=== PATIENT | male | born 1965 | race African-American/Black ===

== ENCOUNTER 2016-10-23 10:20 | Inpatient (IN) | payer OTHER ==
[2016-10-23 10:35] VITALS: BMI 27.2
--- NOTE | 2016-10-23 13:34 | HP ---
CIWA Score - CIWA Score Nausea/Vomitin Muscle Tremors: 3 Anxiety: 3 Agitation: 3 Paroxysmal Sweats: 2 Orientation: 0-Oriented Tacttile Disturbances: 2-Mild Itch/Numbness/Burn Auditory Disturbances: 2-Mild Harshness/Frighten Visual Disturbances: 2-Mild Sensitivity Headache: 2-Mild CIWA-Ar Total Score: 22 Admission ROS BHS - HPI Chief Complaint: I NEED HELP TO STOP DRINKING ALCOHOL,COCAINE AND MARIJUANA Allergies/Adverse Reactions: Allergies Allergy/AdvReac Type Severity Reaction Status Date / Time sulfamethoxazole Allergy Intermediate Itching Verified 10/23/16 12:28 [From Bactrim DS] trimethoprim Allergy Intermediate Itching Verified 10/23/16 12:28 [From Bactrim DS] Fish Containing Products Allergy Mild Itching Verified 10/23/16 12:28 History of Present Illness: THIS 51 YEARS OLD MALE WITH ALCOHOL,COCAINE AND MARIJUANA DEPENDENCE,WITHDRAWAL SYMPTOM, LAST DETOX 04/09/16 04/13/16 NICOTINE DEPENDENCE BIPOLAR DISORDER LONGEST SOBRIETY 2 AND HALF YEARS HIV SINCE 1988 Exam Limitations: No Limitations - Ebola screening Have you traveled outside of the country in the last 21 days: No Have you been sick,other than usual withdrawal symptoms: No - Review of Systems Constitutional: Chills, Loss of Appetite, Malaise, Night Sweats, Changes in sleep, Weakness, Unintentional Wgt. Loss EENT: reports: Nose Congestion Respiratory: reports: No Symptoms reported Cardiac: reports: Palpitations GI: reports: Nausea, Poor Appetite, Vomiting, Abdominal cramping : reports: No Symptoms Reported Musculoskeletal: reports: Back Pain, Muscle Pain Integumentary: reports: Dryness Neuro: reports: Headache, Tremors Endocrine: reports: Other (HYPOTHROIDISM) Hematology: reports: Other (HIV) Psychiatric: reports: Judgement Intact, Mood/Affect Appropiate, Anxious, Depressed, other (BIPOLAR DISORDER) Patient History - Patient Medical History Hx Anemia: No Hx Asthma: No Hx Chronic Obstructive Pulmonary Disease (COPD): No Hx Cancer: No Hx Cardiac Disorders: No Hx Hypertension: Yes (ON MED) Hx Hypercholesterolemia: Yes (ON MED) Hx Pacemaker: No HX Cerebrovascular Accident: No Hx Seizures: Yes (alcohol related-last episode was in 12/2015) Hx Dementia: No Hx Diabetes: No Hx Gastrointestinal Disorders: Yes (acid reflux) Hx Liver Disease: No Hx Genitourinary Disorders: No Hx Sexually Transmitted Disorders: Yes (gonorrhea and syphilis) Hx Renal Disease (ESRD): No Hx Thyroid Disease: Yes (hypothyroidism) Hx Human Immunodeficiency Virus (HIV): Yes (since 1988/ undetectable tcell 325) Hx Hepatitis C: No Hx Depression: Yes Hx Suicide Attempt: No Hx Bipolar Disorder: Yes (ON MED) Hx Schizophrenia: No Other Medical History: NO SUICIDAL,NO HOMICIDAL - Patient Surgical History Past Surgical History: Yes Hx Neurologic Surgery: No Hx Cataract Extraction: No Hx Cardiac Surgery: No Hx Lung Surgery: No Hx Breast Surgery: No Hx Breast Biopsy: No Hx Abdominal Surgery: Yes (repair of umbilical hernia) Hx Appendectomy: No Hx Cholecystectomy: No Hx Genitourinary Surgery: No Hx Section: No Hx Orthopedic Surgery: No Anesthesia Reaction: No - PPD History Previous Implant?: Yes Documented Results: Negative w/proof Implanted On Prior [facility] Admission?: Yes Date: 01/17/16 Results: 0 mm PPD to be Administered?: No - Smoking Cessation Smoking history: Current every day smoker Have you smoked in the past 12 months: Yes Aproximately how many cigarettes per day: 20 Cigars Per Day: 0 Hx Chewing Tobacco Use: No Initiated information on smoking cessation: Yes 'Breaking Loose' booklet given: 10/23/16 - Substance & Tx. History Hx Alcohol Use: Yes Substance Use Type: Alcohol, Cocaine, Marijuana - Substances Abused Crack Route: Smoking Frequency: Daily Amount used: $30 Age of first use: 22 Date of Last Use: 10/23/16 Alcohol-vodka/beer Route: Oral Frequency: Daily Amount used: 1/2 gal./1-6 pk. Age of first use: 12 Date of Last Use: 10/23/16 Marijuana Route: Smoking Frequency: Daily Amount used: $20 Age of first use: 17 Date of Last Use: 10/21/16 Family Disease History - Family Disease History Family Disease History: Diabetes: Grandparent, Father (alcohol,), Mother (alcohol,), Other: Father, Mother Admission Physical Exam BHS - Vital Signs Vital Signs: Vital Signs - 24 hr 10/23/16 10:33 Temperature 97.1 F L Pulse Rate 94 H Respiratory 18 Rate Blood Pressure 161/113 - Physical General Appearance: Yes: Moderate Distress, Alcohol on Breath, Intoxicated, Tremorous, Irritable, Sweating HEENTM: Yes: Nasal Congestion, Rhinorrhea Respiratory: Yes: Lungs Clear, Normal Breath Sounds, No Respiratory Distress Neck: Yes: Within Normal Limits Breast: Yes: Within Normal Limits Cardiology: Yes: Within Normal Limits, Regular Rhythm, Regular Rate, S1, S2 Abdominal: Yes: Within Normal Limits, Normal Bowel Sounds, Non Tender, Flat, Soft, Surgical Scar Genitourinary: Yes: Within Normal Limits Back: Yes: Normal Inspection, Muscle Spasm Musculoskeletal: Yes: Back pain, Muscle Pain Extremities: Yes: Within Normal Limits, Normal Capillary Refill, Normal Range of Motion, Tremors Neurological: Yes: Within Normal Limits, boat fueler II-XII NML intact, Fully Oriented, Alert, Motor Strength 5/5 Integumentary: Yes: Dry Lymphatic: Yes: Within Normal Limits - Diagnostic (1) Alcohol dependence with uncomplicated withdrawal Current Visit: No Status: Acute (2) Cocaine dependence Current Visit: No Status: Acute Qualifiers: Substance use status: uncomplicated Qualified Code(s): F14.20 - Cocaine dependence, uncomplicated (3) Nicotine dependence Status: Acute Qualifiers: Nicotine product type: cigarettes Substance use status: uncomplicated Qualified Code(s): F17.210 - Nicotine dependence, cigarettes, uncomplicated (4) Essential hypertension Current Visit: No Status: Chronic (5) Hypercholesterolemia Current Visit: No Status: Chronic (6) Hypothyroidism Current Visit: No Status: Chronic (7) GERD (gastroesophageal reflux disease) Current Visit: Yes Status: Acute (8) Weight loss Current Visit: Yes Status: Acute (9) AIDS (acquired immunodeficiency syndrome) Current Visit: Yes Status: Acute Cleared for Admission [facility] - Detox or Rehab [facility] Level of Care: Medically Managed Detox Regimen/Protocol: Librium [facility] Breath Alcohol Content Breath Alcohol Content: 0.139 Urine Drug Screen - Results Drug Screen Negative: No Urine Drug Screen Results: THC-Marijuana, EMIR-Cocaine
[2016-10-23] MEDS ORDERED: MENTHOL/PHENOL 1 EACH UD MM PRN (13:50)
[2016-10-23] MEDS ORDERED: MAGNESIUM HYDROX 2400MG/30ML ORAL SUSPENSION 30 ML CUP PO PRN (13:50)
[2016-10-23] MEDS ORDERED: P-EPHED 60MG/TRIPROLIDI 2.5MG TABLET PO PRN (13:50)
[2016-10-23] MEDS ORDERED: diphenhydrAMINE HCL 50 MG CAPSULE PO PRN (13:50)
[2016-10-23] MEDS ORDERED: ACETAMINOPHEN 325 MG TABLET (FP) PO PRN (13:50)
[2016-10-23] MEDS ORDERED: chlordiazePOXIDE HCL 25 MG CAPSULE PO PRN (13:50)
[2016-10-23] MEDS ORDERED: guaiFENesin/D-METHORPHAN HB 10 ML UNIT-DOSE CUPS PO PRN (13:50)
[2016-10-23] MEDS ORDERED: IBUPROFEN 400 MG TABLET (FP) PO PRN (13:50)
[2016-10-23] MEDS ORDERED: NICOTINE POLACRILEX 2 MG GUM BUC PRN (13:50)
[2016-10-23] MEDS ORDERED: LOPERAMIDE HCL 2 MG CAPSULE PO PRN (13:50)
[2016-10-23] MEDS ORDERED: hydrOXYzine PAMOATE 25 MG CAPSULE (FP) PO PRN (13:50)
[2016-10-23] MEDS ORDERED: MAGNESIUM CITRATE 300 ML BOTTLE PO PRN (13:50)
[2016-10-23] MEDS ORDERED: chlordiazePOXIDE HCL 25 MG CAPSULE PO ONE (13:55)
[2016-10-23] MEDS: MAG HYDROX/AL HYDROX/SIMETH 30 ML UNIT-DOSE CUP PO PRN ×2 (14:23→20:34)
[2016-10-23] MEDS: NICOTINE 21 MG/24 HOURS TOPICAL PATCH TD SCH (14:23)
--- NOTE | 2016-10-23 15:35 | EKG ---
Test Reason : Blood Pressure : / mmHG Vent. Rate : 083 BPM Atrial Rate : 083 BPM P-R Int : 164 ms QRS Dur : 104 ms QT Int : 404 ms P-R-T Axes : 071 030 024 degrees QTc Int : 474 ms NORMAL SINUS RHYTHM POSSIBLE LEFT ATRIAL ENLARGEMENT LEFT VENTRICULAR HYPERTROPHY ABNORMAL ECG NO PREVIOUS ECGS AVAILABLE Confirmed by JONY CALZADA, KENDRA ([id number]) on 10/23/2016 3:35:14 PM Referred By: Confirmed By:KENDRA BORGES MD
[2016-10-23] MEDS: chlordiazePOXIDE HCL 25 MG CAPSULE PO SCH ×2 (17:21→22:28)
[2016-10-23 20:30] LABS: URINE APPEARANCE CLEAR; URINE BILIRUBIN NEGATIVE (NEGATIVE); URINE COLOR STRAW; URINE GLUCOSE (UA) NEGATIVE (NEGATIVE); URINE KETONE NEGATIVE (NEGATIVE); URINE LEUK ESTERASE NEGATIVE (NEGATIVE); URINE NITRITE NEGATIVE (NEGATIVE); URINE UROBILINOGEN NEGATIVE E.U./dl (0.2-1.0)
[2016-10-23 20:36] LABS: URINE BLOOD 1+ (NEGATIVE); URINE PROTEIN 1+ (NEGATIVE)
[2016-10-23 20:46] LABS: URINE RBC 2 /hpf (0-3); URINE WBC <1 /hpf (3-5)
[2016-10-23] MEDS ORDERED: METOPROLOL SUCCINATE 25 MG TAB.SR.24H (FP) PO SCH (22:00)
[2016-10-23] MEDS: ATORVASTATIN CA 40 MG TABLET (FP) PO SCH (22:28)
[2016-10-23] MEDS: THIAMINE HCL 100 MG TABLET (FP) PO SCH (22:28)
[2016-10-23] MEDS: METOPROLOL SUCCINATE 25 MG TAB.SR.24H (FP) PO SCH (23:02)
[2016-10-24] MEDS ORDERED: LEVOTHYROXINE NA 100 MCG TABLET (FP) ONE (05:27)
[2016-10-24] MEDS ORDERED: LEVOTHYROXINE NA 25 MCG TABLET (FP) ONE (05:27)
[2016-10-24] MEDS: LEVOTHYROXINE 75 MCG, LEVOTHYROXINE 100 MCG PO SCH (06:11)
[2016-10-24] MEDS: chlordiazePOXIDE HCL 25 MG CAPSULE PO SCH ×4 (06:12→22:24)
[2016-10-24 09:45] LABS: MCH 31.3 pg (25.7-33.7); MCHC 33.4 g/dl (32.0-35.9); MEAN CELL VOLUME 93.7 fl (80-96); MEAN PLT VOLUME 11.2 fl (7.5-11.1); PLATELET COUNT 160 K/MM3 (134-434); RDW 14.7 % (11.9-15.9); WHITE BLOOD COUNT 8.1 K/mm3 (4.0-10.0)
[2016-10-24] MEDS ORDERED: LEVOTHYROXINE NA 175 MCG TABLET PO SCH (10:00)
[2016-10-24] MEDS: PRENATAL VITAMINS W/ FOLIC ACID TABLET (FP) PO SCH (10:29)
[2016-10-24] MEDS: METOPROLOL SUCCINATE 25 MG TAB.SR.24H (FP) PO SCH ×2 (10:29→22:25)
[2016-10-24] MEDS: NICOTINE 21 MG/24 HOURS TOPICAL PATCH TD SCH (10:29)
--- NOTE | 2016-10-24 11:04 | PN ---
[facility] CIWA - CIWA Score Nausea/Vomitin-No Nausea/No Vomiting Muscle Tremors: 4-Moderate,w/Arms Extend Anxiety: 4-Mod. Anxious/Guarded Agitation: 4-Moderately Restless Paroxysmal Sweats: 1-Minimal Palms Moist Orientation: 0-Oriented Tacttile Disturbances: 3-Moderate Itch/Numb/Burn Auditory Disturbances: 0-None Visual Disturbances: 0-None Headache: 0-None Present CIWA-Ar Total Score: 16 BHS Progress Note (SOAP) Subjective: ANXIETY,SWEATS,TREMORS,FATIGUE. Objective: 10/24/16 11:03 Vital Signs Temperature 97 F L 10/24/16 10:00 Pulse Rate 91 H 10/24/16 10:00 Respiratory Rate 20 10/24/16 10:00 Blood Pressure 147/100 10/24/16 10:00 O2 Sat by Pulse Oximetry (%) Laboratory Last Values WBC 8.1 K/mm3 (4.0-10.0) D 10/24/16 06:00 RBC 5.13 M/mm3 (4.00-5.60) 10/24/16 06:00 Hgb 16.1 GM/dL (11.7-16.9) 10/24/16 06:00 Hct 48.1 % (35.4-49) 10/24/16 06:00 MCV 93.7 fl (80-96) 10/24/16 06:00 MCHC 33.4 g/dl (32.0-35.9) 10/24/16 06:00 RDW 14.7 % (11.9-15.9) 10/24/16 06:00 Plt Count 160 K/MM3 (134-434) 10/24/16 06:00 MPV 11.2 fl (7.5-11.1) H 10/24/16 06:00 Urine Color Straw 10/23/16 13:00 Urine Appearance Clear 10/23/16 13:00 Urine pH 6.0 (5.0-8.0) 10/23/16 13:00 Ur Specific [place] 1.003 (1.001-1.035) 10/23/16 13:00 Urine Protein 1+ (NEGATIVE) H 10/23/16 13:00 Urine Glucose (UA) Negative (NEGATIVE) 10/23/16 13:00 Urine Ketones Negative (NEGATIVE) 10/23/16 13:00 Urine Blood 1+ (NEGATIVE) H 10/23/16 13:00 Urine Nitrite Negative (NEGATIVE) 10/23/16 13:00 Urine Bilirubin Negative (NEGATIVE) 10/23/16 13:00 Urine Urobilinogen Negative E.U./dl (0.2-1.0) 10/23/16 13:00 Ur Leukocyte Esterase Negative (NEGATIVE) 10/23/16 13:00 Urine RBC 2 /hpf (0-3) 10/23/16 13:00 Urine WBC <1 /hpf (3-5) 10/23/16 13:00 RPR Titer Nonreactive (NONREACTIVE) 10/24/16 06:00 Assessment: 10/24/16 11:03 WITHDRAWAL SX Plan: CONTINUE DETOX
[2016-10-24 12:11] LABS: ALK PHOS 101 U/L (45-117); ANION GAP 13 (8-16); BILIRUBIN,TOTAL 0.6 mg/dL (0.2-1.0); CALCIUM 8.8 mg/dL (8.5-10.1); CO2 24 mmol/L (21-32); CREATININE 1.2 mg/dL (0.7-1.3); GLUCOSE,RANDOM 66 mg/dL (74-106); SGOT/AST 120 U/L (15-37); SGPT/ALT 88 U/L (12-78); TOT PROT 8.3 g/dl (6.4-8.2)
[2016-10-24] MEDS ORDERED: chlordiazePOXIDE HCL 25 MG CAPSULE PO ONE (14:00)
--- NOTE | 2016-10-24 16:03 | CONSULT ---
[facility] Psychiatric Consult - Data Date of interview: 10/24/16 Admission source: [facility] Identifying data: Another admission to [facility] for this 51 y/o AA male seeking detox treatment on for alcohol,marijuana and cocaine dependence.Patient is single,a father of seven,domiciled,unemployed and supported on SSI benefits. Substance Abuse History: - Smoking Cessation. Smoking history: Current every day smoker. Have you smoked in the past 12 months: Yes. Aproximately how many cigarettes per day: 20. Cigars Per Day: 0. Hx Chewing Tobacco Use: No. Initiated information on smoking cessation: Yes. 'Breaking Loose' booklet given : 10/23/16. - Substance & Tx. History. Hx Alcohol Use: Yes. Substance Use Type: Alcohol, Cocaine, Marijuana. - Substances Abused. Crack. Route: Smoking. Frequency: Daily. Amount used: $30. Age of first use: 22. Date of Last Use: 10/23/16. Alcohol-vodka/beer. Route: Oral. Frequency: Daily. Amount used: 1/2 gal./1-6 pk. Age of first use: 12. Date of Last Use: . Marijuana. Route: Smoking. Frequency: Daily. Amount used: $20. Age of first use: 17. Date of Last Use: 10/21/16. Confirmed by patient. Medical History: History of alcohol-related seizures (1989),HTN,hypothyroidism, hypercholesterolemia and HIV infection since 1988. Psychiatric History: [place] [facility] [place]set of [place] illness at age 22 (admitted to [facility] in [facility]).Diagnosed with Bipolar Disorder.Mr Hwang is followed at the [facility] clinic,in [facility],for medication management.He states that his regimen has been changed to risperdal 3 mg/hs (last taken three days ago as per self-report.Noted history of suicide attempt via jumping onto the train tracks (1991). Physical/Sexual Abuse/Trauma History: Patient denies. Additional Comment: Urine Drug Screen Results: THC-Marijuana, EMIR-Cocaine.Noted. Mental Status Exam - Mental Status Exam Alert and Oriented to: Time, Place, Person Cognitive Function: Good Patient Appearance: Unkempt, Disheveled Mood: Withdrawn Affect: Normal Range Patient Behavior: Fatigued, Cooperative Speech Pattern: Clear Voice Loudness: Normal Thought Process: Goal Oriented Thought Disorder: Not Present Hallucinations: Denies Suicidal Ideation: Denies Homicidal Ideation: Denies Insight/Judgement: Poor Sleep: Fair Appetite: Good Muscle strength/Tone: Normal Gait/Station: Normal Psychiatric Findings - Problem List ([place] 1, 2,3) (1) Alcohol dependence with uncomplicated withdrawal Current Visit: Yes Status: Acute (2) Cocaine dependence Current Visit: Yes Status: Acute Qualifiers: Substance use status: uncomplicated Qualified Code(s): F14.20 - Cocaine dependence, uncomplicated (3) Nicotine dependence Current Visit: Yes Status: Acute Qualifiers: Nicotine product type: cigarettes Substance use status: uncomplicated Qualified Code(s): F17.210 - Nicotine dependence, cigarettes, uncomplicated (4) Substance induced mood disorder Current Visit: Yes Status: Acute (5) Bipolar disorder Current Visit: Yes Status: Chronic (6) AIDS (acquired immunodeficiency syndrome) Current Visit: Yes Status: Chronic (7) GERD (gastroesophageal reflux disease) Current Visit: Yes Status: Chronic (8) Essential hypertension Current Visit: Yes Status: Chronic (9) Hypercholesterolemia Current Visit: Yes Status: Chronic (10) Hypothyroidism Current Visit: Yes Status: Chronic - Initial Treatment Plan Initial Treatment Plan: Psycoeducation.detoxification.Medications : risperdal 2 mg po hs.Side effects/benefits discussed with patient.Made aware of potential fo occurrence of gynecomastia,galactorrhea,sexual impotence,abnormal involuntary movements and metabolic syndrome.Patient agrees with this careplan.Observation.
[2016-10-24] MEDS: ATORVASTATIN CA 40 MG TABLET (FP) PO SCH (22:24)
[2016-10-24] MEDS: THIAMINE HCL 100 MG TABLET (FP) PO SCH (22:24)
[2016-10-24] MEDS: risperiDONE 2 MG TABLET PO SCH (22:25)
[2016-10-25] MEDS ORDERED: LEVOTHYROXINE NA 25 MCG TABLET (FP) ONE (03:59)
[2016-10-25] MEDS ORDERED: LEVOTHYROXINE NA 100 MCG TABLET (FP) ONE (03:59)
[2016-10-25] MEDS: chlordiazePOXIDE HCL 25 MG CAPSULE PO SCH ×2 (05:39→10:10)
[2016-10-25] MEDS: LEVOTHYROXINE 75 MCG, LEVOTHYROXINE 100 MCG PO SCH (06:00)
[2016-10-25] MEDS ORDERED: cloNIDine HCL 0.1 MG TABLET PO ONE (07:31)
--- NOTE | 2016-10-25 07:46 | PN ---
BHS Progress Note Note: Last Vital Signs Temp Pulse Resp BP Pulse Ox 97.1 F L 96 H 18 154/100 10/25/16 06:33 10/25/16 06:33 10/25/16 06:33 10/25/16 06:33 BP ELEVATED CLONIDINE 0.1MG ONE TIME DOSE ORDERED WILL CONTINUE TO MONITOR.
[2016-10-25] MEDS: NICOTINE 21 MG/24 HOURS TOPICAL PATCH TD SCH (10:10)
[2016-10-25] MEDS: METOPROLOL SUCCINATE 25 MG TAB.SR.24H (FP) PO SCH ×2 (10:10→23:04)
[2016-10-25] MEDS: PRENATAL VITAMINS W/ FOLIC ACID TABLET (FP) PO SCH (10:10)
--- NOTE | 2016-10-25 13:44 | PN ---
S CIWA - CIWA Score Nausea/Vomitin Muscle Tremors: 3 Anxiety: 2 Agitation: 0-Normal Activity Paroxysmal Sweats: 4-Forehead w/Sweat Beads Orientation: 1-Uncertain about Date Tacttile Disturbances: 0-None Auditory Disturbances: 3-Moderate Harsh/Frighten Visual Disturbances: 0-None Headache: 0-None Present CIWA-Ar Total Score: 16 BHS Progress Note (SOAP) Subjective: Diarrhea, Nausea, Tremors, Body aches, Sweating. Objective: PT. A & O X 2 (DISORIENTED ABOUT DAY / DATE). 10/25/16 13:39 Vital Signs Temperature 96.1 F L 10/25/16 13:18 Pulse Rate 94 H 10/25/16 13:18 Respiratory Rate 19 10/25/16 13:18 Blood Pressure 149/107 10/25/16 13:18 O2 Sat by Pulse Oximetry (%) Laboratory Last Values WBC 8.1 K/mm3 (4.0-10.0) D 10/24/16 06:00 RBC 5.13 M/mm3 (4.00-5.60) 10/24/16 06:00 Hgb 16.1 GM/dL (11.7-16.9) 10/24/16 06:00 Hct 48.1 % (35.4-49) 10/24/16 06:00 MCV 93.7 fl (80-96) 10/24/16 06:00 MCHC 33.4 g/dl (32.0-35.9) 10/24/16 06:00 RDW 14.7 % (11.9-15.9) 10/24/16 06:00 Plt Count 160 K/MM3 (134-434) 10/24/16 06:00 MPV 11.2 fl (7.5-11.1) H 10/24/16 06:00 Sodium 137 mmol/L (136-145) 10/24/16 06:00 Potassium 3.6 mmol/L (3.5-5.1) 10/24/16 06:00 Chloride 100 mmol/L (98-107) 10/24/16 06:00 Carbon Dioxide 24 mmol/L (21-32) 10/24/16 06:00 Anion Gap 13 (8-16) 10/24/16 06:00 BUN 12 mg/dL (7-18) D 10/24/16 06:00 Creatinine 1.2 mg/dL (0.7-1.3) 10/24/16 06:00 Creat Clearance w eGFR > 60 (>60) 10/24/16 06:00 Random Glucose 66 mg/dL (74-106) L D 10/24/16 06:00 Calcium 8.8 mg/dL (8.5-10.1) 10/24/16 06:00 Total Bilirubin 0.6 mg/dL (0.2-1.0) 10/24/16 06:00 AST 120 U/L (15-37) H D 10/24/16 06:00 ALT 88 U/L (12-78) H D 10/24/16 06:00 Alkaline Phosphatase 101 U/L (45-117) 10/24/16 06:00 Total Protein 8.3 g/dl (6.4-8.2) H 10/24/16 06:00 Albumin 4.0 g/dl (3.4-5.0) 10/24/16 06:00 Urine Color Straw 10/23/16 13:00 Urine Appearance Clear 10/23/16 13:00 Urine pH 6.0 (5.0-8.0) 10/23/16 13:00 Ur Specific [place] 1.003 (1.001-1.035) 10/23/16 13:00 Urine Protein 1+ (NEGATIVE) H 10/23/16 13:00 Urine Glucose (UA) Negative (NEGATIVE) 10/23/16 13:00 Urine Ketones Negative (NEGATIVE) 10/23/16 13:00 Urine Blood 1+ (NEGATIVE) H 10/23/16 13:00 Urine Nitrite Negative (NEGATIVE) 10/23/16 13:00 Urine Bilirubin Negative (NEGATIVE) 10/23/16 13:00 Urine Urobilinogen Negative E.U./dl (0.2-1.0) 10/23/16 13:00 Ur Leukocyte Esterase Negative (NEGATIVE) 10/23/16 13:00 Urine RBC 2 /hpf (0-3) 10/23/16 13:00 Urine WBC <1 /hpf (3-5) 10/23/16 13:00 RPR Titer Nonreactive (NONREACTIVE) 10/24/16 06:00 LABS NOTED. Assessment: 10/25/16 13:42 WITHDRAWAL SYMPTOMS. Plan: CONTINUE DETOX. ADVISED PATIENT TO FOLLOW-UP WITH MEDICAL MALPRACTICE PARALEGAL / REHAB MEDICAL PROVIDER AFTER DISCHARGE FROM DETOX FOR GENERAL MEDICAL ASSESSMENT AND FOR ANY ABNORMAL ADMISSION LAB VALUES.
[2016-10-25] MEDS: risperiDONE 1 MG TABLET (FP) PO SCH (16:25)
[2016-10-25] MEDS: MAG HYDROX/AL HYDROX/SIMETH 30 ML UNIT-DOSE CUP PO PRN (17:00)
[2016-10-25] MEDS: chlordiazePOXIDE 5 MG CAPSULE PO SCH ×2 (17:01→23:04)
[2016-10-25] MEDS: risperiDONE 2 MG TABLET PO SCH (23:04)
[2016-10-25] MEDS: THIAMINE HCL 100 MG TABLET (FP) PO SCH (23:04)
[2016-10-25] MEDS: ATORVASTATIN CA 40 MG TABLET (FP) PO SCH (23:04)
[2016-10-26] MEDS ORDERED: LEVOTHYROXINE NA 100 MCG TABLET (FP) ONE (04:29)
[2016-10-26] MEDS ORDERED: LEVOTHYROXINE NA 25 MCG TABLET (FP) ONE (04:29)
[2016-10-26] MEDS: chlordiazePOXIDE 5 MG CAPSULE PO SCH ×2 (06:10→10:25)
[2016-10-26] MEDS: LEVOTHYROXINE 75 MCG, LEVOTHYROXINE 100 MCG PO SCH (06:28)
[2016-10-26] MEDS: PRENATAL VITAMINS W/ FOLIC ACID TABLET (FP) PO SCH (10:25)
[2016-10-26] MEDS: METOPROLOL SUCCINATE 25 MG TAB.SR.24H (FP) PO SCH ×2 (10:26→22:36)
[2016-10-26] MEDS: NICOTINE 21 MG/24 HOURS TOPICAL PATCH TD SCH (10:26)
[2016-10-26] MEDS: MAG HYDROX/AL HYDROX/SIMETH 30 ML UNIT-DOSE CUP PO PRN ×2 (10:28→19:12)
[2016-10-26] MEDS: risperiDONE 1 MG TABLET (FP) PO SCH (12:30)
[2016-10-26 13:12] LABS: URINE APPEARANCE CLOUDY; URINE BILIRUBIN NEGATIVE (NEGATIVE); URINE BLOOD NEGATIVE (NEGATIVE); URINE COLOR YELLOW; URINE GLUCOSE (UA) NEGATIVE (NEGATIVE); URINE KETONE NEGATIVE (NEGATIVE); URINE LEUK ESTERASE NEGATIVE (NEGATIVE); URINE NITRITE NEGATIVE (NEGATIVE); URINE PROTEIN NEGATIVE (NEGATIVE); URINE UROBILINOGEN NEGATIVE E.U./dl (0.2-1.0)
--- NOTE | 2016-10-26 14:52 | PN ---
BHS Progress Note (SOAP) Subjective: Nausea, chills, tremor, sweating, interrupted sleep, anxiety Objective: 10/26/16 14:49 Last Vital Signs Temp Pulse Resp BP Pulse Ox 98 F 89 20 141/99 10/26/16 13:39 10/26/16 13:39 10/26/16 13:39 10/26/16 13:41 Laboratory Tests 10/23/16 10/24/16 10/24/16 13:00 06:00 06:00 WBC 8.1 D RBC 5.13 Hgb 16.1 Hct 48.1 MCV 93.7 MCHC 33.4 RDW 14.7 Plt Count 160 MPV 11.2 H Sodium 137 Potassium 3.6 Chloride 100 Carbon Dioxide 24 Anion Gap 13 BUN 12 D Creatinine 1.2 Creat Clearance w eGFR > 60 Random Glucose 66 L D Calcium 8.8 Total Bilirubin 0.6 AST 120 H D ALT 88 H D Alkaline Phosphatase 101 Total Protein 8.3 H Albumin 4.0 Urine Color Straw Urine Appearance Clear Urine pH 6.0 Ur Specific [place] 1.003 Urine Protein 1+ H Urine Glucose (UA) Negative Urine Ketones Negative Urine Blood 1+ H Urine Nitrite Negative Urine Bilirubin Negative Urine Urobilinogen Negative Ur Leukocyte Esterase Negative Urine RBC 2 Urine WBC <1 RPR Titer 10/24/16 10/26/16 06:00 08:32 WBC RBC Hgb Hct MCV MCHC RDW Plt Count MPV Sodium Potassium Chloride Carbon Dioxide Anion Gap BUN Creatinine Creat Clearance w eGFR Random Glucose Calcium Total Bilirubin AST ALT Alkaline Phosphatase Total Protein Albumin Urine Color Yellow Urine Appearance Cloudy Urine pH 8.0 D Ur Specific [place] 1.016 Urine Protein Negative Urine Glucose (UA) Negative Urine Ketones Negative Urine Blood Negative Urine Nitrite Negative Urine Bilirubin Negative Urine Urobilinogen Negative Ur Leukocyte Esterase Negative Urine RBC Urine WBC RPR Titer Nonreactive Labs noted: UA shows 1+ blood and 1+ protein Assessment: 10/26/16 14:51 Withdrawal symptoms Noted with microscopic hematuria and proteinuria Plan: Continue detox Microscopic hematuria: repeat UA Proteinuria: encouraged to drink lots of water, repeat UA
[2016-10-26] MEDS: chlordiazePOXIDE HCL 10 MG CAPSULE PO SCH ×2 (17:32→22:35)
[2016-10-26 20:30] LABS: URINE APPEARANCE CLEAR; URINE BILIRUBIN NEGATIVE (NEGATIVE); URINE BLOOD NEGATIVE (NEGATIVE); URINE COLOR YELLOW; URINE GLUCOSE (UA) NEGATIVE (NEGATIVE); URINE KETONE NEGATIVE (NEGATIVE); URINE LEUK ESTERASE NEGATIVE (NEGATIVE); URINE NITRITE NEGATIVE (NEGATIVE); URINE PROTEIN NEGATIVE (NEGATIVE); URINE UROBILINOGEN NEGATIVE E.U./dl (0.2-1.0)
[2016-10-26] MEDS: ATORVASTATIN CA 40 MG TABLET (FP) PO SCH (22:35)
[2016-10-26] MEDS: risperiDONE 2 MG TABLET PO SCH (22:36)
[2016-10-26] MEDS: THIAMINE HCL 100 MG TABLET (FP) PO SCH (22:36)
[2016-10-27] MEDS: chlordiazePOXIDE HCL 10 MG CAPSULE PO SCH ×2 (06:07→06:59)
[2016-10-27 06:26] VITALS: BP 151/107; PULSE 82; TEMP 96.1
[2016-10-27] MEDS ORDERED: LEVOTHYROXINE NA 25 MCG TABLET (FP) ONE (06:52)
[2016-10-27] MEDS ORDERED: LEVOTHYROXINE NA 100 MCG TABLET (FP) ONE (06:52)
[2016-10-27] MEDS: LEVOTHYROXINE 75 MCG, LEVOTHYROXINE 100 MCG PO SCH (07:00)
--- NOTE | 2016-10-27 10:52 | DS ---
[facility] Detox Discharge Summary Admission Date: 10/23/16 Discharge Date: 10/27/16 - History Present History: Alcohol Dependence, Cocaine Dependence Pertinent Past History: AIDS GERD Hypercholesterolemia Hypothyroidism - Physical Exam Results Vital Signs: Vital Signs Temperature 96.1 F L 10/27/16 06:26 Pulse Rate 82 10/27/16 06:26 Respiratory Rate 18 10/27/16 06:26 Blood Pressure 151/107 10/27/16 06:26 O2 Sat by Pulse Oximetry (%) Pertinent Admission Physical Exam Findings: Withdrawal sx Laboratory Last Values WBC 8.1 K/mm3 (4.0-10.0) D 10/24/16 06:00 RBC 5.13 M/mm3 (4.00-5.60) 10/24/16 06:00 Hgb 16.1 GM/dL (11.7-16.9) 10/24/16 06:00 Hct 48.1 % (35.4-49) 10/24/16 06:00 MCV 93.7 fl (80-96) 10/24/16 06:00 MCHC 33.4 g/dl (32.0-35.9) 10/24/16 06:00 RDW 14.7 % (11.9-15.9) 10/24/16 06:00 Plt Count 160 K/MM3 (134-434) 10/24/16 06:00 MPV 11.2 fl (7.5-11.1) H 10/24/16 06:00 Sodium 137 mmol/L (136-145) 10/24/16 06:00 Potassium 3.6 mmol/L (3.5-5.1) 10/24/16 06:00 Chloride 100 mmol/L (98-107) 10/24/16 06:00 Carbon Dioxide 24 mmol/L (21-32) 10/24/16 06:00 Anion Gap 13 (8-16) 10/24/16 06:00 BUN 12 mg/dL (7-18) D 10/24/16 06:00 Creatinine 1.2 mg/dL (0.7-1.3) 10/24/16 06:00 Creat Clearance w eGFR > 60 (>60) 10/24/16 06:00 Random Glucose 66 mg/dL (74-106) L D 10/24/16 06:00 Calcium 8.8 mg/dL (8.5-10.1) 10/24/16 06:00 Total Bilirubin 0.6 mg/dL (0.2-1.0) 10/24/16 06:00 AST 120 U/L (15-37) H D 10/24/16 06:00 ALT 88 U/L (12-78) H D 10/24/16 06:00 Alkaline Phosphatase 101 U/L (45-117) 10/24/16 06:00 Total Protein 8.3 g/dl (6.4-8.2) H 10/24/16 06:00 Albumin 4.0 g/dl (3.4-5.0) 10/24/16 06:00 Urine Color Yellow 10/26/16 Unknown Urine Appearance Clear 10/26/16 Unknown Urine pH 6.0 (5.0-8.0) D 10/26/16 Unknown Ur Specific [place] 1.023 (1.001-1.035) 10/26/16 Unknown Urine Protein Negative (NEGATIVE) 10/26/16 Unknown Urine Glucose (UA) Negative (NEGATIVE) 10/26/16 Unknown Urine Ketones Negative (NEGATIVE) 10/26/16 Unknown Urine Blood Negative (NEGATIVE) 10/26/16 Unknown Urine Nitrite Negative (NEGATIVE) 10/26/16 Unknown Urine Bilirubin Negative (NEGATIVE) 10/26/16 Unknown Urine Urobilinogen Negative E.U./dl (0.2-1.0) 10/26/16 Unknown Ur Leukocyte Esterase Negative (NEGATIVE) 10/26/16 Unknown Urine RBC 2 /hpf (0-3) 10/23/16 13:00 Urine WBC <1 /hpf (3-5) 10/23/16 13:00 RPR Titer Nonreactive (NONREACTIVE) 10/24/16 06:00 labs noted - Treatment Hospital Course: Detox Protocol Followed, Detoxed Safely, Responded well, Discharged Condition Good, Rehab Referral Accepted Patient has Accepted a Rehab Referral to: Rehab at [facility] - Medication Discharge Medications: Ambulatory Orders Atorvastatin Ca [Lipitor] 80 mg PO HS 01/05/12 Levothyroxine [Synthroid -] 175 mcg PO DAILY 01/05/12 Metoprolol Succinate [Toprol XL -] 25 mg PO BID 11/21/14 Risperidone [Risperdal] 3 mg PO DAILY 10/23/16 Risperidone [Risperdal] 2 mg PO HS #30 tablet 10/24/16 - Diagnosis (1) Alcohol dependence with uncomplicated withdrawal Current Visit: Yes Status: Acute (2) Cocaine dependence Current Visit: Yes Status: Acute Qualifiers: Substance use status: uncomplicated Qualified Code(s): F14.20 - Cocaine dependence, uncomplicated (3) Nicotine dependence Current Visit: Yes Status: Acute Qualifiers: Nicotine product type: cigarettes Substance use status: uncomplicated Qualified Code(s): F17.210 - Nicotine dependence, cigarettes, uncomplicated (4) AIDS (acquired immunodeficiency syndrome) Current Visit: Yes Status: Chronic (5) Essential hypertension Current Visit: Yes Status: Chronic (6) GERD (gastroesophageal reflux disease) Current Visit: Yes Status: Chronic (7) Hypercholesterolemia Current Visit: Yes Status: Chronic (8) Hypothyroidism Current Visit: Yes Status: Chronic (9) Substance induced mood disorder Current Visit: Yes Status: Acute (10) Bipolar disorder Current Visit: Yes Status: Chronic - AMA Did Patient Leave Against Medical Advice: No
== END 2016-10-27 09:08 | disposition home or self-care (01) | DRG 774 ==
LOC: YASAS 10:20 → Y3N 13:08
PROVIDERS: ADMIT Internal Medicine; ATTEND Nurse Practitioner Family
PROC: HZ2ZZZZ Detoxification Services for Substance Abuse Treatment (ICD-10-PCS; principal; 2016-10-23)
DX: F10.230 Alcohol dependence with withdrawal, uncomplicated (principal); F14.20 Cocaine dependence, uncomplicated; F12.20 Cannabis dependence, uncomplicated; F17.210 Nicotine dependence, cigarettes, uncomplicated; F19.24 Other psychoactive substance dependence with psychoactive substance-induced mood disorder; F31.9 Bipolar disorder, unspecified; B20 Human immunodeficiency virus [HIV] disease; I10 Essential (primary) hypertension; K21.9 Gastro-esophageal reflux disease without esophagitis; E78.00 Pure hypercholesterolemia, unspecified; E03.9 Hypothyroidism, unspecified; Z86.69 Personal history of other diseases of the nervous system and sense organs; Z87.438 Personal history of other diseases of male genital organs; Z87.898 Personal history of other specified conditions
CPT/HCPCS: 36415; 80053; 81003; 81015; 85027; 86593; 93005; 93010; J2794

== ENCOUNTER 2017-01-09 08:31 | Inpatient (IN) | payer OTHER ==
[2017-01-09 09:12] VITALS: BMI 27.7
--- NOTE | 2017-01-09 12:20 | HP ---
CIWA Score - CIWA Score Nausea/Vomitin Muscle Tremors: 3 Anxiety: 3 Agitation: 3 Paroxysmal Sweats: 1-Minimal Palms Moist Orientation: 0-Oriented Tacttile Disturbances: 2-Mild Itch/Numbness/Burn Auditory Disturbances: 2-Mild Harshness/Frighten Visual Disturbances: 2-Mild Sensitivity Headache: 2-Mild CIWA-Ar Total Score: 21 Admission ROS BHS - HPI Chief Complaint: i need help to stop drinking alcohol,cocaine and marijuana,seen at [place] last night Allergies/Adverse Reactions: Allergies Allergy/AdvReac Type Severity Reaction Status Date / Time sulfamethoxazole Allergy Intermediate Itching Verified 01/09/17 11:46 [From Bactrim DS] trimethoprim Allergy Intermediate Itching Verified 01/09/17 11:46 [From Bactrim DS] Fish Containing Products Allergy Mild Itching Verified 01/09/17 11:46 History of Present Illness: this 51 years old male with alcohol,cocaine and marijuana dependence,seeking detox,last detox [facility] 10/23/16 to 10/27/16 syncope alcohol related multiple medical problem hiv since 1988,htn,hypercholesterolemia,hypothroidism, gerd nicotine dependence weight loss longest period of sobriety 3 years bipolar disorder - Ebola screening Have you traveled outside of the country in the last 21 days: No Have you had contact with anyone from an Ebola affected area: No Have you been sick,other than usual withdrawal symptoms: No - Review of Systems Constitutional: Night Sweats, Changes in sleep, Unintentional Wgt. Loss EENT: reports: Nose Congestion Respiratory: reports: No Symptoms reported Cardiac: reports: No Symptoms Reported GI: reports: Diarrhea, Nausea, Vomiting, Abdominal cramping : reports: No Symptoms Reported Musculoskeletal: reports: Back Pain, Muscle Pain Integumentary: reports: Dryness Neuro: reports: Headache, Tremors Endocrine: reports: No Symptoms Reported Hematology: reports: No Symptoms Reported, Other (hiv) Psychiatric: reports: Judgement Intact, Orientated x3 (bipolar disorder) Patient History - Patient Medical History Hx Anemia: No Hx Asthma: No Hx Chronic Obstructive Pulmonary Disease (COPD): No Hx Cancer: No Hx Cardiac Disorders: No Hx Hypertension: Yes (on med) Hx Hypercholesterolemia: Yes (ON MED) Hx Pacemaker: No HX Cerebrovascular Accident: No Hx Seizures: No Hx Dementia: No Hx Diabetes: No Hx Gastrointestinal Disorders: Yes (acid reflux) Hx Liver Disease: No Hx Genitourinary Disorders: No Hx Sexually Transmitted Disorders: Yes (gonorrhea and syphilis) Hx Renal Disease (ESRD): No Hx Thyroid Disease: Yes (hypothyroidism) Hx Human Immunodeficiency Virus (HIV): Yes (since 1988/ undetectable tcell 325) Hx Hepatitis C: No Hx Depression: Yes Hx Suicide Attempt: No Hx Bipolar Disorder: Yes (ON MED) Hx Schizophrenia: No Other Medical History: no suicidal,no homocidal - Patient Surgical History Past Surgical History: Yes Hx Neurologic Surgery: No Hx Cataract Extraction: No Hx Cardiac Surgery: No Hx Lung Surgery: No Hx Breast Surgery: No Hx Breast Biopsy: No Hx Abdominal Surgery: Yes (repair of umbilical hernia) Hx Appendectomy: No Hx Cholecystectomy: No Hx Genitourinary Surgery: No Hx Section: No Hx Orthopedic Surgery: No Anesthesia Reaction: No - PPD History Previous Implant?: Yes Documented Results: Negative w/proof Implanted On Prior [facility] Admission?: Yes Date: 01/17/16 Results: 0 mm PPD to be Administered?: No - Smoking Cessation Smoking history: Current every day smoker Have you smoked in the past 12 months: Yes Aproximately how many cigarettes per day: 20 Cigars Per Day: 0 Hx Chewing Tobacco Use: No Initiated information on smoking cessation: Yes 'Breaking Loose' booklet given: 01/09/17 - Substance & Tx. History Hx Alcohol Use: Yes Hx Substance Use: No Substance Use Type: Alcohol, Cocaine, Marijuana Hx Substance Use Treatment: Yes ([facility] 10/23/16 to 10/27/16) - Substances Abused Crack Route: Smoking Frequency: 1-3 times last 30 days Amount used: $60 Age of first use: 22 Date of Last Use: 01/07/17 Alcohol-vodka/beer Route: Oral Frequency: Daily Amount used: 7 pts./2-3 (16 oz.) Age of first use: 12 Date of Last Use: 01/09/17 Marijuana Route: Smoking Frequency: 1-2 times per week Amount used: $10 Age of first use: 17 Date of Last Use: 01/08/17 Family Disease History - Family Disease History Family Disease History: Diabetes: Grandparent, Father (alcohol,), Mother (alcohol,), Other: Father, Mother Admission Physical Exam BHS - Vital Signs Vital Signs: Vital Signs - 24 hr 01/09/17 09:05 Temperature 97.0 F L Pulse Rate 97 H Respiratory 18 Rate Blood Pressure 160/100 - Physical General Appearance: Yes: Moderate Distress, Tremorous, Irritable, Sweating, Anxious HEENTM: Yes: Nasal Congestion, Rhinorrhea Respiratory: Yes: Lungs Clear, Normal Breath Sounds, No Respiratory Distress Neck: Yes: Within Normal Limits Breast: Yes: Within Normal Limits Cardiology: Yes: Within Normal Limits, Regular Rhythm, Regular Rate, S1, S2 Abdominal: Yes: Within Normal Limits, Normal Bowel Sounds, Non Tender, Soft Genitourinary: Yes: Within Normal Limits Back: Yes: Muscle Spasm Musculoskeletal: Yes: Back pain, Muscle Pain Extremities: Yes: Within Normal Limits, Normal Range of Motion, Tremors Neurological: Yes: Alert, Motor Strength 5/5 Integumentary: Yes: Dry Lymphatic: Yes: Within Normal Limits - Diagnostic (1) Alcohol dependence with uncomplicated withdrawal Current Visit: Yes Status: Acute (2) Cocaine dependence Current Visit: Yes Status: Acute Qualifiers: Substance use status: uncomplicated Qualified Code(s): F14.20 - Cocaine dependence, uncomplicated (3) Nicotine dependence Current Visit: Yes Status: Acute Qualifiers: Nicotine product type: cigarettes Substance use status: uncomplicated Qualified Code(s): F17.210 - Nicotine dependence, cigarettes, uncomplicated (4) Weight loss Current Visit: Yes Status: Chronic (5) AIDS (acquired immunodeficiency syndrome) Current Visit: No Status: Chronic (6) Bipolar disorder Current Visit: Yes Status: Chronic (7) Essential hypertension Current Visit: Yes Status: Chronic (8) GERD (gastroesophageal reflux disease) Current Visit: Yes Status: Chronic (9) Hypercholesterolemia Current Visit: Yes Status: Chronic (10) Hypothyroidism Current Visit: Yes Status: Chronic Cleared for Admission [facility] - Detox or Rehab [facility] Level of Care: Medically Managed Detox Regimen/Protocol: Librium [facility] Breath Alcohol Content Breath Alcohol Content: 0 Urine Drug Screen - Results Drug Screen Negative: No Urine Drug Screen Results: THC-Marijuana, EMIR-Cocaine, BZO-Benzodiazepines
[2017-01-09] MEDS ORDERED: MAGNESIUM HYDROX 2400MG/30ML ORAL SUSPENSION 30 ML CUP PO PRN (12:38)
[2017-01-09] MEDS ORDERED: hydrOXYzine PAMOATE 25 MG CAPSULE (FP) PO PRN (12:38)
[2017-01-09] MEDS ORDERED: LOPERAMIDE HCL 2 MG CAPSULE PO PRN (12:38)
[2017-01-09] MEDS ORDERED: MAGNESIUM CITRATE 300 ML BOTTLE PO PRN (12:38)
[2017-01-09] MEDS ORDERED: guaiFENesin/D-METHORPHAN HB 10 ML UNIT-DOSE CUPS PO PRN (12:38)
[2017-01-09] MEDS ORDERED: diphenhydrAMINE HCL 50 MG CAPSULE PO PRN (12:38)
[2017-01-09] MEDS ORDERED: P-EPHED 60MG/TRIPROLIDI 2.5MG TABLET PO PRN (12:38)
[2017-01-09] MEDS ORDERED: MENTHOL/PHENOL 1 EACH UD MM PRN (12:38)
[2017-01-09] MEDS ORDERED: IBUPROFEN 400 MG TABLET (FP) PO PRN (12:38)
[2017-01-09] MEDS ORDERED: chlordiazePOXIDE HCL 25 MG CAPSULE PO PRN (12:38)
[2017-01-09] MEDS ORDERED: chlordiazePOXIDE HCL 25 MG CAPSULE PO ONE (15:02)
[2017-01-09] MEDS: NICOTINE 21 MG/24 HOURS TOPICAL PATCH TD SCH (15:54)
[2017-01-09] MEDS ORDERED: ATORVASTATIN CA 40 MG TABLET (FP) ONE (21:59)
[2017-01-09] MEDS: chlordiazePOXIDE HCL 25 MG CAPSULE PO SCH ×2 (23:53→23:56)
[2017-01-09] MEDS: THIAMINE HCL 100 MG TABLET (FP) PO SCH (23:57)
[2017-01-09] MEDS: ATORVASTATIN CA 80 MG TABLET (FP) PO SCH (23:57)
[2017-01-10 00:03] LABS: URINE APPEARANCE CLEAR; URINE BILIRUBIN NEGATIVE (NEGATIVE); URINE COLOR LTYELLOW; URINE GLUCOSE (UA) NEGATIVE (NEGATIVE); URINE KETONE NEGATIVE (NEGATIVE); URINE LEUK ESTERASE NEGATIVE (NEGATIVE); URINE NITRITE NEGATIVE (NEGATIVE); URINE PROTEIN NEGATIVE (NEGATIVE); URINE UROBILINOGEN NEGATIVE E.U./dl (0.2-1.0)
[2017-01-10 00:04] LABS: URINE BLOOD 1+ (NEGATIVE)
[2017-01-10 00:05] LABS: URINE MUCUS RARE; URINE RBC 5 /hpf (0-3); URINE WBC <1 /hpf (3-5)
[2017-01-10] MEDS: chlordiazePOXIDE HCL 25 MG CAPSULE PO SCH ×4 (06:41→22:17)
[2017-01-10] MEDS ORDERED: LEVOTHYROXINE NA 25 MCG TABLET (FP) ONE (06:43)
[2017-01-10] MEDS ORDERED: LEVOTHYROXINE NA 100 MCG TABLET (FP) ONE (06:43)
[2017-01-10] MEDS: LEVOTHYROXINE 100 MCG, LEVOTHYROXINE 75 MCG PO SCH (07:04)
[2017-01-10] MEDS ORDERED: LEVOTHYROXINE NA 175 MCG TABLET PO SCH (10:00)
--- NOTE | 2017-01-10 10:03 | EKG ---
Test Reason : Blood Pressure : / mmHG Vent. Rate : 060 BPM Atrial Rate : 060 BPM P-R Int : 170 ms QRS Dur : 104 ms QT Int : 432 ms P-R-T Axes : 015 029 009 degrees QTc Int : 432 ms NORMAL SINUS RHYTHM MODERATE VOLTAGE CRITERIA FOR LVH, MAY BE NORMAL VARIANT NON-SPECIFIC INTRA-VENTRICULAR CONDUCTION DELAY Confirmed by JG GUPTA MD ([id number]) on 01/10/2017 10:03:30 AM Referred By: Confirmed By:JG GUPTA MD
[2017-01-10 10:15] LABS: MCH 31.2 pg (25.7-33.7); MCHC 32.8 g/dl (32.0-35.9); MEAN PLT VOLUME 11.2 fl (7.5-11.1); PLATELET COUNT 129 K/MM3 (134-434); RDW 14.9 % (11.9-15.9); WHITE BLOOD COUNT 4.4 K/mm3 (4.0-10.0)
[2017-01-10] MEDS: METOPROLOL SUCCINATE 25 MG TAB.SR.24H (FP) PO SCH (10:15)
[2017-01-10] MEDS: PRENATAL VITAMINS W/ FOLIC ACID TABLET (FP) PO SCH (10:15)
[2017-01-10] MEDS: NICOTINE 21 MG/24 HOURS TOPICAL PATCH TD SCH (10:18)
[2017-01-10 10:45] LABS: ALBUMIN 3.4 g/dl (3.4-5.0); ANION GAP 10 (8-16); CALCIUM 8.8 mg/dL (8.5-10.1); CO2 26 mmol/L (21-32); GLUCOSE,RANDOM 87 mg/dL (74-106)
[2017-01-10 10:48] LABS: ALK PHOS 80 U/L (45-117); BILIRUBIN,TOTAL 0.5 mg/dL (0.2-1.0); CREATININE 1.3 mg/dL (0.7-1.3); SGOT/AST 18 U/L (15-37); SGPT/ALT 23 U/L (12-78)
[2017-01-10] MEDS: EMTRICITABINE 200MG/TENOFOVIR 300MG PO SCH (10:58)
[2017-01-10] MEDS: PATIENT'S OWN MEDICATION (NON-FORMULARY) (Dolutegravir Sodium 50 MG) PO SCH (10:59)
--- NOTE | 2017-01-10 14:23 | PN ---
S CIWA - CIWA Score Nausea/Vomitin-No Nausea/No Vomiting Muscle Tremors: 3 Anxiety: 4-Mod. Anxious/Guarded Agitation: 4-Moderately Restless Paroxysmal Sweats: 3 Orientation: 0-Oriented Tacttile Disturbances: 0-None Auditory Disturbances: 0-None Visual Disturbances: 0-None Headache: 0-None Present CIWA-Ar Total Score: 14 BHS Progress Note (SOAP) Subjective: anxiety,tremors,sweating,interrupted sleep,restless Objective: 01/10/17 14:22 Vital Signs - 8 hr 01/10/17 01/10/17 06:23 10:00 Temperature 97.5 F L 97.0 F L Pulse Rate 71 81 Respiratory 18 20 Rate Blood Pressure 128/81 156/110 Laboratory Tests 01/09/17 01/10/17 01/10/17 20:34 08:00 08:00 WBC 4.4 D RBC 4.73 Hgb 14.7 Hct 44.9 MCV 95.0 MCHC 32.8 RDW 14.9 Plt Count 129 L MPV 11.2 H Sodium 140 Potassium 4.0 Chloride 104 Carbon Dioxide 26 Anion Gap 10 BUN 15 D Creatinine 1.3 Creat Clearance w eGFR 58.67 Random Glucose 87 D Calcium 8.8 Total Bilirubin 0.5 AST 18 D ALT 23 D Alkaline Phosphatase 80 D Total Protein 7.0 Albumin 3.4 Urine Color Ltyellow Urine Appearance Clear Urine pH 6.0 Ur Specific [place] 1.020 Urine Protein Negative Urine Glucose (UA) Negative Urine Ketones Negative Urine Blood 1+ H Urine Nitrite Negative Urine Bilirubin Negative Urine Urobilinogen Negative Ur Leukocyte Esterase Negative Urine RBC 5 Urine WBC <1 Ur Epithelial Cells Rare Urine Mucus Rare labs noted Assessment: 01/10/17 14:22 Withdrawal sx. Plan: Continue detox
[2017-01-10] MEDS: ACETAMINOPHEN 325 MG TABLET (FP) PO PRN (17:34)
--- NOTE | 2017-01-10 18:50 | CONSULT ---
[facility] Psychiatric Consult - Data Date of interview: 01/10/17 Admission source: [facility] Identifying data: Another admission to [facility] for this 51 y/o AA male seeking detox treatment on for alcohol,marijuana and cocaine dependence.Patient is single,a father of seven,domiciled,unemployed and supported on SSI benefits. Substance Abuse History: - Smoking Cessation. Smoking history: Current every day smoker. Have you smoked in the past 12 months: Yes. Aproximately how many cigarettes per day: 20. Cigars Per Day: 0. Hx Chewing Tobacco Use: No. Initiated information on smoking cessation: Yes. 'Breaking Loose' booklet given : 01/09/17. - Substance & Tx. History. Hx Alcohol Use: Yes. Hx Substance Use : No. Substance Use Type: Alcohol, Cocaine, Marijuana. Hx Substance Use Treatment: Yes ([facility] 10/23/16 to 10/27/16). - Substances Abused. Crack. Route: Smoking. Frequency: 1-3 times last 30 days. Amount used: $60. Age of first use: 22. Date of Last Use: 01/07/17. Alcohol-vodka/beer. Route: Oral. Frequency: Daily. Amount used: 7 pts./2-3 (16 oz.). Age of first use: 12. Date of Last Use: 01/09/17. Marijuana. Route: Smoking. Frequency: 1- 2 times per week. Amount used: $10. Age of first use: 17. Date of Last Use: 01/08/17 Medical History: History of alcohol-related seizures (1989),hypertension, hypothyroidism,GERD,hypercholesterolemia and HIV infection since 1988.Noted additional history of treatment for gonorrhea + syphilis and umbilical herniorraphy. Psychiatric History: History of multiple psychiatric hospitalizations ([facility]) .Onset of mental illness at age 22 (admitted to [facility] in [facility] ).Diagnosed with Bipolar Disorder.Mr Hwang is currently followed at the [facility] mental health clinic,in [facility].Maintained on risperdal 3 mg/hs (last taken on 01/09/17, as per self-report).Noted history of a suicide attempt via jumping onto the train tracks (1991). Physical/Sexual Abuse/Trauma History: Patient denies. Additional Comment: Urine Drug Screen Results: THC-Marijuana, EMIR-Cocaine, BZO- Benzodiazepines.Noted. Mental Status Exam - Mental Status Exam Alert and Oriented to: Time, Place, Person Cognitive Function: Good Patient Appearance: Unkempt, Disheveled Mood: Hopeful, Euthymic Affect: Normal Range Patient Behavior: Fatigued, Cooperative Speech Pattern: Clear Voice Loudness: Normal Thought Process: Goal Oriented Thought Disorder: Not Present Hallucinations: Denies Suicidal Ideation: Denies Homicidal Ideation: Denies Insight/Judgement: Poor Sleep: Fair Appetite: Good Muscle strength/Tone: Normal Gait/Station: Normal Psychiatric Findings - Problem List ([place] 1, 2,3) (1) Bipolar disorder Status: Chronic (2) Alcohol dependence with uncomplicated withdrawal Status: Chronic (3) Cocaine dependence Status: Chronic Qualifiers: Substance use status: uncomplicated Qualified Code(s): F14.20 - Cocaine dependence, uncomplicated (4) Nicotine dependence Status: Chronic Qualifiers: Nicotine product type: cigarettes Substance use status: uncomplicated Qualified Code(s): F17.210 - Nicotine dependence, cigarettes, uncomplicated (5) Weight loss Status: Chronic (6) Acquired immune deficiency syndrome (AIDS) Status: Chronic Comment: not taking any medication (7) Essential hypertension Status: Chronic (8) GERD (gastroesophageal reflux disease) Status: Chronic (9) Hypercholesterolemia Status: Chronic (10) Hypothyroidism Status: Chronic - Initial Treatment Plan Initial Treatment Plan: Psychoeducation.Detoxification is in progress.Medications : risperdal 2 mg po hs + 1 mg po daily + cogentin 1 mg po bid.Side effects/benefits discussed with the patient.Made aware of potential for abnormal involuntary movements,akathisia,dystonias,dyskinesias,neuroleptic malignant syndrome,sexual impotence,galactorrhea,gynecomastia,cardiac adverse events (risperdal) and urinary hesitancy,blurred vision,constipation (cogentin) .Mr Hwang states that he has always responded to this regimen without occurrence of adverse effects and he intends to continue same.Patient is in agreement with this plan of care.Observation.
[2017-01-10] MEDS: ATORVASTATIN CA 80 MG TABLET (FP) PO SCH (22:17)
[2017-01-10] MEDS: THIAMINE HCL 100 MG TABLET (FP) PO SCH (22:17)
[2017-01-10] MEDS: BENZTROPINE MESYLATE 1 MG TABLET (FP) PO SCH (22:17)
[2017-01-10] MEDS: risperiDONE 2 MG TABLET PO SCH (22:17)
[2017-01-11] MEDS ORDERED: LEVOTHYROXINE NA 25 MCG TABLET (FP) ONE (04:41)
[2017-01-11] MEDS ORDERED: LEVOTHYROXINE NA 100 MCG TABLET (FP) ONE (04:42)
[2017-01-11] MEDS: LEVOTHYROXINE 100 MCG, LEVOTHYROXINE 75 MCG PO SCH (06:24)
[2017-01-11] MEDS: chlordiazePOXIDE HCL 25 MG CAPSULE PO SCH ×2 (06:24→10:09)
[2017-01-11] MEDS ORDERED: risperiDONE 2 MG TABLET PO SCH (10:00)
[2017-01-11] MEDS: METOPROLOL SUCCINATE 25 MG TAB.SR.24H (FP) PO SCH (10:09)
[2017-01-11] MEDS: NICOTINE 21 MG/24 HOURS TOPICAL PATCH TD SCH (10:09)
[2017-01-11] MEDS: PRENATAL VITAMINS W/ FOLIC ACID TABLET (FP) PO SCH (10:09)
[2017-01-11] MEDS: PATIENT'S OWN MEDICATION (NON-FORMULARY) (Dolutegravir Sodium 50 MG) PO SCH (10:09)
[2017-01-11] MEDS: risperiDONE 1 MG TABLET (FP) PO SCH (10:09)
[2017-01-11] MEDS: BENZTROPINE MESYLATE 1 MG TABLET (FP) PO SCH ×2 (10:10→22:09)
[2017-01-11] MEDS: EMTRICITABINE 200MG/TENOFOVIR 300MG PO SCH (10:10)
--- NOTE | 2017-01-11 14:14 | PN ---
[facility] CIWA - CIWA Score Nausea/Vomitin-No Nausea/No Vomiting Muscle Tremors: 3 Anxiety: 3 Agitation: 4-Moderately Restless Paroxysmal Sweats: 3 Orientation: 0-Oriented Tacttile Disturbances: 0-None Auditory Disturbances: 0-None Visual Disturbances: 0-None Headache: 0-None Present CIWA-Ar Total Score: 13 S Progress Note (SOAP) Subjective: Anxiety,tremors,sweating,interrupted sleep,body aches Objective: 01/11/17 14:13 Vital Signs - 8 hr 01/11/17 01/11/17 06:45 10:00 Temperature 97.2 F L 97.3 F L Pulse Rate 71 91 H Respiratory 16 18 Rate Blood Pressure 114/67 153/103 Laboratory Last Values WBC 4.4 K/mm3 (4.0-10.0) D 01/10/17 08:00 RBC 4.73 M/mm3 (4.00-5.60) 01/10/17 08:00 Hgb 14.7 GM/dL (11.7-16.9) 01/10/17 08:00 Hct 44.9 % (35.4-49) 01/10/17 08:00 MCV 95.0 fl (80-96) 01/10/17 08:00 MCHC 32.8 g/dl (32.0-35.9) 01/10/17 08:00 RDW 14.9 % (11.9-15.9) 01/10/17 08:00 Plt Count 129 K/MM3 (134-434) L 01/10/17 08:00 MPV 11.2 fl (7.5-11.1) H 01/10/17 08:00 Sodium 140 mmol/L (136-145) 01/10/17 08:00 Potassium 4.0 mmol/L (3.5-5.1) 01/10/17 08:00 Chloride 104 mmol/L (98-107) 01/10/17 08:00 Carbon Dioxide 26 mmol/L (21-32) 01/10/17 08:00 Anion Gap 10 (8-16) 01/10/17 08:00 BUN 15 mg/dL (7-18) D 01/10/17 08:00 Creatinine 1.3 mg/dL (0.7-1.3) 01/10/17 08:00 Creat Clearance w eGFR 58.67 (>60) 01/10/17 08:00 Random Glucose 87 mg/dL (74-106) D 01/10/17 08:00 Calcium 8.8 mg/dL (8.5-10.1) 01/10/17 08:00 Total Bilirubin 0.5 mg/dL (0.2-1.0) 01/10/17 08:00 AST 18 U/L (15-37) D 01/10/17 08:00 ALT 23 U/L (12-78) D 01/10/17 08:00 Alkaline Phosphatase 80 U/L (45-117) D 01/10/17 08:00 Total Protein 7.0 g/dl (6.4-8.2) 01/10/17 08:00 Albumin 3.4 g/dl (3.4-5.0) 01/10/17 08:00 Urine Color Ltyellow 01/09/17 20:34 Urine Appearance Clear 01/09/17 20:34 Urine pH 6.0 (5.0-8.0) 01/09/17 20:34 Ur Specific [place] 1.020 (1.005-1.025) 01/09/17 20:34 Urine Protein Negative (NEGATIVE) 01/09/17 20:34 Urine Glucose (UA) Negative (NEGATIVE) 01/09/17 20:34 Urine Ketones Negative (NEGATIVE) 01/09/17 20:34 Urine Blood 1+ (NEGATIVE) H 01/09/17 20:34 Urine Nitrite Negative (NEGATIVE) 01/09/17 20:34 Urine Bilirubin Negative (NEGATIVE) 01/09/17 20:34 Urine Urobilinogen Negative E.U./dl (0.2-1.0) 01/09/17 20:34 Ur Leukocyte Esterase Negative (NEGATIVE) 01/09/17 20:34 Urine RBC 5 /hpf (0-3) 01/09/17 20:34 Urine WBC <1 /hpf (3-5) 01/09/17 20:34 Ur Epithelial Cells Rare /hpf (FEW) 01/09/17 20:34 Urine Mucus Rare 01/09/17 20:34 RPR Titer Nonreactive (NONREACTIVE) 01/10/17 08:00 labs noted Assessment: 01/11/17 14:13 Withdrawal sx. Plan: Continue detox
[2017-01-11] MEDS: MAG HYDROX/AL HYDROX/SIMETH 30 ML UNIT-DOSE CUP PO PRN (16:13)
[2017-01-11] MEDS: chlordiazePOXIDE 5 MG CAPSULE PO SCH ×2 (17:26→22:09)
[2017-01-11] MEDS: ATORVASTATIN CA 80 MG TABLET (FP) PO SCH (22:09)
[2017-01-11] MEDS: ACETAMINOPHEN 325 MG TABLET (FP) PO PRN (22:09)
[2017-01-11] MEDS: THIAMINE HCL 100 MG TABLET (FP) PO SCH (22:09)
[2017-01-11] MEDS: risperiDONE 2 MG TABLET PO SCH (22:09)
[2017-01-12] MEDS ORDERED: LEVOTHYROXINE NA 25 MCG TABLET (FP) ONE (05:11)
[2017-01-12] MEDS ORDERED: LEVOTHYROXINE NA 100 MCG TABLET (FP) ONE (05:12)
[2017-01-12] MEDS: chlordiazePOXIDE 5 MG CAPSULE PO SCH ×2 (06:10→10:39)
[2017-01-12] MEDS: LEVOTHYROXINE 100 MCG, LEVOTHYROXINE 75 MCG PO SCH (06:11)
[2017-01-12] MEDS: PRENATAL VITAMINS W/ FOLIC ACID TABLET (FP) PO SCH (10:37)
[2017-01-12] MEDS: METOPROLOL SUCCINATE 25 MG TAB.SR.24H (FP) PO SCH (10:37)
[2017-01-12] MEDS: risperiDONE 1 MG TABLET (FP) PO SCH (10:37)
[2017-01-12] MEDS: BENZTROPINE MESYLATE 1 MG TABLET (FP) PO SCH ×2 (10:37→23:33)
[2017-01-12] MEDS: PATIENT'S OWN MEDICATION (NON-FORMULARY) (Dolutegravir Sodium 50 MG) PO SCH (10:38)
[2017-01-12] MEDS: EMTRICITABINE 200MG/TENOFOVIR 300MG PO SCH (10:38)
[2017-01-12] MEDS: NICOTINE 21 MG/24 HOURS TOPICAL PATCH TD SCH (10:39)
--- NOTE | 2017-01-12 11:13 | PN ---
BHS Progress Note (SOAP) Subjective: interrupted sleep, sweats, Objective: 01/12/17 11:12 Vital Signs Temperature 97.5 F L 01/12/17 10:00 Pulse Rate 100 H 01/12/17 10:00 Respiratory Rate 20 01/12/17 10:00 Blood Pressure 147/92 01/12/17 10:00 O2 Sat by Pulse Oximetry (%) Laboratory Tests 01/09/17 01/10/17 01/10/17 20:34 08:00 08:00 WBC 4.4 D RBC 4.73 Hgb 14.7 Hct 44.9 MCV 95.0 MCHC 32.8 RDW 14.9 Plt Count 129 L MPV 11.2 H Sodium 140 Potassium 4.0 Chloride 104 Carbon Dioxide 26 Anion Gap 10 BUN 15 D Creatinine 1.3 Creat Clearance w eGFR 58.67 Random Glucose 87 D Calcium 8.8 Total Bilirubin 0.5 AST 18 D ALT 23 D Alkaline Phosphatase 80 D Total Protein 7.0 Albumin 3.4 Urine Color Ltyellow Urine Appearance Clear Urine pH 6.0 Ur Specific [place] 1.020 Urine Protein Negative Urine Glucose (UA) Negative Urine Ketones Negative Urine Blood 1+ H Urine Nitrite Negative Urine Bilirubin Negative Urine Urobilinogen Negative Ur Leukocyte Esterase Negative Urine RBC 5 Urine WBC <1 Ur Epithelial Cells Rare Urine Mucus Rare RPR Titer 01/10/17 08:00 WBC RBC Hgb Hct MCV MCHC RDW Plt Count MPV Sodium Potassium Chloride Carbon Dioxide Anion Gap BUN Creatinine Creat Clearance w eGFR Random Glucose Calcium Total Bilirubin AST ALT Alkaline Phosphatase Total Protein Albumin Urine Color Urine Appearance Urine pH Ur Specific [place] Urine Protein Urine Glucose (UA) Urine Ketones Urine Blood Urine Nitrite Urine Bilirubin Urine Urobilinogen Ur Leukocyte Esterase Urine RBC Urine WBC Ur Epithelial Cells Urine Mucus RPR Titer Nonreactive pt aoxx3 in nad ambulating Assessment: 01/12/17 11:13 withdrawal sx's Plan: cont. detox increase fluids d/c in am
[2017-01-12] MEDS: chlordiazePOXIDE HCL 10 MG CAPSULE PO SCH ×2 (17:20→23:33)
[2017-01-12] MEDS: MAG HYDROX/AL HYDROX/SIMETH 30 ML UNIT-DOSE CUP PO PRN (20:28)
[2017-01-12] MEDS: ATORVASTATIN CA 80 MG TABLET (FP) PO SCH (23:34)
[2017-01-12] MEDS: THIAMINE HCL 100 MG TABLET (FP) PO SCH (23:34)
[2017-01-12] MEDS: risperiDONE 2 MG TABLET PO SCH (23:34)
[2017-01-13] MEDS ORDERED: LEVOTHYROXINE NA 25 MCG TABLET (FP) ONE (04:38)
[2017-01-13] MEDS ORDERED: LEVOTHYROXINE NA 100 MCG TABLET (FP) ONE (04:38)
[2017-01-13] MEDS: LEVOTHYROXINE 100 MCG, LEVOTHYROXINE 75 MCG PO SCH (06:22)
[2017-01-13] MEDS: chlordiazePOXIDE HCL 10 MG CAPSULE PO SCH (06:22)
--- NOTE | 2017-01-13 08:51 | DS ---
[facility] Detox Discharge Summary Admission Date: 01/09/17 Discharge Date: 01/13/17 - History Present History: Alcohol Dependence, Cocaine Dependence - Physical Exam Results Vital Signs: Vital Signs Temperature 97.7 F 01/13/17 06:29 Pulse Rate 73 01/13/17 06:29 Respiratory Rate 18 01/13/17 06:29 Blood Pressure 141/88 01/13/17 06:29 O2 Sat by Pulse Oximetry (%) - Medication Discharge Medications: Ambulatory Orders Atorvastatin Ca [Lipitor] 80 mg PO HS 01/05/12 Levothyroxine [Synthroid -] 175 mcg PO DAILY 01/05/12 Metoprolol Succinate [Toprol XL -] 25 mg PO DAILY 11/21/14 Risperidone [Risperdal] 3 mg PO DAILY 10/23/16 Dolutegravir Sodium [Tivicay] 50 mg PO DAILY 01/09/17 Emtricitabine/Tenofovir (Tdf) [Truvada 200 mg-300 mg Tablet] 1 each PO DAILY Folic Acid - 1 mg PO DAILY 01/09/17 Levothyroxine Sodium [Levo-T] 25 mcg PO DAILY 01/09/17 Multivitamins [Tab-A-Vit -] 1 tab PO DAILY 01/09/17 Benztropine Mesylate [Cogentin -] 1 mg PO DAILY #30 tablet 01/10/17 Risperidone [Risperdal] 3 mg PO DAILY #30 tablet 01/10/17 - Diagnosis (1) Alcohol dependence with uncomplicated withdrawal Current Visit: Yes Status: Chronic (2) Cocaine dependence Current Visit: Yes Status: Chronic Qualifiers: Substance use status: uncomplicated Qualified Code(s): F14.20 - Cocaine dependence, uncomplicated (3) Nicotine dependence Current Visit: Yes Status: Chronic Qualifiers: Nicotine product type: cigarettes Substance use status: uncomplicated Qualified Code(s): F17.210 - Nicotine dependence, cigarettes, uncomplicated (4) Acquired immune deficiency syndrome (AIDS) Current Visit: Yes Status: Chronic (5) Bipolar disorder Current Visit: Yes Status: Chronic (6) Essential hypertension Current Visit: Yes Status: Chronic (7) GERD (gastroesophageal reflux disease) Current Visit: Yes Status: Chronic (8) Hypercholesterolemia Current Visit: Yes Status: Chronic (9) Hypothyroidism Current Visit: Yes Status: Chronic - AMA Did Patient Leave Against Medical Advice: No
[2017-01-13] MEDS: risperiDONE 1 MG TABLET (FP) PO SCH (09:03)
[2017-01-13] MEDS: BENZTROPINE MESYLATE 1 MG TABLET (FP) PO SCH (09:03)
[2017-01-13] MEDS: PRENATAL VITAMINS W/ FOLIC ACID TABLET (FP) PO SCH (09:03)
[2017-01-13] MEDS: METOPROLOL SUCCINATE 25 MG TAB.SR.24H (FP) PO SCH (09:03)
[2017-01-13] MEDS: EMTRICITABINE 200MG/TENOFOVIR 300MG PO SCH (09:04)
[2017-01-13] MEDS: PATIENT'S OWN MEDICATION (NON-FORMULARY) (Dolutegravir Sodium 50 MG) PO SCH (09:04)
[2017-01-13] MEDS: NICOTINE 21 MG/24 HOURS TOPICAL PATCH TD SCH (09:06)
[2017-01-13 09:37] VITALS: BP 136/100; PULSE 84; TEMP 96.8
== END 2017-01-13 09:50 | disposition home or self-care (01) | DRG 774 ==
LOC: YASAS 08:31 → Y6N 14:20
PROVIDERS: ADMIT Internal Medicine; ATTEND Internal Medicine
PROC: HZ2ZZZZ Detoxification Services for Substance Abuse Treatment (ICD-10-PCS; principal; 2017-01-09)
DX: F10.230 Alcohol dependence with withdrawal, uncomplicated (principal); F14.20 Cocaine dependence, uncomplicated; F17.210 Nicotine dependence, cigarettes, uncomplicated; F31.9 Bipolar disorder, unspecified; B20 Human immunodeficiency virus [HIV] disease; I10 Essential (primary) hypertension; K21.9 Gastro-esophageal reflux disease without esophagitis; E78.00 Pure hypercholesterolemia, unspecified; E03.9 Hypothyroidism, unspecified; Z86.69 Personal history of other diseases of the nervous system and sense organs; Z87.438 Personal history of other diseases of male genital organs; Z87.898 Personal history of other specified conditions; Z86.79 Personal history of other diseases of the circulatory system
CPT/HCPCS: 36415; 80053; 81003; 81015; 85027; 86593; 93005; 93010; J2794

== ENCOUNTER 2017-04-27 10:24 | Inpatient (IN) | payer OTHER ==
[2017-04-27 12:40] VITALS: BMI 27.1
--- NOTE | 2017-04-27 14:05 | HP ---
CIWA Score - CIWA Score Nausea/Vomitin-No Nausea/No Vomiting Muscle Tremors: 4-Moderate,w/Arms Extend Anxiety: 4-Mod. Anxious/Guarded Agitation: 1-Slight > Activity Paroxysmal Sweats: 1-Minimal Palms Moist Orientation: 1-Uncertain about Date Tacttile Disturbances: 3-Moderate Itch/Numb/Burn Auditory Disturbances: 0-None Visual Disturbances: 0-None Headache: 0-None Present CIWA-Ar Total Score: 14 Admission ROS S - HPI Chief Complaint: PATIENT STATES "I AM HERE TO DETOX FROM ALCOHOL". Allergies/Adverse Reactions: Allergies Allergy/AdvReac Type Severity Reaction Status Date / Time sulfamethoxazole Allergy Intermediate Itching Verified 04/27/17 13:07 [From Bactrim DS] trimethoprim Allergy Intermediate Itching Verified 04/27/17 13:07 [From Bactrim DS] Fish Containing Products Allergy Mild Itching Verified 04/27/17 13:07 History of Present Illness: 51 YEARS OLD AA MALE WITH HX OF ALCOHOL DEPENDENCE SEEKING DETOX TX. PT HAS A HX OF PREVIOUS TREATMENT WITH LONGEST PERIOD OF SOBRIETY OF 2 YEARS. Exam Limitations: No Limitations - Ebola screening Have you traveled outside of the country in the last 21 days: No Have you had contact with anyone from an Ebola affected area: No Have you been sick,other than usual withdrawal symptoms: No Do you have a fever: No - Review of Systems Constitutional: Chills, Loss of Appetite, Changes in sleep, Weakness (BILATERAL LEG WEAKNESS) EENT: reports: Blurred Vision, Dental Problems (MISSING UPPER AND LOWER TEETH) Respiratory: reports: No Symptoms reported Cardiac: reports: No Symptoms Reported GI: reports: Poor Appetite, Poor Fluid Intake : reports: No Symptoms Reported Musculoskeletal: reports: Joint Pain (RIGHT ANKLE AND BOTH KNEES), Joint Stiffness Integumentary: reports: Dryness (DRY SKIN) Neuro: reports: Headache, Numbness, Paresthesia, Seizure (ALCOHOL WITHDRAWAL RELATED SEIZURE), Tingling (BOTH FINGERS) Endocrine: reports: Increased Thirst Hematology: reports: No Symptoms Reported Psychiatric: reports: Orientated x3, Anxious, Depressed Other Systems: Reviewed and Negative Patient History - Patient Medical History Hx Anemia: No Hx Asthma: No Hx Chronic Obstructive Pulmonary Disease (COPD): No Hx Cancer: No Hx Cardiac Disorders: No Hx Congestive Heart Failure: No Hx Hypertension: Yes (ON MEDS) Hx Hypercholesterolemia: Yes (ON MED) Hx Pacemaker: No HX Cerebrovascular Accident: No Hx Seizures: Yes (1991; ALCOHOL WITHDRAWAL RELATED SEIZURES) Hx Dementia: No Hx Diabetes: No Hx Gastrointestinal Disorders: No Hx Liver Disease: No Hx Genitourinary Disorders: No Hx Sexually Transmitted Disorders: Yes (HX OF SYPHILLIS) Hx Renal Disease (ESRD): No Hx Thyroid Disease: Yes (HYPOTHYROIDISM ON MEDS) Hx Human Immunodeficiency Virus (HIV): Yes (SINCE 1988 /VL UNDETECTABLE T-CELL 325 IN .) Hx Hepatitis C: No Hx Depression: Yes (ON MEDS) Hx Suicide Attempt: No (DENIES) Hx Bipolar Disorder: Yes (ON MED) Hx Schizophrenia: No - Patient Surgical History Past Surgical History: Yes Hx Neurologic Surgery: No Hx Cataract Extraction: No Hx Cardiac Surgery: No Hx Lung Surgery: No Hx Breast Surgery: No Hx Breast Biopsy: No Hx Abdominal Surgery: Yes (REPAIR OF UMBILICAL HERNIA 2OO8) Hx Appendectomy: No Hx Cholecystectomy: No Hx Genitourinary Surgery: No Hx Orthopedic Surgery: No Anesthesia Reaction: No - PPD History Previous Implant?: Yes Documented Results: Negative w/proof Implanted On Prior [facility] Admission?: Yes Date: 01/17/16 Results: 0 mm PPD to be Administered?: Yes - Reproductive History Patient is a Female of Child Bearing Age (11 -55 yrs old): No (MALE) Patient : (N/A) - Smoking Cessation Smoking history: Current every day smoker Have you smoked in the past 12 months: Yes Aproximately how many cigarettes per day: 20 Cigars Per Day: 0 Hx Chewing Tobacco Use: No Initiated information on smoking cessation: Yes 'Breaking Loose' booklet given: 04/27/17 - Substance & Tx. History Hx Alcohol Use: Yes (VODKA/BEER) Hx Substance Use: Yes (COCAINE) Substance Use Type: Alcohol, Cocaine Hx Substance Use Treatment: Yes (LAST TX WAS AT [facility]) - Substances Abused Alcohol Route: Oral Frequency: Daily Amount used: ALCOHOL(1 QUART)/3-20 OZ BEERS Age of first use: 12 Date of Last Use: 04/27/17 Cocaine Route: Smoking Frequency: Daily Amount used: $50-60 Age of first use: 22 Date of Last Use: 04/26/17 Family Disease History - Family Disease History Family Disease History: Diabetes: Grandparent, Father (alcohol,), Mother (alcohol,), Other: Father, Mother Admission Physical Exam BHS - Vital Signs Vital Signs: Vital Signs - 24 hr 04/27/17 12:38 Temperature 97 F L Pulse Rate 119 H Respiratory 20 Rate Blood Pressure 160/115 - Physical General Appearance: Yes: Moderate Distress, Alcohol on Breath, Anxious HEENTM: Yes: EOMI, Normocephalic, KIMBERLYN, Pharynx Normal Respiratory: Yes: Chest Non-Tender, Lungs Clear, Normal Breath Sounds, No Respiratory Distress Neck: Yes: No masses,lesions,Nodules, Supple, Trachea in good position Breast: Yes: Breast Exam Deferred Cardiology: Yes: Regular Rhythm, S1, S2, Tachycardia Abdominal: Yes: Normal Bowel Sounds, Non Tender, Soft Genitourinary: Yes: Other (N/C) Back: Yes: Within Normal Limits Musculoskeletal: Yes: Gait Steady (BUT LIMPING ON AMBULATION DUE TO RIGHT ANKLE PAIN--DENIES ACUTE TRUAMA.) Extremities: Yes: Normal Inspection, Normal Range of Motion, Non-Tender, Tremors Neurological: Yes: hospital administrator II-XII NML intact, Fully Oriented, Alert, Motor Strength 5/5 Integumentary: Yes: Dry, Warm Lymphatic: Yes: Within Normal Limits - Diagnostic (1) AIDS (acquired immunodeficiency syndrome) Current Visit: Yes Status: Chronic (2) Alcohol dependence with uncomplicated withdrawal Current Visit: Yes Status: Acute (3) Cocaine dependence Current Visit: Yes Status: Acute Qualifiers: Substance use status: uncomplicated Qualified Code(s): F14.20 - Cocaine dependence, uncomplicated; F14.20 - Cocaine dependence, uncomplicated; F14.20 - Cocaine dependence, uncomplicated (4) Essential hypertension Current Visit: Yes Status: Chronic (5) GERD (gastroesophageal reflux disease) Current Visit: Yes Status: Chronic Qualifiers: Esophagitis presence: esophagitis presence not specified Qualified Code(s): K21.9 - Gastro-esophageal reflux disease without esophagitis; K21.9 - Gastro-esophageal reflux disease without esophagitis; K21.9 - Gastro-esophageal reflux disease without esophagitis (6) Hypercholesterolemia Current Visit: Yes Status: Chronic (7) Hypothyroidism Current Visit: Yes Status: Chronic (8) Nicotine dependence Current Visit: Yes Status: Acute Qualifiers: Nicotine product type: cigarettes Substance use status: in withdrawal Qualified Code(s): F17.213 - Nicotine dependence, cigarettes, with withdrawal; F17.213 - Nicotine dependence, cigarettes, with withdrawal (9) Weight loss Current Visit: Yes Status: Chronic Cleared for Admission [facility] - Detox or Rehab [facility] Level of Care: Medically Managed Detox Regimen/Protocol: Librium [facility] Breath Alcohol Content Breath Alcohol Content: 0.036 Urine Drug Screen - Results Drug Screen Negative: No Urine Drug Screen Results: EMIR-Cocaine, BZO-Benzodiazepines
[2017-04-27] MEDS ORDERED: ACETAMINOPHEN 325 MG TABLET (FP) PO PRN (14:53)
[2017-04-27] MEDS ORDERED: LOPERAMIDE HCL 2 MG CAPSULE PO PRN (14:53)
[2017-04-27] MEDS ORDERED: MAGNESIUM HYDROX 2400MG/30ML ORAL SUSPENSION 30 ML CUP PO PRN (14:53)
[2017-04-27] MEDS ORDERED: hydrOXYzine PAMOATE 50 MG CAPSULE (FP) PO PRN (14:53)
[2017-04-27] MEDS ORDERED: chlordiazePOXIDE HCL 25 MG CAPSULE PO PRN (14:53)
[2017-04-27] MEDS ORDERED: P-EPHED 60MG/TRIPROLIDI 2.5MG TABLET PO PRN (14:53)
[2017-04-27] MEDS ORDERED: MAGNESIUM CITRATE 300 ML BOTTLE PO PRN (14:53)
[2017-04-27] MEDS ORDERED: MENTHOL/PHENOL 1 EACH UD MM PRN (14:53)
[2017-04-27] MEDS ORDERED: IBUPROFEN 400 MG TABLET (FP) PO PRN (14:53)
[2017-04-27] MEDS ORDERED: guaiFENesin/D-METHORPHAN HB 10 ML UNIT-DOSE CUPS PO PRN (14:53)
[2017-04-27] MEDS ORDERED: MAG HYDROX/AL HYDROX/SIMETH 30 ML UNIT-DOSE CUP PO PRN (14:53)
[2017-04-27] MEDS ORDERED: NICOTINE POLACRILEX 4 MG GUM BUC PRN (14:53)
[2017-04-27] MEDS ORDERED: chlordiazePOXIDE HCL 25 MG CAPSULE PO ONE (15:25)
[2017-04-27 17:12] LABS: MCHC 34.1 g/dl (32.0-35.9); MEAN CELL VOLUME 93.8 fl (80-96); MEAN PLT VOLUME 10.3 fl (7.5-11.1); PLATELET COUNT 206 K/MM3 (134-434); WHITE BLOOD COUNT 8.2 K/mm3 (4.0-10.0)
[2017-04-27 17:18] LABS: ALBUMIN 4.2 g/dl (3.4-5.0); ANION GAP 14 (8-16); CALCIUM 9.7 mg/dL (8.5-10.1); CO2 29 mmol/L (21-32); CREATININE 1.2 mg/dL (0.7-1.3); GLUCOSE,RANDOM 74 mg/dL (74-106); SGOT/AST 31 U/L (15-37); SGPT/ALT 32 U/L (12-78)
[2017-04-27 17:20] LABS: ALK PHOS 116 U/L (45-117); BILIRUBIN,TOTAL 0.6 mg/dL (0.2-1.0); TOT PROT 8.9 g/dl (6.4-8.2)
[2017-04-27] MEDS: chlordiazePOXIDE HCL 25 MG CAPSULE PO SCH ×2 (17:32→22:29)
[2017-04-27] MEDS: NICOTINE 21 MG/24 HOURS TOPICAL PATCH TD SCH (17:32)
--- NOTE | 2017-04-27 17:37 | CONSULT ---
[facility] Psychiatric Consult - Data Date of interview: 04/27/17 Admission source: [facility] Identifying data: One of multiple admissions to [facility] for this 51 y/o AA male seeking detox treatment on for alcohol,marijuana and cocaine dependence.Patient is single,a father of seven,domiciled,unemployed and supported on SSI benefits. Substance Abuse History: Confirmed by patient in this session. Smoking Cessation. Smoking history: Current every day smoker. Have you smoked in the past 12 months: Yes. Aproximately how many cigarettes per day: 20. Cigars Per Day: 0. Hx Chewing Tobacco Use: No. Initiated information on smoking cessation : Yes. 'Breaking Loose' booklet given: 04/27/17. - Substance & Tx. History. Hx Alcohol Use: Yes (VODKA/BEER). Hx Substance Use: Yes (COCAINE). Substance Use Type: Alcohol, Cocaine. Hx Substance Use Treatment: Yes (LAST TX WAS AT [facility]). - Substances Abused. Alcohol. Route: Oral. Frequency: Daily. Amount used: ALCOHOL(1 QUART)/3-20 OZ BEERS. Age of first use: 12. Date of Last Use: 04/27/17. Cocaine. Route: Smoking. Frequency: Daily. Amount used: $50-60. Age of first use: 22. Date of Last Use: 04/26/17 Medical History: History of alcohol-related seizures (1989),past treatment for syphilis,hypertension,hypothyroidism,hypercholesterolemia,HIV infection since 1988 and history of umbilical herniorraphy (2007).. Psychiatric History: Previous psychiatric admissions to [facility].Onset of mental illness at age 22 (admitted to [facility] in [facility]).Diagnosed with Bipolar Disorder.Mr Hwang is followed at [facility] in [facility].Prescribed risperdal 3 mg/hs (last taken on 04/26/17 as per self-report).Mr Hwang cannot be considered a reliable historian.History of suicide attempt via jumping onto the train tracks (1991). Physical/Sexual Abuse/Trauma History: No reported history of sexual abuse. Additional Comment: Urine Drug Screen Results: EMIR-Cocaine, BZO- Benzodiazepines.Noted. Mental Status Exam - Mental Status Exam Alert and Oriented to: Time, Place, Person Cognitive Function: Good Patient Appearance: Well Groomed Mood: Hopeful, Euthymic Affect: Normal Range Patient Behavior: Fatigued, Appropriate, Cooperative Speech Pattern: Clear Voice Loudness: Normal Thought Process: Goal Oriented Thought Disorder: Not Present Hallucinations: Denies Suicidal Ideation: Denies Homicidal Ideation: Denies Insight/Judgement: Poor Sleep: Fair Appetite: Good Muscle strength/Tone: Normal Gait/Station: Normal Psychiatric Findings - Problem List ([place] 1, 2,3) (1) Alcohol dependence with uncomplicated withdrawal Current Visit: Yes Status: Acute (2) Cocaine dependence Current Visit: Yes Status: Acute Qualifiers: Substance use status: uncomplicated Qualified Code(s): F14.20 - Cocaine dependence, uncomplicated; F14.20 - Cocaine dependence, uncomplicated; F14.20 - Cocaine dependence, uncomplicated (3) Nicotine dependence Current Visit: Yes Status: Acute Qualifiers: Nicotine product type: cigarettes Substance use status: in withdrawal Qualified Code(s): F17.213 - Nicotine dependence, cigarettes, with withdrawal; F17.213 - Nicotine dependence, cigarettes, with withdrawal (4) Substance induced mood disorder Current Visit: Yes Status: Acute (5) Bipolar disorder Current Visit: Yes Status: Chronic (6) AIDS (acquired immunodeficiency syndrome) Current Visit: Yes Status: Chronic (7) Essential hypertension Current Visit: Yes Status: Chronic (8) GERD (gastroesophageal reflux disease) Current Visit: Yes Status: Chronic Qualifiers: Esophagitis presence: esophagitis presence not specified Qualified Code(s): K21.9 - Gastro-esophageal reflux disease without esophagitis; K21.9 - Gastro-esophageal reflux disease without esophagitis; K21.9 - Gastro-esophageal reflux disease without esophagitis (9) Hypercholesterolemia Current Visit: Yes Status: Chronic (10) Hypothyroidism Current Visit: Yes Status: Chronic (11) Weight loss Current Visit: Yes Status: Chronic - Initial Treatment Plan Initial Treatment Plan: Psychoeducation.Detoxification is initiated.Risperdal 2 mg po hs.Side effects/benefits are discussed with patient which includes risk of sexual impotence,galactorrhea,gynecomastia,abnormal involuntary movements and cardiovascular adverse events.Well tolerated as per patient.He agrees with this careplan.Observation.Previous records are reviewed.
[2017-04-27 18:43] LABS: URINE APPEARANCE CLEAR; URINE BILIRUBIN NEGATIVE (NEGATIVE); URINE BLOOD 1+ (NEGATIVE); URINE COLOR LTYELLOW; URINE GLUCOSE (UA) NEGATIVE (NEGATIVE); URINE KETONE NEGATIVE (NEGATIVE); URINE LEUK ESTERASE NEGATIVE (NEGATIVE); URINE NITRITE NEGATIVE (NEGATIVE); URINE UROBILINOGEN NEGATIVE mg/dL (0.2-1.0)
[2017-04-27 18:47] LABS: URINE PROTEIN 2+ (NEGATIVE)
[2017-04-27 18:56] LABS: URINE MUCUS RARE; URINE RBC 4 /hpf (0-3); URINE WBC 2 /hpf (3-5)
[2017-04-27] MEDS: risperiDONE 2 MG TABLET PO SCH (22:29)
[2017-04-27] MEDS: ATORVASTATIN CA 40 MG TABLET (FP) PO SCH (22:29)
[2017-04-27] MEDS: THIAMINE HCL 100 MG TABLET (FP) PO SCH (22:29)
[2017-04-27] MEDS: diphenhydrAMINE HCL 50 MG CAPSULE PO PRN (22:30)
[2017-04-28] MEDS: chlordiazePOXIDE HCL 25 MG CAPSULE PO SCH ×4 (05:45→22:27)
[2017-04-28] MEDS ORDERED: LEVOTHYROXINE NA 25 MCG TABLET (FP) PO SCH (07:00)
[2017-04-28] MEDS: LEVOTHYROXINE 75 MCG, LEVOTHYROXINE 100 MCG PO SCH (07:22)
--- NOTE | 2017-04-28 09:56 | EKG ---
Test Reason : Blood Pressure : / mmHG Vent. Rate : 113 BPM Atrial Rate : 113 BPM P-R Int : 156 ms QRS Dur : 096 ms QT Int : 354 ms P-R-T Axes : 065 033 046 degrees QTc Int : 485 ms SINUS TACHYCARDIA BIATRIAL ENLARGEMENT LEFT VENTRICULAR HYPERTROPHY ABNORMAL ECG WHEN COMPARED WITH ECG OF 09-JAN-2017 14:13, VENT. RATE HAS INCREASED BY 53 BPM T WAVE VARIATION Confirmed by RADHA LYNCH MD ([id number]) on 04/28/2017 9:55:39 AM Referred By: Confirmed By:RADHA LYNCH MD
[2017-04-28] MEDS: PATIENT'S OWN MEDICATION (NON-FORMULARY) (Amlodipine Besylate [Amlodipine Besylate] 10 MG) PO SCH (10:36)
[2017-04-28] MEDS: PATIENT'S OWN MEDICATION (NON-FORMULARY) (Emtricitabine/Tenofovir (Tdf) [Truvada 200 Mg-30 PO SCH (10:36)
[2017-04-28] MEDS: METOPROLOL SUCCINATE 50 MG TAB.SR.24H (FP) PO SCH (10:36)
[2017-04-28] MEDS: PRENATAL VITAMINS W/ FOLIC ACID TABLET (FP) PO SCH (10:37)
[2017-04-28] MEDS: NICOTINE 21 MG/24 HOURS TOPICAL PATCH TD SCH (10:37)
--- NOTE | 2017-04-28 11:36 | PN ---
[facility] CIWA - CIWA Score Nausea/Vomitin-No Nausea/No Vomiting Muscle Tremors: 4-Moderate,w/Arms Extend Anxiety: 4-Mod. Anxious/Guarded Agitation: 4-Moderately Restless Paroxysmal Sweats: 1-Minimal Palms Moist Orientation: 0-Oriented Tacttile Disturbances: 3-Moderate Itch/Numb/Burn Auditory Disturbances: 0-None Visual Disturbances: 0-None Headache: 0-None Present CIWA-Ar Total Score: 16 BHS Progress Note (SOAP) Subjective: ANXIETY,SWEATS,TREMORS,FATIGUE. Objective: 04/28/17 11:35 Laboratory Last Values WBC 8.2 K/mm3 (4.0-10.0) D 04/27/17 15:00 RBC 5.08 M/mm3 (4.00-5.60) 04/27/17 15:00 Hgb 16.3 GM/dL (11.7-16.9) D 04/27/17 15:00 Hct 47.6 % (35.4-49) 04/27/17 15:00 MCV 93.8 fl (80-96) 04/27/17 15:00 MCH 32.0 pg (25.7-33.7) 04/27/17 15:00 MCHC 34.1 g/dl (32.0-35.9) 04/27/17 15:00 RDW 14.0 % (11.9-15.9) 04/27/17 15:00 Plt Count 206 K/MM3 (134-434) D 04/27/17 15:00 MPV 10.3 fl (7.5-11.1) 04/27/17 15:00 Sodium 137 mmol/L (136-145) 04/27/17 15:00 Potassium 3.2 mmol/L (3.5-5.1) L 04/27/17 15:00 Chloride 94 mmol/L (98-107) L 04/27/17 15:00 Carbon Dioxide 29 mmol/L (21-32) 04/27/17 15:00 Anion Gap 14 (8-16) 04/27/17 15:00 BUN 8 mg/dL (7-18) D 04/27/17 15:00 Creatinine 1.2 mg/dL (0.7-1.3) 04/27/17 15:00 Creat Clearance w eGFR > 60 (>60) 04/27/17 15:00 Random Glucose 74 mg/dL (74-106) 04/27/17 15:00 Calcium 9.7 mg/dL (8.5-10.1) 04/27/17 15:00 Total Bilirubin 0.6 mg/dL (0.2-1.0) 04/27/17 15:00 AST 31 U/L (15-37) D 04/27/17 15:00 ALT 32 U/L (12-78) D 04/27/17 15:00 Alkaline Phosphatase 116 U/L (45-117) D 04/27/17 15:00 Total Protein 8.9 g/dl (6.4-8.2) H D 04/27/17 15:00 Albumin 4.2 g/dl (3.4-5.0) D 04/27/17 15:00 Urine Color Ltyellow 04/27/17 17:45 Urine Appearance Clear 04/27/17 17:45 Urine pH 6.0 (5.0-8.0) 04/27/17 17:45 Ur Specific [place] 1.025 (1.005-1.025) 04/27/17 17:45 Urine Protein 2+ (NEGATIVE) H 04/27/17 17:45 Urine Glucose (UA) Negative (NEGATIVE) 04/27/17 17:45 Urine Ketones Negative (NEGATIVE) 04/27/17 17:45 Urine Blood 1+ (NEGATIVE) H 04/27/17 17:45 Urine Nitrite Negative (NEGATIVE) 04/27/17 17:45 Urine Bilirubin Negative (NEGATIVE) 04/27/17 17:45 Urine Urobilinogen Negative mg/dL (0.2-1.0) 04/27/17 17:45 Urine RBC 4 /hpf (0-3) 04/27/17 17:45 Urine WBC 2 /hpf (3-5) 04/27/17 17:45 Urine Mucus Rare 04/27/17 17:45 RPR Titer Nonreactive (NONREACTIVE) 04/27/17 15:00 Vital Signs 04/28/17 04/28/17 06:27 09:17 Temperature 96.6 F L 97.0 F L Pulse Rate 111 H 119 H Respiratory 16 20 Rate Blood Pressure 154/90 151/106 Assessment: 04/28/17 11:36 WITHDRAWAL SX Plan: CONTINUE DETOX
[2017-04-28] MEDS ORDERED: FLU VACCINE QUAD 60 MCG/0.5 ML (MDV 17-18) IM ONE (12:00)
[2017-04-28] MEDS: risperiDONE 2 MG TABLET PO SCH (22:27)
[2017-04-28] MEDS: ATORVASTATIN CA 40 MG TABLET (FP) PO SCH (22:27)
[2017-04-28] MEDS: THIAMINE HCL 100 MG TABLET (FP) PO SCH (22:28)
[2017-04-29] MEDS ORDERED: LEVOTHYROXINE NA 25 MCG TABLET (FP) ONE (02:25)
[2017-04-29] MEDS ORDERED: LEVOTHYROXINE NA 100 MCG TABLET (FP) ONE (02:25)
[2017-04-29] MEDS: chlordiazePOXIDE HCL 25 MG CAPSULE PO SCH ×2 (05:48→10:48)
[2017-04-29] MEDS: LEVOTHYROXINE 75 MCG, LEVOTHYROXINE 100 MCG PO SCH (06:13)
[2017-04-29] MEDS: METOPROLOL SUCCINATE 50 MG TAB.SR.24H (FP) PO SCH (10:47)
[2017-04-29] MEDS: NICOTINE 21 MG/24 HOURS TOPICAL PATCH TD SCH (10:48)
[2017-04-29] MEDS: PRENATAL VITAMINS W/ FOLIC ACID TABLET (FP) PO SCH (10:48)
[2017-04-29] MEDS: PATIENT'S OWN MEDICATION (NON-FORMULARY) (Emtricitabine/Tenofovir (Tdf) [Truvada 200 Mg-30 PO SCH (10:48)
[2017-04-29] MEDS: PATIENT'S OWN MEDICATION (NON-FORMULARY) (Amlodipine Besylate [Amlodipine Besylate] 10 MG) PO SCH (10:48)
--- NOTE | 2017-04-29 13:25 | PN ---
[facility] CIWA - CIWA Score Nausea/Vomitin-No Nausea/No Vomiting Muscle Tremors: 4-Moderate,w/Arms Extend Anxiety: 3 Agitation: 3 Paroxysmal Sweats: 1-Minimal Palms Moist Orientation: 0-Oriented Tacttile Disturbances: 3-Moderate Itch/Numb/Burn Auditory Disturbances: 0-None Visual Disturbances: 0-None Headache: 0-None Present CIWA-Ar Total Score: 14 BHS Progress Note (SOAP) Subjective: C/O TREMORS,BODYACHES,CHILLS,FATIGUE. Objective: 04/29/17 13:25 Vital Signs Temperature 96.9 F L 04/29/17 09:35 Pulse Rate 108 H 04/29/17 09:35 Respiratory Rate 20 04/29/17 09:35 Blood Pressure 126/83 04/29/17 09:35 O2 Sat by Pulse Oximetry (%) Laboratory Last Values WBC 8.2 K/mm3 (4.0-10.0) D 04/27/17 15:00 RBC 5.08 M/mm3 (4.00-5.60) 04/27/17 15:00 Hgb 16.3 GM/dL (11.7-16.9) D 04/27/17 15:00 Hct 47.6 % (35.4-49) 04/27/17 15:00 MCV 93.8 fl (80-96) 04/27/17 15:00 MCH 32.0 pg (25.7-33.7) 04/27/17 15:00 MCHC 34.1 g/dl (32.0-35.9) 04/27/17 15:00 RDW 14.0 % (11.9-15.9) 04/27/17 15:00 Plt Count 206 K/MM3 (134-434) D 04/27/17 15:00 MPV 10.3 fl (7.5-11.1) 04/27/17 15:00 Sodium 137 mmol/L (136-145) 04/27/17 15:00 Potassium 3.2 mmol/L (3.5-5.1) L 04/27/17 15:00 Chloride 94 mmol/L (98-107) L 04/27/17 15:00 Carbon Dioxide 29 mmol/L (21-32) 04/27/17 15:00 Anion Gap 14 (8-16) 04/27/17 15:00 BUN 8 mg/dL (7-18) D 04/27/17 15:00 Creatinine 1.2 mg/dL (0.7-1.3) 04/27/17 15:00 Creat Clearance w eGFR > 60 (>60) 04/27/17 15:00 Random Glucose 74 mg/dL (74-106) 04/27/17 15:00 Calcium 9.7 mg/dL (8.5-10.1) 04/27/17 15:00 Total Bilirubin 0.6 mg/dL (0.2-1.0) 04/27/17 15:00 AST 31 U/L (15-37) D 04/27/17 15:00 ALT 32 U/L (12-78) D 04/27/17 15:00 Alkaline Phosphatase 116 U/L (45-117) D 04/27/17 15:00 Total Protein 8.9 g/dl (6.4-8.2) H D 04/27/17 15:00 Albumin 4.2 g/dl (3.4-5.0) D 04/27/17 15:00 Urine Color Ltyellow 04/27/17 17:45 Urine Appearance Clear 04/27/17 17:45 Urine pH 6.0 (5.0-8.0) 04/27/17 17:45 Ur Specific [place] 1.025 (1.005-1.025) 04/27/17 17:45 Urine Protein 2+ (NEGATIVE) H 04/27/17 17:45 Urine Glucose (UA) Negative (NEGATIVE) 04/27/17 17:45 Urine Ketones Negative (NEGATIVE) 04/27/17 17:45 Urine Blood 1+ (NEGATIVE) H 04/27/17 17:45 Urine Nitrite Negative (NEGATIVE) 04/27/17 17:45 Urine Bilirubin Negative (NEGATIVE) 04/27/17 17:45 Urine Urobilinogen Negative mg/dL (0.2-1.0) 04/27/17 17:45 Urine RBC 4 /hpf (0-3) 04/27/17 17:45 Urine WBC 2 /hpf (3-5) 04/27/17 17:45 Urine Mucus Rare 04/27/17 17:45 RPR Titer Nonreactive (NONREACTIVE) 10/02/17 15:00 Assessment: 04/29/17 13:26 WITHDRAWAL SX ACUTE HYPOKALEMIA Plan: CONTINUE DETOX KDUR 20 MEQ PO BID, IST DOSE NOW DIRECTED.
[2017-04-29] MEDS ORDERED: POTASSIUM CHLORIDE TABS 20 MEQ TABLET.ER (FP) PO ONE (13:45)
[2017-04-29] MEDS: chlordiazePOXIDE 5 MG CAPSULE PO SCH ×2 (17:01→22:17)
[2017-04-29] MEDS: THIAMINE HCL 100 MG TABLET (FP) PO SCH (22:17)
[2017-04-29] MEDS: POTASSIUM CHLORIDE TABS 20 MEQ TABLET.ER (FP) PO SCH (22:17)
[2017-04-29] MEDS: ATORVASTATIN CA 40 MG TABLET (FP) PO SCH (22:17)
[2017-04-29] MEDS: risperiDONE 2 MG TABLET PO SCH (22:17)
[2017-04-29] MEDS: diphenhydrAMINE HCL 50 MG CAPSULE PO PRN (22:18)
[2017-04-30] MEDS: chlordiazePOXIDE 5 MG CAPSULE PO SCH ×2 (05:15→10:19)
[2017-04-30] MEDS: LEVOTHYROXINE 75 MCG, LEVOTHYROXINE 100 MCG PO SCH (07:46)
[2017-04-30] MEDS: METOPROLOL SUCCINATE 50 MG TAB.SR.24H (FP) PO SCH (10:19)
[2017-04-30] MEDS: PRENATAL VITAMINS W/ FOLIC ACID TABLET (FP) PO SCH (10:19)
[2017-04-30] MEDS: PATIENT'S OWN MEDICATION (NON-FORMULARY) (Emtricitabine/Tenofovir (Tdf) [Truvada 200 Mg-30 PO SCH (10:19)
[2017-04-30] MEDS: PATIENT'S OWN MEDICATION (NON-FORMULARY) (Amlodipine Besylate [Amlodipine Besylate] 10 MG) PO SCH (10:19)
[2017-04-30] MEDS: POTASSIUM CHLORIDE TABS 20 MEQ TABLET.ER (FP) PO SCH ×2 (10:19→22:41)
[2017-04-30] MEDS: NICOTINE 21 MG/24 HOURS TOPICAL PATCH TD SCH (10:20)
--- NOTE | 2017-04-30 12:17 | PN ---
BHS Progress Note (SOAP) Subjective: SLIGHT ANXIETY,SWEATS,FATIGUE. Objective: 04/30/17 12:15 Vital Signs Temperature 95.6 F L 04/30/17 09:11 Pulse Rate 108 H 04/30/17 09:11 Respiratory Rate 20 04/30/17 09:11 Blood Pressure 141/91 04/30/17 09:11 O2 Sat by Pulse Oximetry (%) Laboratory Last Values WBC 8.2 K/mm3 (4.0-10.0) D 04/27/17 15:00 RBC 5.08 M/mm3 (4.00-5.60) 04/27/17 15:00 Hgb 16.3 GM/dL (11.7-16.9) D 04/27/17 15:00 Hct 47.6 % (35.4-49) 04/27/17 15:00 MCV 93.8 fl (80-96) 04/27/17 15:00 MCH 32.0 pg (25.7-33.7) 04/27/17 15:00 MCHC 34.1 g/dl (32.0-35.9) 04/27/17 15:00 RDW 14.0 % (11.9-15.9) 04/27/17 15:00 Plt Count 206 K/MM3 (134-434) D 04/27/17 15:00 MPV 10.3 fl (7.5-11.1) 04/27/17 15:00 Sodium 137 mmol/L (136-145) 04/27/17 15:00 Potassium 3.2 mmol/L (3.5-5.1) L 04/27/17 15:00 Chloride 94 mmol/L (98-107) L 04/27/17 15:00 Carbon Dioxide 29 mmol/L (21-32) 04/27/17 15:00 Anion Gap 14 (8-16) 04/27/17 15:00 BUN 8 mg/dL (7-18) D 04/27/17 15:00 Creatinine 1.2 mg/dL (0.7-1.3) 04/27/17 15:00 Creat Clearance w eGFR > 60 (>60) 04/27/17 15:00 Random Glucose 74 mg/dL (74-106) 04/27/17 15:00 Calcium 9.7 mg/dL (8.5-10.1) 04/27/17 15:00 Total Bilirubin 0.6 mg/dL (0.2-1.0) 04/27/17 15:00 AST 31 U/L (15-37) D 04/27/17 15:00 ALT 32 U/L (12-78) D 04/27/17 15:00 Alkaline Phosphatase 116 U/L (45-117) D 04/27/17 15:00 Total Protein 8.9 g/dl (6.4-8.2) H D 04/27/17 15:00 Albumin 4.2 g/dl (3.4-5.0) D 04/27/17 15:00 Urine Color Ltyellow 04/27/17 17:45 Urine Appearance Clear 04/27/17 17:45 Urine pH 6.0 (5.0-8.0) 04/27/17 17:45 Ur Specific [place] 1.025 (1.005-1.025) 04/27/17 17:45 Urine Protein 2+ (NEGATIVE) H 04/27/17 17:45 Urine Glucose (UA) Negative (NEGATIVE) 04/27/17 17:45 Urine Ketones Negative (NEGATIVE) 04/27/17 17:45 Urine Blood 1+ (NEGATIVE) H 04/27/17 17:45 Urine Nitrite Negative (NEGATIVE) 04/27/17 17:45 Urine Bilirubin Negative (NEGATIVE) 04/27/17 17:45 Urine Urobilinogen Negative mg/dL (0.2-1.0) 04/27/17 17:45 Urine RBC 4 /hpf (0-3) 04/27/17 17:45 Urine WBC 2 /hpf (3-5) 04/27/17 17:45 Urine Mucus Rare 04/27/17 17:45 RPR Titer Nonreactive (NONREACTIVE) 04/27/17 15:00 Assessment: 04/30/17 12:16 WITHDRAWAL SX Plan: CONTINUE DETOX
[2017-04-30] MEDS: chlordiazePOXIDE HCL 10 MG CAPSULE PO SCH ×2 (17:12→22:41)
[2017-04-30] MEDS: risperiDONE 2 MG TABLET PO SCH (22:41)
[2017-04-30] MEDS: ATORVASTATIN CA 40 MG TABLET (FP) PO SCH (22:41)
[2017-04-30] MEDS: THIAMINE HCL 100 MG TABLET (FP) PO SCH (22:42)
[2017-05-01] MEDS ORDERED: LEVOTHYROXINE NA 100 MCG TABLET (FP) ONE (04:24)
[2017-05-01] MEDS ORDERED: LEVOTHYROXINE NA 25 MCG TABLET (FP) ONE (04:24)
[2017-05-01] MEDS: chlordiazePOXIDE HCL 10 MG CAPSULE PO SCH ×2 (05:54→11:08)
[2017-05-01] MEDS: LEVOTHYROXINE 75 MCG, LEVOTHYROXINE 100 MCG PO SCH (06:53)
[2017-05-01 10:00] VITALS: BP 129/92; PULSE 106; TEMP 95.3
--- NOTE | 2017-05-01 10:25 | DS ---
[facility] Detox Discharge Summary Admission Date: 04/27/17 Discharge Date: 05/01/17 - History Present History: Alcohol Dependence, Cocaine Dependence Additional Comments: DETOX COMPLETED. ALERT AND ORIENTED X 3. NAD. PT ENCOURAGED TO FOLLOW UP WITH PMD AT [facility]. Pertinent Past History: HTN, AIDS, GERD, NICOTINE DEPENDENCE, HYPOTHYROIDISM, HYPERCHOLESTEROLEMIA, HYPOKALEMIA - Physical Exam Results Vital Signs: Vital Signs Temperature 95.3 F L 05/01/17 10:03 Pulse Rate 106 H 05/01/17 10:03 Respiratory Rate 18 05/01/17 10:03 Blood Pressure 129/92 05/01/17 10:03 O2 Sat by Pulse Oximetry (%) Pertinent Admission Physical Exam Findings: WITHDRAWAL SX - Treatment Hospital Course: Detox Protocol Followed, Detoxed Safely, Responded well, Discharged Condition Good, Rehab Referral Accepted Patient has Accepted a Rehab Referral to: [facility] - Medication Discharge Medications: Ambulatory Orders Dolutegravir Sodium [Tivicay] 50 mg PO DAILY 01/09/17 Emtricitabine/Tenofovir (Tdf) [Truvada 200 mg-300 mg Tablet] 1 each PO DAILY Multivitamins [Tab-A-Vit -] 1 tab PO DAILY 01/09/17 Benztropine Mesylate [Cogentin -] 1 mg PO DAILY #30 tablet 01/10/17 Risperidone [Risperdal] 3 mg PO DAILY #30 tablet 01/10/17 Atorvastatin Ca [Lipitor] 80 mg PO HS #30 tablet 01/13/17 Levothyroxine [Synthroid -] 175 mcg PO DAILY@0700 #30 tablet 01/13/17 Metoprolol Succinate [Toprol XL -] 50 mg PO DAILY 04/27/17 Risperidone [Risperdal] 3 mg PO HS #30 tablet 04/27/17 Amlodipine Besylate 10 mg PO DAILY 04/28/17 - Diagnosis (1) Alcohol dependence with uncomplicated withdrawal Current Visit: Yes Status: Acute (2) Cocaine dependence Current Visit: Yes Status: Acute Qualifiers: Substance use status: uncomplicated Qualified Code(s): F14.20 - Cocaine dependence, uncomplicated; F14.20 - Cocaine dependence, uncomplicated; F14.20 - Cocaine dependence, uncomplicated (3) Hypokalemia Current Visit: Yes Status: Acute (4) Nicotine dependence Current Visit: Yes Status: Acute Qualifiers: Nicotine product type: cigarettes Substance use status: in withdrawal Qualified Code(s): F17.213 - Nicotine dependence, cigarettes, with withdrawal; F17.213 - Nicotine dependence, cigarettes, with withdrawal (5) Substance induced mood disorder Current Visit: Yes Status: Acute (6) AIDS (acquired immunodeficiency syndrome) Current Visit: Yes Status: Chronic (7) Essential hypertension Current Visit: Yes Status: Chronic (8) GERD (gastroesophageal reflux disease) Current Visit: Yes Status: Chronic Qualifiers: Esophagitis presence: esophagitis presence not specified Qualified Code(s): K21.9 - Gastro-esophageal reflux disease without esophagitis; K21.9 - Gastro-esophageal reflux disease without esophagitis; K21.9 - Gastro-esophageal reflux disease without esophagitis (9) Hypercholesterolemia Current Visit: Yes Status: Chronic (10) Hypothyroidism Current Visit: Yes Status: Chronic - AMA Did Patient Leave Against Medical Advice: No
[2017-05-01] MEDS: METOPROLOL SUCCINATE 50 MG TAB.SR.24H (FP) PO SCH (10:43)
[2017-05-01] MEDS: PRENATAL VITAMINS W/ FOLIC ACID TABLET (FP) PO SCH (10:43)
[2017-05-01] MEDS: POTASSIUM CHLORIDE TABS 20 MEQ TABLET.ER (FP) PO SCH (10:43)
[2017-05-01] MEDS: PATIENT'S OWN MEDICATION (NON-FORMULARY) (Emtricitabine/Tenofovir (Tdf) [Truvada 200 Mg-30 PO SCH (10:43)
[2017-05-01] MEDS: NICOTINE 21 MG/24 HOURS TOPICAL PATCH TD SCH (10:44)
[2017-05-01] MEDS: PATIENT'S OWN MEDICATION (NON-FORMULARY) (Amlodipine Besylate [Amlodipine Besylate] 10 MG) PO SCH (10:45)
== END 2017-05-01 14:54 | disposition home or self-care (01) | DRG 774 ==
LOC: YASAS 10:24 → Y3N 15:15
PROVIDERS: ADMIT Internal Medicine; ATTEND Internal Medicine
PROC: HZ2ZZZZ Detoxification Services for Substance Abuse Treatment (ICD-10-PCS; principal; 2017-04-27)
DX: F10.230 Alcohol dependence with withdrawal, uncomplicated (principal); F14.20 Cocaine dependence, uncomplicated; F17.213 Nicotine dependence, cigarettes, with withdrawal; F19.24 Other psychoactive substance dependence with psychoactive substance-induced mood disorder; F31.9 Bipolar disorder, unspecified; E87.6 Hypokalemia; E78.00 Pure hypercholesterolemia, unspecified; E03.9 Hypothyroidism, unspecified; B20 Human immunodeficiency virus [HIV] disease; I10 Essential (primary) hypertension; K21.9 Gastro-esophageal reflux disease without esophagitis; Z91.013 Allergy to seafood; Z87.898 Personal history of other specified conditions; Z86.69 Personal history of other diseases of the nervous system and sense organs; Z87.438 Personal history of other diseases of male genital organs; Z88.6 Allergy status to analgesic agent; Z88.0 Allergy status to penicillin
CPT/HCPCS: 36415; 80053; 81003; 81015; 84132; 85027; 86593; 93005; 93010

== ENCOUNTER 2017-09-25 14:03 | Inpatient (IN) | payer OTHER ==
[2017-09-25 19:45] VITALS: BMI 27.4
--- NOTE | 2017-09-25 21:37 | HP ---
CIWA Score - CIWA Score Nausea/Vomitin-No Nausea/No Vomiting Muscle Tremors: 4-Moderate,w/Arms Extend Anxiety: 4-Mod. Anxious/Guarded Agitation: 1-Slight > Activity Paroxysmal Sweats: 1-Minimal Palms Moist Orientation: 0-Oriented Tacttile Disturbances: 0-None Auditory Disturbances: 0-None Visual Disturbances: 2-Mild Sensitivity Headache: 0-None Present CIWA-Ar Total Score: 12 Admission ROS S - HPI Chief Complaint: alcohol withdrawal symptoms Allergies/Adverse Reactions: Allergies Allergy/AdvReac Type Severity Reaction Status Date / Time sulfamethoxazole Allergy Intermediate Itching Verified 09/25/17 21:19 [From Bactrim DS] trimethoprim Allergy Intermediate Itching Verified 09/25/17 21:19 [From Bactrim DS] Fish Containing Products Allergy Mild Itching Verified 09/25/17 21:19 History of Present Illness: 51 yo male with nicotine. alcohol, crack / cocaine dependence is here seeking detox. PMHX: HTN, Hypothyroidism, Hyperpilipidemia, bipolar, HIV + non adherence with medications, reports last taken Truvada and Tibicoy about a month ago. Denies suicide / homicide homicidal ideation or suicide attempts. Last Detox [facility] 2016 - 05/01/2017. Reports hx alcohol related seizure, last [id number]. - Ebola screening Have you traveled outside of the country in the last 21 days: No (N) Have you had contact with anyone from an Ebola affected area: No Have you been sick,other than usual withdrawal symptoms: No Do you have a fever: No - Review of Systems Constitutional: Chills, Loss of Appetite, Changes in sleep, Unintentional Wgt. Loss (7 lbs over three months) EENT: reports: No Symptoms Reported Respiratory: reports: No Symptoms reported Cardiac: reports: No Symptoms Reported GI: reports: Poor Appetite, Poor Fluid Intake : reports: No Symptoms Reported Musculoskeletal: reports: Joint Pain Integumentary: reports: No Symptoms Reported Neuro: reports: Tremors (hands) Endocrine: reports: No Symptoms Reported Hematology: reports: No Symptoms Reported Psychiatric: reports: Orientated x3, Anxious Other Systems: Reviewed and Negative Patient History - Patient Medical History Hx Anemia: No Hx Asthma: No Hx Chronic Obstructive Pulmonary Disease (COPD): No Hx Cancer: No Hx Cardiac Disorders: No Hx Congestive Heart Failure: No Hx Hypertension: Yes (ON MEDS) Hx Hypercholesterolemia: Yes (ON MED) Hx Pacemaker: No HX Cerebrovascular Accident: No Hx Seizures: Yes (1991; ALCOHOL WITHDRAWAL RELATED SEIZURES) Hx Dementia: No Hx Diabetes: No Hx Gastrointestinal Disorders: No Hx Liver Disease: No Hx Genitourinary Disorders: No Hx Sexually Transmitted Disorders: Yes (HX OF SYPHILLIS) Hx Renal Disease (ESRD): No Hx Thyroid Disease: Yes (HYPOTHYROIDISM ON MEDS) Hx Human Immunodeficiency Virus (HIV): Yes (SINCE 1988 /VL UNDETECTABLE T-CELL 325 IN .) Hx Hepatitis C: No Hx Depression: Yes (ON MEDS) Hx Suicide Attempt: No (DENIES) Hx Bipolar Disorder: Yes (ON MED) Hx Schizophrenia: No - Patient Surgical History Past Surgical History: Yes Hx Neurologic Surgery: No Hx Cataract Extraction: No Hx Cardiac Surgery: No Hx Lung Surgery: No Hx Breast Surgery: No Hx Breast Biopsy: No Hx Abdominal Surgery: Yes (REPAIR OF UMBILICAL HERNIA 2OO8) Hx Appendectomy: No Hx Cholecystectomy: No Hx Genitourinary Surgery: No Hx Section: No Hx Orthopedic Surgery: No Anesthesia Reaction: No - PPD History Previous Implant?: Yes Documented Results: Negative w/proof Date: 04/29/17 Results: 0 mm PPD to be Administered?: No - Reproductive History Patient is a Female of Child Bearing Age (11 -55 yrs old): No - Smoking Cessation Smoking history: Current every day smoker Have you smoked in the past 12 months: Yes Aproximately how many cigarettes per day: 20 Cigars Per Day: 0 Hx Chewing Tobacco Use: No Initiated information on smoking cessation: Yes 'Breaking Loose' booklet given: 09/25/17 - Substance & Tx. History Hx Alcohol Use: Yes Hx Substance Use: Yes Substance Use Type: Alcohol, Cocaine Hx Substance Use Treatment: Yes ([facility] 04/27/2017 - 05/01/17) - Substances Abused Alcohol Route: Oral Frequency: Daily Amount used: 5 pints Vodka + 3 x 24 oz Beers Age of first use: 12 Date of Last Use: 09/25/17 Crack Route: Smoking Frequency: Daily Amount used: $50 Age of first use: 22 Date of Last Use: 09/25/17 Family Disease History - Family Disease History Family Disease History: Diabetes: Grandparent, Father (alcohol,), Mother (alcohol,), Other: Father, Mother Admission Physical Exam BHS - Vital Signs Vital Signs: Vital Signs - 24 hr 09/25/17 19:40 Pulse Rate 112 H Respiratory 24 Rate Blood Pressure 167/133 - Physical General Appearance: Yes: Disheveled, Mild Distress, Sweating, Anxious, Other ( unable to sit still) HEENTM: Yes: EOMI, Hearing grossly Normal, Normal ENT Inspection, Normal Voice, KIMBERLYN, Pharynx Normal, Tm's normal, Other (dry mucous membranes) Respiratory: Yes: Chest Non-Tender, Lungs Clear, Normal Breath Sounds, No Respiratory Distress, No Accessory Muscle Use Neck: Yes: No masses,lesions,Nodules, Trachea in good position Breast: Yes: Breast Exam Deferred Cardiology: Yes: Regular Rhythm, Regular Rate Abdominal: Yes: Normal Bowel Sounds, Non Tender, Flat, Soft Genitourinary: Yes: Within Normal Limits Back: Yes: Normal Inspection Musculoskeletal: Yes: full range of Motion, Gait Steady, Pelvis Stable Extremities: Yes: Normal Capillary Refill, Normal Inspection, Normal Range of Motion, Non-Tender Neurological: Yes: shuttle fixer II-XII NML intact, Fully Oriented, Alert, Motor Strength 5/5, Normal Response, Depressed Affect Integumentary: Yes: Normal Color, Dry, Warm, Other (poor skin turgor) Lymphatic: Yes: Within Normal Limits - Diagnostic (1) Dehydration Current Visit: Yes Status: Acute (2) Alcohol dependence with uncomplicated withdrawal Current Visit: Yes Status: Acute (3) Cocaine dependence Current Visit: No Status: Acute Qualifiers: Substance use status: uncomplicated Qualified Code(s): F14.20 - Cocaine dependence, uncomplicated (4) Nicotine dependence Current Visit: Yes Status: Chronic Qualifiers: Nicotine product type: cigarettes Substance use status: in withdrawal Qualified Code(s): F17.213 - Nicotine dependence, cigarettes, with withdrawal (5) Bipolar disorder Current Visit: Yes Status: Chronic Qualifiers: Current episode severity: unspecified (6) Essential hypertension Current Visit: Yes Status: Chronic (7) GERD (gastroesophageal reflux disease) Current Visit: Yes Status: Chronic Qualifiers: Esophagitis presence: esophagitis presence not specified Qualified Code(s) : K21.9 - Gastro-esophageal reflux disease without esophagitis (8) Hypercholesterolemia Current Visit: Yes Status: Chronic (9) Hypothyroidism Current Visit: Yes Status: Chronic (10) Weight loss Current Visit: Yes Status: Chronic (11) HIV (human immunodeficiency virus infection) Current Visit: Yes Status: Chronic (12) Non compliance w medication regimen Current Visit: Yes Status: Acute Cleared for Admission [facility] - Detox or Rehab [facility] Level of Care: Medically Managed Detox Regimen/Protocol: Librium [facility] Breath Alcohol Content Breath Alcohol Content: 0 Urine Drug Screen - Results Drug Screen Negative: No Urine Drug Screen Results: EMIR-Cocaine, BZO-Benzodiazepines
[2017-09-25] MEDS ORDERED: NICOTINE POLACRILEX 2 MG GUM BC PRN (21:40)
[2017-09-25] MEDS ORDERED: LOPERAMIDE HCL 2 MG CAPSULE PO PRN (21:40)
[2017-09-25] MEDS ORDERED: MAG HYDROX/AL HYDROX/SIMETH 30 ML UNIT-DOSE CUP PO PRN (21:40)
[2017-09-25] MEDS ORDERED: MAGNESIUM HYDROX 2400MG/30ML ORAL SUSPENSION 30 ML CUP PO PRN (21:40)
[2017-09-25] MEDS ORDERED: MAGNESIUM CITRATE 300 ML BOTTLE PO PRN (21:40)
[2017-09-25] MEDS ORDERED: P-EPHED 60MG/TRIPROLIDI 2.5MG TABLET PO PRN (21:40)
[2017-09-25] MEDS ORDERED: MENTHOL/PHENOL 1 EACH UD MM PRN (21:40)
[2017-09-25] MEDS ORDERED: guaiFENesin/D-METHORPHAN HB 10 ML UNIT-DOSE CUPS PO PRN (21:40)
[2017-09-25] MEDS ORDERED: chlordiazePOXIDE HCL 25 MG CAPSULE PO ONE (21:40)
[2017-09-25] MEDS: THIAMINE HCL 100 MG TABLET (FP) PO SCH (22:29)
[2017-09-25] MEDS: ATORVASTATIN CA 80 MG TABLET (FP) PO SCH (22:29)
[2017-09-25] MEDS: chlordiazePOXIDE HCL 25 MG CAPSULE PO SCH (22:39)
[2017-09-26 02:23] LABS: URINE APPEARANCE CLEAR; URINE BILIRUBIN NEGATIVE (NEGATIVE); URINE BLOOD 1+ (NEGATIVE); URINE COLOR LTYELLOW; URINE GLUCOSE (UA) 2+ (NEGATIVE); URINE KETONE NEGATIVE (NEGATIVE); URINE LEUK ESTERASE NEGATIVE (NEGATIVE); URINE NITRITE NEGATIVE (NEGATIVE)
[2017-09-26 02:35] LABS: URINE PROTEIN 2+ (NEGATIVE)
[2017-09-26 02:39] LABS: CALCIUM OXALATE CRYSTALS RARE /hpf (NONE SEEN); EPI CELLS RARE /HPF (FEW); URINE HYALINE CAST 1 /lpf; URINE MUCUS RARE
[2017-09-26] MEDS: chlordiazePOXIDE HCL 25 MG CAPSULE PO SCH ×4 (05:52→22:22)
[2017-09-26] MEDS ORDERED: LEVOTHYROXINE 125 MCG, LEVOTHYROXINE 50 MCG PO SCH (07:00)
[2017-09-26] MEDS ORDERED: LEVOTHYROXINE NA 25 MCG TABLET (FP) PO SCH (07:00)
[2017-09-26] MEDS ORDERED: LEVOTHYROXINE NA 25 MCG TABLET (FP) ONE (09:58)
[2017-09-26] MEDS ORDERED: LEVOTHYROXINE NA 100 MCG TABLET (FP) ONE (09:59)
[2017-09-26] MEDS ORDERED: metoPROLOL SUCCINATE 25 MG TAB.SR.24H (FP) PO SCH (10:00)
[2017-09-26] MEDS: PRENATAL VITAMINS W/ FOLIC ACID TABLET (FP) PO SCH (10:08)
[2017-09-26] MEDS: BENZTROPINE MESYLATE 1 MG TABLET (FP) PO SCH (10:08)
[2017-09-26] MEDS: amLODIPine BESYLATE 10 MG TABLET (FP) PO SCH (10:08)
[2017-09-26] MEDS: LEVOTHYROXINE 75 MCG, LEVOTHYROXINE 100 MCG PO SCH (10:08)
[2017-09-26] MEDS: NICOTINE 21 MG/24 HOURS TOPICAL PATCH TD SCH (10:09)
--- NOTE | 2017-09-26 10:24 | PN ---
S CIWA - CIWA Score Nausea/Vomitin Muscle Tremors: 3 Anxiety: 3 Agitation: 2 Paroxysmal Sweats: 1-Minimal Palms Moist Orientation: 0-Oriented Tacttile Disturbances: 1-Very Mild Itch/Numbness Auditory Disturbances: 1-Very Mild Visual Disturbances: 0-None Headache: 2-Mild CIWA-Ar Total Score: 16 BHS Progress Note (SOAP) Subjective: alert,irritable,anxious,interrupted sleep,tremor,pain in the body Objective: 09/26/17 10:21 Vital Signs Temperature 97.7 F 09/26/17 04:00 Pulse Rate 93 H 09/26/17 04:00 Respiratory Rate 18 09/26/17 04:00 Blood Pressure 130/89 09/26/17 04:00 O2 Sat by Pulse Oximetry (%) ekg nsr prolong qt 390/500 Laboratory Last Values Urine Color Ltyellow 09/25/17 22:03 Urine Appearance Clear 09/25/17 22:03 Urine pH 6.0 (5.0-8.0) 09/25/17 22:03 Ur Specific [place] 1.014 (1.001-1.035) 09/25/17 22:03 Urine Protein 2+ (NEGATIVE) H 09/25/17 22:03 Urine Glucose (UA) 2+ (NEGATIVE) H 09/25/17 22:03 Urine Ketones Negative (NEGATIVE) 09/25/17 22:03 Urine Blood 1+ (NEGATIVE) H 09/25/17 22:03 Urine Nitrite Negative (NEGATIVE) 09/25/17 22:03 Urine Bilirubin Negative (NEGATIVE) 09/25/17 22:03 Urine Urobilinogen 2.0 mg/dL (0.2-1.0) 09/25/17 22:03 Ur Leukocyte Esterase Negative (NEGATIVE) 09/25/17 22:03 Urine WBC (Auto) 1 /hpf (3-5) 09/25/17 22:03 Urine RBC (Auto) 1 /hpf (0-3) 09/25/17 22:03 Ur Epithelial Cells Rare /HPF (FEW) 09/25/17 22:03 Calcium Oxalate Crystal Rare /hpf (NONE SEEN) 09/25/17 22:03 Hyaline Casts 1 /lpf 09/25/17 22:03 Urine Mucus Rare 09/25/17 22:03 labs pending 09/26/17 10:23 no chest pain,no sob,no dizziness Assessment: 09/26/17 10:22 withdrawal symptom Plan: continue detox
[2017-09-26 11:08] LABS: HEMATOCRIT 42.5 % (35.4-49); HEMOGLOBIN 14.4 GM/dL (11.7-16.9); MCH 30.3 pg (25.7-33.7); MCHC 33.8 g/dl (32.0-35.9); MEAN CELL VOLUME 89.8 fl (80-96); PLATELET COUNT 199 K/MM3 (134-434); RBC 4.73 M/mm3 (4.00-5.60); WHITE BLOOD COUNT 4.5 K/mm3 (4.0-10.0)
[2017-09-26 11:17] LABS: CALCIUM 9.1 mg/dL (8.5-10.1); CHLORIDE 96 mmol/L (98-107); POTASSIUM 3.2 mmol/L (3.5-5.1); SODIUM 137 mmol/L (136-145)
[2017-09-26 11:24] LABS: ALK PHOS 85 U/L (45-117); ANION GAP 11 (8-16); BILIRUBIN,TOTAL 0.7 mg/dL (0.2-1.0); BLOOD UREA NITROGEN 15 mg/dL (7-18); CO2 30 mmol/L (21-32); CREATININE 1.3 mg/dL (0.7-1.3); GLUCOSE,RANDOM 128 mg/dL (74-106); SGOT/AST 32 U/L (15-37); SGPT/ALT 26 U/L (12-78); TOT PROT 7.5 g/dl (6.4-8.2)
--- NOTE | 2017-09-26 11:55 | EKG ---
Test Reason : Blood Pressure : / mmHG Vent. Rate : 099 BPM Atrial Rate : 099 BPM P-R Int : 160 ms QRS Dur : 090 ms QT Int : 390 ms P-R-T Axes : 059 041 041 degrees QTc Int : 500 ms NORMAL SINUS RHYTHM RIGHT ATRIAL ENLARGEMENT PROLONGED QT ABNORMAL ECG Confirmed by MD EDWARD, VERNON ([id number]) on 09/26/2017 11:54:37 AM Referred By: Confirmed By:VERNON LEON MD
--- NOTE | 2017-09-26 16:14 | CONSULT ---
[facility] Psychiatric Consult - Data Date of interview: 09/26/17 Admission source: [facility] Identifying data: This is another admission to [facility] for this 51 y/o AA male seeking detox treatment on for alcohol and cocaine (crack) dependence.Patient is single,a father of seven,domiciled,unemployed and supported on SSI benefits. Substance Abuse History: Confirmed by patient in this session.Smoking history: Current every day smoker. Have you smoked in the past 12 months: Yes. Aproximately how many cigarettes per day: 20. Cigars Per Day: 0. Hx Chewing Tobacco Use: No. Initiated information on smoking cessation: Yes. 'Breaking Loose' booklet given: 09/25/17. - Substance & Tx. History. Hx Alcohol Use: Yes. Hx Substance Use: Yes. Substance Use Type: Alcohol, Cocaine. Hx Substance Use Treatment: Yes ([facility] 04/27/2017 - 05/01/17). - Substances Abused. Alcohol. Route: Oral. Frequency: Daily. Amount used: 5 pints Vodka + 3 x 24 oz Beers. Age of first use: 12. Date of Last Use: 09/25/17. Crack. Route: Smoking. Frequency: Daily. Amount used: $50. Age of first use: 22. Date of Last Use: 09/25/17 Medical History: No change in medical profile since encounter of 04/2017 : history of alcohol-related seizures (1989),past treatment for syphilis, hypertension,hypothyroidism,hypercholesterolemia,HIV infection since 1988 and history of umbilical herniorraphy (2007). Psychiatric History: History of multiple psychiatric hospitalizations ([facility] and other unnamed facilities.Patient is distant,indifferent and unreliable historian.Onset of mental illness (age 4 : admitted to [facility] in [facility].Lifetime diagnosis : Bipolar Disorder.Mr Hwang is still followed at [facility] in [facility].Prescribed risperdal injection (dose and date of last injection are unknown).Patient states that he " believes " that the injection was dispensed " a couple of weeks ago at his residential program ([facility]).History of suicide attempt via jumping onto the train tracks (1991). Physical/Sexual Abuse/Trauma History: No reported history of abuse. Additional Comment: Urine Drug Screen Results: EMIR-Cocaine, BZO- Benzodiazepines.Noted. Mental Status Exam - Mental Status Exam Alert and Oriented to: Time, Place, Person Cognitive Function: Good Patient Appearance: Well Groomed Mood: Withdrawn Affect: Mood Congruent Patient Behavior: Fatigued, Distractible, Cooperative (superficially cooperative ) Speech Pattern: Clear Voice Loudness: Normal Thought Process: Goal Oriented Thought Disorder: Not Present Hallucinations: Denies Suicidal Ideation: Denies Homicidal Ideation: Denies Insight/Judgement: Poor Sleep: Well Appetite: Good Muscle strength/Tone: Normal Gait/Station: Normal Psychiatric Findings - Problem List ([place] 1, 2,3) (1) Alcohol dependence with uncomplicated withdrawal Current Visit: Yes Status: Acute (2) Cocaine dependence Current Visit: Yes Status: Acute Qualifiers: Substance use status: uncomplicated Qualified Code(s): F14.20 - Cocaine dependence, uncomplicated (3) Nicotine dependence Current Visit: Yes Status: Acute Qualifiers: Nicotine product type: cigarettes Substance use status: in withdrawal Qualified Code(s): F17.213 - Nicotine dependence, cigarettes, with withdrawal (4) Bipolar disorder Current Visit: Yes Status: Chronic Qualifiers: Current episode severity: unspecified Comment: As per records.Questionable adherence to psychiatric aftercare. (5) Substance induced mood disorder Current Visit: Yes Status: Acute - Initial Treatment Plan Initial Treatment Plan: Records revisited.Sleep hygiene.Psychoeducation.Attendance to groups,individual therapy sessions, community meetings : recommended.Detoxification in progress.Risperdal 2 mg po hs.Ordered.In the meantime,contact [facility] for information (dose of risperdal and date of last injection).Side effects/benefits of risperdal are discussed with the patient.Made aware,in particular,of the risk for sexual impotence,gynecomastia,galactorrhea,extrapyramidal syndrome (abnormal involuntary movements : akathisia,dystonias,akathisia,akinesia).Mr Hwang consented,verbally,to follow this plan of care.Observation.Call to [employer] at [phone] : unanswered.Will follow.
[2017-09-26] MEDS ORDERED: POTASSIUM CHLORIDE TABS 20 MEQ TABLET.ER (FP) PO ONE (16:30)
[2017-09-26] MEDS: ACETAMINOPHEN 325 MG TABLET (FP) PO PRN (17:45)
[2017-09-26] MEDS: hydrOXYzine PAMOATE 50 MG CAPSULE (FP) PO PRN (20:00)
[2017-09-26] MEDS: chlordiazePOXIDE HCL 25 MG CAPSULE PO PRN (20:00)
[2017-09-26] MEDS: IBUPROFEN 400 MG TABLET (FP) PO PRN (20:02)
[2017-09-26] MEDS: THIAMINE HCL 100 MG TABLET (FP) PO SCH (22:22)
[2017-09-26] MEDS: ATORVASTATIN CA 80 MG TABLET (FP) PO SCH (22:22)
[2017-09-26] MEDS: risperiDONE 2 MG TABLET PO SCH (22:22)
[2017-09-26] MEDS: POTASSIUM CHLORIDE TABS 20 MEQ TABLET.ER (FP) PO SCH (22:22)
[2017-09-27] MEDS ORDERED: LEVOTHYROXINE NA 100 MCG TABLET (FP) ONE (05:25)
[2017-09-27] MEDS: chlordiazePOXIDE HCL 25 MG CAPSULE PO SCH ×3 (05:25→16:31)
[2017-09-27] MEDS ORDERED: LEVOTHYROXINE NA 25 MCG TABLET (FP) ONE (05:25)
[2017-09-27] MEDS: LEVOTHYROXINE 75 MCG, LEVOTHYROXINE 100 MCG PO SCH (07:00)
[2017-09-27] MEDS: amLODIPine BESYLATE 10 MG TABLET (FP) PO SCH (11:09)
[2017-09-27] MEDS: NICOTINE 21 MG/24 HOURS TOPICAL PATCH TD SCH (11:09)
[2017-09-27] MEDS: PRENATAL VITAMINS W/ FOLIC ACID TABLET (FP) PO SCH (11:09)
[2017-09-27] MEDS: BENZTROPINE MESYLATE 1 MG TABLET (FP) PO SCH (11:09)
[2017-09-27] MEDS: POTASSIUM CHLORIDE TABS 20 MEQ TABLET.ER (FP) PO SCH ×2 (11:09→22:55)
--- NOTE | 2017-09-27 12:08 | PN ---
S CIWA - CIWA Score Nausea/Vomitin-Mild Nausea/No Vomiting Muscle Tremors: 3 Anxiety: 3 Agitation: 3 Paroxysmal Sweats: 1-Minimal Palms Moist Orientation: 0-Oriented Tacttile Disturbances: 0-None Auditory Disturbances: 0-None Visual Disturbances: 0-None Headache: 0-None Present CIWA-Ar Total Score: 11 S Progress Note (SOAP) Subjective: anxiety restlessness irritable sweat tremor Objective: 09/27/17 12:09 Vital Signs Temperature 97.2 F L 09/27/17 10:25 Pulse Rate 92 H 09/27/17 10:25 Respiratory Rate 16 09/27/17 10:25 Blood Pressure 157/116 09/27/17 10:25 O2 Sat by Pulse Oximetry (%) Laboratory Last Values WBC 4.5 K/mm3 (4.0-10.0) D 09/26/17 07:50 RBC 4.73 M/mm3 (4.00-5.60) 09/26/17 07:50 Hgb 14.4 GM/dL (11.7-16.9) D 09/26/17 07:50 Hct 42.5 % (35.4-49) 09/26/17 07:50 MCV 89.8 fl (80-96) 09/26/17 07:50 MCH 30.3 pg (25.7-33.7) 09/26/17 07:50 MCHC 33.8 g/dl (32.0-35.9) 09/26/17 07:50 RDW 15.0 % (11.9-15.9) 09/26/17 07:50 Plt Count 199 K/MM3 (134-434) 09/26/17 07:50 MPV 10.0 fl (7.5-11.1) 09/26/17 07:50 Sodium 137 mmol/L (136-145) 09/26/17 07:50 Potassium 3.2 mmol/L (3.5-5.1) L 09/26/17 07:50 Chloride 96 mmol/L (98-107) L 09/26/17 07:50 Carbon Dioxide 30 mmol/L (21-32) 09/26/17 07:50 Anion Gap 11 (8-16) 09/26/17 07:50 BUN 15 mg/dL (7-18) D 09/26/17 07:50 Creatinine 1.3 mg/dL (0.7-1.3) 09/26/17 07:50 Creat Clearance w eGFR 58.67 (>60) 09/26/17 07:50 Random Glucose 128 mg/dL (74-106) H D 09/26/17 07:50 Calcium 9.1 mg/dL (8.5-10.1) 09/26/17 07:50 Total Bilirubin 0.7 mg/dL (0.2-1.0) 09/26/17 07:50 AST 32 U/L (15-37) 09/26/17 07:50 ALT 26 U/L (12-78) 09/26/17 07:50 Alkaline Phosphatase 85 U/L (45-117) D 09/26/17 07:50 Total Protein 7.5 g/dl (6.4-8.2) 09/26/17 07:50 Albumin 3.0 g/dl (3.4-5.0) L D 09/26/17 07:50 Urine Color Ltyellow 09/25/17 22:03 Urine Appearance Clear 09/25/17 22:03 Urine pH 6.0 (5.0-8.0) 09/25/17 22:03 Ur Specific [place] 1.014 (1.001-1.035) 09/25/17 22:03 Urine Protein 2+ (NEGATIVE) H 09/25/17 22:03 Urine Glucose (UA) 2+ (NEGATIVE) H 09/25/17 22:03 Urine Ketones Negative (NEGATIVE) 09/25/17 22:03 Urine Blood 1+ (NEGATIVE) H 09/25/17 22:03 Urine Nitrite Negative (NEGATIVE) 09/25/17 22:03 Urine Bilirubin Negative (NEGATIVE) 09/25/17 22:03 Urine Urobilinogen 2.0 mg/dL (0.2-1.0) 09/25/17 22:03 Ur Leukocyte Esterase Negative (NEGATIVE) 09/25/17 22:03 Urine WBC (Auto) 1 /hpf (3-5) 09/25/17 22:03 Urine RBC (Auto) 1 /hpf (0-3) 09/25/17 22:03 Ur Epithelial Cells Rare /HPF (FEW) 09/25/17 22:03 Calcium Oxalate Crystal Rare /hpf (NONE SEEN) 09/25/17 22:03 Hyaline Casts 1 /lpf 09/25/17 22:03 Urine Mucus Rare 09/25/17 22:03 lab noted continue potassium supplement Assessment: 09/27/17 12:10 withdrawal sx Plan: continue detox
--- NOTE | 2017-09-27 14:29 | EKG ---
Test Reason : Blood Pressure : / mmHG Vent. Rate : 092 BPM Atrial Rate : 092 BPM P-R Int : 162 ms QRS Dur : 106 ms QT Int : 420 ms P-R-T Axes : 051 033 049 degrees QTc Int : 519 ms NORMAL SINUS RHYTHM POSSIBLE LEFT ATRIAL ENLARGEMENT LEFT VENTRICULAR HYPERTROPHY ST ELEVATION CONSIDER ANTERIOR INJURY OR ACUTE INFARCT PROLONGED QT ABNORMAL ECG Confirmed by MD EDWARD, VERNON ([id number]) on 09/27/2017 2:29:04 PM Referred By: Confirmed By:VERNON LEON MD
[2017-09-27] MEDS: IBUPROFEN 400 MG TABLET (FP) PO PRN (16:31)
[2017-09-27] MEDS: chlordiazePOXIDE HCL 25 MG CAPSULE PO PRN (18:36)
[2017-09-27] MEDS: hydrOXYzine PAMOATE 50 MG CAPSULE (FP) PO PRN (18:36)
[2017-09-27] MEDS: ACETAMINOPHEN 325 MG TABLET (FP) PO PRN (18:36)
[2017-09-27] MEDS: risperiDONE 2 MG TABLET PO SCH (18:55)
[2017-09-27] MEDS: ATORVASTATIN CA 80 MG TABLET (FP) PO SCH (22:55)
[2017-09-28] MEDS: chlordiazePOXIDE 5 MG CAPSULE PO SCH ×3 (00:26→10:16)
[2017-09-28] MEDS: THIAMINE HCL 100 MG TABLET (FP) PO SCH (00:27)
[2017-09-28] MEDS: hydrOXYzine PAMOATE 50 MG CAPSULE (FP) PO PRN (02:07)
[2017-09-28] MEDS ORDERED: LEVOTHYROXINE NA 25 MCG TABLET (FP) ONE (04:26)
[2017-09-28] MEDS ORDERED: LEVOTHYROXINE NA 100 MCG TABLET (FP) ONE (04:26)
[2017-09-28] MEDS: LEVOTHYROXINE 75 MCG, LEVOTHYROXINE 100 MCG PO SCH (06:17)
[2017-09-28] MEDS: PRENATAL VITAMINS W/ FOLIC ACID TABLET (FP) PO SCH (10:15)
[2017-09-28] MEDS: amLODIPine BESYLATE 10 MG TABLET (FP) PO SCH (10:15)
[2017-09-28] MEDS: NICOTINE 21 MG/24 HOURS TOPICAL PATCH TD SCH (10:16)
[2017-09-28] MEDS: BENZTROPINE MESYLATE 1 MG TABLET (FP) PO SCH (10:17)
--- NOTE | 2017-09-28 10:21 | PN ---
BHS Progress Note (SOAP) Subjective: ALERT,INTERRUPTED SLEEP Objective: 09/28/17 10:17 Vital Signs Temperature 98.2 F 09/28/17 06:00 Pulse Rate 87 09/28/17 06:00 Respiratory Rate 18 09/28/17 06:00 Blood Pressure 134/87 09/28/17 06:00 O2 Sat by Pulse Oximetry (%) Assessment: 09/28/17 10:20 WITHDRAWAL SYMPTOM Plan: CONTINUE DETOX,DISCHARGE IN AM
[2017-09-28] MEDS: POTASSIUM CHLORIDE TABS 20 MEQ TABLET.ER (FP) PO SCH (10:30)
--- NOTE | 2017-09-28 10:54 | EKG ---
Test Reason : Blood Pressure : / mmHG Vent. Rate : 089 BPM Atrial Rate : 089 BPM P-R Int : 160 ms QRS Dur : 102 ms QT Int : 404 ms P-R-T Axes : 063 038 036 degrees QTc Int : 491 ms NORMAL SINUS RHYTHM POSSIBLE LEFT ATRIAL ENLARGEMENT LEFT VENTRICULAR HYPERTROPHY PROLONGED QT ABNORMAL ECG WHEN COMPARED WITH ECG OF 26-SEP-2017 16:34, NO SIGNIFICANT CHANGE WAS FOUND Confirmed by CRIS CALZADA, RADHA ([id number]) on 09/28/2017 10:53:55 AM Referred By: Confirmed By:RADHA LYNCH MD
[2017-09-28 14:30] VITALS: BP 142/73; PULSE 100; TEMP 97.3
--- NOTE | 2017-09-28 15:18 | PN ---
[facility] Progress Note Note: patient would like to be discharged,seen by counselor,stable for discharge today ,follow up with after care program as arrangement,did not wantto have k repeat,continue k dure 20 meq po bid for 5 days,to see Dr Maynard for follow up
--- NOTE | 2017-09-28 15:24 | DS ---
[facility] Detox Discharge Summary Admission Date: 09/25/17 Discharge Date: 09/28/17 - History Present History: Alcohol Dependence, Cocaine Dependence Additional Comments: stable for discharge today,follow up with after care program as arrangement and pmd Dr michelle,did not want repeat k, continue k dur 20 meq po bid for 5 days Pertinent Past History: essential hypetension gerd hypothyroidism hypercholesterolemia weight loss hiv - Physical Exam Results Vital Signs: Vital Signs Temperature 97.3 F L 09/28/17 14:30 Pulse Rate 100 H 09/28/17 14:30 Respiratory Rate 18 09/28/17 14:30 Blood Pressure 142/73 09/28/17 14:30 O2 Sat by Pulse Oximetry (%) Pertinent Admission Physical Exam Findings: withdrawal signs and symptom - Treatment Hospital Course: Detox Protocol Followed, Detoxed Safely, Responded well, Discharged Condition Good Patient has Accepted a Rehab Referral to: declined - Medication Discharge Medications: Ambulatory Orders Dolutegravir Sodium [Tivicay] 50 mg PO DAILY 01/09/17 Emtricitabine/Tenofovir (Tdf) [Truvada 200 mg-300 mg Tablet] 1 each PO DAILY Multivitamins [Tab-A-Vit -] 1 tab PO DAILY 01/09/17 Benztropine Mesylate [Cogentin -] 1 mg PO DAILY #30 tablet 01/10/17 Risperidone [Risperdal] 3 mg PO DAILY #30 tablet 01/10/17 Atorvastatin Ca [Lipitor] 80 mg PO HS #30 tablet 01/13/17 Levothyroxine [Synthroid -] 175 mcg PO DAILY@0700 #30 tablet 01/13/17 Metoprolol Succinate [Toprol XL -] 50 mg PO DAILY 04/27/17 Risperidone [Risperdal] 3 mg PO HS #30 tablet 04/27/17 Amlodipine Besylate 10 mg PO DAILY 04/28/17 - Diagnosis (1) Alcohol dependence with uncomplicated withdrawal Current Visit: Yes Status: Acute (2) Bipolar disorder Current Visit: Yes Status: Chronic Qualifiers: Current episode severity: unspecified (3) Essential hypertension Current Visit: Yes Status: Chronic (4) GERD (gastroesophageal reflux disease) Current Visit: Yes Status: Chronic Qualifiers: Esophagitis presence: esophagitis presence not specified Qualified Code(s) : K21.9 - Gastro-esophageal reflux disease without esophagitis (5) HIV (human immunodeficiency virus infection) Current Visit: Yes Status: Chronic (6) Hypercholesterolemia Current Visit: Yes Status: Chronic (7) Hypothyroidism Current Visit: Yes Status: Chronic (8) Cocaine dependence Current Visit: Yes Status: Acute Qualifiers: Substance use status: uncomplicated Qualified Code(s): F14.20 - Cocaine dependence, uncomplicated (9) Hypokalemia Current Visit: No Status: Acute - AMA Did Patient Leave Against Medical Advice: No
[2017-09-28] MEDS ORDERED: chlordiazePOXIDE HCL 10 MG CAPSULE PO SCH (23:00)
== END 2017-09-28 15:30 | disposition home or self-care (01) | DRG 774 ==
LOC: YASAS 14:03 → Y6N 20:00
PROVIDERS: ADMIT Internal Medicine; ATTEND Internal Medicine
PROC: HZ2ZZZZ Detoxification Services for Substance Abuse Treatment (ICD-10-PCS; principal; 2017-09-25)
DX: F10.230 Alcohol dependence with withdrawal, uncomplicated (principal); F14.20 Cocaine dependence, uncomplicated; F17.213 Nicotine dependence, cigarettes, with withdrawal; F31.9 Bipolar disorder, unspecified; F19.24 Other psychoactive substance dependence with psychoactive substance-induced mood disorder; E86.0 Dehydration; I10 Essential (primary) hypertension; Z21 Asymptomatic human immunodeficiency virus [HIV] infection status; E78.00 Pure hypercholesterolemia, unspecified; E03.9 Hypothyroidism, unspecified; E87.6 Hypokalemia; K21.9 Gastro-esophageal reflux disease without esophagitis; Z91.14 Patient's other noncompliance with medication regimen; Z86.69 Personal history of other diseases of the nervous system and sense organs; Z87.438 Personal history of other diseases of male genital organs; Z91.013 Allergy to seafood; Z88.2 Allergy status to sulfonamides; Z87.898 Personal history of other specified conditions
CPT/HCPCS: 36415; 80053; 81003; 81015; 85027; 86593; 93005; 93010

== ENCOUNTER 2018-05-07 12:31 | Inpatient (IN) | payer OTHER ==
[2018-05-07 13:08] VITALS: BMI 24.2
--- NOTE | 2018-05-07 17:36 | HP ---
CIWA Score - CIWA Score Nausea/Vomitin-No Nausea/No Vomiting Muscle Tremors: None Anxiety: 0-No Anxiety, at Ease Agitation: 0-Normal Activity Paroxysmal Sweats: No Perspiration Orientation: 0-Oriented Tacttile Disturbances: 0-None Auditory Disturbances: 0-None Visual Disturbances: 0-None Headache: 0-None Present CIWA-Ar Total Score: 0 Admission ROS B[facility] - HPI Allergies/Adverse Reactions: Allergies Allergy/AdvReac Type Severity Reaction Status Date / Time sulfamethoxazole Allergy Intermediate Itching Verified 05/07/18 14:47 [From Bactrim DS] trimethoprim Allergy Intermediate Itching Verified 05/07/18 14:46 [From Bactrim DS] all over body Fish Containing Products Allergy Mild throat Verified 05/07/18 14:46 swelling History of Present Illness: pt here requesting detox from ETOH use , reports 1/5 vodka and 3 x 24 oz beer/ day , first age of use 12 , heavy use " off and on " , most recently in detox " i don't remember " , latest use 3 am today , DAV 0.000 on presentation , reports drinking in the mornings , + tremors sometimes , 1991- had w/d seizure , unsure about blackouts, denies falls . cocaine : 3 x/month tobacco : daily 1 ppd , requesting nrt w/ patch benzo - denies utox : + EMIR , BZO pmhx : htn, hld , hypothyroid , claims latest taken yesterday , meds at home pshx : umbil hernia 2008 psych : bipolar d/o meds : risperdol, metoprolol, amlodipine " I can't remember the name " pharmacy called [facility] - meds verified LEvothyroxine 25 micrograms, read back to pharmacust twice and confirmed dose atorvastatin 20 mg Amlodipine - not since 2017 other meds verified as per orders Exam Limitations: Other (evasive answers, guarded) - Ebola screening Have you traveled outside of the country in the last 21 days: No Have you had contact with anyone from an Ebola affected area: No Have you been sick,other than usual withdrawal symptoms: No Do you have a fever: No - Review of Systems Constitutional: See HPI EENT: reports: See HPI, Other (" I am supposed to have reading glasses ") Respiratory: reports: No Symptoms reported Cardiac: reports: No Symptoms Reported GI: reports: No Symptoms Reported : reports: No Symptoms Reported Musculoskeletal: reports: Joint Pain, Other (c/o august knee pain- chronic) Integumentary: reports: No Symptoms Reported Neuro: reports: No Symptoms reported Endocrine: reports: Other (hypothyroid) Psychiatric: reports: Orientated x3 (see HPI) Patient History - Patient Medical History Hx Anemia: No Hx Asthma: No Hx Chronic Obstructive Pulmonary Disease (COPD): No Hx Cancer: No Hx Cardiac Disorders: No Hx Congestive Heart Failure: No Hx Hypertension: Yes (145/98) Hx Hypercholesterolemia: Yes (ON MED) Hx Pacemaker: No HX Cerebrovascular Accident: No Hx Seizures: No Hx Dementia: No Hx Diabetes: No Hx Gastrointestinal Disorders: No Hx Liver Disease: No Hx Genitourinary Disorders: No Hx Sexually Transmitted Disorders: No Hx Renal Disease (ESRD): No Hx Thyroid Disease: Yes (HYPOTHYROIDISM ON MEDS) Hx Human Immunodeficiency Virus (HIV): Yes (SINCE 1988 /VL UNDETECTABLE T-CELL 325 IN .) Hx Hepatitis C: No Hx Depression: Yes Hx Suicide Attempt: No Hx Bipolar Disorder: Yes (ON MED) Hx Schizophrenia: No - Patient Surgical History Past Surgical History: Yes Hx Neurologic Surgery: No Hx Cataract Extraction: No Hx Cardiac Surgery: No Hx Lung Surgery: No Hx Breast Surgery: No Hx Breast Biopsy: No Hx Abdominal Surgery: Yes (REPAIR OF UMBILICAL HERNIA 2OO8) Hx Appendectomy: No Hx Cholecystectomy: No Hx Genitourinary Surgery: No Hx Section: No Hx Orthopedic Surgery: No Anesthesia Reaction: No - PPD History Previous Implant?: No Documented Results: Negative w/o proof Implanted On Prior [facility] Admission?: Yes Date: 04/29/17 Results: 0 mm - Reproductive History Patient : No - Smoking Cessation Smoking history: Current every day smoker Have you smoked in the past 12 months: Yes Aproximately how many cigarettes per day: 20 Cigars Per Day: 0 Hx Chewing Tobacco Use: No Initiated information on smoking cessation: No - Substances Abused Cocaine Route: Smoking Frequency: 1-3 times last 30 days Amount used: $60-$80 Age of first use: 22 Date of Last Use: 05/06/18 Alcohol- vodka/beer Route: Oral Frequency: Daily Amount used: 4 (24oz beer)/ 1/5 of Vodka Age of first use: 12 Date of Last Use: 05/07/18 Family Disease History - Family Disease History Family Disease History: Diabetes: Grandparent, Father (alcohol,), Mother (alcohol,), Other: Father, Mother Admission Physical Exam [facility] - Vital Signs Vital Signs: Vital Signs - 24 hr 05/07/18 13:03 Temperature 97.2 F L Pulse Rate 130 H Respiratory 17 Rate Blood Pressure 145/98 - Physical General Appearance: Yes: Disheveled, Anxious HEENTM: Yes: EOMI, Hearing grossly Normal, Normocephalic, Normal Voice Respiratory: Yes: Within Normal Limits, Lungs Clear, Normal Breath Sounds Neck: Yes: Within Normal Limits, No masses,lesions,Nodules Breast: Yes: Breast Exam Deferred Cardiology: Yes: Regular Rhythm Abdominal: Yes: Normal Bowel Sounds, Non Tender, Soft Back: Yes: Normal Inspection Musculoskeletal: Yes: Gait Steady Extremities: Yes: Normal Capillary Refill, Normal Inspection, Non-Tender Neurological: Yes: Fully Oriented, Motor Strength 5/5 Integumentary: Yes: Normal Color, Dry, Warm - Diagnostic (1) Alcohol dependence with uncomplicated withdrawal Current Visit: No Status: Acute (2) Cocaine dependence Current Visit: No Status: Acute Qualifiers: Substance use status: uncomplicated Qualified Code(s): F14.20 - Cocaine dependence, uncomplicated [facility] Breath Alcohol Content Breath Alcohol Content: 0 Urine Drug Screen - Results Drug Screen Negative: No Urine Drug Screen Results: EMIR-Cocaine, BZO-Benzodiazepines
[2018-05-07] MEDS ORDERED: ACETAMINOPHEN 325 MG TABLET (FP) PO PRN (17:46)
[2018-05-07] MEDS ORDERED: MENTHOL/PHENOL 1 EACH UD MM PRN (17:46)
[2018-05-07] MEDS ORDERED: MAGNESIUM CITRATE 300 ML BOTTLE PO PRN (17:46)
[2018-05-07] MEDS ORDERED: MAG HYDROX/AL HYDROX/SIMETH 30 ML UNIT-DOSE CUP PO PRN (17:46)
[2018-05-07] MEDS ORDERED: guaiFENesin/D-METHORPHAN HB 10 ML UNIT-DOSE CUPS PO PRN (17:46)
[2018-05-07] MEDS ORDERED: MAGNESIUM HYDROX 2400MG/30ML ORAL SUSPENSION 30 ML CUP PO PRN (17:46)
[2018-05-07] MEDS ORDERED: P-EPHED 60MG/TRIPROLIDI 2.5MG TABLET PO PRN (17:46)
[2018-05-07] MEDS ORDERED: chlordiazePOXIDE HCL 25 MG CAPSULE PO PRN (17:46)
[2018-05-07] MEDS ORDERED: cloNIDine HCL 0.1 MG TABLET PO ONE (20:02)
[2018-05-07] MEDS: IBUPROFEN 400 MG TABLET (FP) PO PRN (20:11)
[2018-05-07] MEDS: THIAMINE HCL 100 MG TABLET (FP) PO SCH (22:11)
[2018-05-07] MEDS: ATORVASTATIN CA 20 MG TABLET (FP) PO SCH (22:11)
[2018-05-07] MEDS: MELATONIN 5 MG TABLETS PO PRN (22:11)
[2018-05-07] MEDS: chlordiazePOXIDE HCL 25 MG CAPSULE PO SCH (22:11)
[2018-05-08] MEDS: chlordiazePOXIDE HCL 25 MG CAPSULE PO SCH ×4 (05:06→22:16)
[2018-05-08] MEDS: LEVOTHYROXINE NA 25 MCG TABLET (FP) PO SCH (06:36)
[2018-05-08] MEDS: DOLUTEGRAVIR SODIUM 50 MG TABLET PO SCH ×2 (10:08→10:12)
[2018-05-08] MEDS: EMTRICITABINE 200MG/TENOFOVIR 300MG PO SCH ×2 (10:08→10:12)
[2018-05-08] MEDS: PRENATAL VITAMINS W/ FOLIC ACID TABLET (FP) PO SCH (10:09)
--- NOTE | 2018-05-08 10:35 | EKG ---
Test Reason : Blood Pressure : / mmHG Vent. Rate : 105 BPM Atrial Rate : 105 BPM P-R Int : 154 ms QRS Dur : 090 ms QT Int : 362 ms P-R-T Axes : 062 035 035 degrees QTc Int : 478 ms SINUS TACHYCARDIA WITH OCCASIONAL PREMATURE VENTRICULAR COMPLEXES POSSIBLE LEFT ATRIAL ENLARGEMENT LEFT VENTRICULAR HYPERTROPHY ABNORMAL ECG WHEN COMPARED WITH ECG OF 27-SEP-2017 10:04, PREMATURE VENTRICULAR COMPLEXES ARE NOW PRESENT Confirmed by CANDY CALZADA, JG ([id number]) on 05/08/2018 10:35:01 AM Referred By: Confirmed By:JG GUPTA MD
[2018-05-08 10:50] LABS: HEMATOCRIT 41.7 % (35.4-49); MCH 30.6 pg (25.7-33.7); MCHC 33.6 g/dl (32.0-35.9); MEAN PLT VOLUME 10.3 fl (7.5-11.1); PLATELET COUNT 135 K/MM3 (134-434); RBC 4.58 M/mm3 (4.00-5.60); RDW 14.5 % (11.9-15.9); WHITE BLOOD COUNT 2.6 K/mm3 (4.0-10.0)
[2018-05-08 11:05] LABS: ALK PHOS 80 U/L (45-117); ANION GAP 7 MMOL/L (8-16); BILIRUBIN,TOTAL 0.6 mg/dL (0.2-1); BLOOD UREA NITROGEN 15 mg/dL (7-18); CALCIUM 9.5 mg/dL (8.5-10.1); CHLORIDE 102 mmol/L (98-107); CO2 30 mmol/L (21-32); CREATININE 1.1 mg/dL (0.55-1.3); GLUCOSE,RANDOM 78 mg/dL (74-106); POTASSIUM 3.4 mmol/L (3.5-5.1); SGOT/AST 52 U/L (15-37); SGPT/ALT 51 U/L (13-61); SODIUM 139 mmol/L (136-145); TOT PROT 7.1 g/dl (6.4-8.2)
--- NOTE | 2018-05-08 13:19 | PN ---
S CIWA - CIWA Score Nausea/Vomitin Muscle Tremors: 2 Anxiety: 2 Agitation: 2 Paroxysmal Sweats: 1-Minimal Palms Moist Orientation: 0-Oriented Tacttile Disturbances: 1-Very Mild Itch/Numbness Auditory Disturbances: 1-Very Mild Visual Disturbances: 1-Very Mild Sensitivity Headache: 2-Mild CIWA-Ar Total Score: 14 S Progress Note (SOAP) Subjective: alert,irritable,anxious,interrupted sleep,tremor Objective: 05/08/18 13:16 Vital Signs Temperature 97.4 F L 05/08/18 10:02 Pulse Rate 87 05/08/18 10:02 Respiratory Rate 18 05/08/18 10:02 Blood Pressure 157/91 05/08/18 10:02 O2 Sat by Pulse Oximetry (%) ekg sinus tachycardia 105/min.occasional pvc no chest pain,no sob,no dizziness Laboratory Last Values WBC 2.6 K/mm3 (4.0-10.0) L 05/08/18 08:00 RBC 4.58 M/mm3 (4.00-5.60) 05/08/18 08:00 Hgb 14.0 GM/dL (11.7-16.9) 05/08/18 08:00 Hct 41.7 % (35.4-49) 05/08/18 08:00 MCV 91.0 fl (80-96) 05/08/18 08:00 MCH 30.6 pg (25.7-33.7) 05/08/18 08:00 MCHC 33.6 g/dl (32.0-35.9) 05/08/18 08:00 RDW 14.5 % (11.9-15.9) 05/08/18 08:00 Plt Count 135 K/MM3 (134-434) D 05/08/18 08:00 MPV 10.3 fl (7.5-11.1) 05/08/18 08:00 Sodium 139 mmol/L (136-145) 05/08/18 08:00 Potassium 3.4 mmol/L (3.5-5.1) L 05/08/18 08:00 Chloride 102 mmol/L (98-107) 05/08/18 08:00 Carbon Dioxide 30 mmol/L (21-32) 05/08/18 08:00 Anion Gap 7 MMOL/L (8-16) L 05/08/18 08:00 BUN 15 mg/dL (7-18) 05/08/18 08:00 Creatinine 1.1 mg/dL (0.55-1.3) 05/08/18 08:00 Creat Clearance w eGFR > 60 (>60) 05/08/18 08:00 Random Glucose 78 mg/dL (74-106) 05/08/18 08:00 Calcium 9.5 mg/dL (8.5-10.1) 05/08/18 08:00 Total Bilirubin 0.6 mg/dL (0.2-1) 05/08/18 08:00 AST 52 U/L (15-37) H 05/08/18 08:00 ALT 51 U/L (13-61) 05/08/18 08:00 Alkaline Phosphatase 80 U/L (45-117) 05/08/18 08:00 Total Protein 7.1 g/dl (6.4-8.2) 05/08/18 08:00 Albumin 3.0 g/dl (3.4-5.0) L 05/08/18 08:00 RPR Titer Nonreactive (NONREACTIVE) 05/08/18 08:00 Assessment: 05/08/18 13:25 withdrawal symptom Plan: continue detox,
--- NOTE | 2018-05-08 14:07 | PN ---
BHS Progress Note Note: repeat cbc in am initial wbc is 2,600
--- NOTE | 2018-05-08 16:47 | CONSULT ---
[facility] Psychiatric Consult - Data Date of interview: 05/08/18 Admission source: [facility] Identifying data: Re-admission to [facility] for this 52 y/o AA male seeking detoxification treatment on for alcohol and cocaine (crack) dependence.Patient is single,a father of seven,domiciled,unemployed and supported on SSI benefits. Substance Abuse History: Discussed with the patient at this bedside interview. Mr Hwang confirms abuse of crack and alcohol as reported in the current [facility] narrative that follows : Smoking history: Current every day smoker. Have you smoked in the past 12 months: Yes. Aproximately how many cigarettes per day: 20. Cigars Per Day: 0. Hx Chewing Tobacco Use: No. Initiated information on smoking cessation: No. - Substances Abused. Cocaine. Route: Smoking. Frequency: 1-3 times last 30 days. Amount used: $60-$80. Age of first use: 22. Date of Last Use: 05/06/18. Alcohol- vodka/beer. Route: Oral. Frequency: Daily. Amount used: 4 (24oz beer)/ 1/5 of Vodka. Age of first use: 12. Date of Last Use: 05/07/18 Medical History: History of alcohol-related seizures (1989),past treatment for syphilis,hypertension,hypothyroidism,hypercholesterolemia,HIV infection since 1988 and history of umbilical herniorraphy (2007). Psychiatric History: Patient endorses a history of multiple psychiatric hospitalizations ([facility], [facility], [facility], [facility] [[email or web address] Reportedly diagnosed with Bipolar Disorder. Mr Hwang indicates that he gets outpatient psychiatric services at the [facility] clinic. Reports his medications as risperdal 2 mg/hs + cogentin (dose not recalled).History of suicide attempt via jumping onto the train tracks (1991). Physical/Sexual Abuse/Trauma History: Patient denies. Additional Comment: Urine Drug Screen Results: EMIR-Cocaine, BZO- Benzodiazepines.Noted. Mental Status Exam - Mental Status Exam Alert and Oriented to: Time, Place, Person Cognitive Function: Grossly Intact Patient Appearance: Well Groomed (lying in bed fully awake ) Mood: Withdrawn, Hopeful, Euthymic Affect: Normal Range Patient Behavior: Fatigued, Cooperative Speech Pattern: Clear, Appropriate Voice Loudness: Normal Thought Process: Goal Oriented Thought Disorder: Not Present Hallucinations: Denies Suicidal Ideation: Denies Homicidal Ideation: Denies Insight/Judgement: Poor Sleep: Well Appetite: Good Muscle strength/Tone: Normal Gait/Station: Other (not observed ; in bed for entire interview) Psychiatric Findings - Problem List ([place] 1, 2,3) (1) Alcohol dependence with uncomplicated withdrawal Current Visit: Yes Status: Acute (2) Cocaine dependence Current Visit: Yes Status: Acute Qualifiers: Substance use status: uncomplicated Qualified Code(s): F14.20 - Cocaine dependence, uncomplicated (3) Nicotine dependence Current Visit: Yes Status: Acute Qualifiers: Nicotine product type: cigarettes Substance use status: in withdrawal Qualified Code(s): F17.213 - Nicotine dependence, cigarettes, with withdrawal (4) Substance induced mood disorder Current Visit: Yes Status: Acute (5) Bipolar disorder Current Visit: No Status: Chronic Qualifiers: Current episode severity: unspecified Comment: As per records. No symptoms at time of this examination. (6) Non compliance w medication regimen Current Visit: Yes Status: Chronic - Initial Treatment Plan Initial Treatment Plan: Psychoeducation.Sleep hygiene.Detoxification.Patient is distracted and unreliable historian. Will hold risperdal until verification of dose.Call made to [employer] : answering machine.Serology Technician left no message. Observation.
[2018-05-08] MEDS: THIAMINE HCL 100 MG TABLET (FP) PO SCH (22:16)
[2018-05-08] MEDS: ATORVASTATIN CA 20 MG TABLET (FP) PO SCH (22:16)
[2018-05-08] MEDS: MELATONIN 5 MG TABLETS PO PRN (23:47)
[2018-05-09] MEDS: LEVOTHYROXINE NA 25 MCG TABLET (FP) PO SCH (06:43)
[2018-05-09] MEDS: chlordiazePOXIDE HCL 25 MG CAPSULE PO SCH ×3 (06:43→17:13)
[2018-05-09] MEDS: EMTRICITABINE 200MG/TENOFOVIR 300MG PO SCH (10:06)
[2018-05-09] MEDS: PRENATAL VITAMINS W/ FOLIC ACID TABLET (FP) PO SCH (10:06)
[2018-05-09] MEDS: DOLUTEGRAVIR SODIUM 50 MG TABLET PO SCH (10:06)
[2018-05-09 11:07] LABS: HEMATOCRIT 43.8 % (35.4-49); HEMOGLOBIN 14.5 GM/dL (11.7-16.9); MCH 30.5 pg (25.7-33.7); MCHC 33.1 g/dl (32.0-35.9); MEAN CELL VOLUME 92.1 fl (80-96); MEAN PLT VOLUME 10.5 fl (7.5-11.1); PLATELET COUNT 132 K/MM3 (134-434); RBC 4.75 M/mm3 (4.00-5.60); RDW 14.6 % (11.9-15.9); WHITE BLOOD COUNT 3.4 K/mm3 (4.0-10.0)
[2018-05-09] MEDS ORDERED: POTASSIUM CHLORIDE TABS 20 MEQ TABLET.ER (FP) PO ONE (12:56)
--- NOTE | 2018-05-09 12:56 | PN ---
S CIWA - CIWA Score Nausea/Vomitin Muscle Tremors: 3 Anxiety: 3 Agitation: 3 Paroxysmal Sweats: 3 Orientation: 0-Oriented Tacttile Disturbances: 0-None Auditory Disturbances: 0-None Visual Disturbances: 0-None Headache: 0-None Present CIWA-Ar Total Score: 14 BHS Progress Note (SOAP) Subjective: Sweating, interrupted sleep Objective: 05/09/18 12:50 Last Vital Signs Temp Pulse Resp BP Pulse Ox 97.4 F L 84 18 164/112 H 05/09/18 09:28 05/09/18 09:28 05/09/18 09:28 05/09/18 09:28 B/P noted (h/o htn, on metoprolol 50mg PO daily) Laboratory Tests 05/08/18 05/08/18 05/08/18 08:00 08:00 08:00 WBC 2.6 L RBC 4.58 Hgb 14.0 Hct 41.7 MCV 91.0 MCH 30.6 MCHC 33.6 RDW 14.5 Plt Count 135 D MPV 10.3 Sodium 139 Potassium 3.4 L Chloride 102 Carbon Dioxide 30 Anion Gap 7 L BUN 15 Creatinine 1.1 Creat Clearance w eGFR > 60 Random Glucose 78 Calcium 9.5 Total Bilirubin 0.6 AST 52 H ALT 51 Alkaline Phosphatase 80 Total Protein 7.1 Albumin 3.0 L RPR Titer Nonreactive 05/09/18 07:30 WBC 3.4 L RBC 4.75 Hgb 14.5 Hct 43.8 MCV 92.1 MCH 30.5 MCHC 33.1 RDW 14.6 Plt Count 132 L MPV 10.5 Sodium Potassium Chloride Carbon Dioxide Anion Gap BUN Creatinine Creat Clearance w eGFR Random Glucose Calcium Total Bilirubin AST ALT Alkaline Phosphatase Total Protein Albumin RPR Titer Labs reviewed: K 3.4, plt 132 Assessment: 05/09/18 12:53 Withdrawasl sxs Noted with hypokalemia and mild thrombocytopenia Plan: Continue detox Hypokalemia, mild: asymptomatic, K Dur 40 Meq PO x 1 dose, repeat serum K level in AM Mild thrombocytopenia: stable, follow up with your PCP post discharge for monitoring
[2018-05-09 17:10] LABS: URINE APPEARANCE TURBID; URINE BILIRUBIN NEGATIVE (<2.0 mg/dL); URINE COLOR DKYELLOW; URINE GLUCOSE (UA) NEGATIVE (NEGATIVE); URINE KETONE NEGATIVE (NEGATIVE); URINE LEUK ESTERASE NEGATIVE (NEGATIVE); URINE NITRITE NEGATIVE (NEGATIVE); URINE PROTEIN NEGATIVE (NEGATIVE); URINE UROBILINOGEN NEGATIVE mg/dL (0.2-1.0)
[2018-05-09] MEDS: IBUPROFEN 400 MG TABLET (FP) PO PRN (17:14)
[2018-05-09] MEDS: chlordiazePOXIDE 5 MG CAPSULE PO SCH (22:38)
[2018-05-09] MEDS: ATORVASTATIN CA 20 MG TABLET (FP) PO SCH (22:38)
[2018-05-09] MEDS: MELATONIN 5 MG TABLETS PO PRN (22:38)
[2018-05-09] MEDS: THIAMINE HCL 100 MG TABLET (FP) PO SCH (22:38)
[2018-05-10] MEDS: chlordiazePOXIDE 5 MG CAPSULE PO SCH ×3 (06:25→17:17)
[2018-05-10] MEDS: LEVOTHYROXINE NA 25 MCG TABLET (FP) PO SCH (08:09)
[2018-05-10] MEDS: EMTRICITABINE 200MG/TENOFOVIR 300MG PO SCH (09:52)
[2018-05-10] MEDS: DOLUTEGRAVIR SODIUM 50 MG TABLET PO SCH (09:52)
[2018-05-10] MEDS: PRENATAL VITAMINS W/ FOLIC ACID TABLET (FP) PO SCH (09:52)
--- NOTE | 2018-05-10 10:07 | PN ---
[facility] Progress Note Note: Vital Signs Temperature 97.4 F L 05/10/18 09:06 Pulse Rate 74 05/10/18 09:06 Respiratory Rate 18 05/10/18 09:06 Blood Pressure 171/111 H 05/10/18 09:06 O2 Sat by Pulse Oximetry (%) Laboratory Last Values WBC 3.4 K/mm3 (4.0-10.0) L 05/09/18 07:30 RBC 4.75 M/mm3 (4.00-5.60) 05/09/18 07:30 Hgb 14.5 GM/dL (11.7-16.9) 05/09/18 07:30 Hct 43.8 % (35.4-49) 05/09/18 07:30 MCV 92.1 fl (80-96) 05/09/18 07:30 MCH 30.5 pg (25.7-33.7) 05/09/18 07:30 MCHC 33.1 g/dl (32.0-35.9) 05/09/18 07:30 RDW 14.6 % (11.9-15.9) 05/09/18 07:30 Plt Count 132 K/MM3 (134-434) L 05/09/18 07:30 MPV 10.5 fl (7.5-11.1) 05/09/18 07:30 Sodium 139 mmol/L (136-145) 05/08/18 08:00 Potassium 3.4 mmol/L (3.5-5.1) L 05/08/18 08:00 Chloride 102 mmol/L (98-107) 05/08/18 08:00 Carbon Dioxide 30 mmol/L (21-32) 05/08/18 08:00 Anion Gap 7 MMOL/L (8-16) L 05/08/18 08:00 BUN 15 mg/dL (7-18) 05/08/18 08:00 Creatinine 1.1 mg/dL (0.55-1.3) 05/08/18 08:00 Creat Clearance w eGFR > 60 (>60) 05/08/18 08:00 Random Glucose 78 mg/dL (74-106) 05/08/18 08:00 Calcium 9.5 mg/dL (8.5-10.1) 05/08/18 08:00 Total Bilirubin 0.6 mg/dL (0.2-1) 05/08/18 08:00 AST 52 U/L (15-37) H 05/08/18 08:00 ALT 51 U/L (13-61) 05/08/18 08:00 Alkaline Phosphatase 80 U/L (45-117) 05/08/18 08:00 Total Protein 7.1 g/dl (6.4-8.2) 05/08/18 08:00 Albumin 3.0 g/dl (3.4-5.0) L 05/08/18 08:00 Urine Color Dkyellow 05/09/18 14:15 Urine Appearance Turbid 05/09/18 14:15 Urine pH 7.0 (5.0-8.0) 05/09/18 14:15 Ur Specific [place] 1.016 (1.010-1.035) 05/09/18 14:15 Urine Protein Negative (NEGATIVE) 05/09/18 14:15 Urine Glucose (UA) Negative (NEGATIVE) 05/09/18 14:15 Urine Ketones Negative (NEGATIVE) 05/09/18 14:15 Urine Blood Negative (NEGATIVE) 05/09/18 14:15 Urine Nitrite Negative (NEGATIVE) 05/09/18 14:15 Urine Bilirubin Negative (<2.0 mg/dL) 05/09/18 14:15 Urine Urobilinogen Negative mg/dL (0.2-1.0) 05/09/18 14:15 Ur Leukocyte Esterase Negative (NEGATIVE) 05/09/18 14:15 RPR Titer Nonreactive (NONREACTIVE) 05/08/18 08:00 c/o chills, body aches, interrupted sleep Aox3 no distress no adventitious breath sounds skin intact ambulating in the unit independently withdrawal sx increase fluids continue detox
--- NOTE | 2018-05-10 14:30 | PN ---
S Progress Note Note: Vital Signs Temperature 97.2 F L 05/10/18 13:30 Pulse Rate 79 05/10/18 13:30 Respiratory Rate 18 05/10/18 13:30 Blood Pressure 163/121 H 05/10/18 13:30 O2 Sat by Pulse Oximetry (%) BP after medicated with metoprolol asymptomatic elevated BP lisinopril 10 mg ordered repeat v/s increase fluids continue to monitor
[2018-05-10] MEDS: LISINOPRIL 10 MG TABLET (FP) PO SCH (15:14)
[2018-05-10] MEDS ORDERED: cloNIDine HCL 0.1 MG TABLET PO ONE (20:57)
--- NOTE | 2018-05-10 21:00 | PN ---
BHS Progress Note Note: Patient's blood pressure is B/P 160/108. Patient is asymptomatic. Vital Signs Temperature 97.7 F 05/10/18 20:45 Pulse Rate 81 05/10/18 20:45 Respiratory Rate 16 05/10/18 20:45 Blood Pressure 160/108 H 05/10/18 20:45 O2 Sat by Pulse Oximetry (%) Action: Clonidine 0.1mg tablet oral ordered
[2018-05-10] MEDS: THIAMINE HCL 100 MG TABLET (FP) PO SCH (22:38)
[2018-05-10] MEDS: chlordiazePOXIDE HCL 10 MG CAPSULE PO SCH (22:38)
[2018-05-10] MEDS: ATORVASTATIN CA 20 MG TABLET (FP) PO SCH (22:38)
[2018-05-10] MEDS: MELATONIN 5 MG TABLETS PO PRN (22:39)
[2018-05-11] MEDS: chlordiazePOXIDE HCL 10 MG CAPSULE PO SCH ×2 (07:01→10:00)
[2018-05-11] MEDS: LEVOTHYROXINE NA 25 MCG TABLET (FP) PO SCH (07:18)
[2018-05-11] MEDS: LISINOPRIL 10 MG TABLET (FP) PO SCH (09:57)
[2018-05-11] MEDS: IBUPROFEN 400 MG TABLET (FP) PO PRN (09:58)
[2018-05-11] MEDS: EMTRICITABINE 200MG/TENOFOVIR 300MG PO SCH (09:59)
[2018-05-11] MEDS: DOLUTEGRAVIR SODIUM 50 MG TABLET PO SCH (09:59)
[2018-05-11] MEDS: PRENATAL VITAMINS W/ FOLIC ACID TABLET (FP) PO SCH (09:59)
[2018-05-11 10:07] VITALS: BP 162/102; PULSE 67; TEMP 96.9
--- NOTE | 2018-05-11 10:39 | DS ---
[facility] Detox Discharge Summary Admission Date: 05/07/18 Discharge Date: 05/11/18 - History Present History: Alcohol Dependence - Physical Exam Results Vital Signs: Vital Signs Temperature 96.9 F L 05/11/18 09:30 Pulse Rate 67 05/11/18 09:30 Respiratory Rate 18 05/11/18 09:30 Blood Pressure 162/102 H 05/11/18 09:30 O2 Sat by Pulse Oximetry (%) Pertinent Admission Physical Exam Findings: PATIENT TOLERATED DETOX WELL. MEDICALLY STABLE. ALERT AND ORIENTED X 3. AMB AD QUENTIN. EXT FULL ROM. DENIES SI/HI. PATIENT ACCEPTED REFERRAL TO REHAB SERVICES AT [facility]. PATIENT ENCOURAGED TO COMPLETE REHAB TO PREVENT RELAPSE. DISCHARGE INSTRUCTIONS PROVIDED BY STAFF. - Treatment Hospital Course: Detox Protocol Followed, Detoxed Safely, Responded well, Discharged Condition Good, Rehab Referral Accepted Patient has Accepted a Rehab Referral to: [facility] - Medication Discharge Medications: Ambulatory Orders Multivitamins [Tab-A-Vit -] 1 tab PO DAILY 01/09/17 Benztropine Mesylate [Cogentin -] 1 mg PO DAILY #30 tablet 01/10/17 Levothyroxine [Synthroid -] 175 mcg PO DAILY@0700 #30 tablet 01/13/17 Levothyroxine [Synthroid -] 175 mcg PO DAILY@0700 tablet 09/28/17 Potassium Chloride [K-Dur -] 20 meq PO BID #10 tablet.er 09/28/17 Atorvastatin Ca [Lipitor] 40 mg PO HS 05/07/18 Atorvastatin Ca [Lipitor] 20 mg PO HS #30 tablet 05/10/18 Levothyroxine [Synthroid -] 25 mcg PO DAILY@0700 #30 tablet 05/10/18 Metoprolol Succinate [Toprol XL -] 50 mg PO DAILY #30 tab.sr.24h 05/10/18 Amlodipine Besylate 10 mg PO DAILY #30 tablet 05/11/18 Dolutegravir Sodium [Tivicay] 50 mg PO DAILY #30 tablet 05/11/18 Emtricitabine/Tenofovir (Tdf) [Truvada 200 mg-300 mg Tablet] 1 each PO DAILY # 30 tablet 05/11/18 - AMA Did Patient Leave Against Medical Advice: No
== END 2018-05-11 10:55 | disposition home or self-care (01) | DRG 774 ==
LOC: YASAS 12:31 → Y3N 15:54
PROC: HZ2ZZZZ Detoxification Services for Substance Abuse Treatment (ICD-10-PCS; principal; 2018-05-07)
DX: F10.230 Alcohol dependence with withdrawal, uncomplicated (principal); F14.20 Cocaine dependence, uncomplicated; F17.213 Nicotine dependence, cigarettes, with withdrawal; F19.24 Other psychoactive substance dependence with psychoactive substance-induced mood disorder; F31.9 Bipolar disorder, unspecified; I10 Essential (primary) hypertension; Z21 Asymptomatic human immunodeficiency virus [HIV] infection status; R00.0 Tachycardia, unspecified; E03.9 Hypothyroidism, unspecified; E86.0 Dehydration; K21.9 Gastro-esophageal reflux disease without esophagitis; D69.6 Thrombocytopenia, unspecified; E87.6 Hypokalemia; E78.00 Pure hypercholesterolemia, unspecified; Z87.438 Personal history of other diseases of male genital organs; Z91.14 Patient's other noncompliance with medication regimen; Z86.69 Personal history of other diseases of the nervous system and sense organs; Z88.2 Allergy status to sulfonamides; Z91.013 Allergy to seafood
CPT/HCPCS: 36415; 80053; 81003; 84132; 85027; 86593; 93005; 93010; J0735

== ENCOUNTER 2018-08-07 10:24 | Inpatient (IN) | payer OTHER ==
[2018-08-07 11:27] VITALS: BMI 25.2
--- NOTE | 2018-08-07 13:59 | HP ---
CIWA Score Nausea/Vomitin-No Nausea/No Vomiting Muscle Tremors: 7-Severe,w/o Arm Extended Anxiety: 2 Agitation: 4-Moderately Restless Paroxysmal Sweats: No Perspiration Orientation: 0-Oriented Tacttile Disturbances: 0-None Auditory Disturbances: 0-None Visual Disturbances: 0-None Headache: 3-Moderate CIWA-Ar Total Score: 16 - Admission Criteria OASAS Guidelines: Admission for Medically Managed Detox: Requires at least one of the followin. CIWA greater than 12 2. Seizures within the past 24 hours 3. Delirium tremens within the past 24 hours 4. Hallucinations within the past 24 hours 5. Acute intervention needed for co occurring medical disorder 6. Acute intervention needed for co occurring psychiatric disorder 7. Severe withdrawal that cannot be handled at a lower level of care (continued vomiting, continued diarrhea, abnormal vital signs) requiring intravenous medication and/or fluids 8. Patient presents the following: CIWA greater than 12, Seizures, delirium tremens or hallucinations in the past 12 hours Admission Criteria Met: Admission criteria met Admission ROS [facility] - [facility] Allergies/Adverse Reactions: Allergies Allergy/AdvReac Type Severity Reaction Status Date / Time sulfamethoxazole Allergy Intermediate Itching Verified 08/07/18 17:33 [From Bactrim DS] trimethoprim Allergy Intermediate Itching Verified 08/07/18 17:33 [From Bactrim DS] all over body Fish Containing Products Allergy Mild throat Verified 08/07/18 17:33 swelling History of Present Illness: patient here requesting detox from etoh use . reports 1/4 and 3 x 24 oz beer/ day , + withdrawal seizure 1991 , + blackouts , denies tremors, + irritability , latest use yesterday 11 pm , current safia 0.000 . ETOH first age of use , multiple detox , at this facility 1 yr ago , [id number] [employer] [facility] . Suicide attempt by taking all anti-htn meds 2001 , denies current SI / [place] . tobacco : 1/2 ppd utox + gilmer , bzo cocaine : 60 $ /day since age 22 PMHX : htn , hld , hypothyooridism , hiv 1987 ( [facility] ) PSHx : umbilical hernia 2007 Psych : bipolar d/o - on risperdal SHx : lives alone , on SSI , denies legal issues . - Ebola screening Have you traveled outside of the country in the last 21 days: No (N) Have you had contact with anyone from an Ebola affected area: No Have you been sick,other than usual withdrawal symptoms: No Do you have a fever: No - Review of Systems Constitutional: See HPI EENT: reports: Other (glasses- myopia , denies dysphagia) Respiratory: reports: No Symptoms reported Cardiac: reports: No Symptoms Reported GI: reports: No Symptoms Reported : reports: No Symptoms Reported Musculoskeletal: reports: No Symptoms Reported Integumentary: reports: No Symptoms Reported Neuro: reports: Headache Endocrine: reports: See HPI Psychiatric: reports: Orientated x3 (see HPI) Patient History - Patient Medical History Hx Anemia: No Hx Asthma: No Hx Chronic Obstructive Pulmonary Disease (COPD): No Hx Cancer: No Hx Cardiac Disorders: No Hx Congestive Heart Failure: No Hx Hypertension: Yes (145/98) Hx Hypercholesterolemia: Yes (ON MED) Hx Pacemaker: No HX Cerebrovascular Accident: No Hx Seizures: No Hx Dementia: No Hx Diabetes: No Hx Gastrointestinal Disorders: No Hx Liver Disease: No Hx Genitourinary Disorders: No Hx Sexually Transmitted Disorders: No Hx Renal Disease (ESRD): No Hx Thyroid Disease: Yes (HYPOTHYROIDISM ON MEDS) Hx Human Immunodeficiency Virus (HIV): Yes (SINCE 1988 /VL UNDETECTABLE T-CELL 325 IN .) Hx Hepatitis C: No Hx Depression: Yes Hx Suicide Attempt: No Hx Bipolar Disorder: Yes (ON MED) Hx Schizophrenia: No - Patient Surgical History Past Surgical History: Yes Hx Neurologic Surgery: No Hx Cataract Extraction: No Hx Cardiac Surgery: No Hx Lung Surgery: No Hx Breast Surgery: No Hx Breast Biopsy: No Hx Abdominal Surgery: Yes (REPAIR OF UMBILICAL HERNIA 2OO8) Hx Appendectomy: No Hx Cholecystectomy: No Hx Genitourinary Surgery: No Hx Section: No Hx Orthopedic Surgery: No Anesthesia Reaction: No - PPD History Date: 05/09/18 Results: 0 mm - Smoking Cessation Smoking history: Current every day smoker Have you smoked in the past 12 months: Yes Aproximately how many cigarettes per day: 20 Cigars Per Day: 0 Hx Chewing Tobacco Use: No Initiated information on smoking cessation: No - Substances Abused Alcohol Route: Oral Frequency: Daily Amount used: 3 24OZ BEER Age of first use: 14 Date of Last Use: 08/07/18 Crack Route: Smoking Frequency: Daily Amount used: $2-100 Age of first use: 22 Date of Last Use: 08/07/18 Family Disease History - Family Disease History Family Disease History: Diabetes: Grandparent, Father (alcohol,), Mother (alcohol,), Other: Father, Mother Admission Physical Exam [facility] - Vital Signs Vital Signs: Vital Signs - 24 hr 08/07/18 11:25 Temperature 97.4 F L Pulse Rate 130 H Respiratory 20 Rate Blood Pressure 154/91 - Physical General Appearance: Yes: Disheveled, Moderate Distress, Tremorous, Irritable, Anxious HEENTM: Yes: EOMI, Hearing grossly Normal, Normocephalic, Normal Voice, Other ( poor dentition, many missing teeth) Respiratory: Yes: Chest Non-Tender, Lungs Clear, Normal Breath Sounds Neck: Yes: No masses,lesions,Nodules, Trachea in good position Breast: Yes: Breast Exam Deferred Cardiology: Yes: Regular Rhythm, Regular Rate, S1, S2, Tachycardia Abdominal: Yes: Normal Bowel Sounds, Soft Back: Yes: Normal Inspection Musculoskeletal: Yes: Other (staggering gait) Extremities: Yes: Tremors Neurological: Yes: Alert, Motor Strength 5/5, Normal Mood/Affect Integumentary: Yes: Normal Color - Diagnostic (1) Cocaine dependence Current Visit: No Status: Chronic Qualifiers: Substance use status: uncomplicated Qualified Code(s): F14.20 - Cocaine dependence, uncomplicated (2) Nicotine dependence Current Visit: No Status: Chronic Qualifiers: Nicotine product type: cigarettes Substance use status: in withdrawal Qualified Code(s): F17.213 - Nicotine dependence, cigarettes, with withdrawal (3) Alcohol dependence with uncomplicated withdrawal Current Visit: No Status: Acute BHS Breath Alcohol Content Breath Alcohol Content: 0 Urine Drug Screen - Results Drug Screen Negative: No Urine Drug Screen Results: GILMER-Cocaine, BZO-Benzodiazepines
[2018-08-07] MEDS ORDERED: NICOTINE POLACRILEX 2 MG GUM BUC PRN (14:03)
[2018-08-07] MEDS ORDERED: IBUPROFEN 400 MG TABLET (FP) PO PRN (14:03)
[2018-08-07] MEDS ORDERED: P-EPHED 60MG/TRIPROLIDI 2.5MG TABLET PO PRN (14:03)
[2018-08-07] MEDS ORDERED: MAGNESIUM CITRATE 300 ML BOTTLE PO PRN (14:03)
[2018-08-07] MEDS ORDERED: MAGNESIUM HYDROX 2400MG/30ML ORAL SUSPENSION 30 ML CUP PO PRN (14:03)
[2018-08-07] MEDS ORDERED: chlordiazePOXIDE HCL 25 MG CAPSULE PO PRN (14:03)
[2018-08-07] MEDS ORDERED: MENTHOL/PHENOL 1 EACH UD MM PRN (14:03)
[2018-08-07] MEDS ORDERED: guaiFENesin/D-METHORPHAN HB 10 ML UNIT-DOSE CUPS PO PRN (14:03)
[2018-08-07] MEDS ORDERED: MAG HYDROX/AL HYDROX/SIMETH 30 ML UNIT-DOSE CUP PO PRN (14:03)
[2018-08-07] MEDS: ACETAMINOPHEN 325 MG TABLET (FP) PO PRN (18:29)
[2018-08-07] MEDS: chlordiazePOXIDE HCL 25 MG CAPSULE PO SCH ×2 (18:29→22:19)
[2018-08-07] MEDS: BENZTROPINE MESYLATE 1 MG TABLET (FP) PO SCH (22:19)
[2018-08-07] MEDS: THIAMINE HCL 100 MG TABLET (FP) PO SCH (22:19)
[2018-08-07] MEDS: ATORVASTATIN CA 40 MG TABLET (FP) PO SCH (22:20)
[2018-08-08] MEDS: chlordiazePOXIDE HCL 25 MG CAPSULE PO SCH ×4 (06:33→22:36)
[2018-08-08] MEDS: LEVOTHYROXINE NA 88 MCG TABLET (FP) PO SCH (06:34)
[2018-08-08] MEDS ORDERED: amLODIPine BESYLATE 10 MG TABLET (FP) PO SCH (10:00)
--- NOTE | 2018-08-08 10:07 | PN ---
S CIWA - CIWA Score Nausea/Vomitin-Mild Nausea/No Vomiting Muscle Tremors: 3 Anxiety: 4-Mod. Anxious/Guarded Agitation: 4-Moderately Restless Paroxysmal Sweats: 1-Minimal Palms Moist Orientation: 0-Oriented Tacttile Disturbances: 0-None Auditory Disturbances: 0-None Visual Disturbances: 0-None Headache: 1-Very Mild CIWA-Ar Total Score: 14 BHS Progress Note (SOAP) Subjective: tremor sweat gi distress restlessness irritable Objective: 08/08/18 10:06 Vital Signs Temperature 97.7 F 08/08/18 09:47 Pulse Rate 115 H 08/08/18 09:47 Respiratory Rate 18 08/08/18 09:47 Blood Pressure 140/113 H 08/08/18 09:47 O2 Sat by Pulse Oximetry (%) 08/08/18 10:07 lab pending Assessment: 08/08/18 10:07 alcohol withdrawal sx Plan: continue alcohol detox regimen
[2018-08-08 10:48] LABS: HEMATOCRIT 42.1 % (35.4-49); HEMOGLOBIN 13.6 GM/dL (11.7-16.9); MCH 29.6 pg (25.7-33.7); MCHC 32.4 g/dl (32.0-35.9); MEAN CELL VOLUME 91.5 fl (80-96); MEAN PLT VOLUME 10.4 fl (7.5-11.1); PLATELET COUNT 206 K/MM3 (134-434); WHITE BLOOD COUNT 2.5 K/mm3 (4.0-10.0)
[2018-08-08 10:53] LABS: ALBUMIN 3.2 g/dl (3.4-5.0); ALK PHOS 83 U/L (45-117); ANION GAP 10 MMOL/L (8-16); BILIRUBIN,TOTAL 0.4 mg/dL (0.2-1); BLOOD UREA NITROGEN 16 mg/dL (7-18); CALCIUM 8.9 mg/dL (8.5-10.1); CHLORIDE 99 mmol/L (98-107); CO2 28 mmol/L (21-32); CREATININE 1.4 mg/dL (0.55-1.3); GLUCOSE,RANDOM 114 mg/dL (74-106); POTASSIUM 3.2 mmol/L (3.5-5.1); SGOT/AST 18 U/L (15-37); SGPT/ALT 21 U/L (13-61); SODIUM 136 mmol/L (136-145); TOT PROT 7.7 g/dl (6.4-8.2)
--- NOTE | 2018-08-08 11:04 | CONSULT ---
[facility] Psychiatric Consult - Data Date of interview: 08/08/18 (Self-referred) Admission source: Self-referred Identifying data: Mr Hwang is a 52 years old single Black male, unemployed on SSI, domiciled seeking detox treatment for alcohol and cocaine Substance Abuse History: Reports history of alcohol and cocaine ue. Refer to addiction counselor's summary for further information Medical History: Significant for hypertension, dyslipidemia, HIV since 1987, hypothyroidism, history of alcohol related seizure and surgery for umbilical hernia repair in 2007. Smokes cigarettes 1 ppd Psychiatric History: Reports being diagnosed with Bipolar Disorder in 1999. Reports multiple previous psyhiatric hospitalizations at various facilities including [facility] and most recently in Jun 2018 at [facility]. Claims that he was discharged on Risperdal 1 mg po BID and Prozac ? mg daily. Reports not following instruction for [facility]PD care and taking medication since discharge. Denies previous suicidal attempt. At present, denies experiencing psychotic, manic or depressive symptoms , S/H ideations Physical/Sexual Abuse/Trauma History: Denies history of emotional, physical or sexual abuse as well as DV relatioship. No service Additional Comment: Reports history of multiple previous arrests including one felony conviction. Denies being on parole/probation at present Mental Status Exam - Mental Status Exam Alert and Oriented to: Time, Place, Person Cognitive Function: Fair Patient Appearance: Disheveled Mood: Happy Affect: Blunted Patient Behavior: Cooperative Speech Pattern: Clear Voice Loudness: Normal Thought Process: Intact, Goal Oriented Thought Disorder: Not Present Hallucinations: Denies Suicidal Ideation: Denies Insight/Judgement: Fair Sleep: Poorly Appetite: Good Muscle strength/Tone: Normal Gait/Station: Normal Psychiatric Findings - Problem List ([place] 1, 2,3) (1) Bipolar disorder Current Visit: No Status: Chronic Qualifiers: Current episode severity: unspecified Comment: As per records. No symptoms at time of this examination. (2) Schizoaffective disorder Current Visit: Yes Status: Ruled-out (3) Substance-induced sleep disorder Current Visit: No Status: Acute (4) Alcohol dependence with uncomplicated withdrawal Current Visit: No Status: Acute (5) Cocaine dependence Current Visit: No Status: Acute Qualifiers: Substance use status: uncomplicated Qualified Code(s): F14.20 - Cocaine dependence, uncomplicated (6) Nicotine dependence Current Visit: No Status: Chronic Qualifiers: Nicotine product type: cigarettes Substance use status: in withdrawal Qualified Code(s): F17.213 - Nicotine dependence, cigarettes, with withdrawal (7) HIV (human immunodeficiency virus infection) Current Visit: No Status: Chronic (8) AIDS (acquired immunodeficiency syndrome) Current Visit: No Status: Chronic (9) Essential hypertension Current Visit: No Status: Chronic (10) Hypercholesterolemia Current Visit: No Status: Chronic (11) Hypothyroidism Current Visit: No Status: Chronic (12) GERD (gastroesophageal reflux disease) Current Visit: No Status: Chronic Qualifiers: Esophagitis presence: esophagitis presence not specified Qualified Code(s) : K21.9 - Gastro-esophageal reflux disease without esophagitis (13) Hypothyroidism Current Visit: Yes Status: Chronic (14) Alcohol withdrawal seizure Current Visit: Yes Status: Resolved - Initial Treatment Plan Initial Treatment Plan: 1) Start Risperdal 1 mg po BID and Cogentin 0.5 mg po BID. 2) Monitor progress
[2018-08-08] MEDS: ASPIRIN 81 MG CHEWABLE TABLETS PO SCH (11:14)
[2018-08-08] MEDS: ISOSORBIDE MONONITRATE 30 MG TAB.SR.24H (FP) PO SCH (11:14)
[2018-08-08] MEDS: NIFEdipine E.R. 30 MG TABLET (FP) PO SCH (11:14)
[2018-08-08] MEDS: PRENATAL VITAMINS W/ FOLIC ACID TABLET (FP) PO SCH (11:14)
[2018-08-08] MEDS: BENZTROPINE MESYLATE 1 MG TABLET (FP) PO SCH ×2 (11:15→22:37)
[2018-08-08] MEDS: risperiDONE 1 MG TABLET (FP) PO SCH ×2 (13:47→22:36)
[2018-08-08] MEDS: ATORVASTATIN CA 40 MG TABLET (FP) PO SCH (22:36)
[2018-08-08] MEDS: THIAMINE HCL 100 MG TABLET (FP) PO SCH (22:36)
[2018-08-09] MEDS: LEVOTHYROXINE NA 88 MCG TABLET (FP) PO SCH (06:05)
[2018-08-09] MEDS: chlordiazePOXIDE HCL 25 MG CAPSULE PO SCH ×2 (06:05→10:16)
[2018-08-09] MEDS: NIFEdipine E.R. 30 MG TABLET (FP) PO SCH (10:15)
[2018-08-09] MEDS: risperiDONE 1 MG TABLET (FP) PO SCH ×2 (10:15→22:06)
[2018-08-09] MEDS: ISOSORBIDE MONONITRATE 30 MG TAB.SR.24H (FP) PO SCH (10:15)
[2018-08-09] MEDS: PRENATAL VITAMINS W/ FOLIC ACID TABLET (FP) PO SCH (10:15)
[2018-08-09] MEDS: ASPIRIN 81 MG CHEWABLE TABLETS PO SCH (10:16)
[2018-08-09] MEDS: BENZTROPINE MESYLATE 1 MG TABLET (FP) PO SCH ×2 (10:16→22:06)
[2018-08-09] MEDS ORDERED: NICOTINE POLACRILEX 4 MG GUM BUC PRN (10:39)
[2018-08-09] MEDS: NICOTINE 21 MG/24 HOURS TOPICAL PATCH TD SCH (13:46)
[2018-08-09] MEDS: ACETAMINOPHEN 325 MG TABLET (FP) PO PRN (15:24)
--- NOTE | 2018-08-09 15:35 | PN ---
S CIWA - CIWA Score Nausea/Vomitin-No Nausea/No Vomiting Muscle Tremors: 3 Anxiety: 0-No Anxiety, at Ease Agitation: 0-Normal Activity Paroxysmal Sweats: No Perspiration Orientation: 0-Oriented Tacttile Disturbances: 2-Mild Itch/Numbness/Burn Auditory Disturbances: 2-Mild Harshness/Frighten Visual Disturbances: 1-Very Mild Sensitivity Headache: 3-Moderate CIWA-Ar Total Score: 11 BHS Progress Note (SOAP) Subjective: Body Aches, H/A, Fatigue, Tremors. Objective: PATIENT A & O X 3. IN NO ACUTE DISTRESS. 08/09/18 15:34 Vital Signs Temperature 98.2 F 08/09/18 13:51 Pulse Rate 105 H 08/09/18 13:51 Respiratory Rate 16 08/09/18 13:51 Blood Pressure 103/73 08/09/18 13:51 O2 Sat by Pulse Oximetry (%) Laboratory Tests 08/08/18 08/08/18 08/08/18 07:50 07:50 07:50 WBC 2.5 L RBC 4.60 Hgb 13.6 Hct 42.1 MCV 91.5 MCH 29.6 MCHC 32.4 RDW 14.0 Plt Count 206 D MPV 10.4 Sodium 136 Potassium 3.2 L Chloride 99 Carbon Dioxide 28 Anion Gap 10 BUN 16 Creatinine 1.4 H Creat Clearance w eGFR 53.64 Random Glucose 114 H Calcium 8.9 Total Bilirubin 0.4 AST 18 ALT 21 Alkaline Phosphatase 83 Total Protein 7.7 Albumin 3.2 L RPR Titer Nonreactive LABS NOTED. Assessment: 08/09/18 15:37 WITHDRAWAL SYMPTOMS. HYPOKALEMIA. LEUKOPENIA. 08/09/18 15:39 Plan: CONTINUE DETOX. INCREASE DAILY PO FLUID INTAKE. K-DUR, 20 MEQ BID FOR LOW K LEVEL.
[2018-08-09] MEDS ORDERED: POTASSIUM CHLORIDE TABS 20 MEQ TABLET.ER (FP) PO ONE (17:00)
[2018-08-09] MEDS: chlordiazePOXIDE 5 MG CAPSULE PO SCH ×2 (17:41→22:06)
[2018-08-09] MEDS: PANTOPRAZOLE 20 MG TABLET (FP) PO SCH (20:13)
[2018-08-09] MEDS: THIAMINE HCL 100 MG TABLET (FP) PO SCH (22:06)
[2018-08-09] MEDS: ATORVASTATIN CA 40 MG TABLET (FP) PO SCH (22:06)
[2018-08-09] MEDS: MELATONIN 5 MG TABLETS PO PRN (22:07)
[2018-08-10] MEDS: chlordiazePOXIDE 5 MG CAPSULE PO SCH ×2 (06:09→10:29)
[2018-08-10] MEDS: LEVOTHYROXINE NA 88 MCG TABLET (FP) PO SCH (07:10)
[2018-08-10] MEDS: NICOTINE 21 MG/24 HOURS TOPICAL PATCH TD SCH (10:29)
[2018-08-10] MEDS: risperiDONE 1 MG TABLET (FP) PO SCH ×2 (10:30→22:10)
[2018-08-10] MEDS: POTASSIUM CHLORIDE TABS 20 MEQ TABLET.ER (FP) PO SCH ×2 (10:30→17:38)
[2018-08-10] MEDS: ISOSORBIDE MONONITRATE 30 MG TAB.SR.24H (FP) PO SCH (10:30)
[2018-08-10] MEDS: PRENATAL VITAMINS W/ FOLIC ACID TABLET (FP) PO SCH (10:30)
[2018-08-10] MEDS: ASPIRIN 81 MG CHEWABLE TABLETS PO SCH (10:30)
[2018-08-10] MEDS: BENZTROPINE MESYLATE 1 MG TABLET (FP) PO SCH ×2 (10:31→22:09)
[2018-08-10] MEDS: PANTOPRAZOLE 20 MG TABLET (FP) PO SCH (10:31)
--- NOTE | 2018-08-10 12:06 | PN ---
BHS Progress Note (SOAP) Subjective: restless sweats Objective: 08/10/18 12:05 Vital Signs Temperature 97.3 F L 08/10/18 09:21 Pulse Rate 86 08/10/18 09:21 Respiratory Rate 18 08/10/18 09:21 Blood Pressure 112/69 08/10/18 09:21 O2 Sat by Pulse Oximetry (%) aaox3 ambulating no acute distress Assessment: 08/10/18 12:05 mild withdrawal Plan: continue detox increase fluids d/c in am
[2018-08-10] MEDS: NIFEdipine E.R. 30 MG TABLET (FP) PO SCH (13:33)
[2018-08-10] MEDS: chlordiazePOXIDE HCL 10 MG CAPSULE PO SCH ×2 (17:38→22:10)
[2018-08-10] MEDS: ACETAMINOPHEN 325 MG TABLET (FP) PO PRN (17:39)
[2018-08-10] MEDS: ATORVASTATIN CA 40 MG TABLET (FP) PO SCH (22:10)
[2018-08-10] MEDS: MELATONIN 5 MG TABLETS PO PRN (22:10)
[2018-08-10] MEDS: THIAMINE HCL 100 MG TABLET (FP) PO SCH (22:10)
[2018-08-11] MEDS: chlordiazePOXIDE HCL 10 MG CAPSULE PO SCH (06:16)
[2018-08-11] MEDS: LEVOTHYROXINE NA 88 MCG TABLET (FP) PO SCH (06:16)
--- NOTE | 2018-08-11 08:58 | DS ---
[facility] Detox Discharge Summary Admission Date: 08/07/18 Discharge Date: 08/11/18 - History Present History: Alcohol Dependence, Cocaine Dependence - Physical Exam Results Vital Signs: Vital Signs Temperature 97.2 F L 08/11/18 07:17 Pulse Rate 77 08/11/18 07:17 Respiratory Rate 18 08/11/18 07:17 Blood Pressure 147/82 08/11/18 07:17 O2 Sat by Pulse Oximetry (%) - Treatment Hospital Course: Detox Protocol Followed, Detoxed Safely, Responded well, Discharged Condition Good, Rehab Referral Accepted - Medication Discharge Medications: Ambulatory Orders Benztropine Mesylate [Cogentin -] 1 mg PO DAILY #30 tablet 01/10/17 Levothyroxine [Synthroid -] 175 mcg PO DAILY@0700 tablet 09/28/17 Atorvastatin Ca [Lipitor] 40 mg PO HS 05/07/18 Metoprolol Succinate [Toprol XL -] 50 mg PO DAILY #30 tab.sr.24h 05/10/18 Amlodipine Besylate 10 mg PO DAILY #30 tablet 05/11/18 - Diagnosis (1) Hypokalemia Current Visit: Yes Status: Chronic (2) Neutropenia Current Visit: Yes Status: Acute (3) Hypothyroidism Current Visit: Yes Status: Chronic (4) Alcohol withdrawal seizure Current Visit: Yes Status: Resolved (5) Schizoaffective disorder Current Visit: Yes Status: Ruled-out (6) Alcohol dependence with uncomplicated withdrawal Current Visit: Yes Status: Chronic (7) Cocaine dependence Current Visit: Yes Status: Chronic Qualifiers: Substance use status: uncomplicated Qualified Code(s): F14.20 - Cocaine dependence, uncomplicated (8) Dehydration Current Visit: No Status: Acute (9) Substance induced mood disorder Current Visit: No Status: Acute (10) Substance-induced sleep disorder Current Visit: No Status: Acute (11) Thrombocytopenia Current Visit: No Status: Acute (12) AIDS (acquired immunodeficiency syndrome) Current Visit: Yes Status: Chronic (13) Bipolar disorder Current Visit: No Status: Chronic Qualifiers: Current episode severity: unspecified (14) Essential hypertension Current Visit: Yes Status: Chronic (15) GERD (gastroesophageal reflux disease) Current Visit: No Status: Chronic Qualifiers: Esophagitis presence: esophagitis presence not specified Qualified Code(s) : K21.9 - Gastro-esophageal reflux disease without esophagitis (16) HIV (human immunodeficiency virus infection) Current Visit: Yes Status: Chronic (17) Hypercholesterolemia Current Visit: No Status: Chronic (18) Hypothyroidism Current Visit: No Status: Chronic (19) Nicotine dependence Current Visit: Yes Status: Chronic Qualifiers: Nicotine product type: cigarettes Substance use status: in withdrawal Qualified Code(s): F17.213 - Nicotine dependence, cigarettes, with withdrawal (20) Non compliance w medication regimen Current Visit: No Status: Chronic (21) Weight loss Current Visit: No Status: Chronic - AMA Did Patient Leave Against Medical Advice: No (referred to [facility] rehab)
[2018-08-11] MEDS: NIFEdipine E.R. 30 MG TABLET (FP) PO SCH (09:53)
[2018-08-11] MEDS: PRENATAL VITAMINS W/ FOLIC ACID TABLET (FP) PO SCH (09:53)
[2018-08-11] MEDS: risperiDONE 1 MG TABLET (FP) PO SCH (09:53)
[2018-08-11] MEDS: ISOSORBIDE MONONITRATE 30 MG TAB.SR.24H (FP) PO SCH (09:53)
[2018-08-11] MEDS: POTASSIUM CHLORIDE TABS 20 MEQ TABLET.ER (FP) PO SCH (09:53)
[2018-08-11] MEDS: ASPIRIN 81 MG CHEWABLE TABLETS PO SCH (09:54)
[2018-08-11] MEDS: NICOTINE 21 MG/24 HOURS TOPICAL PATCH TD SCH (09:54)
[2018-08-11] MEDS: BENZTROPINE MESYLATE 1 MG TABLET (FP) PO SCH (09:54)
[2018-08-11] MEDS: PANTOPRAZOLE 20 MG TABLET (FP) PO SCH (09:54)
[2018-08-11] MEDS: ACETAMINOPHEN 325 MG TABLET (FP) PO PRN (11:04)
[2018-08-11 11:17] VITALS: BP 145/94; PULSE 87; TEMP 98.4
== END 2018-08-11 11:29 | disposition home or self-care (01) | DRG 774 ==
LOC: YASAS 10:24 → Y6N 17:31
PROC: HZ2ZZZZ Detoxification Services for Substance Abuse Treatment (ICD-10-PCS; principal; 2018-08-07)
DX: F10.230 Alcohol dependence with withdrawal, uncomplicated (principal); F14.20 Cocaine dependence, uncomplicated; F17.213 Nicotine dependence, cigarettes, with withdrawal; F31.9 Bipolar disorder, unspecified; F19.24 Other psychoactive substance dependence with psychoactive substance-induced mood disorder; F19.282 Other psychoactive substance dependence with psychoactive substance-induced sleep disorder; F25.9 Schizoaffective disorder, unspecified; B20 Human immunodeficiency virus [HIV] disease; E78.00 Pure hypercholesterolemia, unspecified; D69.6 Thrombocytopenia, unspecified; E87.6 Hypokalemia; E03.9 Hypothyroidism, unspecified; E86.0 Dehydration; D70.9 Neutropenia, unspecified; R63.4 Abnormal weight loss; Z68.25 Body mass index [BMI] 25.0-25.9, adult; Z86.69 Personal history of other diseases of the nervous system and sense organs; Z91.14 Patient's other noncompliance with medication regimen
CPT/HCPCS: 36415; 80053; 85027; 86593; J2794

== ENCOUNTER 2018-09-14 15:51 | Inpatient (IN) | payer OTHER ==
[2018-09-14 18:06] VITALS: BMI 24.0
--- NOTE | 2018-09-14 18:43 | HP ---
CIWA Score Nausea/Vomitin-No Nausea/No Vomiting Muscle Tremors: 2 Anxiety: 3 Agitation: 3 Paroxysmal Sweats: 1-Minimal Palms Moist Orientation: 1-Uncertain about Date Tacttile Disturbances: 0-None Auditory Disturbances: 3-Moderate Harsh/Frighten Visual Disturbances: 0-None Headache: 0-None Present CIWA-Ar Total Score: 13 - Admission Criteria OASAS Guidelines: Admission for Medically Managed Detox: Requires at least one of the followin. CIWA greater than 12 2. Seizures within the past 24 hours 3. Delirium tremens within the past 24 hours 4. Hallucinations within the past 24 hours 5. Acute intervention needed for co occurring medical disorder 6. Acute intervention needed for co occurring psychiatric disorder 7. Severe withdrawal that cannot be handled at a lower level of care (continued vomiting, continued diarrhea, abnormal vital signs) requiring intravenous medication and/or fluids 8. Patient presents the following: CIWA greater than 12 Admission Criteria Met: Admission criteria met Admission ROS S - [facility] Chief Complaint: " I started to get into trouble, I need detox" Allergies/Adverse Reactions: Allergies Allergy/AdvReac Type Severity Reaction Status Date / Time sulfamethoxazole Allergy Intermediate Itching Verified 08/07/18 17:33 [From Bactrim DS] trimethoprim Allergy Intermediate Itching Verified 08/07/18 17:33 [From Bactrim DS] all over body Fish Containing Products Allergy Mild throat Verified 08/07/18 17:33 swelling History of Present Illness: 52 yo male hx of alcohol, cocaine and nicotine dependence is here seeking detox , this is one of multiple admissions, patient is self referred. Reports withdrawal seizure 1991 , + blackouts, reports last drink today at 3 AM. PMHX: HIV ( no meds), HTN, HDL, Hypothyroid, bipolar. Denies suicidal / homicidal ideation, reports prior hx of suicide attempt in 1995 attempted to jump in front a train. Sobriety two years 2006 - 2008. Repeat BP 166/114 asymptomatic, reports has not taken BP meds, will continue to monitor if no improvement patient to go to [facility]. Exam Limitations: No Limitations - Ebola screening Have you traveled outside of the country in the last 21 days: No Have you had contact with anyone from an Ebola affected area: No Have you been sick,other than usual withdrawal symptoms: No - Review of Systems Constitutional: Loss of Appetite, Weakness, Unintentional Wgt. Loss EENT: reports: Dental Problems (poor dentition) Respiratory: reports: No Symptoms reported Cardiac: reports: No Symptoms Reported GI: reports: Poor Appetite, Poor Fluid Intake : reports: No Symptoms Reported Musculoskeletal: reports: No Symptoms Reported Integumentary: reports: No Symptoms Reported Neuro: reports: No Symptoms reported Endocrine: reports: Increased Thirst Hematology: reports: See HPI Psychiatric: reports: Orientated x3, Anxious Other Systems: Reviewed and Negative Patient History - Patient Medical History Hx Anemia: No Hx Asthma: No Hx Chronic Obstructive Pulmonary Disease (COPD): No Hx Cancer: No Hx Cardiac Disorders: No Hx Congestive Heart Failure: No Hx Hypertension: Yes (145/98) Hx Hypercholesterolemia: Yes (ON MED) Hx Pacemaker: No HX Cerebrovascular Accident: No Hx Seizures: No Hx Dementia: No Hx Diabetes: No Hx Gastrointestinal Disorders: No Hx Liver Disease: No Hx Genitourinary Disorders: No Hx Sexually Transmitted Disorders: No Hx Renal Disease (ESRD): No Hx Thyroid Disease: Yes (HYPOTHYROIDISM ON MEDS) Hx Human Immunodeficiency Virus (HIV): Yes (SINCE 1988 /VL UNDETECTABLE T-CELL 325 IN . NO MEDS) Hx Hepatitis C: No Hx Depression: Yes Hx Suicide Attempt: No Hx Bipolar Disorder: Yes (ON MED) Hx Schizophrenia: No - Patient Surgical History Past Surgical History: Yes Hx Neurologic Surgery: No Hx Cataract Extraction: No Hx Cardiac Surgery: No Hx Lung Surgery: No Hx Breast Surgery: No Hx Breast Biopsy: No Hx Abdominal Surgery: Yes (REPAIR OF UMBILICAL HERNIA 2OO8) Hx Appendectomy: No Hx Cholecystectomy: No Hx Genitourinary Surgery: No Hx Section: No Hx Orthopedic Surgery: No Anesthesia Reaction: No - PPD History Previous Implant?: No Documented Results: Negative w/proof Date: 05/09/18 Results: 0 mm PPD to be Administered?: Yes - Smoking Cessation Smoking history: Current every day smoker Have you smoked in the past 12 months: Yes Aproximately how many cigarettes per day: 20 Cigars Per Day: 0 Hx Chewing Tobacco Use: No Initiated information on smoking cessation: Yes 'Breaking Loose' booklet given: 09/14/18 - Substances Abused alcohol Route: Oral Frequency: Daily Amount used: 1 quart + 2 x 24 oz Age of first use: 12 Date of Last Use: 09/14/18 cocaine Route: Smoking Frequency: Daily Amount used: $30 - 60 Age of first use: 22 Date of Last Use: 09/13/18 Family Disease History - Family Disease History Family Disease History: Diabetes: Grandparent, Father (alcohol,), Mother (alcohol,), Other: Father, Mother Admission Physical Exam S - Vital Signs Vital Signs: Vital Signs - 24 hr 09/14/18 18:04 Temperature 98.7 F Pulse Rate 98 H Respiratory 18 Rate Blood Pressure 161/121 H - Physical General Appearance: Yes: Disheveled, Thin, Anxious HEENTM: Yes: EOMI, Hearing grossly Normal, Normal ENT Inspection, Normocephalic , Normal Voice, KIMBERLYN, Pharynx Normal, Tm's normal, Other (cheilithis , dry mucous membranes) Respiratory: Yes: Chest Non-Tender, Lungs Clear, Normal Breath Sounds, No Respiratory Distress, No Accessory Muscle Use Neck: Yes: Within Normal Limits Breast: Yes: Breast Exam Deferred Cardiology: Yes: Regular Rhythm, Regular Rate Abdominal: Yes: Normal Bowel Sounds, Non Tender, Flat, Soft Genitourinary: Yes: Within Normal Limits Back: Yes: Normal Inspection Musculoskeletal: Yes: full range of Motion, Gait Steady, Pelvis Stable Extremities: Yes: Normal Capillary Refill, Normal Inspection, Normal Range of Motion, Non-Tender Neurological: Yes: float operator II-XII NML intact, Fully Oriented, Alert, Motor Strength 5/5, Depressed Affect Integumentary: Yes: Normal Color, Dry, Warm Lymphatic: Yes: Within Normal Limits - Addiitonal Findings: Patient encourage to follow up with primary medical provider upon completing detox. - Diagnostic (1) Elevated blood pressure reading in office with diagnosis of hypertension Current Visit: Yes Status: Acute (2) Dehydration Current Visit: Yes Status: Acute (3) Alcohol dependence with uncomplicated withdrawal Current Visit: Yes Status: Chronic (4) Cocaine dependence Current Visit: Yes Status: Chronic Qualifiers: Substance use status: uncomplicated Qualified Code(s): F14.20 - Cocaine dependence, uncomplicated (5) Essential hypertension Current Visit: Yes Status: Chronic (6) GERD (gastroesophageal reflux disease) Current Visit: Yes Status: Chronic Qualifiers: Esophagitis presence: esophagitis presence not specified Qualified Code(s) : K21.9 - Gastro-esophageal reflux disease without esophagitis (7) HIV (human immunodeficiency virus infection) Current Visit: Yes Status: Chronic Qualifiers: HIV symptom status: unspecified Qualified Code(s): B20 - Human immunodeficiency virus [HIV] disease (8) Hypercholesterolemia Current Visit: Yes Status: Chronic (9) Hypothyroidism Current Visit: Yes Status: Chronic (10) Nicotine dependence Current Visit: Yes Status: Chronic Qualifiers: Nicotine product type: cigarettes Substance use status: in withdrawal Qualified Code(s): F17.213 - Nicotine dependence, cigarettes, with withdrawal (11) Non compliance w medication regimen Current Visit: Yes Status: Chronic (12) Weight loss Current Visit: Yes Status: Chronic (13) Neutropenia Current Visit: Yes Status: Acute Cleared for Admission BHS - Detox or Rehab S Level of Care: Medically Managed Detox Regimen/Protocol: Librium S Breath Alcohol Content Breath Alcohol Content: 0 Urine Drug Screen - Results Drug Screen Negative: No Urine Drug Screen Results: EMIR-Cocaine, BZO-Benzodiazepines Inpatient Rehab Admission - Rehab Decision to Admit Inpatient rehab admission?: No
[2018-09-14] MEDS ORDERED: ACETAMINOPHEN 325 MG TABLET (FP) PO PRN (18:56)
[2018-09-14] MEDS ORDERED: P-EPHED 60MG/TRIPROLIDI 2.5MG TABLET PO PRN (18:56)
[2018-09-14] MEDS ORDERED: MAGNESIUM CITRATE 300 ML BOTTLE PO PRN (18:56)
[2018-09-14] MEDS ORDERED: MAG HYDROX/AL HYDROX/SIMETH 30 ML UNIT-DOSE CUP PO PRN (18:56)
[2018-09-14] MEDS ORDERED: chlordiazePOXIDE HCL 25 MG CAPSULE PO PRN (18:56)
[2018-09-14] MEDS ORDERED: NICOTINE POLACRILEX 2 MG GUM BC PRN (18:56)
[2018-09-14] MEDS ORDERED: guaiFENesin/D-METHORPHAN HB 10 ML UNIT-DOSE CUPS PO PRN (18:56)
[2018-09-14] MEDS ORDERED: IBUPROFEN 400 MG TABLET (FP) PO PRN (18:56)
[2018-09-14] MEDS ORDERED: MAGNESIUM HYDROX 2400MG/30ML ORAL SUSPENSION 30 ML CUP PO PRN (18:56)
[2018-09-14] MEDS ORDERED: LOPERAMIDE HCL 2 MG CAPSULE PO PRN (18:56)
[2018-09-14] MEDS ORDERED: MENTHOL/PHENOL 1 EACH UD MM PRN (18:56)
[2018-09-14] MEDS ORDERED: chlordiazePOXIDE HCL 25 MG CAPSULE PO ONE (20:30)
[2018-09-14] MEDS: THIAMINE HCL 100 MG TABLET (FP) PO SCH (21:42)
[2018-09-14] MEDS: ATORVASTATIN CA 40 MG TABLET (FP) PO SCH (21:42)
[2018-09-14] MEDS: MELATONIN 5 MG TABLETS PO PRN (21:42)
[2018-09-14] MEDS ORDERED: NIFEdipine E.R 60 MG TABLET (UD) PO SCH (22:00)
[2018-09-14] MEDS: chlordiazePOXIDE HCL 25 MG CAPSULE PO SCH (22:36)
[2018-09-15] MEDS ORDERED: LEVOTHYROXINE NA 100 MCG TABLET (FP) ONE (05:10)
[2018-09-15] MEDS ORDERED: LEVOTHYROXINE NA 25 MCG TABLET (FP) ONE (05:10)
[2018-09-15] MEDS: chlordiazePOXIDE HCL 25 MG CAPSULE PO SCH ×4 (05:37→22:38)
[2018-09-15] MEDS: LEVOTHYROXINE 100 MCG, LEVOTHYROXINE 75 MCG PO SCH (06:48)
[2018-09-15] MEDS ORDERED: LEVOTHYROXINE NA 25 MCG TABLET (FP) PO SCH (07:00)
[2018-09-15] MEDS: NICOTINE 14 MG/24 HOURS TOPICAL PATCH TD SCH (10:05)
[2018-09-15] MEDS: PRENATAL VITAMINS W/ FOLIC ACID TABLET (FP) PO SCH (10:05)
[2018-09-15] MEDS: NIFEdipine E.R 60 MG TABLET (UD) PO SCH (10:05)
[2018-09-15 10:55] LABS: HEMATOCRIT 40.4 % (35.4-49); HEMOGLOBIN 13.8 GM/dL (11.7-16.9); MCH 30.9 pg (25.7-33.7); MCHC 34.1 g/dl (32.0-35.9); MEAN CELL VOLUME 90.5 fl (80-96); MEAN PLT VOLUME 10.3 fl (7.5-11.1); PLATELET COUNT 134 K/MM3 (134-434); RBC 4.46 M/mm3 (4.00-5.60); RDW 14.4 % (11.9-15.9); WHITE BLOOD COUNT 2.3 K/mm3 (4.0-10.0)
[2018-09-15 11:31] LABS: ALK PHOS 73 U/L (45-117); ANION GAP 8 MMOL/L (8-16); BILIRUBIN,TOTAL 0.4 mg/dL (0.2-1); BLOOD UREA NITROGEN 15 mg/dL (7-18); CALCIUM 8.6 mg/dL (8.5-10.1); CHLORIDE 102 mmol/L (98-107); CO2 26 mmol/L (21-32); CREATININE 1.2 mg/dL (0.55-1.3); GLUCOSE,RANDOM 91 mg/dL (74-106); POTASSIUM 3.6 mmol/L (3.5-5.1); SGOT/AST 22 U/L (15-37); SGPT/ALT 27 U/L (13-61); SODIUM 136 mmol/L (136-145); TOT PROT 7.2 g/dl (6.4-8.2)
--- NOTE | 2018-09-15 12:14 | PN ---
[facility] CIWA - CIWA Score Nausea/Vomitin-No Nausea/No Vomiting Muscle Tremors: 3 Anxiety: 2 Agitation: 2 Paroxysmal Sweats: 1-Minimal Palms Moist Orientation: 1-Uncertain about Date Tacttile Disturbances: 0-None Auditory Disturbances: 0-None Visual Disturbances: 0-None Headache: 1-Very Mild CIWA-Ar Total Score: 10 S Progress Note (SOAP) Subjective: tremor sweating low energy trouble sleep through the night Objective: 09/15/18 12:14 Vital Signs Temperature 97 F L 09/15/18 09:02 Pulse Rate 101 H 09/15/18 09:02 Respiratory Rate 18 09/15/18 09:02 Blood Pressure 136/94 09/15/18 09:02 O2 Sat by Pulse Oximetry (%) Laboratory Last Values WBC 2.3 K/mm3 (4.0-10.0) L 09/15/18 08:00 RBC 4.46 M/mm3 (4.00-5.60) 09/15/18 08:00 Hgb 13.8 GM/dL (11.7-16.9) 09/15/18 08:00 Hct 40.4 % (35.4-49) 09/15/18 08:00 MCV 90.5 fl (80-96) 09/15/18 08:00 MCH 30.9 pg (25.7-33.7) 09/15/18 08:00 MCHC 34.1 g/dl (32.0-35.9) 09/15/18 08:00 RDW 14.4 % (11.9-15.9) 09/15/18 08:00 Plt Count 134 K/MM3 (134-434) D 09/15/18 08:00 MPV 10.3 fl (7.5-11.1) 09/15/18 08:00 Sodium 136 mmol/L (136-145) 09/15/18 08:00 Potassium 3.6 mmol/L (3.5-5.1) 09/15/18 08:00 Chloride 102 mmol/L (98-107) 09/15/18 08:00 Carbon Dioxide 26 mmol/L (21-32) 09/15/18 08:00 Anion Gap 8 MMOL/L (8-16) 09/15/18 08:00 BUN 15 mg/dL (7-18) 09/15/18 08:00 Creatinine 1.2 mg/dL (0.55-1.3) 09/15/18 08:00 Creat Clearance w eGFR > 60 (>60) 09/15/18 08:00 Random Glucose 91 mg/dL (74-106) 09/15/18 08:00 Calcium 8.6 mg/dL (8.5-10.1) 09/15/18 08:00 Total Bilirubin 0.4 mg/dL (0.2-1) 09/15/18 08:00 AST 22 U/L (15-37) 09/15/18 08:00 ALT 27 U/L (13-61) 09/15/18 08:00 Alkaline Phosphatase 73 U/L (45-117) 09/15/18 08:00 Total Protein 7.2 g/dl (6.4-8.2) 09/15/18 08:00 Albumin 3.0 g/dl (3.4-5.0) L 09/15/18 08:00 RPR Titer Nonreactive (NONREACTIVE) 09/15/18 08:00 lab noted low wbc patient follow up with his infectious disease specialist 09/15/18 12:14 Assessment: 09/15/18 12:15 withdrawal sx Plan: continue detox
--- NOTE | 2018-09-15 12:51 | CONSULT ---
[facility] Psychiatric Consult - Data Date of interview: 09/15/18 Admission source: [facility] Identifying data: This is one of several admissions to [facility] for this 52 y/ o AA male self-referred for detoxification treatment (alcohol, crack/cocaine). Examined at [address] [place] [address]. Patient is single, a father of seven, domiciled, unemployed and supported on SSI benefits. Substance Abuse History: Confirmed by the patient in this interview. Details in current [facility] report as follows : Smoking history: Current every day smoker. Have you smoked in the past 12 months: Yes. Aproximately how many cigarettes per day: 20. Cigars Per Day: 0. Hx Chewing Tobacco Use: No. Initiated information on smoking cessation: Yes. 'Breaking Loose' booklet given: . - Substances Abused. alcohol. Route: Oral. Frequency: Daily. Amount used: 1 quart + 2 x 24 oz. Age of first use: 12. Date of Last Use: 09/14/18. cocaine. Route: Smoking. Frequency: Daily. Amount used: $30 - 60. Age of first use: 22. Date of Last Use: 09/13/18 Medical History: Consistent with a history of alcohol-related seizures (1989), past treatment for syphilis, hypertension, hypothyroidism (not on medications), hypercholesterolemia and HIV infection since 1988. Noted distant history of umbilical herniorraphy (2007). Psychiatric History: Patient presents with a history of multiple psychiatric hospitalizations ([facility], [facility], [facility], [facility]). Diagnosed with Bipolar Disorder since 1999. Mr Hwang indicates that he used to get his outpatient psychiatric services at the [facility] mental health clinic. No show for past three months (self-report) . Patient indicates that he is " in the process of switching " to another program with a different psychiatrist. At [facility], he was prescribed risperdal + cogentin. Patient cannot recall last medication intake, which suggests chronic non-adherence. History of two suicide attempts (jumping onto the train tracks (1991) + overdose with HTN medications in 2018). Physical/Sexual Abuse/Trauma History: Patient denies. Additional Comment: Urine Drug Screen Results: EMIR-Cocaine, BZO- Benzodiazepines. Noted. Mental Status Exam - Mental Status Exam Alert and Oriented to: Time, Place, Person Cognitive Function: Good Patient Appearance: Disheveled Mood: Withdrawn (neutral mood), Hopeful Affect: Mood Congruent, Constricted Patient Behavior: Fatigued, Appropriate, Cooperative Speech Pattern: Clear, Appropriate Voice Loudness: Normal Thought Process: Goal Oriented Thought Disorder: Not Present Hallucinations: Denies Suicidal Ideation: Denies Homicidal Ideation: Denies Insight/Judgement: Poor Sleep: Well Appetite: Good Muscle strength/Tone: Normal Gait/Station: Normal Psychiatric Findings - Problem List ([place] 1, 2,3) (1) Alcohol dependence with uncomplicated withdrawal Current Visit: Yes Status: Acute (2) Cocaine dependence Current Visit: Yes Status: Chronic Qualifiers: Substance use status: uncomplicated Qualified Code(s): F14.20 - Cocaine dependence, uncomplicated (3) Nicotine dependence Current Visit: Yes Status: Chronic Qualifiers: Nicotine product type: cigarettes Substance use status: in withdrawal Qualified Code(s): F17.213 - Nicotine dependence, cigarettes, with withdrawal (4) Schizoaffective disorder Current Visit: No Status: Chronic (5) Non compliance w medication regimen Current Visit: Yes Status: Chronic - Initial Treatment Plan Initial Treatment Plan: Patient is interviewed with medical students in attendance. Psychoeducation. Sleep hygiene. Detoxification in progress. AA meetings. Group therapy. Willl resume risperdal 1 mg po bid + cogentin 0.5 mg po bid. Side effects/benefits of both drugs are discussed with the patient. Mr Hwang is made aware of the potential for EPS (dystonias, akathisia, akinesia, dyskinesias), sexual dysfunction, galactorrhea, gynecomastia in addition to anticholinergic side effects (dry mouth, urinary hesitancy, blurred vision). History of good response to this regimen is endorsed by the patient. Consent ( verbal) granted to MD. Pablo. Pharmacy claims of 08/27/18 confirm refill for a seven-day supply of risperdal (1 mg po bid).
[2018-09-15] MEDS ORDERED: cloNIDine HCL 0.1 MG TABLET PO PRN (15:29)
[2018-09-15] MEDS: THIAMINE HCL 100 MG TABLET (FP) PO SCH (22:38)
[2018-09-15] MEDS: MELATONIN 5 MG TABLETS PO PRN (22:38)
[2018-09-15] MEDS: ATORVASTATIN CA 40 MG TABLET (FP) PO SCH (22:38)
[2018-09-15] MEDS: risperiDONE 1 MG TABLET (FP) PO SCH (22:39)
[2018-09-15] MEDS: BENZTROPINE MESYLATE 1 MG TABLET (FP) PO SCH (22:40)
[2018-09-16] MEDS ORDERED: LEVOTHYROXINE NA 25 MCG TABLET (FP) ONE (03:24)
[2018-09-16] MEDS ORDERED: LEVOTHYROXINE NA 100 MCG TABLET (FP) ONE (03:25)
[2018-09-16] MEDS: chlordiazePOXIDE HCL 25 MG CAPSULE PO SCH ×3 (06:15→17:29)
[2018-09-16] MEDS: LEVOTHYROXINE 100 MCG, LEVOTHYROXINE 75 MCG PO SCH (07:15)
[2018-09-16] MEDS: risperiDONE 1 MG TABLET (FP) PO SCH ×2 (10:21→22:29)
[2018-09-16] MEDS: PRENATAL VITAMINS W/ FOLIC ACID TABLET (FP) PO SCH (10:21)
[2018-09-16] MEDS: BENZTROPINE MESYLATE 1 MG TABLET (FP) PO SCH ×2 (10:21→22:29)
[2018-09-16] MEDS: NIFEdipine E.R 60 MG TABLET (UD) PO SCH (10:21)
[2018-09-16] MEDS: NICOTINE 14 MG/24 HOURS TOPICAL PATCH TD SCH (10:22)
--- NOTE | 2018-09-16 13:18 | PN ---
S CIWA - CIWA Score Nausea/Vomitin-No Nausea/No Vomiting Muscle Tremors: 2 Anxiety: 1-Mildly Anxious Agitation: 2 Paroxysmal Sweats: 1-Minimal Palms Moist Orientation: 0-Oriented Tacttile Disturbances: 0-None Auditory Disturbances: 0-None Visual Disturbances: 0-None Headache: 1-Very Mild CIWA-Ar Total Score: 7 S Progress Note (SOAP) Subjective: tremor anxiety restlessness trouble sleep at night Objective: 09/16/18 13:16 Vital Signs Temperature 97.1 F L 09/16/18 09:49 Pulse Rate 75 09/16/18 09:49 Respiratory Rate 18 09/16/18 09:49 Blood Pressure 136/90 09/16/18 09:49 O2 Sat by Pulse Oximetry (%) Laboratory Last Values WBC 2.3 K/mm3 (4.0-10.0) L 09/15/18 08:00 RBC 4.46 M/mm3 (4.00-5.60) 09/15/18 08:00 Hgb 13.8 GM/dL (11.7-16.9) 09/15/18 08:00 Hct 40.4 % (35.4-49) 09/15/18 08:00 MCV 90.5 fl (80-96) 09/15/18 08:00 MCH 30.9 pg (25.7-33.7) 09/15/18 08:00 MCHC 34.1 g/dl (32.0-35.9) 09/15/18 08:00 RDW 14.4 % (11.9-15.9) 09/15/18 08:00 Plt Count 134 K/MM3 (134-434) D 09/15/18 08:00 MPV 10.3 fl (7.5-11.1) 09/15/18 08:00 Sodium 136 mmol/L (136-145) 09/15/18 08:00 Potassium 3.6 mmol/L (3.5-5.1) 09/15/18 08:00 Chloride 102 mmol/L (98-107) 09/15/18 08:00 Carbon Dioxide 26 mmol/L (21-32) 09/15/18 08:00 Anion Gap 8 MMOL/L (8-16) 09/15/18 08:00 BUN 15 mg/dL (7-18) 09/15/18 08:00 Creatinine 1.2 mg/dL (0.55-1.3) 09/15/18 08:00 Creat Clearance w eGFR > 60 (>60) 09/15/18 08:00 Random Glucose 91 mg/dL (74-106) 09/15/18 08:00 Calcium 8.6 mg/dL (8.5-10.1) 09/15/18 08:00 Total Bilirubin 0.4 mg/dL (0.2-1) 09/15/18 08:00 AST 22 U/L (15-37) 09/15/18 08:00 ALT 27 U/L (13-61) 09/15/18 08:00 Alkaline Phosphatase 73 U/L (45-117) 09/15/18 08:00 Total Protein 7.2 g/dl (6.4-8.2) 09/15/18 08:00 Albumin 3.0 g/dl (3.4-5.0) L 09/15/18 08:00 RPR Titer Nonreactive (NONREACTIVE) 09/15/18 08:00 lab noted patient acknowledged the low wbc patient agrees to follow up with his infectious disease specialist with his hiv and low wbc 09/16/18 13:17 Assessment: 09/16/18 13:18 withdrawal sx Plan: continue detox
[2018-09-16] MEDS: chlordiazePOXIDE 5 MG CAPSULE PO SCH (22:29)
[2018-09-16] MEDS: THIAMINE HCL 100 MG TABLET (FP) PO SCH (22:29)
[2018-09-16] MEDS: ATORVASTATIN CA 40 MG TABLET (FP) PO SCH (22:29)
[2018-09-17] MEDS ORDERED: LEVOTHYROXINE NA 100 MCG TABLET (FP) ONE (04:21)
[2018-09-17] MEDS ORDERED: LEVOTHYROXINE NA 25 MCG TABLET (FP) ONE (04:21)
[2018-09-17] MEDS: chlordiazePOXIDE 5 MG CAPSULE PO SCH ×3 (06:05→17:00)
[2018-09-17] MEDS: LEVOTHYROXINE 100 MCG, LEVOTHYROXINE 75 MCG PO SCH (06:55)
[2018-09-17] MEDS: NICOTINE 14 MG/24 HOURS TOPICAL PATCH TD SCH (10:13)
[2018-09-17] MEDS: PRENATAL VITAMINS W/ FOLIC ACID TABLET (FP) PO SCH (10:14)
[2018-09-17] MEDS: NIFEdipine E.R 60 MG TABLET (UD) PO SCH (10:14)
[2018-09-17] MEDS: BENZTROPINE MESYLATE 1 MG TABLET (FP) PO SCH ×2 (10:15→22:15)
[2018-09-17] MEDS: risperiDONE 1 MG TABLET (FP) PO SCH ×2 (10:16→22:15)
--- NOTE | 2018-09-17 18:09 | PN ---
[facility] Progress Note (SOAP) Subjective: Fatigue. Objective: PATIENT A & O X 2 (UNCERTAIN ABOUT CURRENT DAY / DATE). PATIENT OBSERVED AMBULATING ON UNIT. IN NO ACUTE DISTRESS. 09/17/18 18:08 Vital Signs Temperature 98.6 F 09/17/18 17:42 Pulse Rate 78 09/17/18 17:42 Respiratory Rate 18 09/17/18 17:42 Blood Pressure 117/73 09/17/18 17:42 O2 Sat by Pulse Oximetry (%) Laboratory Tests 09/15/18 09/15/18 09/15/18 08:00 08:00 08:00 WBC 2.3 L RBC 4.46 Hgb 13.8 Hct 40.4 MCV 90.5 MCH 30.9 MCHC 34.1 RDW 14.4 Plt Count 134 D MPV 10.3 Sodium 136 Potassium 3.6 Chloride 102 Carbon Dioxide 26 Anion Gap 8 BUN 15 Creatinine 1.2 Creat Clearance w eGFR > 60 Random Glucose 91 Calcium 8.6 Total Bilirubin 0.4 AST 22 ALT 27 Alkaline Phosphatase 73 Total Protein 7.2 Albumin 3.0 L RPR Titer Nonreactive LABS NOTED. Assessment: 09/17/18 18:08 WITHDRAWAL SYMPTOMS. LEUKOPENIA. 09/17/18 18:09 Plan: CONTINUE DETOX. PATIENT SCHEDULED FOR D/C TOMORROW.
[2018-09-17 21:53] LABS: URINE APPEARANCE CLEAR; URINE BILIRUBIN NEGATIVE (<2.0 mg/dL); URINE COLOR LTYELLOW; URINE GLUCOSE (UA) NEGATIVE (NEGATIVE); URINE KETONE NEGATIVE (NEGATIVE); URINE LEUK ESTERASE NEGATIVE (NEGATIVE); URINE NITRITE NEGATIVE (NEGATIVE); URINE PROTEIN NEGATIVE (NEGATIVE); URINE UROBILINOGEN NEGATIVE mg/dL (0.2-1.0)
[2018-09-17] MEDS: ATORVASTATIN CA 40 MG TABLET (FP) PO SCH (22:14)
[2018-09-17] MEDS: THIAMINE HCL 100 MG TABLET (FP) PO SCH (22:14)
[2018-09-17] MEDS: chlordiazePOXIDE HCL 10 MG CAPSULE PO SCH (22:16)
[2018-09-18] MEDS ORDERED: LEVOTHYROXINE NA 100 MCG TABLET (FP) ONE (04:56)
[2018-09-18] MEDS ORDERED: LEVOTHYROXINE NA 25 MCG TABLET (FP) ONE (04:56)
[2018-09-18] MEDS: chlordiazePOXIDE HCL 10 MG CAPSULE PO SCH (05:04)
[2018-09-18] MEDS: LEVOTHYROXINE 100 MCG, LEVOTHYROXINE 75 MCG PO SCH (06:42)
[2018-09-18 09:05] VITALS: BP 130/78; PULSE 90; TEMP 98.7
--- NOTE | 2018-09-18 16:11 | PN ---
S Progress Note (SOAP) Subjective: No complaints offered Objective: 09/18/18 16:11 In bed, A & O x 3 no distress noted Vital Signs Temperature 98.7 F 09/18/18 09:05 Pulse Rate 90 09/18/18 09:05 Respiratory Rate 16 09/18/18 09:05 Blood Pressure 130/78 09/18/18 09:05 O2 Sat by Pulse Oximetry (%) Assessment: 09/18/18 16:11 Detox completed Plan: for discharge
--- NOTE | 2018-09-18 16:14 | DS ---
[facility] Discharge Summary Admission Date: 09/14/18 Discharge Date: 09/18/18 - History Additional Comments: pt for discharge Verbalizes going home Will do aftercare by attending AA/NA meetings Will f/u at his ID clinic at [facility] re his HIV status No prescription meds needed - Physical Exam Results Vital Signs: Vital Signs Temperature 98.7 F 09/18/18 09:05 Pulse Rate 90 09/18/18 09:05 Respiratory Rate 16 09/18/18 09:05 Blood Pressure 130/78 09/18/18 09:05 O2 Sat by Pulse Oximetry (%) - Treatment Hospital Course: Detox Protocol Followed, Detoxed Safely, Responded well, Discharged Condition Good Patient has Accepted a Rehab Referral to: O/P at [facility], AA/EPI meetings - Medication Discharge Medications: Ambulatory Orders Benztropine Mesylate [Cogentin -] 1 mg PO DAILY #30 tablet 01/10/17 Benztropine Mesylate [Cogentin -] 0.5 mg PO DAILY 09/14/18 Risperidone [Risperdal] 1 mg PO BID 09/14/18 Atorvastatin Ca [Lipitor] 40 mg PO HS 14 Days #14 tablet 09/17/18 Levothyroxine [Synthroid -] 175 mcg PO DAILY@0700 14 Days #14 tablet 09/17/18 Metoprolol Succinate [Toprol XL -] 50 mg PO DAILY 14 Days #14 tab.sr.24h Nifedipine [Adalat cc] 60 mg PO DAILY 14 Days #14 tablet.er 09/17/18 Benztropine Mesylate [Cogentin -] 0.5 mg PO BID #30 tablet 09/18/18 Risperidone [Risperdal] 1 mg PO BID #30 ml 09/18/18 - AMA Did Patient Leave Against Medical Advice: No
== END 2018-09-18 09:28 | disposition home or self-care (01) | DRG 774 ==
LOC: YASAS 15:51 → Y3N 20:06
PROVIDERS: ADMIT Surgery; ATTEND Surgery
PROC: HZ2ZZZZ Detoxification Services for Substance Abuse Treatment (ICD-10-PCS; principal; 2018-09-14)
DX: F10.230 Alcohol dependence with withdrawal, uncomplicated (principal); F14.20 Cocaine dependence, uncomplicated; F17.213 Nicotine dependence, cigarettes, with withdrawal; F25.9 Schizoaffective disorder, unspecified; Z21 Asymptomatic human immunodeficiency virus [HIV] infection status; E86.0 Dehydration; I10 Essential (primary) hypertension; D69.6 Thrombocytopenia, unspecified; D70.9 Neutropenia, unspecified; E03.9 Hypothyroidism, unspecified; E78.00 Pure hypercholesterolemia, unspecified; R63.4 Abnormal weight loss; Z68.24 Body mass index [BMI] 24.0-24.9, adult; Z91.5 Personal history of self-harm
CPT/HCPCS: 36415; 80053; 81003; 85027; 86593; J0735; J2794

== ENCOUNTER 2018-11-20 09:23 | Inpatient (IN) | payer OTHER ==
[2018-11-20 10:12] VITALS: BMI 22.6
--- NOTE | 2018-11-20 10:32 | HP ---
CIWA Score Nausea/Vomitin-Mild Nausea/No Vomiting Muscle Tremors: 4-Moderate,w/Arms Extend Anxiety: 4-Mod. Anxious/Guarded Agitation: 0-Normal Activity Paroxysmal Sweats: No Perspiration Orientation: 2-Disoriented Date<2 days Tacttile Disturbances: 1-Very Mild Itch/Numbness Auditory Disturbances: 1-Very Mild Visual Disturbances: 1-Very Mild Sensitivity Headache: 2-Mild CIWA-Ar Total Score: 16 - Admission Criteria OASAS Guidelines: Admission for Medically Managed Detox: Requires at least one of the followin. CIWA greater than 12 2. Seizures within the past 24 hours 3. Delirium tremens within the past 24 hours 4. Hallucinations within the past 24 hours 5. Acute intervention needed for co occurring medical disorder 6. Acute intervention needed for co occurring psychiatric disorder 7. Severe withdrawal that cannot be handled at a lower level of care (continued vomiting, continued diarrhea, abnormal vital signs) requiring intravenous medication and/or fluids 8. Patient presents the following: CIWA greater than 12 Admission Criteria Met: Admission criteria met Admission ROS [facility] Chief Complaint: I want to stop drinking, it's getting out of hand Allergies/Adverse Reactions: Allergies Allergy/AdvReac Type Severity Reaction Status Date / Time sulfamethoxazole Allergy Intermediate Itching Verified 08/07/18 17:33 [From Bactrim DS] trimethoprim Allergy Intermediate Itching Verified 08/07/18 17:33 [From Bactrim DS] all over body Fish Containing Products Allergy Mild throat Verified 08/07/18 17:33 swelling haloperidol [From Haldol] AdvReac Intermediate jaw Verified 11/20/18 10:48 tightness History of Present Illness: 53 yo gentleman here for detox from alcohol - also using cocaine, history of alcohol related seizures, drinks first thing in the morning, this is one of multiple admissions for treatment. Was treated in [facility] ED last night ' for acting up because I was drunk', urine tox + bzo as he was treated there. Patient also using cocaine, remote history of alcohol related seizures and psychiatric hospitalization in July. Patient states he has not had any medications for a few weeks due to insurance problems. Patient is HIV+ but does not know his CD4 count or does he take medications. He was given haldol in ED last night and presented here with jaw stiffness - was given benadryl and symptoms eased. Exam Limitations: No Limitations - Ebola screening Have you traveled outside of the country in the last 21 days: No Have you had contact with anyone from an Ebola affected area: No - Review of Systems Constitutional: Loss of Appetite, Malaise, Changes in sleep, Weakness, Unexplained wgt Loss EENT: reports: Blurred Vision Respiratory: reports: No Symptoms reported Cardiac: reports: No Symptoms Reported GI: reports: Diarrhea, Poor Appetite, Abdominal cramping : reports: Frequency Musculoskeletal: reports: No Symptoms Reported Integumentary: reports: Dryness Neuro: reports: Headache, Tremors, Weakness Endocrine: reports: No Symptoms Reported Hematology: reports: No Symptoms Reported Psychiatric: reports: Judgement Intact, Mood/Affect Appropiate, Anxious Other Systems: Reviewed and Negative Patient History - Patient Medical History Hx Anemia: No Hx Asthma: No Hx Chronic Obstructive Pulmonary Disease (COPD): No Hx Cancer: No Hx Cardiac Disorders: No Hx Congestive Heart Failure: No Hx Hypertension: Yes Hx Hypercholesterolemia: Yes (ON MED) Hx Pacemaker: No HX Cerebrovascular Accident: No Hx Seizures: Yes (1991 - alcohold related) Hx Dementia: No Hx Diabetes: No Hx Gastrointestinal Disorders: No Hx Liver Disease: No Hx Genitourinary Disorders: No Hx Sexually Transmitted Disorders: No Hx Renal Disease (ESRD): No Hx Thyroid Disease: Yes (HYPOTHYROIDISM ON MEDS) Hx Human Immunodeficiency Virus (HIV): Yes (SINCE 1988 /VL UNDETECTABLE T-CELL 325 IN ., no meds) Hx Hepatitis C: No Hx Depression: Yes (hospitalized Jul 2018 [facility]) Hx Suicide Attempt: No Hx Bipolar Disorder: Yes (ON MED) Hx Schizophrenia: No - Patient Surgical History Past Surgical History: Yes Hx Neurologic Surgery: No Hx Cataract Extraction: No Hx Cardiac Surgery: No Hx Lung Surgery: No Hx Breast Surgery: No Hx Breast Biopsy: No Hx Abdominal Surgery: Yes (REPAIR OF UMBILICAL HERNIA 2OO8) Hx Appendectomy: No Hx Cholecystectomy: No Hx Genitourinary Surgery: No Hx Section: No Hx Orthopedic Surgery: No Anesthesia Reaction: No - PPD History Date: 05/09/18 Results: 0 mm - Reproductive History Patient is a Female of Child Bearing Age (11 -55 yrs old): No (male) - Smoking Cessation Smoking history: Current every day smoker Have you smoked in the past 12 months: Yes Aproximately how many cigarettes per day: 10 Cigars Per Day: 0 Hx Chewing Tobacco Use: No Initiated information on smoking cessation: Yes 'Breaking Loose' booklet given: 11/20/18 (give on floor) - Substance & Tx. History Hx Alcohol Use: Yes Hx Substance Use: Yes Substance Use Type: Alcohol, Cocaine Hx Substance Use Treatment: Yes (detox, rehab) - Substances abused Alcohol Substance route: Oral Frequency: Daily Amount used: 3 pints vodka, three 24 oz bottles beer Age of first use: 12 Date of last use: 11/19/18 Crack Substance route: Smoking Frequency: 3-6 times per week Amount used: $50 Age of first use: 22 Date of last use: 11/19/18 Family Disease History - Family Disease History Family Disease History: Diabetes: Grandparent, Father (alcohol,), Mother (alcohol,), Other: Father, Mother, Brother (one living - no contat), Sister (one living - no contact), Son (four - living), Daughter (three - living) Admission Physical Exam [facility] - Vital Signs Vital Signs: Vital Signs - 24 hr 11/20/18 10:11 Temperature 98.6 F Respiratory 102 H Rate Blood Pressure 153/111 H - Physical General Appearance: Yes: Appropriately Dressed, Mild Distress, Thin, Tremorous, Irritable, Anxious HEENTM: Yes: EOMI, Hearing grossly Normal, Normocephalic, Normal Voice, Pharynx Normal, Other (tongue coated, poor dentition) Respiratory: Yes: Normal Breath Sounds, No Respiratory Distress Neck: Yes: No masses,lesions,Nodules Breast: Yes: Breast Exam Deferred Cardiology: Yes: Regular Rhythm, Irregular (skipped beats) Abdominal: Yes: Flat, Soft Genitourinary: Yes: Frequency Back: Yes: Normal Inspection Musculoskeletal: Yes: full range of Motion, Gait Steady Extremities: Yes: Normal Inspection, Normal Range of Motion, Non-Tender Neurological: Yes: Alert, Motor Strength 5/5, Normal Mood/Affect, Normal Response Integumentary: Yes: Normal Color, Dry, Warm Lymphatic: Yes: Within Normal Limits - Diagnostic (1) Alcohol dependence with uncomplicated withdrawal Current Visit: Yes Status: Chronic (2) Cocaine dependence Current Visit: Yes Status: Chronic Qualifiers: Substance use status: uncomplicated Qualified Code(s): F14.20 - Cocaine dependence, uncomplicated (3) Dehydration Current Visit: Yes Status: Chronic (4) Essential hypertension Current Visit: Yes Status: Chronic (5) HIV (human immunodeficiency virus infection) Current Visit: Yes Status: Chronic Qualifiers: HIV symptom status: unspecified Qualified Code(s): B20 - Human immunodeficiency virus [HIV] disease (6) Hypercholesterolemia Current Visit: Yes Status: Chronic (7) Hypothyroidism Current Visit: Yes Status: Chronic (8) Nicotine dependence Current Visit: Yes Status: Chronic Qualifiers: Nicotine product type: cigarettes Substance use status: uncomplicated Qualified Code(s): F17.210 - Nicotine dependence, cigarettes, uncomplicated (9) Non compliance w medication regimen Current Visit: Yes Status: Chronic (10) Weight loss Current Visit: Yes Status: Chronic (11) History of seizure Current Visit: Yes Status: Chronic Cleared for Admission S - Detox or Rehab [facility] Level of Care: Medically Managed Detox Regimen/Protocol: Librium Breathalyzer - Breathalyzer Breathalyzer: 0 Urine Drug Screen - Test Device Lot number: [id number] Expiration date: 06/25/20 - Control Is test valid?: Yes - Results Drug screen NEGATIVE: No Urine drug screen results: EMIR-Cocaine, BZO-Benzodiazepines Inpatient Rehab Admission - Rehab Decision to Admit Inpatient rehab admission?: No
[2018-11-20] MEDS ORDERED: ACETAMINOPHEN 325 MG TABLET (FP) PO PRN (10:41)
[2018-11-20] MEDS ORDERED: MAG HYDROX/AL HYDROX/SIMETH 30 ML UNIT-DOSE CUP PO PRN (10:41)
[2018-11-20] MEDS ORDERED: IBUPROFEN 400 MG TABLET (FP) PO PRN (10:41)
[2018-11-20] MEDS ORDERED: MAGNESIUM HYDROX 2400MG/30ML ORAL SUSPENSION 30 ML CUP PO PRN (10:41)
[2018-11-20] MEDS ORDERED: MELATONIN 5 MG TABLETS PO PRN (10:41)
[2018-11-20] MEDS ORDERED: MAGNESIUM CITRATE 300 ML BOTTLE PO PRN (10:41)
[2018-11-20] MEDS ORDERED: MENTHOL/PHENOL 1 EACH UD MM PRN (10:41)
[2018-11-20] MEDS ORDERED: hydrOXYzine PAMOATE 25 MG CAPSULE (FP) PO PRN (10:41)
[2018-11-20] MEDS ORDERED: chlordiazePOXIDE HCL 25 MG CAPSULE PO PRN (10:41)
[2018-11-20] MEDS ORDERED: BISMUTH SUBSALICYLATE 524 MG/30 ML UD PO PRN (10:41)
[2018-11-20] MEDS ORDERED: METHOCARBAMOL 500 MG TABLET PO PRN (10:41)
[2018-11-20] MEDS ORDERED: chlordiazePOXIDE HCL 25 MG CAPSULE PO ONE (11:45)
[2018-11-20] MEDS: NIFEdipine E.R 60 MG TABLET (UD) PO SCH (13:09)
[2018-11-20] MEDS: NICOTINE 21 MG/24 HOURS TOPICAL PATCH TD SCH (13:09)
[2018-11-20] MEDS: chlordiazePOXIDE HCL 25 MG CAPSULE PO SCH ×2 (17:24→22:00)
[2018-11-20] MEDS: ATORVASTATIN CA 40 MG TABLET (FP) PO SCH (21:25)
[2018-11-20] MEDS: THIAMINE HCL 100 MG TABLET (FP) PO SCH (21:25)
[2018-11-21] MEDS: chlordiazePOXIDE HCL 25 MG CAPSULE PO SCH ×4 (06:13→22:10)
[2018-11-21] MEDS: LEVOTHYROXINE NA 25 MCG TABLET (FP) PO SCH (06:13)
--- NOTE | 2018-11-21 09:57 | PN ---
S CIWA - CIWA Score Nausea/Vomitin-Mild Nausea/No Vomiting Muscle Tremors: 4-Moderate,w/Arms Extend Anxiety: 1-Mildly Anxious Agitation: 2 Paroxysmal Sweats: 1-Minimal Palms Moist Orientation: 2-Disoriented Date<2 days Tacttile Disturbances: 0-None Auditory Disturbances: 0-None Visual Disturbances: 0-None Headache: 1-Very Mild CIWA-Ar Total Score: 12 [facility] Progress Note (SOAP) Subjective: feeling tired preferring to stay in bed sleep off today Objective: 11/21/18 09:56 Vital Signs Temperature 97.5 F L 11/21/18 09:18 Pulse Rate 88 11/21/18 09:18 Respiratory Rate 18 11/21/18 09:18 Blood Pressure 119/81 11/21/18 09:18 O2 Sat by Pulse Oximetry (%) 11/21/18 09:56 lab pending Assessment: 11/21/18 09:56 alcohol withdrawal sx Plan: continue detox
[2018-11-21] MEDS: NICOTINE 21 MG/24 HOURS TOPICAL PATCH TD SCH (10:12)
[2018-11-21] MEDS: NIFEdipine E.R 60 MG TABLET (UD) PO SCH (10:12)
[2018-11-21] MEDS: PRENATAL VITAMINS W/ FOLIC ACID TABLET (FP) PO SCH (10:12)
[2018-11-21 10:59] LABS: ALBUMIN 2.6 g/dl (3.4-5.0); ALK PHOS 65 U/L (45-117); ANION GAP 8 MMOL/L (8-16); BILIRUBIN,TOTAL 0.3 mg/dL (0.2-1); BLOOD UREA NITROGEN 12 mg/dL (7-18); CALCIUM 8.5 mg/dL (8.5-10.1); CHLORIDE 100 mmol/L (98-107); CO2 29 mmol/L (21-32); GLUCOSE,RANDOM 136 mg/dL (74-106); SGOT/AST 91 U/L (15-37); SGPT/ALT 87 U/L (13-61); SODIUM 137 mmol/L (136-145); TOT PROT 6.4 g/dl (6.4-8.2)
[2018-11-21 11:00] LABS: MCH 30.4 pg (25.7-33.7); MCHC 33.3 g/dl (32.0-35.9); MEAN CELL VOLUME 91.4 fl (80-96); MEAN PLT VOLUME 10.8 fl (7.5-11.1); PLATELET COUNT 97 K/MM3 (134-434); RBC 4.27 M/mm3 (4.00-5.60); RDW 15.8 % (11.9-15.9)
[2018-11-21 11:03] LABS: POTASSIUM 2.8 mmol/L (3.5-5.1)
[2018-11-21 11:07] LABS: WHITE BLOOD COUNT 1.8 K/mm3 (4.0-10.0)
[2018-11-21] MEDS: POTASSIUM CHLORIDE ORAL LIQUID 20 MEQ/15 ML PO SCH ×2 (12:40→17:11)
[2018-11-21] MEDS: ATORVASTATIN CA 40 MG TABLET (FP) PO SCH (22:10)
[2018-11-21] MEDS: THIAMINE HCL 100 MG TABLET (FP) PO SCH (22:11)
[2018-11-22] MEDS: chlordiazePOXIDE HCL 25 MG CAPSULE PO SCH ×2 (06:05→10:52)
[2018-11-22] MEDS: LEVOTHYROXINE NA 25 MCG TABLET (FP) PO SCH (07:45)
--- NOTE | 2018-11-22 09:15 | PN ---
[facility] CIWA - CIWA Score Nausea/Vomitin-Mild Nausea/No Vomiting Muscle Tremors: 3 Anxiety: 2 Agitation: 1-Slight > Activity Paroxysmal Sweats: 1-Minimal Palms Moist Orientation: 2-Disoriented Date<2 days Tacttile Disturbances: 0-None Auditory Disturbances: 0-None Visual Disturbances: 0-None Headache: 0-None Present CIWA-Ar Total Score: 10 S Progress Note (SOAP) Subjective: feeling ok today up for morning meeting but preferring stay in bed resting Objective: 11/22/18 09:11 Vital Signs Temperature 96.6 F L 11/22/18 09:03 Pulse Rate 79 11/22/18 09:03 Respiratory Rate 18 11/22/18 09:03 Blood Pressure 140/90 11/22/18 09:03 O2 Sat by Pulse Oximetry (%) Laboratory Last Values WBC 1.8 K/mm3 (4.0-10.0) L* 11/21/18 07:00 RBC 4.27 M/mm3 (4.00-5.60) 11/21/18 07:00 Hgb 13.0 GM/dL (11.7-16.9) 11/21/18 07:00 Hct 39.0 % (35.4-49) 11/21/18 07:00 MCV 91.4 fl (80-96) 11/21/18 07:00 MCH 30.4 pg (25.7-33.7) 11/21/18 07:00 MCHC 33.3 g/dl (32.0-35.9) 11/21/18 07:00 RDW 15.8 % (11.9-15.9) 11/21/18 07:00 Plt Count 97 K/MM3 (134-434) L D 11/21/18 07:00 MPV 10.8 fl (7.5-11.1) 11/21/18 07:00 Sodium 137 mmol/L (136-145) 11/21/18 07:00 Potassium 2.8 mmol/L (3.5-5.1) L* 11/21/18 07:00 Chloride 100 mmol/L (98-107) 11/21/18 07:00 Carbon Dioxide 29 mmol/L (21-32) 11/21/18 07:00 Anion Gap 8 MMOL/L (8-16) 11/21/18 07:00 BUN 12 mg/dL (7-18) 11/21/18 07:00 Creatinine 1.0 mg/dL (0.55-1.3) 11/21/18 07:00 Creat Clearance w eGFR 78.78 (>60) 11/21/18 07:00 Random Glucose 136 mg/dL (74-106) H 11/21/18 07:00 Calcium 8.5 mg/dL (8.5-10.1) 11/21/18 07:00 Total Bilirubin 0.3 mg/dL (0.2-1) 11/21/18 07:00 AST 91 U/L (15-37) H 11/21/18 07:00 ALT 87 U/L (13-61) H 11/21/18 07:00 Alkaline Phosphatase 65 U/L (45-117) 11/21/18 07:00 Total Protein 6.4 g/dl (6.4-8.2) 11/21/18 07:00 Albumin 2.6 g/dl (3.4-5.0) L 11/21/18 07:00 RPR Titer Nonreactive (NONREACTIVE) 11/21/18 07:00 lab noted repeat K+ pending repeat cbc pending 11/22/18 09:15 Assessment: 11/22/18 09:16 alcohol withdrawal sx hypokalemia Plan: continue detox
[2018-11-22] MEDS: NIFEdipine E.R 60 MG TABLET (UD) PO SCH (10:22)
[2018-11-22] MEDS: PRENATAL VITAMINS W/ FOLIC ACID TABLET (FP) PO SCH (10:22)
[2018-11-22] MEDS: NICOTINE 21 MG/24 HOURS TOPICAL PATCH TD SCH (10:24)
[2018-11-22] MEDS: POTASSIUM CHLORIDE ORAL LIQUID 20 MEQ/15 ML PO SCH ×2 (10:52→13:25)
--- NOTE | 2018-11-22 11:02 | EKG ---
Test Reason : Blood Pressure : / mmHG Vent. Rate : 081 BPM Atrial Rate : 081 BPM P-R Int : 160 ms QRS Dur : 108 ms QT Int : 400 ms P-R-T Axes : 066 034 026 degrees QTc Int : 464 ms NORMAL SINUS RHYTHM POSSIBLE LEFT ATRIAL ENLARGEMENT LEFT VENTRICULAR HYPERTROPHY ABNORMAL ECG WHEN COMPARED WITH ECG OF 07-MAY-2018 19:13, PREMATURE VENTRICULAR COMPLEXES ARE NO LONGER PRESENT Confirmed by CRIS CALZADA, RADHA ([id number]) on 11/22/2018 11:02:28 AM Referred By: Confirmed By:RADHA LYNCH MD
[2018-11-22 12:31] LABS: BASO % 0.7 % (0-2.0); EOS % 12.8 % (0-4.5); HEMOGLOBIN 13.4 GM/dL (11.7-16.9); LYMPH % 35.6 % (8-40); MCHC 33.6 g/dl (32.0-35.9); MEAN CELL VOLUME 92.3 fl (80-96); MEAN PLT VOLUME 11.7 fl (7.5-11.1); NEUT % 39.9 % (42.8-82.8); PLATELET COUNT 118 K/MM3 (134-434); RBC 4.33 M/mm3 (4.00-5.60); RDW 15.6 % (11.9-15.9); WHITE BLOOD COUNT 2.1 K/mm3 (4.0-10.0)
[2018-11-22 14:33] LABS: PLATELET ESTIMATE DECREASED
[2018-11-22] MEDS ORDERED: chlordiazePOXIDE HCL 10 MG CAPSULE PO PRN (17:00)
[2018-11-22] MEDS ORDERED: chlordiazePOXIDE HCL 10 MG CAPSULE PO SCH (17:00)
[2018-11-22 17:43] VITALS: BP 105/75; PULSE 79; TEMP 97.3
--- NOTE | 2018-11-22 17:51 | PN ---
[facility] Progress Note Note: Psychiatry Attending's on-call note : Met with patient to discuss medications. Mr Jaiden declines. States that he is about to leave the program. " I don't belong here. I miss my dog. I rather be home with my folks ". Patient declines to be interviewed. Cognitively intact. Ambulatory. Patient denies suicidal or homicidal ideation. Declines scripts.
--- NOTE | 2018-11-22 20:50 | DS ---
[facility] Detox Discharge Summary Admission Date: 11/20/18 Discharge Date: 11/22/18 - History Present History: Alcohol Dependence, Cocaine Dependence Additional Comments: Patient with alcohol withdrawal symptoms requesting detox. Pertinent Past History: Hx alcohol and cocaine use disorder. Hx: Alcohol related seizures, HIV+, HTN, Hypothyroid, hypercholesterolemia Non-compliance w/ medications. - Physical Exam Results Vital Signs: Vital Signs Temperature 97.3 F L 11/22/18 17:42 Pulse Rate 79 11/22/18 17:42 Respiratory Rate 17 11/22/18 17:42 Blood Pressure 105/75 11/22/18 17:42 O2 Sat by Pulse Oximetry (%) Pertinent Admission Physical Exam Findings: Patient w/ acute alcohol withdrawal admitted for detox. PMHX reviewed and medications prescribed, as appropriate. Laboratory Last Values WBC 2.1 K/mm3 (4.0-10.0) L 11/22/18 08:40 RBC 4.33 M/mm3 (4.00-5.60) 11/22/18 08:40 Hgb 13.4 GM/dL (11.7-16.9) 11/22/18 08:40 Hct 40.0 % (35.4-49) 11/22/18 08:40 MCV 92.3 fl (80-96) 11/22/18 08:40 MCH 31.0 pg (25.7-33.7) 11/22/18 08:40 MCHC 33.6 g/dl (32.0-35.9) 11/22/18 08:40 RDW 15.6 % (11.9-15.9) 11/22/18 08:40 Plt Count 118 K/MM3 (134-434) L D 11/22/18 08:40 MPV 11.7 fl (7.5-11.1) H 11/22/18 08:40 Absolute Neuts (auto) 0.9 K/mm3 (1.5-8.0) L 11/22/18 08:40 Neutrophils % 39.9 % (42.8-82.8) L 11/22/18 08:40 Lymphocytes % 35.6 % (8-40) 11/22/18 08:40 Monocytes % 11.0 % (3.8-10.2) H 11/22/18 08:40 Eosinophils % 12.8 % (0-4.5) H 11/22/18 08:40 Basophils % 0.7 % (0-2.0) 11/22/18 08:40 Nucleated RBC % 0 % (0-0) 11/22/18 08:40 Platelet Estimate Decreased 11/22/18 08:40 Platelet Comment Present 11/22/18 08:40 Sodium 137 mmol/L (136-145) 11/21/18 07:00 Potassium 3.6 mmol/L (3.5-5.1) 11/22/18 08:40 Chloride 100 mmol/L (98-107) 11/21/18 07:00 Carbon Dioxide 29 mmol/L (21-32) 11/21/18 07:00 Anion Gap 8 MMOL/L (8-16) 11/21/18 07:00 BUN 12 mg/dL (7-18) 11/21/18 07:00 Creatinine 1.0 mg/dL (0.55-1.3) 11/21/18 07:00 Creat Clearance w eGFR 78.78 (>60) 11/21/18 07:00 Random Glucose 136 mg/dL (74-106) H 11/21/18 07:00 Calcium 8.5 mg/dL (8.5-10.1) 11/21/18 07:00 Total Bilirubin 0.3 mg/dL (0.2-1) 11/21/18 07:00 AST 91 U/L (15-37) H 11/21/18 07:00 ALT 87 U/L (13-61) H 11/21/18 07:00 Alkaline Phosphatase 65 U/L (45-117) 11/21/18 07:00 Total Protein 6.4 g/dl (6.4-8.2) 11/21/18 07:00 Albumin 2.6 g/dl (3.4-5.0) L 11/21/18 07:00 RPR Titer Nonreactive (NONREACTIVE) 11/21/18 07:00 Labs reviewed. - Treatment Hospital Course: Detox Protocol Followed (Patient did not complete detox protocol.), Detoxed Safely, Responded well, Discharged Condition Good (Patient alert and oriented. Mild tremors of hands noted. Gait steady.) - Medication Discharge Medications: Ambulatory Orders Benztropine Mesylate [Cogentin -] 1 mg PO DAILY #30 tablet 01/10/17 Risperidone [Risperdal] 1 mg PO BID 09/14/18 Atorvastatin Ca [Lipitor] 40 mg PO HS #14 tablet 11/22/18 Levothyroxine [Synthroid -] 25 mcg PO DAILY #14 tablet 11/22/18 Metoprolol Succinate [Toprol XL -] 50 mg PO DAILY 14 Days #14 tab.sr.24h Nifedipine [Adalat cc] 60 mg PO DAILY 14 Days #14 tablet.er 11/22/18 - Diagnosis (1) Alcohol dependence with uncomplicated withdrawal Current Visit: Yes Status: Acute (2) Cocaine dependence Current Visit: Yes Status: Chronic Qualifiers: Substance use status: uncomplicated Qualified Code(s): F14.20 - Cocaine dependence, uncomplicated (3) Essential hypertension Current Visit: Yes Status: Chronic (4) HIV (human immunodeficiency virus infection) Current Visit: Yes Status: Chronic Qualifiers: HIV symptom status: unspecified Qualified Code(s): B20 - Human immunodeficiency virus [HIV] disease (5) Hypercholesterolemia Current Visit: Yes Status: Chronic (6) Hypothyroidism Current Visit: Yes Status: Chronic (7) Nicotine dependence Current Visit: Yes Status: Chronic Qualifiers: Nicotine product type: cigarettes Substance use status: uncomplicated Qualified Code(s): F17.210 - Nicotine dependence, cigarettes, uncomplicated (8) Non compliance w medication regimen Current Visit: Yes Status: Chronic (9) Dehydration Current Visit: Yes Status: Chronic (10) History of seizure Current Visit: Yes Status: Chronic - AMA Did Patient Leave Against Medical Advice: Yes (Patient refused to stay, despite encouragement. )
[2018-11-23] MEDS ORDERED: chlordiazePOXIDE HCL 10 MG CAPSULE PO SCH (17:00)
== END 2018-11-22 20:19 | disposition left against medical advice (07) | DRG 770 ==
LOC: YASAS 09:23 → Y3N 11:28
PROVIDERS: ADMIT Surgery; ATTEND Surgery
PROC: HZ2ZZZZ Detoxification Services for Substance Abuse Treatment (ICD-10-PCS; principal; 2018-11-20)
DX: F10.230 Alcohol dependence with withdrawal, uncomplicated (principal); F14.20 Cocaine dependence, uncomplicated; F17.213 Nicotine dependence, cigarettes, with withdrawal; B20 Human immunodeficiency virus [HIV] disease; I10 Essential (primary) hypertension; E78.00 Pure hypercholesterolemia, unspecified; E03.9 Hypothyroidism, unspecified; E86.0 Dehydration; E87.6 Hypokalemia; Z86.69 Personal history of other diseases of the nervous system and sense organs; Z91.013 Allergy to seafood; Z88.2 Allergy status to sulfonamides; Z91.14 Patient's other noncompliance with medication regimen
CPT/HCPCS: 36415; 80053; 84132; 85025; 85027; 86593; 93005; 93010

== ENCOUNTER 2019-06-09 13:50 | Inpatient (IN) | payer OTHER ==
[2019-06-09 15:37] VITALS: BMI 25.0
--- NOTE | 2019-06-09 17:14 | HP ---
CIWA Score Nausea/Vomitin-No Nausea/No Vomiting Muscle Tremors: 2 Anxiety: 1-Mildly Anxious Agitation: 2 Paroxysmal Sweats: No Perspiration Orientation: 0-Oriented Tacttile Disturbances: 0-None Auditory Disturbances: 0-None Visual Disturbances: 0-None Headache: 0-None Present CIWA-Ar Total Score: 5 - Admission Criteria OASAS Guidelines: Admission for Medically Managed Detox: Requires at least one of the followin. CIWA greater than 12 2. Seizures within the past 24 hours 3. Delirium tremens within the past 24 hours 4. Hallucinations within the past 24 hours 5. Acute intervention needed for co occurring medical disorder 6. Acute intervention needed for co occurring psychiatric disorder 7. Severe withdrawal that cannot be handled at a lower level of care (continued vomiting, continued diarrhea, abnormal vital signs) requiring intravenous medication and/or fluids 8. Admitting History and Physical - Admission History Source: Patient Limitations to Obtaining History: No Limitations - Past Medical History Cardiovascular: Yes: HTN, Hyperlipdemia Infectious Disease: Yes: HIV Psych: Yes: Addictions, Bipolar - Past Surgical History Past Surgical History: Yes: Hernia Repair - Smoking History Smoking history: Current every day smoker Have you smoked in the past 12 months: Yes Aproximately how many cigarettes per day: 10 - Alcohol/Substance Use Hx Alcohol Use: Yes History of Substance Use: reports: Cocaine, Heroin Admission [facility] Chief Complaint: alcohol abuse Allergies/Adverse Reactions: Allergies Allergy/AdvReac Type Severity Reaction Status Date / Time sulfamethoxazole Allergy Intermediate Itching Verified 06/09/19 15:24 [From Bactrim DS] trimethoprim Allergy Intermediate Itching Verified 06/09/19 15:24 [From Bactrim DS] all over body Fish Containing Products Allergy Mild throat Verified 06/09/19 15:24 swelling haloperidol [From Haldol] AdvReac Intermediate jaw Verified 06/09/19 15:24 tightness History of Present Illness: 53 y.o. M PMH HIV on HAART, HLD, HTN, bipolar presenting for detox. EtOH: 3 pints vodka & 2-24oz beers daily. Last drink yesterday. Has been drinking since age 12. Longest sober period 2 years, many years ago. Passes out occasionally from drinking. Had a withdrawal seizure from alcohol in 1991. Crack: $40/ day. Last used yesterday ~$60 worth. Started using at age 22. Marijuana: occasionally Cigarettes: 1 pack/ day. Has been smoking since age 17 PSH: umbilical hernia repair Social hx: SSI. Has his own place. All: bactrim, fish Exam Limitations: No Limitations - Ebola screening Have you traveled outside of the country in the last 21 days: No Have you had contact with anyone from an Ebola affected area: No Do you have a fever: No - Review of Systems Constitutional: No Symptoms Reported EENT: reports: No Symptoms Reported Respiratory: reports: No Symptoms reported Cardiac: reports: No Symptoms Reported GI: reports: No Symptoms Reported : reports: No Symptoms Reported Musculoskeletal: reports: No Symptoms Reported Integumentary: reports: No Symptoms Reported Neuro: reports: No Symptoms reported, Tremors Endocrine: reports: No Symptoms Reported Hematology: reports: No Symptoms Reported Psychiatric: reports: No Sypmtoms Reported, Mood/Affect Appropiate, Orientated x3 Patient History - Patient Medical History Hx Anemia: No Hx Asthma: No Hx Chronic Obstructive Pulmonary Disease (COPD): No Hx Cancer: No Hx Cardiac Disorders: No Hx Congestive Heart Failure: No Hx Hypertension: Yes Hx Hypercholesterolemia: Yes (ON MED) Hx Pacemaker: No HX Cerebrovascular Accident: No Hx Seizures: Yes (1991 - alcohold related) Hx Dementia: No Hx Diabetes: No Hx Gastrointestinal Disorders: No Hx Liver Disease: No Hx Genitourinary Disorders: No Hx Sexually Transmitted Disorders: No Hx Renal Disease (ESRD): No Hx Thyroid Disease: Yes (HYPOTHYROIDISM ON MEDS) Hx Human Immunodeficiency Virus (HIV): Yes (SINCE 1988 /VL UNDETECTABLE T-CELL 325 IN ., no meds) Hx Hepatitis C: No Hx Depression: Yes (hospitalized Jul [address] [facility]) Hx Suicide Attempt: No Hx Bipolar Disorder: Yes (ON MED) Hx Schizophrenia: No - Patient Surgical History Past Surgical History: Yes Hx Neurologic Surgery: No Hx Cataract Extraction: No Hx Cardiac Surgery: No Hx Lung Surgery: No Hx Breast Surgery: No Hx Breast Biopsy: No Hx Abdominal Surgery: Yes (REPAIR OF UMBILICAL HERNIA 2OO8) Hx Appendectomy: No Hx Cholecystectomy: No Hx Genitourinary Surgery: No Hx Section: No Hx Orthopedic Surgery: No Anesthesia Reaction: No - PPD History Date: 05/09/18 Results: 0 mm - Smoking Cessation Smoking history: Current every day smoker Have you smoked in the past 12 months: Yes Aproximately how many cigarettes per day: 20 Cigars Per Day: 0 Hx Chewing Tobacco Use: No Initiated information on smoking cessation: Yes 'Breaking Loose' booklet given: 06/09/19 - Substances abused Alcohol Substance route: Oral Frequency: Daily Amount used: 3 pints vodka & (2) 24 oz bottle beers Age of first use: 12 Date of last use: 06/08/19 Crack Substance route: Smoking Frequency: Daily Amount used: $40 Age of first use: 22 Date of last use: 06/08/19 Admission Physical Exam BHS - Vital Signs Vital Signs: Vital Signs - 24 hr 06/09/19 15:33 Temperature 97.9 F Pulse Rate 91 H Respiratory 18 Rate Blood Pressure 145/94 - Physical General Appearance: Yes: No Apparent Distress, Tremorous HEENTM: Yes: Hearing grossly Normal, Normal ENT Inspection, Normocephalic, Normal Voice, KIMBERLYN Respiratory: Yes: Lungs Clear, Normal Breath Sounds, No Respiratory Distress, No Accessory Muscle Use Neck: Yes: Within Normal Limits Cardiology: Yes: Regular Rhythm, Regular Rate, S1, S2 Abdominal: Yes: Within Normal Limits, Normal Bowel Sounds, Non Tender, Soft Musculoskeletal: Yes: Within Normal Limits, full range of Motion, Gait Steady Extremities: Yes: Normal Inspection, Normal Range of Motion Neurological: Yes: Fully Oriented, Alert Integumentary: Yes: Within Normal Limits Lymphatic: Yes: Within Normal Limits - Diagnostic (1) Alcohol abuse Current Visit: Yes Status: Chronic Breathalyzer - Breathalyzer Breathalyzer: 0 Urine Drug Screen - Test Device Lot number: [id number] Expiration date: 01/23/21 - Control Is test valid?: Yes - Results Drug screen NEGATIVE: No Urine drug screen results: EMIR-Cocaine Inpatient Rehab Admission - Rehab Decision to Admit Inpatient rehab admission?: No
--- NOTE | 2019-06-09 17:46 | PN ---
Teaching Attending Note Name of Resident: Jacquelin Zacarias ATTENDING PHYSICIAN STATEMENT I saw and evaluated the patient. I reviewed the resident's note and discussed the case with the resident. I agree with the resident's findings and plan as documented. SUBJECTIVE: patient here requesting detox from etoh use . reports 3 pints vodka and 2x 20 oz beers most days , sometimes not drinking, denies symptoms when not drinking alcohol , reports withdrawal seizure 1991 , occasional blackouts , denies tremors, latest use yesterday . Suicide attempt by taking all anti-htn meds 2001 , denies current SI / HI . tobacco : 1/2 ppd cocaine : 40-60 $ /day since age 22 PMHX : htn , hld , hypothyroidism , hiv 1987 ( [facility] ) - states took all meds today , has daily blister packs PSHx : umbilical hernia 2007 Psych : bipolar d/o - on risperdal im monthly @ [facility] , latest OBJECTIVE: wnwd , irritable, anxious Vital Signs - 24 hr 06/09/19 15:33 Temperature 97.9 F Pulse Rate 91 H Respiratory 18 Rate Blood Pressure 145/94 ASSESSMENT AND PLAN: AUD - Librium detox Cocaine dependence Nicotine dependence - smoking cessation counseling.
[2019-06-09] MEDS ORDERED: MAG HYDROX/AL HYDROX/SIMETH 30 ML UNIT-DOSE CUP PO PRN (17:54)
[2019-06-09] MEDS ORDERED: MAGNESIUM HYDROX 2400MG/30ML ORAL SUSPENSION 30 ML CUP PO PRN (17:54)
[2019-06-09] MEDS ORDERED: hydrOXYzine PAMOATE 25 MG CAPSULE (FP) PO PRN (17:54)
[2019-06-09] MEDS ORDERED: MAGNESIUM CITRATE 300 ML BOTTLE PO PRN (17:54)
[2019-06-09] MEDS ORDERED: IBUPROFEN 400 MG TABLET (FP) PO PRN (17:54)
[2019-06-09] MEDS ORDERED: ACETAMINOPHEN 325 MG TABLET (FP) PO PRN ×2 (17:54)
[2019-06-09] MEDS ORDERED: chlordiazePOXIDE HCL 25 MG CAPSULE PO PRN (17:54)
[2019-06-09] MEDS ORDERED: METHOCARBAMOL 500 MG TABLET PO PRN (17:54)
[2019-06-09] MEDS ORDERED: BISMUTH SUBSALICYLATE 524 MG/30 ML UD PO PRN (17:54)
[2019-06-09] MEDS ORDERED: MENTHOL/PHENOL 1 EACH UD MM PRN (17:54)
[2019-06-09] MEDS ORDERED: MELATONIN 5 MG TABLETS PO PRN (22:00)
[2019-06-09] MEDS: THIAMINE HCL 100 MG TABLET (FP) PO SCH (22:36)
[2019-06-09] MEDS: chlordiazePOXIDE HCL 25 MG CAPSULE PO SCH (22:36)
[2019-06-10] MEDS: chlordiazePOXIDE HCL 25 MG CAPSULE PO SCH ×4 (05:24→22:12)
[2019-06-10] MEDS: NICOTINE 14 MG/24 HOURS TOPICAL PATCH TD SCH (10:23)
[2019-06-10] MEDS: PRENATAL VITAMINS W/ FOLIC ACID TABLET (FP) PO SCH (10:23)
[2019-06-10 10:25] LABS: ALBUMIN 3.2 g/dl (3.4-5.0); BILIRUBIN,TOTAL 0.2 mg/dL (0.2-1); BLOOD UREA NITROGEN 17.9 mg/dL (7-18); CALCIUM 9.1 mg/dL (8.5-10.1); CREATININE 1.3 mg/dL (0.55-1.3); POTASSIUM 4.5 mmol/L (3.5-5.1); TOT PROT 7.2 g/dl (6.4-8.2)
[2019-06-10 10:45] LABS: HEMATOCRIT 41.1 % (35.4-49); HEMOGLOBIN 13.6 GM/dL (11.7-16.9); MCH 31.5 pg (25.7-33.7); MEAN CELL VOLUME 95.3 fl (80-96); MEAN PLT VOLUME 10.5 fl (7.5-11.1); PLATELET COUNT 181 K/MM3 (134-434); RBC 4.31 M/mm3 (4.00-5.60); RDW 14.2 % (11.9-15.9); WHITE BLOOD COUNT 3.5 K/mm3 (4.0-10.0)
--- NOTE | 2019-06-10 18:13 | CONSULT ---
[facility] Psychiatric Consult - Data Date of interview: 06/10/19 Admission source: [facility] Identifying data: Redmission to [facility] for this 53 y/o AA male self-referred for detoxification treatment (HEATHER issues : alcohol, crack/cocaine, nicotine). Interviewed at [address] [place] [address]. Patient is single, a father of seven, domiciled, unemployed and supported on SSI benefits. Substance Abuse History: Discussed with patient. Details in current [facility] report as follows : Smoking history: Current every day smoker. Have you smoked in the past 12 months: Yes. Aproximately how many cigarettes per day: 20. Cigars Per Day: 0. Hx Chewing Tobacco Use: No. Initiated information on smoking cessation : Yes. 'Breaking Loose' booklet given: 06/09/19. - Substances abused. Alcohol. Substance route: Oral. Frequency: Daily. Amount used: 3 pints vodka & (2) 24 oz bottle beers. Age of first use: 12. Date of last use: 06/08/19. * * Crack. Substance route: Smoking. Frequency: Daily. Amount used: $40. Age of first use: 22. Date of last use: 06/08/19 Medical History: Medical profile is consistent with a history of alcohol- related seizures (1989), past treatment for syphilis, hypertension, hypothyroidism (not on medications), hypercholesterolemia and HIV infection since 1988 (on HAART medications). Noted distant history of umbilical herniorraphy (2007). Psychiatric History: Onset of psychiatric disturbances : age 22. History of multiple psychiatric hospitalizations ([facility], [facility], [facility], [facility], [facility], [facility]). Patient has been diagnosed with Bipolar Disorder since 1999. Mr Hwang reports current OPD care at [facility] mental [facility] clinic (monthly injection of decanoate + cogentin). Patient does not recall the name of his maintenance antipsychotic medication. Most recent injection was dispensed on 06/06/19 as per patient at [facility] in [facility]. History of two suicide attempts (jumping onto the train tracks (1991) + overdose with HTN medications in 2018). Physical/Sexual Abuse/Trauma History: Patient denies. Additional Comment: Urine drug screen results: EMIR-Cocaine. Noted. Mental Status Exam - Mental Status Exam Alert and Oriented to: Time, Place, Person Cognitive Function: Grossly Intact Patient Appearance: Well Groomed Mood: Nervous, Withdrawn Affect: Mood Congruent, Constricted Patient Behavior: Fatigued, Appropriate, Cooperative Speech Pattern: Clear Voice Loudness: Normal Thought Process: Goal Oriented Thought Disorder: Not Present Hallucinations: Denies Suicidal Ideation: Denies Homicidal Ideation: Denies Insight/Judgement: Poor Sleep: Well Appetite: Good Muscle strength/Tone: Normal Gait/Station: Normal Psychiatric Findings - Problem List ([place] 1, 2,3) (1) Alcohol dependence with uncomplicated withdrawal Current Visit: Yes Status: Acute (2) Cocaine dependence Current Visit: Yes Status: Chronic Qualifiers: Substance use status: uncomplicated Qualified Code(s): F14.20 - Cocaine dependence, uncomplicated (3) Nicotine dependence Current Visit: Yes Status: Chronic Qualifiers: Nicotine product type: cigarettes Substance use status: uncomplicated Qualified Code(s): F17.210 - Nicotine dependence, cigarettes, uncomplicated (4) Substance induced mood disorder Current Visit: Yes Status: Chronic (5) Schizoaffective disorder Current Visit: Yes Status: Chronic - Initial Treatment Plan Initial Treatment Plan: Psychoeducation. Sleep hygiene. Detoxification. Call made to " preferred " pharmacy, [email or web address] at [phone] for verification of medications : closed for holidays (Xmas). AA meetings. Groups. MAT services : discussed with the patient. Resumed : cogentin 1 mg po bid. Side effects/ benefits discussed with patient. Identification of PETERSON (long-acting injectable) medication : pending. Observation.
[2019-06-10] MEDS: THIAMINE HCL 100 MG TABLET (FP) PO SCH (22:11)
[2019-06-10] MEDS: BENZTROPINE MESYLATE 1 MG TABLET (FP) PO SCH (22:12)
[2019-06-11] MEDS: chlordiazePOXIDE HCL 25 MG CAPSULE PO SCH ×4 (05:49→22:22)
[2019-06-11] MEDS: BENZTROPINE MESYLATE 1 MG TABLET (FP) PO SCH ×2 (10:35→22:21)
[2019-06-11] MEDS: NICOTINE 14 MG/24 HOURS TOPICAL PATCH TD SCH (10:35)
[2019-06-11] MEDS: PRENATAL VITAMINS W/ FOLIC ACID TABLET (FP) PO SCH (10:35)
--- NOTE | 2019-06-11 11:49 | PN ---
S CIWA - CIWA Score Nausea/Vomitin-No Nausea/No Vomiting Muscle Tremors: None Anxiety: 3 Agitation: 0-Normal Activity Paroxysmal Sweats: 3 Orientation: 0-Oriented Tacttile Disturbances: 0-None Auditory Disturbances: 0-None Visual Disturbances: 0-None Headache: 2-Mild CIWA-Ar Total Score: 8 BHS Progress Note (SOAP) Subjective: c/o headache, sweats, and anxiety. Objective: 06/11/19 11:49 Vital Signs 06/11/19 06/11/19 06:37 09:08 Temperature 97.0 F L 97.7 F Pulse Rate 68 86 Respiratory 18 18 Rate Blood Pressure 147/93 139/92 Laboratory Last Values WBC 3.5 K/mm3 (4.0-10.0) L 06/10/19 07:00 RBC 4.31 M/mm3 (4.00-5.60) 06/10/19 07:00 Hgb 13.6 GM/dL (11.7-16.9) 06/10/19 07:00 Hct 41.1 % (35.4-49) 06/10/19 07:00 MCV 95.3 fl (80-96) 06/10/19 07:00 MCH 31.5 pg (25.7-33.7) 06/10/19 07:00 MCHC 33.0 g/dl (32.0-35.9) 06/10/19 07:00 RDW 14.2 % (11.9-15.9) 06/10/19 07:00 Plt Count 181 K/MM3 (134-434) D 06/10/19 07:00 MPV 10.5 fl (7.5-11.1) D 06/10/19 07:00 Sodium 140 mmol/L (136-145) 06/10/19 07:00 Potassium 4.5 mmol/L (3.5-5.1) 06/10/19 07:00 Chloride 108 mmol/L (98-107) H 06/10/19 07:00 Carbon Dioxide 28 mmol/L (21-32) 06/10/19 07:00 Anion Gap 4 MMOL/L (8-16) L 06/10/19 07:00 BUN 17.9 mg/dL (7-18) 06/10/19 07:00 Creatinine 1.3 mg/dL (0.55-1.3) 06/10/19 07:00 Est GFR (CKD-EPI)AfAm 73.22 06/10/19 07:00 Est GFR (CKD-EPI)NonAf 63.18 06/10/19 07:00 Random Glucose 87 mg/dL (74-106) 06/10/19 07:00 Calcium 9.1 mg/dL (8.5-10.1) 06/10/19 07:00 Total Bilirubin 0.2 mg/dL (0.2-1) 06/10/19 07:00 AST 19 U/L (15-37) 06/10/19 07:00 ALT 16 U/L (13-61) 06/10/19 07:00 Alkaline Phosphatase 58 U/L (45-117) 06/10/19 07:00 Total Protein 7.2 g/dl (6.4-8.2) 06/10/19 07:00 Albumin 3.2 g/dl (3.4-5.0) L 06/10/19 07:00 RPR Titer Nonreactive (NONREACTIVE) 06/10/19 07:00 Labs noted. Assessment: 06/11/19 11:49 AOX3, in no acute respiratory distress. Full ROM, ambulating in the unit. Withdrawal symptoms. Plan: continue detox.
[2019-06-11] MEDS: DOLUTEGRAVIR SODIUM 50 MG TABLET (NON-FORMULARY) PO SCH (14:34)
[2019-06-11] MEDS: EMTRICITABINE/TENOFOV ALAFENAM (DESCOVY) TABLET PO SCH (14:34)
[2019-06-11] MEDS: ATORVASTATIN CA 20 MG TABLET (FP) PO SCH (22:21)
[2019-06-11] MEDS: THIAMINE HCL 100 MG TABLET (FP) PO SCH (22:21)
[2019-06-12] MEDS ORDERED: chlordiazePOXIDE HCL 10 MG CAPSULE PO PRN
[2019-06-12] MEDS: chlordiazePOXIDE HCL 10 MG CAPSULE PO SCH ×4 (06:15→22:33)
[2019-06-12] MEDS: LEVOTHYROXINE NA 25 MCG TABLET (FP) PO SCH (06:15)
[2019-06-12] MEDS: DOLUTEGRAVIR SODIUM 50 MG TABLET (NON-FORMULARY) PO SCH (07:11)
[2019-06-12] MEDS: EMTRICITABINE/TENOFOV ALAFENAM (DESCOVY) TABLET PO SCH (07:11)
[2019-06-12] MEDS: NICOTINE 14 MG/24 HOURS TOPICAL PATCH TD SCH (10:41)
[2019-06-12] MEDS: BENZTROPINE MESYLATE 1 MG TABLET (FP) PO SCH ×2 (10:41→22:31)
[2019-06-12] MEDS: NIFEdipine E.R 60 MG TABLET (UD) PO SCH (10:41)
[2019-06-12] MEDS: PRENATAL VITAMINS W/ FOLIC ACID TABLET (FP) PO SCH (10:41)
[2019-06-12] MEDS: ASPIRIN 81 MG CHEWABLE TABLETS PO SCH (10:41)
--- NOTE | 2019-06-12 14:21 | PN ---
S CIWA - CIWA Score Nausea/Vomitin-No Nausea/No Vomiting Muscle Tremors: 1-None Visible, but [place] Anxiety: 2 Agitation: 1-Slight > Activity Paroxysmal Sweats: No Perspiration Orientation: 0-Oriented Tacttile Disturbances: 0-None Auditory Disturbances: 0-None Visual Disturbances: 0-None Headache: 0-None Present CIWA-Ar Total Score: 4 BHS Progress Note (SOAP) Subjective: 53 years old male admitted on 06/09/19 for alcohol withdrawal sx management treated wtih lirium detox regimen patient tolerated well at breakfast resting in bed social with roommate Objective: 06/12/19 14:20 Vital Signs Temperature 98.4 F 06/12/19 09:51 Pulse Rate 104 H 06/12/19 09:51 Respiratory Rate 20 06/12/19 09:51 Blood Pressure 148/100 06/12/19 09:51 O2 Sat by Pulse Oximetry (%) Laboratory Last Values WBC 3.5 K/mm3 (4.0-10.0) L 06/10/19 07:00 RBC 4.31 M/mm3 (4.00-5.60) 06/10/19 07:00 Hgb 13.6 GM/dL (11.7-16.9) 06/10/19 07:00 Hct 41.1 % (35.4-49) 06/10/19 07:00 MCV 95.3 fl (80-96) 06/10/19 07:00 MCH 31.5 pg (25.7-33.7) 06/10/19 07:00 MCHC 33.0 g/dl (32.0-35.9) 06/10/19 07:00 RDW 14.2 % (11.9-15.9) 06/10/19 07:00 Plt Count 181 K/MM3 (134-434) D 06/10/19 07:00 MPV 10.5 fl (7.5-11.1) D 06/10/19 07:00 Sodium 140 mmol/L (136-145) 06/10/19 07:00 Potassium 4.5 mmol/L (3.5-5.1) 06/10/19 07:00 Chloride 108 mmol/L (98-107) H 06/10/19 07:00 Carbon Dioxide 28 mmol/L (21-32) 06/10/19 07:00 Anion Gap 4 MMOL/L (8-16) L 06/10/19 07:00 BUN 17.9 mg/dL (7-18) 06/10/19 07:00 Creatinine 1.3 mg/dL (0.55-1.3) 06/10/19 07:00 Est GFR (CKD-EPI)AfAm 73.22 06/10/19 07:00 Est GFR (CKD-EPI)NonAf 63.18 06/10/19 07:00 Random Glucose 87 mg/dL (74-106) 06/10/19 07:00 Calcium 9.1 mg/dL (8.5-10.1) 06/10/19 07:00 Total Bilirubin 0.2 mg/dL (0.2-1) 06/10/19 07:00 AST 19 U/L (15-37) 06/10/19 07:00 ALT 16 U/L (13-61) 06/10/19 07:00 Alkaline Phosphatase 58 U/L (45-117) 06/10/19 07:00 Total Protein 7.2 g/dl (6.4-8.2) 06/10/19 07:00 Albumin 3.2 g/dl (3.4-5.0) L 06/10/19 07:00 RPR Titer Nonreactive (NONREACTIVE) 06/10/19 07:00 lab noted Assessment: 06/12/19 14:20 alcohol withdrawal sx Plan: continue librium detox regimen
[2019-06-12] MEDS ORDERED: metoPROLOL SUCCINATE 25 MG TAB.SR.24H (FP) PO SCH (22:00)
[2019-06-12] MEDS: ATORVASTATIN CA 20 MG TABLET (FP) PO SCH (22:31)
[2019-06-12] MEDS: THIAMINE HCL 100 MG TABLET (FP) PO SCH (22:31)
[2019-06-13] MEDS ORDERED: chlordiazePOXIDE HCL 10 MG CAPSULE PO SCH (05:00)
[2019-06-13] MEDS: LEVOTHYROXINE NA 25 MCG TABLET (FP) PO SCH (06:54)
[2019-06-13] MEDS: DOLUTEGRAVIR SODIUM 50 MG TABLET (NON-FORMULARY) PO SCH (08:02)
[2019-06-13] MEDS: EMTRICITABINE/TENOFOV ALAFENAM (DESCOVY) TABLET PO SCH (08:02)
[2019-06-13 09:10] VITALS: BP 136/99; PULSE 99; TEMP 96.9
[2019-06-13] MEDS: ASPIRIN 81 MG CHEWABLE TABLETS PO SCH (09:34)
[2019-06-13] MEDS: BENZTROPINE MESYLATE 1 MG TABLET (FP) PO SCH (09:34)
[2019-06-13] MEDS: NICOTINE 14 MG/24 HOURS TOPICAL PATCH TD SCH (09:35)
[2019-06-13] MEDS: PRENATAL VITAMINS W/ FOLIC ACID TABLET (FP) PO SCH (09:35)
[2019-06-13] MEDS: NIFEdipine E.R 60 MG TABLET (UD) PO SCH (09:35)
--- NOTE | 2019-06-13 10:02 | DS ---
[facility] Detox Discharge Summary Admission Date: 06/09/19 Discharge Date: 06/13/19 - History Present History: Alcohol Dependence Additional Comments: 53 years old male admitted on 06/09/19 for for alcohol withdrawal sx management treated with librium detox regimen prefers to leave the detox unit one day earlier that estimated discharge date feeling better prefers to leave the detox unit today before [facility] out patient rehab program patient is alert oriented x 3 cardiac S1S2 regular rate rhythm respiratory clear lung bilaterally on auscultation extremities full range of motion - Physical Exam Results Vital Signs: Vital Signs Temperature 96.9 F L 06/13/19 09:10 Pulse Rate 99 H 06/13/19 09:10 Respiratory Rate 16 06/13/19 09:10 Blood Pressure 136/99 06/13/19 09:10 O2 Sat by Pulse Oximetry (%) Pertinent Admission Physical Exam Findings: alcohol withdrawal sx Laboratory Last Values WBC 3.5 K/mm3 (4.0-10.0) L 06/10/19 07:00 RBC 4.31 M/mm3 (4.00-5.60) 06/10/19 07:00 Hgb 13.6 GM/dL (11.7-16.9) 06/10/19 07:00 Hct 41.1 % (35.4-49) 06/10/19 07:00 MCV 95.3 fl (80-96) 06/10/19 07:00 MCH 31.5 pg (25.7-33.7) 06/10/19 07:00 MCHC 33.0 g/dl (32.0-35.9) 06/10/19 07:00 RDW 14.2 % (11.9-15.9) 06/10/19 07:00 Plt Count 181 K/MM3 (134-434) D 06/10/19 07:00 MPV 10.5 fl (7.5-11.1) D 06/10/19 07:00 Sodium 140 mmol/L (136-145) 06/10/19 07:00 Potassium 4.5 mmol/L (3.5-5.1) 06/10/19 07:00 Chloride 108 mmol/L (98-107) H 06/10/19 07:00 Carbon Dioxide 28 mmol/L (21-32) 06/10/19 07:00 Anion Gap 4 MMOL/L (8-16) L 06/10/19 07:00 BUN 17.9 mg/dL (7-18) 06/10/19 07:00 Creatinine 1.3 mg/dL (0.55-1.3) 06/10/19 07:00 Est GFR (CKD-EPI)AfAm 73.22 06/10/19 07:00 Est GFR (CKD-EPI)NonAf 63.18 06/10/19 07:00 Random Glucose 87 mg/dL (74-106) 06/10/19 07:00 Calcium 9.1 mg/dL (8.5-10.1) 06/10/19 07:00 Total Bilirubin 0.2 mg/dL (0.2-1) 06/10/19 07:00 AST 19 U/L (15-37) 06/10/19 07:00 ALT 16 U/L (13-61) 06/10/19 07:00 Alkaline Phosphatase 58 U/L (45-117) 06/10/19 07:00 Total Protein 7.2 g/dl (6.4-8.2) 06/10/19 07:00 Albumin 3.2 g/dl (3.4-5.0) L 06/10/19 07:00 RPR Titer Nonreactive (NONREACTIVE) 06/10/19 07:00 lab noted - Treatment Hospital Course: Detox Protocol Followed, Detoxed Safely, Responded well, Discharged Condition Good, Rehab Referral Accepted Patient has Accepted a Rehab Referral to: IOP - Medication Discharge Medications: Ambulatory Orders Levothyroxine [Synthroid -] 25 mcg PO DAILY #14 tablet 11/22/18 Metoprolol Succinate [Toprol XL -] 50 mg PO DAILY 14 Days #14 tab.sr.24h Nifedipine [Adalat cc] 60 mg PO DAILY 14 Days #14 tablet.er 11/22/18 Aspirin Coated [Ecotrin -] 81 mg PO DAILY 06/09/19 Atorvastatin Ca [Lipitor] 20 mg PO HS 06/09/19 Benztropine Mesylate [Cogentin -] 1 mg PO BID 06/09/19 Cyproheptadine [Periactin -] 4 mg PO BID 06/09/19 Diphenhydramine HCl [Benadryl -] 25 mg PO HS 06/09/19 Dolutegravir Sodium [Tivicay] 50 mg PO DAILY 06/09/19 Emtricitabine/Tenofov Alafenam [Descovy 200-25 mg Tablet (Nf)] 1 each PO DAILY 06/09/19 Losartan Potassium [Cozaar -] 50 mg PO DAILY 06/09/19 - Diagnosis (1) Alcohol dependence with uncomplicated withdrawal Status: Acute (2) AIDS (acquired immunodeficiency syndrome) Status: Chronic (3) Essential hypertension Status: Chronic (4) GERD (gastroesophageal reflux disease) Status: Chronic Qualifiers: Esophagitis presence: esophagitis presence not specified Qualified Code(s) : K21.9 - Gastro-esophageal reflux disease without esophagitis (5) HIV (human immunodeficiency virus infection) Status: Chronic Qualifiers: HIV symptom status: unspecified Qualified Code(s): B20 - Human immunodeficiency virus [HIV] disease (6) Hypothyroidism Status: Chronic (7) Nicotine dependence Status: Acute Qualifiers: Nicotine product type: cigarettes Substance use status: in withdrawal Qualified Code(s): F17.213 - Nicotine dependence, cigarettes, with withdrawal (8) Substance induced mood disorder Status: Suspected - AMA Did Patient Leave Against Medical Advice: No CIWA Score - CIWA Score Nausea/Vomitin-No Nausea/No Vomiting Muscle Tremors: 1-None Visible, but [place] Anxiety: 1-Mildly Anxious Agitation: 0-Normal Activity Paroxysmal Sweats: No Perspiration Orientation: 0-Oriented Tacttile Disturbances: 0-None Auditory Disturbances: 0-None Visual Disturbances: 0-None Headache: 0-None Present CIWA-Ar Total Score: 2
[2019-06-14] MEDS ORDERED: chlordiazePOXIDE HCL 10 MG CAPSULE PO ONE (05:00)
== END 2019-06-13 09:18 | disposition home or self-care (01) | DRG 774 ==
LOC: YASAS 13:50 → Y3N 18:07
PROVIDERS: ADMIT Allergy & Immunology; ATTEND Allergy & Immunology
PROC: HZ2ZZZZ Detoxification Services for Substance Abuse Treatment (ICD-10-PCS; principal; 2019-06-09)
DX: F10.230 Alcohol dependence with withdrawal, uncomplicated (principal); F14.20 Cocaine dependence, uncomplicated; F17.213 Nicotine dependence, cigarettes, with withdrawal; F25.9 Schizoaffective disorder, unspecified; F31.9 Bipolar disorder, unspecified; F19.24 Other psychoactive substance dependence with psychoactive substance-induced mood disorder; B20 Human immunodeficiency virus [HIV] disease; I10 Essential (primary) hypertension; K21.9 Gastro-esophageal reflux disease without esophagitis; E03.9 Hypothyroidism, unspecified; E78.00 Pure hypercholesterolemia, unspecified; Z86.69 Personal history of other diseases of the nervous system and sense organs; Z86.19 Personal history of other infectious and parasitic diseases; Z88.2 Allergy status to sulfonamides; Z88.8 Allergy status to other drugs, medicaments and biological substances; Z91.013 Allergy to seafood
CPT/HCPCS: 36415; 80053; 85027; 86593

== ENCOUNTER 2019-06-22 16:26 | Inpatient (IN) | payer OTHER ==
[2019-06-22 17:18] VITALS: BMI 24.5
--- NOTE | 2019-06-22 18:02 | HP ---
CIWA Score Nausea/Vomitin-No Nausea/No Vomiting Muscle Tremors: None Anxiety: 2 Agitation: 2 Paroxysmal Sweats: No Perspiration Orientation: 0-Oriented Tacttile Disturbances: 0-None Auditory Disturbances: 0-None Visual Disturbances: 0-None Headache: 0-None Present CIWA-Ar Total Score: 4 - Admission Criteria OASAS Guidelines: Admission for Medically Managed Detox: Requires at least one of the followin. CIWA greater than 12 2. Seizures within the past 24 hours 3. Delirium tremens within the past 24 hours 4. Hallucinations within the past 24 hours 5. Acute intervention needed for co occurring medical disorder 6. Acute intervention needed for co occurring psychiatric disorder 7. Severe withdrawal that cannot be handled at a lower level of care (continued vomiting, continued diarrhea, abnormal vital signs) requiring intravenous medication and/or fluids 8. Admitting History and Physical - Past Medical History Cardiovascular: Yes: HTN, Hyperlipdemia Infectious Disease: Yes: HIV Psych: Yes: Addictions, Bipolar - Past Surgical History Past Surgical History: Yes: Hernia Repair - Smoking History Smoking history: Current every day smoker Have you smoked in the past 12 months: Yes Aproximately how many cigarettes per day: 20 - Alcohol/Substance Use Hx Alcohol Use: Yes History of Substance Use: reports: Cocaine, Heroin Admission ROS [facility] Allergies/Adverse Reactions: Allergies Allergy/AdvReac Type Severity Reaction Status Date / Time sulfamethoxazole Allergy Intermediate Itching Verified 06/22/19 17:09 [From Bactrim DS] trimethoprim Allergy Intermediate Itching Verified 06/22/19 17:09 [From Bactrim DS] all over body Fish Containing Products Allergy Mild throat Verified 06/22/19 17:09 swelling haloperidol [From Haldol] AdvReac Intermediate jaw Verified 06/22/19 17:09 tightness History of Present Illness: patient here requesting detox from etoh use .relapsed the day after leaving here , reports 3 pints vodka and 4 x 24 oz beers , sometimes not drinking, reports withdrawal seizure 1991 , occasional blackouts , denies tremors, latest use yesterday . Suicide attempt by taking all anti-htn meds 2001 , denies current SI / HI . tobacco : 1/2 ppd cocaine : 40-60 $ /day since age 22 PMHX : htn , hld , hypothyroidism , arthritis august knees, hiv [id number] ( [facility] )states took all meds today , has daily blister packs PSHx : umbilical hernia 2007 Psych : bipolar d/o - on risperdal im monthly @ [facility] , latest 06/06/19 Exam Limitations: No Limitations - Ebola screening Have you traveled outside of the country in the last 21 days: No Have you had contact with anyone from an Ebola affected area: No Do you have a fever: No - Review of Systems Constitutional: Loss of Appetite EENT: reports: Other (decreased vision) Respiratory: reports: No Symptoms reported Cardiac: reports: No Symptoms Reported GI: reports: Poor Appetite : reports: No Symptoms Reported Musculoskeletal: reports: See HPI, Joint Pain (august knees - reprots chronic arthritis , had cane in the past .) Integumentary: reports: No Symptoms Reported Neuro: reports: Seizure (1991 had etoh w/d seizure) Endocrine: reports: See HPI Psychiatric: reports: Orientated x3, Anxious Patient History - Patient Medical History Hx Anemia: No Hx Asthma: No Hx Chronic Obstructive Pulmonary Disease (COPD): No Hx Cancer: No Hx Cardiac Disorders: No Hx Congestive Heart Failure: No Hx Hypertension: Yes Hx Hypercholesterolemia: Yes (ON MED) Hx Pacemaker: No HX Cerebrovascular Accident: No Hx Seizures: Yes (1991 - alcohold related) Hx Dementia: No Hx Diabetes: No Hx Gastrointestinal Disorders: No Hx Liver Disease: No Hx Genitourinary Disorders: No Hx Sexually Transmitted Disorders: No Hx Renal Disease (ESRD): No Hx Thyroid Disease: Yes (HYPOTHYROIDISM ON MEDS) Hx Human Immunodeficiency Virus (HIV): Yes (SINCE 1988 /VL UNDETECTABLE T-CELL 325 IN ., no meds) Hx Hepatitis C: No Hx Depression: Yes (hospitalized Jul 2018 [facility]) Hx Suicide Attempt: No Hx Bipolar Disorder: Yes (ON MED) Hx Schizophrenia: No - Patient Surgical History Past Surgical History: Yes Hx Neurologic Surgery: No Hx Cataract Extraction: No Hx Cardiac Surgery: No Hx Lung Surgery: No Hx Breast Surgery: No Hx Breast Biopsy: No Hx Abdominal Surgery: Yes (REPAIR OF UMBILICAL HERNIA 2OO8) Hx Appendectomy: No Hx Cholecystectomy: No Hx Genitourinary Surgery: No Hx Section: No Hx Orthopedic Surgery: No Anesthesia Reaction: No - PPD History Date: 05/09/18 Results: 0 mm - Smoking Cessation Smoking history: Current every day smoker Have you smoked in the past 12 months: Yes Aproximately how many cigarettes per day: 20 Cigars Per Day: 0 Hx Chewing Tobacco Use: No Initiated information on smoking cessation: Yes 'Breaking Loose' booklet given: 06/22/19 - Substances abused Alcohol Substance route: Oral Frequency: Daily Amount used: 3 pints vodka & (2) 24 oz bottle beers Age of first use: 12 Date of last use: 06/22/19 Crack Substance route: Smoking Frequency: Daily Amount used: $40 Age of first use: 22 Date of last use: 06/22/19 Admission Physical Exam BHS - Vital Signs Vital Signs: Vital Signs - 24 hr 06/22/19 17:03 Temperature 97.8 F Pulse Rate 96 H Respiratory 18 Rate Blood Pressure 127/88 - Physical General Appearance: Yes: Disheveled, Anxious HEENTM: Yes: EOMI, Hearing grossly Normal, Normocephalic, Normal Voice Respiratory: Yes: Chest Non-Tender, Lungs Clear, Normal Breath Sounds, No Respiratory Distress, No Accessory Muscle Use Neck: Yes: No masses,lesions,Nodules, Trachea in good position Cardiology: Yes: Regular Rhythm, Regular Rate, S1, S2 Abdominal: Yes: Non Tender, Soft Back: Yes: Normal Inspection Musculoskeletal: Yes: Gait Steady Extremities: Yes: Normal Capillary Refill, Normal Inspection, Normal Range of Motion, Non-Tender Neurological: Yes: Fully Oriented, Alert, Motor Strength 5/5, Normal Mood/Affect Integumentary: Yes: Warm - Diagnostic (1) Alcohol dependence Current Visit: Yes Status: Chronic Qualifiers: Substance use status: uncomplicated Qualified Code(s): F10.20 - Alcohol dependence, uncomplicated (2) Nicotine dependence Current Visit: Yes Status: Chronic Qualifiers: Nicotine product type: cigarettes (3) Cocaine dependence Current Visit: Yes Status: Chronic Qualifiers: Substance use status: uncomplicated Qualified Code(s): F14.20 - Cocaine dependence, uncomplicated Breathalyzer - Breathalyzer Breathalyzer: 0 Urine Drug Screen - Test Device Lot number: [id number] Expiration date: 02/23/21 - Control Is test valid?: Yes - Results Drug screen NEGATIVE: No Urine drug screen results: EMIR-Cocaine, BZO-Benzodiazepines Inpatient Rehab Admission - Rehab Decision to Admit Inpatient rehab admission?: Yes - Initial Determination Are CD services needed?: Yes Free of communicable disease: Yes Not in need of hospitalization: Yes - Rehab Admission Criteria Previous failed treatment: Yes Poor recovery environment: Yes Comorbidities: No Lacks judgement: Yes Patient is meeting Inpatient Rehab admission criteria:: Yes
[2019-06-22] MEDS ORDERED: NICOTINE POLACRILEX 2 MG GUM BC PRN (18:16)
[2019-06-22] MEDS ORDERED: guaiFENesin 200 MG/10 ML 10 ML UNIT-DOSE CUPS PO PRN (18:16)
[2019-06-22] MEDS ORDERED: MAG HYDROX/AL HYDROX/SIMETH 30 ML UNIT-DOSE CUP PO PRN (18:16)
[2019-06-22] MEDS ORDERED: MAGNESIUM HYDROX 2400MG/30ML ORAL SUSPENSION 30 ML CUP PO PRN (18:16)
[2019-06-22] MEDS ORDERED: P-EPHED 60MG/TRIPROLIDI 2.5MG TABLET PO PRN (18:16)
[2019-06-22] MEDS ORDERED: hydrOXYzine PAMOATE 25 MG CAPSULE (FP) PO PRN (18:16)
[2019-06-22] MEDS ORDERED: MENTHOL/PHENOL 1 EACH UD MM PRN (18:16)
[2019-06-22] MEDS ORDERED: LOPERAMIDE HCL 2 MG CAPSULE PO PRN (18:16)
[2019-06-22] MEDS ORDERED: MAGNESIUM CITRATE 300 ML BOTTLE PO PRN (18:16)
[2019-06-22] MEDS ORDERED: MELATONIN 5 MG TABLETS PO PRN (22:00)
[2019-06-22] MEDS: ATORVASTATIN CA 20 MG TABLET (FP) PO SCH (22:10)
[2019-06-22] MEDS: THIAMINE HCL 100 MG TABLET (FP) PO SCH (22:10)
[2019-06-22] MEDS: diphenhydrAMINE HCL 50 MG CAPSULE PO SCH (22:10)
[2019-06-23] MEDS: DOLUTEGRAVIR SODIUM 50 MG TABLET (NON-FORMULARY) PO SCH (07:39)
[2019-06-23] MEDS: EMTRICITABINE/TENOFOV ALAFENAM (DESCOVY) TABLET PO SCH (07:39)
[2019-06-23] MEDS: LEVOTHYROXINE NA 25 MCG TABLET (FP) PO SCH (07:39)
--- NOTE | 2019-06-23 08:49 | CONSULT ---
[facility] Psychiatric Consult - Data Date of interview: 06/23/19 Admission source: [facility] Identifying data: Patient is a 53 year old single male, father of seven, unemployed, domiciled, and is supported by [facility]. This is one of multiple admissions for patient. Patient admitted to for alcohol and cocaine dependence. Substance Abuse History: Smoking Cessation. Smoking history: Current every day smoker. Have you smoked in the past 12 months: Yes. Aproximately how many cigarettes per day: 20. Cigars Per Day: 0. Hx Chewing Tobacco Use: No. Initiated information on smoking cessation: Yes. 'Breaking Loose' booklet given : 06/22/19. - Substances abused. Alcohol. Substance route: Oral. Frequency: Daily. Amount used: 3 pints vodka & (2) 24 oz bottle beers. Age of first use: 12. Date of last use: 06/22/19. Crack. Substance route: Smoking. Frequency: Daily. Amount used: $40. Age of first use: 22. Date of last use: 06/22/19 Medical History: Medical profile is consistent with a history of alcohol- related seizures (1989), past treatment for syphilis, hypertension, hypothyroidism (not on medications), hypercholesterolemia and HIV infection since 1988 (on HAART medications). Noted distant history of umbilical herniorraphy (2007). Psychiatric History: Patient presents as fatigue. Reports history of multiple psychiatric hospitalizations, most recently at [facility] due to manic behavior. Patient unable to recall names of hospitals of previous hospitalizations but as per Dr. Ford note from 06/10/19, patient reports psychiatric hospitalizations at [facility], [facility], [facility], [facility], [facility], and [facility]. Diagnosis of Bipolar disorder. History of one suicide attempt by overdosing on pills in 2018. Mr. Hwang states that he receives outpatient psychiatric care at [facility] and is managed with Invega Sustenna monthly injections + Cogentin 1mg BID. Reports receiving his last decanoate injection on 06/06/11. At present patient reports stable mood. He denies auditory/visual hallucinations, suicidal/homicidal ideation. Physical/Sexual Abuse/Trauma History: denies. Mental Status Exam - Mental Status Exam Alert and Oriented to: Time, Place, Person Cognitive Function: Good Patient Appearance: Well Groomed Mood: Withdrawn Affect: Mood Congruent Patient Behavior: Fatigued Speech Pattern: Appropriate Voice Loudness: Normal Thought Process: Goal Oriented Thought Disorder: Not Present Hallucinations: Denies Suicidal Ideation: Denies Homicidal Ideation: Denies Insight/Judgement: Poor Sleep: Fair Appetite: Fair Muscle strength/Tone: Normal Gait/Station: Normal Psychiatric Findings - Problem List ([place] 1, 2,3) (1) Alcohol dependence Current Visit: Yes Status: Chronic Qualifiers: Substance use status: uncomplicated Qualified Code(s): F10.20 - Alcohol dependence, uncomplicated (2) Cocaine dependence Current Visit: Yes Status: Chronic Qualifiers: Substance use status: uncomplicated Qualified Code(s): F14.20 - Cocaine dependence, uncomplicated (3) Nicotine dependence Current Visit: Yes Status: Chronic Qualifiers: Nicotine product type: cigarettes (4) Schizoaffective disorder Current Visit: Yes Status: Chronic - Initial Treatment Plan Initial Treatment Plan: Psychoeducation provided. Rehab in progress. Will order Cogentin 1mg BID. Benefits and side effects discussed. Verbal consent given.
[2019-06-23] MEDS: NIFEdipine E.R 60 MG TABLET (UD) PO SCH (09:32)
[2019-06-23] MEDS: ASPIRIN COATED 81 MG TABLET.EC PO SCH (09:32)
[2019-06-23] MEDS: NICOTINE 14 MG/24 HOURS TOPICAL PATCH TD SCH (09:33)
[2019-06-23] MEDS: PRENATAL VITAMINS W/ FOLIC ACID TABLET (FP) PO SCH (09:33)
[2019-06-23] MEDS: BENZTROPINE MESYLATE 1 MG TABLET (FP) PO SCH ×2 (09:35→21:14)
[2019-06-23] MEDS ORDERED: LOSARTAN POTASSIUM 50 MG TABLET (FP) PO SCH (10:00)
[2019-06-23] MEDS: ACETAMINOPHEN 325 MG TABLET (FP) PO PRN (20:24)
[2019-06-23] MEDS: diphenhydrAMINE HCL 50 MG CAPSULE PO SCH (21:14)
[2019-06-23] MEDS: THIAMINE HCL 100 MG TABLET (FP) PO SCH (21:14)
[2019-06-23] MEDS: ATORVASTATIN CA 20 MG TABLET (FP) PO SCH (21:14)
[2019-06-24] MEDS: EMTRICITABINE/TENOFOV ALAFENAM (DESCOVY) TABLET PO SCH (07:42)
[2019-06-24] MEDS: LEVOTHYROXINE NA 25 MCG TABLET (FP) PO SCH (07:42)
[2019-06-24] MEDS: DOLUTEGRAVIR SODIUM 50 MG TABLET (NON-FORMULARY) PO SCH (07:43)
[2019-06-24] MEDS: ASPIRIN COATED 81 MG TABLET.EC PO SCH (09:59)
[2019-06-24] MEDS: NIFEdipine E.R 60 MG TABLET (UD) PO SCH (09:59)
[2019-06-24] MEDS: PRENATAL VITAMINS W/ FOLIC ACID TABLET (FP) PO SCH (09:59)
[2019-06-24] MEDS: NICOTINE 14 MG/24 HOURS TOPICAL PATCH TD SCH (10:00)
[2019-06-24] MEDS: BENZTROPINE MESYLATE 1 MG TABLET (FP) PO SCH ×2 (10:01→21:12)
[2019-06-24] MEDS: ACETAMINOPHEN 325 MG TABLET (FP) PO PRN (19:58)
[2019-06-24] MEDS: ATORVASTATIN CA 20 MG TABLET (FP) PO SCH (21:12)
[2019-06-24] MEDS: THIAMINE HCL 100 MG TABLET (FP) PO SCH (21:12)
[2019-06-24] MEDS: diphenhydrAMINE HCL 50 MG CAPSULE PO SCH (21:12)
[2019-06-25] MEDS: LEVOTHYROXINE NA 25 MCG TABLET (FP) PO SCH (06:35)
[2019-06-25] MEDS: DOLUTEGRAVIR SODIUM 50 MG TABLET (NON-FORMULARY) PO SCH (09:28)
[2019-06-25] MEDS: EMTRICITABINE/TENOFOV ALAFENAM (DESCOVY) TABLET PO SCH (09:28)
[2019-06-25] MEDS: PRENATAL VITAMINS W/ FOLIC ACID TABLET (FP) PO SCH (09:29)
[2019-06-25] MEDS: BENZTROPINE MESYLATE 1 MG TABLET (FP) PO SCH ×2 (09:29→21:14)
[2019-06-25] MEDS: NICOTINE 14 MG/24 HOURS TOPICAL PATCH TD SCH (09:29)
[2019-06-25] MEDS: ASPIRIN COATED 81 MG TABLET.EC PO SCH (09:29)
[2019-06-25] MEDS: NIFEdipine E.R 60 MG TABLET (UD) PO SCH (09:29)
[2019-06-25] MEDS: diphenhydrAMINE HCL 50 MG CAPSULE PO SCH (21:14)
[2019-06-25] MEDS: THIAMINE HCL 100 MG TABLET (FP) PO SCH (21:14)
[2019-06-25] MEDS: ATORVASTATIN CA 20 MG TABLET (FP) PO SCH (21:14)
[2019-06-26] MEDS: LEVOTHYROXINE NA 25 MCG TABLET (FP) PO SCH (06:48)
[2019-06-26] MEDS: EMTRICITABINE/TENOFOV ALAFENAM (DESCOVY) TABLET PO SCH (07:56)
[2019-06-26] MEDS: DOLUTEGRAVIR SODIUM 50 MG TABLET (NON-FORMULARY) PO SCH (07:56)
[2019-06-26] MEDS: ASPIRIN COATED 81 MG TABLET.EC PO SCH (09:49)
[2019-06-26] MEDS: PRENATAL VITAMINS W/ FOLIC ACID TABLET (FP) PO SCH (09:49)
[2019-06-26] MEDS: NIFEdipine E.R 60 MG TABLET (UD) PO SCH (09:49)
[2019-06-26] MEDS: NICOTINE 14 MG/24 HOURS TOPICAL PATCH TD SCH (09:50)
[2019-06-26] MEDS: BENZTROPINE MESYLATE 1 MG TABLET (FP) PO SCH ×2 (11:13→21:06)
[2019-06-26] MEDS: ATORVASTATIN CA 20 MG TABLET (FP) PO SCH (21:06)
[2019-06-26] MEDS: diphenhydrAMINE HCL 50 MG CAPSULE PO SCH (21:06)
[2019-06-26] MEDS: THIAMINE HCL 100 MG TABLET (FP) PO SCH (21:06)
[2019-06-27] MEDS: LEVOTHYROXINE NA 25 MCG TABLET (FP) PO SCH (06:22)
[2019-06-27 06:57] VITALS: BP 130/97; PULSE 77; TEMP 97.3
[2019-06-27] MEDS: EMTRICITABINE/TENOFOV ALAFENAM (DESCOVY) TABLET PO SCH (07:10)
[2019-06-27] MEDS: DOLUTEGRAVIR SODIUM 50 MG TABLET (NON-FORMULARY) PO SCH (07:10)
--- NOTE | 2019-06-27 09:03 | DS ---
[facility] Rehab Discharge Summary - [facility] Rehab Discharge Summary Admission Date: 06/22/19 Discharge Date: 06/27/19 - History Present History: Alcohol dependence, Cocaine dependence Additional Comments: Pt is a 53 y/o male with a hx of HEATHER admitted to rehab on 06/22/19 and requesting early discharge today for personal reasons, stating "I'll rather not say". Pt was seen today by his counselor, Marvin Dueñas and has been referred to CD aftercare treatment at [facility] as well as follow up with Mental/Medical care to his existing providers at [facility] . Pt reports he has all his meds at home and received last Invega injection on 06/06/19 and will follow up for his next due treatment. Pt reports he has a primary care provider, Dr. Osiris Jones at [facility] [facility] [place]. Pertinent Past History: AIDS HTN HLD Hypothyroidism GERD Hx Seizures Bipolar Disorder Schizoaffective disorder - Discharge Physical Exam Vital Signs: Vital Signs Temperature 97.3 F L 06/27/19 06:57 Pulse Rate 77 06/27/19 06:57 Respiratory Rate 18 06/27/19 06:57 Blood Pressure 130/97 06/27/19 06:57 O2 Sat by Pulse Oximetry (%) Alert o x 3 nad oob ambulating with steady gait cardiac:s1 s2,rrr lungs:cta,august. abdomen:soft,+bs,nt,flat extremities/skin:no edema,full ROM/weight bearing; skin intact. Pertinent Admission Physical Exam Findings: Laboratory Tests 06/27/19 08:00 Urine Color Yellow Urine Appearance Clear Urine pH 7.0 Ur Specific [place] 1.012 Urine Protein Negative Urine Glucose (UA) Negative Urine Ketones Negative Urine Blood Negative Urine Nitrite Negative Urine Bilirubin Negative Urine Urobilinogen 0.2 Ur Leukocyte Esterase Trace Urine WBC (Auto) 4 Urine RBC (Auto) 0 Urine Casts (Auto) 1 U Epithel Cells (Auto) 1.7 Urine Bacteria (Auto) 52.9 - Treatment Discharge Condition: Discharge condition good Hospital Course: Safety maintained while in rehab CD aftercare referral accepted - Medication Discharge Medications: Ambulatory Orders Levothyroxine [Synthroid -] 25 mcg PO DAILY #14 tablet 11/22/18 Metoprolol Succinate [Toprol XL -] 50 mg PO DAILY 14 Days #14 tab.sr.24h Nifedipine [Adalat cc] 60 mg PO DAILY 14 Days #14 tablet.er 11/22/18 Aspirin Coated [Ecotrin -] 81 mg PO DAILY 06/09/19 Atorvastatin Ca [Lipitor] 20 mg PO HS 06/09/19 Benztropine Mesylate [Cogentin -] 1 mg PO BID 06/09/19 Cyproheptadine [Periactin -] 4 mg PO BID 06/09/19 Diphenhydramine HCl [Benadryl -] 25 mg PO HS 06/09/19 Dolutegravir Sodium [Tivicay] 50 mg PO DAILY 06/09/19 Emtricitabine/Tenofov Alafenam [Descovy 200-25 mg Tablet (Nf)] 1 each PO DAILY 06/09/19 Losartan Potassium [Cozaar -] 50 mg PO DAILY 06/09/19 - Medication-Assisted Treatment (MAT) Medication-Assisted Treatment (MAT): No - Discharge Instructions Diet, activity, other medical instructions: Diet:SHA,low cholesterol Activity: oob ad malka Other medical instructions:follow up with your primary care provider(s) at [facility] within 1 week after discharge. Follow up with CD aftercare referral as recommended and scheduled. - Diagnosis (1) Alcohol dependence Current Visit: Yes Status: Chronic Qualifiers: Substance use status: uncomplicated Qualified Code(s): F10.20 - Alcohol dependence, uncomplicated (2) Cocaine dependence Current Visit: Yes Status: Chronic Qualifiers: Substance use status: uncomplicated Qualified Code(s): F14.20 - Cocaine dependence, uncomplicated (3) Nicotine dependence Current Visit: Yes Status: Chronic Qualifiers: Nicotine product type: cigarettes Substance use status: uncomplicated Qualified Code(s): F17.210 - Nicotine dependence, cigarettes, uncomplicated (4) AIDS (acquired immunodeficiency syndrome) Current Visit: Yes Status: Chronic (5) Essential hypertension Current Visit: Yes Status: Chronic (6) GERD (gastroesophageal reflux disease) Current Visit: Yes Status: Chronic Qualifiers: Esophagitis presence: esophagitis presence not specified Qualified Code(s) : K21.9 - Gastro-esophageal reflux disease without esophagitis (7) History of seizure Current Visit: Yes Status: Chronic (8) Hypercholesterolemia Current Visit: Yes Status: Chronic (9) Hypothyroidism Current Visit: Yes Status: Chronic - Follow-up Referral Minutes to complete discharge: 20 - AMA Did Patient Leave Against Medical Advice: No Additional Comments: Pt states he has all his medications listed above at home and has no need for courtesy medications sent to his pharmacy.
[2019-06-27 10:20] LABS: EPI CELLS 1.7 /HPF (0-5/HPF); HYALINE CASTS 1 /lpf (0-8); URINE APPEARANCE CLEAR; URINE BACTERIA 52.9 /hpf (NEGATIVE); URINE BILIRUBIN NEGATIVE (NEGATIVE); URINE COLOR YELLOW; URINE GLUCOSE (UA) NEGATIVE (NEGATIVE); URINE KETONE NEGATIVE (NEGATIVE); URINE LEUK ESTERASE TRACE (NEGATIVE); URINE NITRITE NEGATIVE (NEGATIVE); URINE PROTEIN NEGATIVE (NEGATIVE); URINE RBC 0 /hpf (0-4); URINE UROBILINOGEN 0.2 mg/dL (0.2-1.0); URINE WBC 4 /hpf (0-5)
[2019-06-27] MEDS: NIFEdipine E.R 60 MG TABLET (UD) PO SCH (10:40)
[2019-06-27] MEDS: ASPIRIN COATED 81 MG TABLET.EC PO SCH (10:40)
[2019-06-27] MEDS: PRENATAL VITAMINS W/ FOLIC ACID TABLET (FP) PO SCH (10:40)
[2019-06-27] MEDS: NICOTINE 14 MG/24 HOURS TOPICAL PATCH TD SCH (10:40)
[2019-06-27] MEDS: BENZTROPINE MESYLATE 1 MG TABLET (FP) PO SCH (10:40)
== END 2019-06-27 09:25 | disposition home or self-care (01) | DRG 772 ==
LOC: YASAS 16:26 → Y5N 18:27
PROVIDERS: ADMIT Neuromusculoskeletal Medicine & OMM; ATTEND Neuromusculoskeletal Medicine & OMM
PROC: HZ42ZZZ Group Counseling for Substance Abuse Treatment, Cognitive-Behavioral (ICD-10-PCS; principal; 2019-06-22)
DX: F10.20 Alcohol dependence, uncomplicated (principal); F14.20 Cocaine dependence, uncomplicated; F17.210 Nicotine dependence, cigarettes, uncomplicated; F25.9 Schizoaffective disorder, unspecified; F32.9 Major depressive disorder, single episode, unspecified; B20 Human immunodeficiency virus [HIV] disease; I10 Essential (primary) hypertension; E78.5 Hyperlipidemia, unspecified; E78.00 Pure hypercholesterolemia, unspecified; E03.9 Hypothyroidism, unspecified; K21.9 Gastro-esophageal reflux disease without esophagitis; Z86.69 Personal history of other diseases of the nervous system and sense organs; Z88.2 Allergy status to sulfonamides; Z88.8 Allergy status to other drugs, medicaments and biological substances; Z91.013 Allergy to seafood
CPT/HCPCS: 81003

== ENCOUNTER 2019-09-28 10:39 | Inpatient (IN) | payer OTHER ==
--- NOTE | 2019-09-28 11:10 | BHS.RME ---
Substance Use & Tx History - Substance Use History Alcohol Substance amount: 1 qusart vodka Frequency of use: Daily Substance route: Oral Date of Last Use: 09/28/19 (12 am) Cocaine (Crack) Substance amount: $50-100 Frequency of use: Daily Substance route: Smoking Date of Last Use: 09/27/19 Nicotine Substance amount: 1/2 pack Frequency of use: Daily Substance route: Smoking Date of Last Use: 09/28/19 Physical/Psych/Mental Status - Behavior General Behavior: Increased activity (restlessness, agitation) Eye Contact: Normal - Cooperativeness Cooperativeness: Cooperative - Thinking Thought Processes: Tight, Logical, Goal Directed Thought content: Future oriented - Physical Health Problems Is patient presently having any pain?: No Does patient presently have any injuries (include location): No Does patient currently have a fever: No Is patient : No CIWA Nausea/Vomitin-No Nausea/No Vomiting Muscle Tremors: 1-None Visible, but [place] Anxiety: 3 Agitation: 3 Paroxysmal Sweats: 3 Orientation: 0-Oriented Tacttile Disturbances: 0-None Auditory Disturbances: 0-None Visual Disturbances: 0-None Headache: 0-None Present (drank earlier at midnight may still not be in withdrawals.) CIWA-Ar Total Score: 10
--- NOTE | 2019-09-28 14:32 | HP ---
CIWA Score Nausea/Vomitin-No Nausea/No Vomiting (Meets admission criteria: comorbid conditions, poor recovery environment, high risk relapse) Muscle Tremors: 1-None Visible, but [place] Anxiety: 3 Agitation: 3 Paroxysmal Sweats: 3 Orientation: 0-Oriented Tacttile Disturbances: 0-None Auditory Disturbances: 0-None Visual Disturbances: 0-None Headache: 0-None Present (drank earlier at midnight may still not be in withdrawals.) CIWA-Ar Total Score: 10 - Admission Criteria OASAS Guidelines: Admission for Medically Managed Detox: Requires at least one of the followin. CIWA greater than 12 2. Seizures within the past 24 hours 3. Delirium tremens within the past 24 hours 4. Hallucinations within the past 24 hours 5. Acute intervention needed for co occurring medical disorder 6. Acute intervention needed for co occurring psychiatric disorder 7. Severe withdrawal that cannot be handled at a lower level of care (continued vomiting, continued diarrhea, abnormal vital signs) requiring intravenous medication and/or fluids 8. Admitting History and Physical - Admission Chief Complaint: Mr. Hwang is a 53 yo gentleman who presents today asking for "detox from alcohol and crack cocaine". History of Present Illness: Mr. Hwang is a 53 yo gentleman who presents today asking for "detox from alcohol and crack cocaine". He was last here between 06/22 and 06/27/19 for detox. He relapsed one month after discharge. He states he stopped going to outpatient meetings. PMH: HIV on Descovy and Tivokay, last dose this am, hypothyroid, HLD, HTN PSH; hernia Psych: bipolar, on a monthly shot Invega (last injection 2019), Remeron hs Substance use hx Alcohol: one quart Vodka, last use 09/28/19, 6 x 24 ounce beers daily, first use age 12y. Seizure 1991, Blackout one month ago. Has an eye manager plumbing Crack: $50 to $100. smokes, first use age 22y, last use 09/27/19. Nicotine: 1/2 ppd x 15 y SOC: domiciled, conjugate housing with active drug use in the house Legal; no pending issues History Source: Patient Limitations to Obtaining History: No Limitations - Past Medical History Cardiovascular: Yes: HTN, Hyperlipdemia Infectious Disease: Yes: HIV Psych: Yes: Addictions, Bipolar - Past Surgical History Past Surgical History: Yes: Hernia Repair - Smoking History Smoking history: Current every day smoker Have you smoked in the past 12 months: Yes Aproximately how many cigarettes per day: 20 - Alcohol/Substance Use Hx Alcohol Use: Yes History of Substance Use: reports: Cocaine, Heroin Admission ROS [facility] - HPI Allergies/Adverse Reactions: Allergies Allergy/AdvReac Type Severity Reaction Status Date / Time sulfamethoxazole Allergy Intermediate Itching Verified 06/22/19 17:09 [From Bactrim DS] trimethoprim Allergy Intermediate Itching Verified 06/22/19 17:09 [From Bactrim DS] all over body Fish Containing Products Allergy Mild throat Verified 06/22/19 17:09 swelling haloperidol [From Haldol] AdvReac Intermediate jaw Verified 06/22/19 17:09 tightness Exam Limitations: No Limitations - Ebola screening Have you traveled outside of the country in the last 21 days: No Have you had contact with anyone from an Ebola affected area: No Have you been sick,other than usual withdrawal symptoms: No Do you have a fever: No - Review of Systems Constitutional: No Symptoms Reported EENT: reports: No Symptoms Reported Respiratory: reports: No Symptoms reported Cardiac: reports: No Symptoms Reported GI: reports: No Symptoms Reported : reports: No Symptoms Reported Musculoskeletal: reports: Joint Pain (slight knee pain) Integumentary: reports: No Symptoms Reported Neuro: reports: No Symptoms reported Endocrine: reports: Other (hx of thyroid disease) Hematology: reports: No Symptoms Reported Psychiatric: reports: Anxious Patient History - Patient Medical History Hx Anemia: No Hx Asthma: No Hx Chronic Obstructive Pulmonary Disease (COPD): No Hx Cancer: No Hx Cardiac Disorders: No Hx Congestive Heart Failure: No Hx Hypertension: Yes Hx Hypercholesterolemia: Yes (ON MED) Hx Pacemaker: No HX Cerebrovascular Accident: No Hx Seizures: Yes (1991 - alcohold related) Hx Dementia: No Hx Diabetes: No Hx Gastrointestinal Disorders: No Hx Liver Disease: No Hx Genitourinary Disorders: No Hx Sexually Transmitted Disorders: No Hx Renal Disease (ESRD): No Hx Thyroid Disease: Yes (HYPOTHYROIDISM ON MEDS) Hx Human Immunodeficiency Virus (HIV): Yes (SINCE 1988 /VL UNDETECTABLE T-CELL 325 IN ., no meds) Hx Hepatitis C: No Hx Depression: Yes (hospitalized Jul 2018 [facility]) Hx Suicide Attempt: No Hx Bipolar Disorder: Yes (ON MED) Hx Schizophrenia: No - Patient Surgical History Past Surgical History: Yes Hx Neurologic Surgery: No Hx Cataract Extraction: No Hx Cardiac Surgery: No Hx Lung Surgery: No Hx Breast Surgery: No Hx Breast Biopsy: No Hx Abdominal Surgery: Yes (REPAIR OF UMBILICAL HERNIA 2OO8) Hx Appendectomy: No Hx Cholecystectomy: No Hx Genitourinary Surgery: No Hx Section: No Hx Orthopedic Surgery: No Anesthesia Reaction: No - PPD History Date: 05/09/18 Results: 0 mm - Smoking Cessation Smoking history: Current every day smoker Have you smoked in the past 12 months: Yes Aproximately how many cigarettes per day: 10 Cigars Per Day: 0 Hx Chewing Tobacco Use: No Initiated information on smoking cessation: Yes 'Breaking Loose' booklet given: 09/28/19 - Substances abused Alcohol Substance route: Oral Amount used: 1 quart Vodka Age of first use: 12 Date of last use: 09/27/19 Crack Substance route: Smoking Frequency: Daily Amount used: $50 to $100 Age of first use: 12 Date of last use: 09/27/19 Admission Physical Exam B[facility] - Physical General Appearance: Yes: Within Normal Limits HEENTM: Yes: EOMI, Normocephalic, Normal Voice Respiratory: Yes: Lungs Clear, Normal Breath Sounds Neck: Yes: Within Normal Limits Breast: Yes: Breast Exam Deferred Cardiology: Yes: Regular Rate, S1, S2 Abdominal: Yes: Normal Bowel Sounds, Non Tender, Soft, Distended Genitourinary: Yes: Other (deferred) Back: Yes: Normal Inspection Musculoskeletal: Yes: Other (scar left knee, pt thinks remote fall) Extremities: Yes: Within Normal Limits Integumentary: Yes: Within Normal Limits - Diagnostic (1) Alcohol dependence with uncomplicated withdrawal Current Visit: Yes Status: Acute (2) AIDS (acquired immunodeficiency syndrome) Current Visit: No Status: Chronic (3) Bipolar disorder Current Visit: Yes Status: Chronic Qualifiers: Current episode severity: unspecified Comment: As per records. No symptoms at time of this examination. (4) Cocaine dependence Current Visit: Yes Status: Chronic Qualifiers: Substance use status: uncomplicated Qualified Code(s): F14.20 - Cocaine dependence, uncomplicated (5) Essential hypertension Current Visit: Yes Status: Acute (6) HIV (human immunodeficiency virus infection) Current Visit: Yes Status: Chronic Qualifiers: HIV symptom status: unspecified Qualified Code(s): B20 - Human immunodeficiency virus [HIV] disease (7) Hypercholesterolemia Current Visit: Yes Status: Chronic (8) Nicotine dependence Current Visit: Yes Status: Acute Qualifiers: Nicotine product type: cigarettes Substance use status: uncomplicated Qualified Code(s): F17.210 - Nicotine dependence, cigarettes, uncomplicated Cleared for Admission [facility] - Detox or Rehab [facility] Level of Care: Medically Managed Breathalyzer - Breathalyzer Breathalyzer: 0 Urine Drug Screen - Test Device Lot number: [id number] Expiration date: 06/25/21 - Control Is test valid?: Yes - Results Drug screen NEGATIVE: No Urine drug screen results: [facility]-Cocaine Inpatient Rehab Admission - Rehab Decision to Admit Inpatient rehab admission?: No
[2019-09-28] MEDS ORDERED: MAG HYDROX/AL HYDROX/SIMETH 30 ML UNIT-DOSE CUP PO PRN (14:39)
[2019-09-28] MEDS ORDERED: IBUPROFEN 400 MG TABLET (FP) PO PRN (14:39)
[2019-09-28] MEDS ORDERED: MENTHOL/PHENOL 1 EACH UD MM PRN (14:39)
[2019-09-28] MEDS ORDERED: MAGNESIUM HYDROX 2400MG/30ML ORAL SUSPENSION 30 ML CUP PO PRN (14:39)
[2019-09-28] MEDS ORDERED: MAGNESIUM CITRATE 300 ML BOTTLE PO PRN (14:39)
[2019-09-28] MEDS ORDERED: ACETAMINOPHEN 325 MG TABLET (FP) PO PRN ×2 (14:39)
[2019-09-28] MEDS ORDERED: METHOCARBAMOL 500 MG TABLET PO PRN (14:39)
[2019-09-28] MEDS ORDERED: NICOTINE POLACRILEX 2 MG GUM BUC PRN (14:39)
[2019-09-28] MEDS ORDERED: BISMUTH SUBSALICYLATE 524 MG/30 ML UD PO PRN (14:39)
[2019-09-28] MEDS ORDERED: chlordiazePOXIDE HCL 25 MG CAPSULE PO PRN (14:39)
[2019-09-28 16:59] VITALS: BMI 26.6
[2019-09-28 17:22] LABS: HEMATOCRIT 43.5 % (35.4-49); HEMOGLOBIN 14.6 GM/dL (11.7-16.9); MCH 32.6 pg (25.7-33.7); MCHC 33.5 g/dl (32.0-35.9); MEAN CELL VOLUME 97.3 fl (80-96); MEAN PLT VOLUME 10.3 fl (7.5-11.1); PLATELET COUNT 153 K/MM3 (134-434); RBC 4.47 M/mm3 (4.00-5.60); RDW 14.7 % (11.9-15.9)
[2019-09-28 17:29] LABS: ALBUMIN 3.5 g/dl (3.4-5.0); BILIRUBIN,TOTAL 0.3 mg/dL (0.2-1); BLOOD UREA NITROGEN 21.5 mg/dL (7-18); CALCIUM 9.2 mg/dL (8.5-10.1); CREATININE 1.8 mg/dL (0.55-1.3); POTASSIUM 3.6 mmol/L (3.5-5.1); TOT PROT 7.6 g/dl (6.4-8.2)
[2019-09-28] MEDS: NICOTINE 14 MG/24 HOURS TOPICAL PATCH TD SCH (17:59)
[2019-09-28] MEDS: chlordiazePOXIDE HCL 25 MG CAPSULE PO SCH ×2 (17:59→22:25)
[2019-09-28] MEDS: hydrOXYzine PAMOATE 25 MG CAPSULE (FP) PO SCH ×2 (17:59→22:25)
[2019-09-28] MEDS ORDERED: ONDANSETRON *ODT* 4 MG TABLET SL ONE ×2 (18:00→19:00)
[2019-09-28] MEDS: MELATONIN 5 MG TABLETS PO SCH (22:25)
[2019-09-28] MEDS: THIAMINE HCL 100 MG TABLET (FP) PO SCH (22:25)
[2019-09-28] MEDS: ATORVASTATIN CA 20 MG TABLET (FP) PO SCH (22:25)
[2019-09-29] MEDS: chlordiazePOXIDE HCL 25 MG CAPSULE PO SCH ×4 (07:40→22:30)
[2019-09-29] MEDS: hydrOXYzine PAMOATE 25 MG CAPSULE (FP) PO SCH ×2 (07:41→11:45)
[2019-09-29] MEDS: LEVOTHYROXINE NA 25 MCG TABLET (FP) PO SCH (07:44)
[2019-09-29] MEDS: EMTRICITABINE/TENOFOV ALAFENAM (DESCOVY) TABLET PO SCH (07:44)
[2019-09-29] MEDS: DOLUTEGRAVIR SODIUM 50 MG TABLET (NON-FORMULARY) PO SCH (07:44)
[2019-09-29] MEDS ORDERED: hydrOXYzine PAMOATE 25 MG CAPSULE (FP) PO PRN (10:08)
[2019-09-29] MEDS: NICOTINE 14 MG/24 HOURS TOPICAL PATCH TD SCH (11:21)
[2019-09-29] MEDS: ASPIRIN COATED 81 MG TABLET.EC PO SCH (11:22)
[2019-09-29] MEDS: PRENATAL VITAMINS W/ FOLIC ACID TABLET (FP) PO SCH (11:22)
[2019-09-29] MEDS: NIFEdipine E.R 60 MG TABLET PO SCH (11:22)
[2019-09-29] MEDS: LOSARTAN POTASSIUM 50 MG TABLET (FP) PO SCH (11:22)
[2019-09-29] MEDS ORDERED: ONDANSETRON *ODT* 4 MG TABLET SL PRN (11:48)
--- NOTE | 2019-09-29 11:54 | PN ---
S CIWA - CIWA Score Nausea/Vomitin-Mild Nausea/No Vomiting Muscle Tremors: 2 Anxiety: 2 Agitation: 2 Paroxysmal Sweats: 2 Orientation: 0-Oriented Tacttile Disturbances: 0-None Auditory Disturbances: 0-None Visual Disturbances: 0-None Headache: 0-None Present CIWA-Ar Total Score: 9 BHS Progress Note (SOAP) Subjective: interrupted sleep sweats shakes body aches nausea at times Objective: 09/29/19 11:52 Vital Signs Temperature 97.2 F L 09/29/19 11:37 Pulse Rate 93 H 09/29/19 11:37 Respiratory Rate 09/29/19 11:37 Blood Pressure 117/83 09/29/19 11:37 O2 Sat by Pulse Oximetry (%) Laboratory Tests 09/28/19 09/28/19 09/28/19 15:15 15:15 15:15 WBC 6.0 RBC 4.47 Hgb 14.6 Hct 43.5 MCV 97.3 H MCH 32.6 MCHC 33.5 RDW 14.7 Plt Count 153 MPV 10.3 Platelet Comment Large platelets Sodium 140 Potassium 3.6 Chloride 102 Carbon Dioxide 31 Anion Gap 7 L BUN 21.5 H Creatinine 1.8 H Est GFR (CKD-EPI)AfAm 49.40 Est GFR (CKD-EPI)NonAf 42.63 Random Glucose 92 Calcium 9.2 Total Bilirubin 0.3 AST 19 ALT 17 Alkaline Phosphatase 68 Total Protein 7.6 Albumin 3.5 RPR Titer Nonreactive labs noted aaox3 ambulating no acute distress increase fluids Assessment: 09/29/19 11:53 withdrawals Plan: continue detox increase fluids repeat cmp
--- NOTE | 2019-09-29 14:13 | CONSULT ---
[facility] Psychiatric Consult - Data Date of interview: 09/29/19 Admission source: [facility] Identifying data: Patient is a 53 year old single male, father of seven, domiciled, and is supported by [facility]. This is one of multiple admissions for patient. Patient admitted to for alcohol and cocaine dependence. Substance Abuse History: Smoking Cessation. Smoking history: Current every day smoker. Have you smoked in the past 12 months: Yes. Aproximately how many cigarettes per day: 10. Cigars Per Day: 0. Hx Chewing Tobacco Use: No. Initiated information on smoking cessation: Yes. 'Breaking Loose' booklet given: 09/28/19. - Substances abused. Alcohol. Substance route: Oral. Amount used: 1 quart Vodka. Age of first use: 12. Date of last use: 09/27/19. Crack. Substance route: Smoking. Frequency: Daily. Amount used: $50 to $100. Age of first use: 12. Date of last use: 09/27/19 Medical History: HIV, hypothyroid, HLD, HTN, hernia Psychiatric History: Mr. Hwang reports a history of multiple psychiatric hospitalizations ([facility], [facility], [facility], [facility], [facility], [facility]). Diagnosis of Bipolar disorder and is receiving outpatient psychiatric care at [facility] on [address] [place] [address]. Patient is treated with Invega sustenna monthly injections. He last received his Invega Sustenna on 09/07/19. In addition he reports taking cogentin 1mg BID + Remeron (unsure of dose). for depression. Mr. Hwang states that his care is referred to as Direct Observation treatment and he receives his PO medications at the [facility]. Mr. Hwang reports history of two suicide attempts via jumping on the train tracks and overdose. At present patient denies depressive/manic symptoms, auditory/ visual hallucinations, suicidal/homicidal ideation. Physical/Sexual Abuse/Trauma History: denies. Mental Status Exam - Mental Status Exam Alert and Oriented to: Time, Place, Person Cognitive Function: Good Patient Appearance: Well Groomed Mood: Withdrawn Affect: Appropriate Patient Behavior: Appropriate, Cooperative Speech Pattern: Appropriate Voice Loudness: Moderately Soft/Quiet Thought Process: Goal Oriented Thought Disorder: Not Present Hallucinations: Denies Suicidal Ideation: Denies Homicidal Ideation: Denies Insight/Judgement: Poor Sleep: Poorly Appetite: Fair Muscle strength/Tone: Normal Gait/Station: Normal Psychiatric Findings - Problem List ([place] 1, 2,3) (1) Alcohol dependence with uncomplicated withdrawal Current Visit: Yes Status: Acute (2) Nicotine dependence Current Visit: Yes Status: Acute Qualifiers: Nicotine product type: cigarettes Substance use status: uncomplicated Qualified Code(s): F17.210 - Nicotine dependence, cigarettes, uncomplicated (3) Bipolar disorder Current Visit: Yes Status: Chronic Qualifiers: Current episode severity: unspecified Comment: As per records. No symptoms at time of this examination. (4) Cocaine dependence Current Visit: Yes Status: Chronic Qualifiers: Substance use status: uncomplicated Qualified Code(s): F14.20 - Cocaine dependence, uncomplicated (5) Substance-induced sleep disorder Current Visit: Yes Status: Acute (6) Schizoaffective disorder Current Visit: Yes Status: Suspected - Initial Treatment Plan Initial Treatment Plan: Psychoeducation provided. Detoxification in progress. Will order Cogentin 1mg BID + Remeron 15mg HS. Benefits and side effects discussed. Verbal consent given.
[2019-09-29] MEDS: MIRTAZAPINE 15 MG TABLET (FP) PO SCH (22:29)
[2019-09-29] MEDS: ATORVASTATIN CA 20 MG TABLET (FP) PO SCH (22:30)
[2019-09-29] MEDS: THIAMINE HCL 100 MG TABLET (FP) PO SCH (22:30)
[2019-09-29] MEDS: BENZTROPINE MESYLATE 1 MG TABLET PO SCH (22:30)
[2019-09-29] MEDS: MELATONIN 5 MG TABLETS PO SCH (22:35)
[2019-09-30] MEDS: EMTRICITABINE/TENOFOV ALAFENAM (DESCOVY) TABLET PO SCH (06:51)
[2019-09-30] MEDS: LEVOTHYROXINE NA 25 MCG TABLET (FP) PO SCH (06:51)
[2019-09-30] MEDS: DOLUTEGRAVIR SODIUM 50 MG TABLET (NON-FORMULARY) PO SCH (06:51)
[2019-09-30] MEDS: chlordiazePOXIDE HCL 25 MG CAPSULE PO SCH ×4 (06:51→22:40)
[2019-09-30] MEDS: NICOTINE 14 MG/24 HOURS TOPICAL PATCH TD SCH (10:17)
[2019-09-30] MEDS: ASPIRIN COATED 81 MG TABLET.EC PO SCH (10:17)
[2019-09-30] MEDS: NIFEdipine E.R 60 MG TABLET PO SCH (10:17)
[2019-09-30] MEDS: LOSARTAN POTASSIUM 50 MG TABLET (FP) PO SCH (10:17)
[2019-09-30] MEDS: BENZTROPINE MESYLATE 1 MG TABLET PO SCH ×2 (10:17→22:40)
[2019-09-30] MEDS: PRENATAL VITAMINS W/ FOLIC ACID TABLET (FP) PO SCH (10:18)
--- NOTE | 2019-09-30 11:00 | PN ---
S CIWA - CIWA Score Nausea/Vomitin-No Nausea/No Vomiting Muscle Tremors: 2 Anxiety: 2 Agitation: 2 Paroxysmal Sweats: 2 Orientation: 0-Oriented Tacttile Disturbances: 0-None Auditory Disturbances: 0-None Visual Disturbances: 0-None Headache: 0-None Present CIWA-Ar Total Score: 8 BHS Progress Note (SOAP) Subjective: tired sweats interrupted sleep Objective: 09/30/19 10:59 Vital Signs Temperature 97.9 F 09/30/19 06:30 Pulse Rate 79 09/30/19 06:30 Respiratory Rate 20 09/30/19 06:30 Blood Pressure 123/76 09/30/19 06:30 O2 Sat by Pulse Oximetry (%) Laboratory Tests 09/28/19 09/28/19 09/28/19 15:15 15:15 15:15 WBC 6.0 RBC 4.47 Hgb 14.6 Hct 43.5 MCV 97.3 H MCH 32.6 MCHC 33.5 RDW 14.7 Plt Count 153 MPV 10.3 Platelet Comment Large platelets Sodium 140 Potassium 3.6 Chloride 102 Carbon Dioxide 31 Anion Gap 7 L BUN 21.5 H Creatinine 1.8 H Est GFR (CKD-EPI)AfAm 49.40 Est GFR (CKD-EPI)NonAf 42.63 Random Glucose 92 Calcium 9.2 Total Bilirubin 0.3 AST 19 ALT 17 Alkaline Phosphatase 68 Total Protein 7.6 Albumin 3.5 RPR Titer Nonreactive aaox3 ambulating no acute distress Assessment: 09/30/19 10:59 withdrawals Plan: continue detox increase fluids
[2019-09-30] MEDS: MIRTAZAPINE 15 MG TABLET (FP) PO SCH (22:40)
[2019-09-30] MEDS: MELATONIN 5 MG TABLETS PO SCH (22:40)
[2019-09-30] MEDS: ATORVASTATIN CA 20 MG TABLET (FP) PO SCH (22:40)
[2019-09-30] MEDS: THIAMINE HCL 100 MG TABLET (FP) PO SCH (22:40)
[2019-10-01] MEDS ORDERED: chlordiazePOXIDE HCL 10 MG CAPSULE PO PRN
--- NOTE | 2019-10-01 01:28 | PN ---
[facility] Progress Note Note: ASKED TO SEE CLIENT FOR C/O C.P. CLIENT POINTING AT MID STERNUM STATING "MY STOMACH IS BOTHERING ME" AND THEN AGREEING TO C.P WHEN ASKED. HE DENIES RADIATION, SOB, NUMBNESS, WEAKNESS. REPORTS HX/O ACID REFLUX BUT IS NOT ON ANY MGMT. Vital Signs Temperature 98 F 10/01/19 00:59 Pulse Rate 86 10/01/19 01:18 Respiratory Rate 20 10/01/19 01:18 Blood Pressure 135/86 10/01/19 01:18 O2 Sat by Pulse Oximetry (%) Laboratory Tests 09/28/19 09/28/19 09/28/19 15:15 15:15 15:15 WBC 6.0 RBC 4.47 Hgb 14.6 Hct 43.5 MCV 97.3 H MCH 32.6 MCHC 33.5 RDW 14.7 Plt Count 153 MPV 10.3 Platelet Comment Large platelets Sodium 140 Potassium 3.6 Chloride 102 Carbon Dioxide 31 Anion Gap 7 L BUN 21.5 H Creatinine 1.8 H Est GFR (CKD-EPI)AfAm 49.40 Est GFR (CKD-EPI)NonAf 42.63 Random Glucose 92 Calcium 9.2 Total Bilirubin 0.3 AST 19 ALT 17 Alkaline Phosphatase 68 Total Protein 7.6 Albumin 3.5 RPR Titer Nonreactive O2 SAT 99 %RA AT REST EKG NSR- LEFT ATRIAL ENLARGEMENT/ LVH CLIENT SEEN LYING IN BED NAD WITH EYE CLOSED AROUSEABLE TO NAME BEING CALLED CV- TACHY LUNGS- CTAB, ABD- PROTRUBENT, SOFT/NT + BS CLIENT BEDSIDE TABLE NOTED UNKEPT WITH MULTIPLE OPEN SNACKS AND JUICES. A- ACID REFLUX, P- [place] ORDERED TYLENOL FOR PAIN RESTART PROTONIX 20 MG NOTED ON HOME MED LIST CONTINUE TO MONITOR CLINICALLY
[2019-10-01] MEDS ORDERED: MAG HYDROX/AL HYDROX/SIMETH -MYLANTA- ORAL SUSPENSION PO ONE (01:29)
[2019-10-01] MEDS ORDERED: PANTOPRAZOLE 20 MG TABLET PO ONE (01:31)
[2019-10-01] MEDS: chlordiazePOXIDE HCL 10 MG CAPSULE PO SCH ×4 (05:54→22:55)
[2019-10-01] MEDS: EMTRICITABINE/TENOFOV ALAFENAM (DESCOVY) TABLET PO SCH (06:05)
[2019-10-01] MEDS: DOLUTEGRAVIR SODIUM 50 MG TABLET (NON-FORMULARY) PO SCH (06:05)
[2019-10-01] MEDS: LEVOTHYROXINE NA 25 MCG TABLET (FP) PO SCH (06:05)
[2019-10-01 09:15] LABS: BASO % 0.8 % (0-2.0); HEMOGLOBIN 14.5 GM/dL (11.7-16.9); LYMPH % 21.7 % (8-40); MCH 32.7 pg (25.7-33.7); MCHC 33.9 g/dl (32.0-35.9); MEAN CELL VOLUME 96.7 fl (80-96); MEAN PLT VOLUME 9.8 fl (7.5-11.1); MONO % 6.4 % (3.8-10.2); NEUT % 66.1 % (42.8-82.8); PLATELET COUNT 159 K/MM3 (134-434); RBC 4.45 M/mm3 (4.00-5.60); RDW 15.1 % (11.9-15.9); WHITE BLOOD COUNT 5.2 K/mm3 (4.0-10.0)
[2019-10-01] MEDS: PRENATAL VITAMINS W/ FOLIC ACID TABLET (FP) PO SCH (10:59)
[2019-10-01] MEDS: LOSARTAN POTASSIUM 50 MG TABLET (FP) PO SCH (11:00)
[2019-10-01] MEDS: NIFEdipine E.R 60 MG TABLET PO SCH (11:00)
[2019-10-01] MEDS: BENZTROPINE MESYLATE 1 MG TABLET PO SCH ×2 (11:00→22:55)
[2019-10-01] MEDS: ASPIRIN COATED 81 MG TABLET.EC PO SCH (11:00)
[2019-10-01] MEDS: PANTOPRAZOLE 20 MG TABLET PO SCH (11:00)
[2019-10-01] MEDS: NICOTINE 14 MG/24 HOURS TOPICAL PATCH TD SCH (11:01)
--- NOTE | 2019-10-01 11:54 | EKG ---
Test Reason : Blood Pressure : / mmHG Vent. Rate : 089 BPM Atrial Rate : 089 BPM P-R Int : 184 ms QRS Dur : 102 ms QT Int : 374 ms P-R-T Axes : 057 029 042 degrees QTc Int : 455 ms NORMAL SINUS RHYTHM POSSIBLE LEFT ATRIAL ENLARGEMENT LEFT VENTRICULAR HYPERTROPHY ABNORMAL ECG WHEN COMPARED WITH ECG OF 20-NOV-2018 11:31, ST NO LONGER ELEVATED IN ANTERIOR LEADS Confirmed by Mci Guadalupe MD ([id number]) on 10/01/2019 11:54:25 AM Referred By: Confirmed By:Mic Guadalupe MD
--- NOTE | 2019-10-01 12:40 | PN ---
S CIWA - CIWA Score Nausea/Vomitin Muscle Tremors: 2 Anxiety: 2 Agitation: 2 Paroxysmal Sweats: No Perspiration Orientation: 0-Oriented Tacttile Disturbances: 1-Very Mild Itch/Numbness Auditory Disturbances: 0-None Visual Disturbances: 0-None Headache: 1-Very Mild CIWA-Ar Total Score: 10 B[facility] Progress Note (SOAP) Subjective: alert,irritable,anxious,interrupted sleep,pain in the body,nausea Objective: 10/01/19 12:49 Vital Signs Temperature 97.9 F 10/01/19 09:17 Pulse Rate 85 10/01/19 09:17 Respiratory Rate 18 10/01/19 09:17 Blood Pressure 125/86 10/01/19 09:17 O2 Sat by Pulse Oximetry (%) 10/01/19 07:40 WBC 5.2 RBC 4.45 Hgb 14.5 Hct 43.0 MCV 96.7 H MCHC 33.9 RDW 15.1 Plt Count 159 Neutrophils % 66.1 D Lymphocytes % 21.7 D Monocytes % 6.4 Eosinophils % 5.0 H Basophils % 0.8 10/01/19 12:50 Laboratory Last Values WBC 5.2 K/mm3 (4.0-10.0) 10/01/19 07:40 RBC 4.45 M/mm3 (4.00-5.60) 10/01/19 07:40 Hgb 14.5 GM/dL (11.7-16.9) 10/01/19 07:40 Hct 43.0 % (35.4-49) 10/01/19 07:40 MCV 96.7 fl (80-96) H 10/01/19 07:40 MCH 32.7 pg (25.7-33.7) 10/01/19 07:40 MCHC 33.9 g/dl (32.0-35.9) 10/01/19 07:40 RDW 15.1 % (11.9-15.9) 10/01/19 07:40 Plt Count 159 K/MM3 (134-434) 10/01/19 07:40 MPV 9.8 fl (7.5-11.1) 10/01/19 07:40 Absolute Neuts (auto) 3.4 K/mm3 (1.5-8.0) 10/01/19 07:40 Neutrophils % 66.1 % (42.8-82.8) D 10/01/19 07:40 Lymphocytes % 21.7 % (8-40) D 10/01/19 07:40 Monocytes % 6.4 % (3.8-10.2) 10/01/19 07:40 Eosinophils % 5.0 % (0-4.5) H 10/01/19 07:40 Basophils % 0.8 % (0-2.0) 10/01/19 07:40 Nucleated RBC % 0 % (0-0) 10/01/19 07:40 Platelet Comment Large platelets 09/28/19 15:15 Sodium 140 mmol/L (136-145) 09/28/19 15:15 Potassium 3.6 mmol/L (3.5-5.1) 09/28/19 15:15 Chloride 102 mmol/L (98-107) 09/28/19 15:15 Carbon Dioxide 31 mmol/L (21-32) 09/28/19 15:15 Anion Gap 7 MMOL/L (8-16) L 09/28/19 15:15 BUN 21.5 mg/dL (7-18) H 09/28/19 15:15 Creatinine 1.8 mg/dL (0.55-1.3) H 09/28/19 15:15 Est GFR (CKD-EPI)AfAm 49.40 09/28/19 15:15 Est GFR (CKD-EPI)NonAf 42.63 09/28/19 15:15 Random Glucose 92 mg/dL (74-106) 09/28/19 15:15 Calcium 9.2 mg/dL (8.5-10.1) 09/28/19 15:15 Total Bilirubin 0.3 mg/dL (0.2-1) 09/28/19 15:15 AST 19 U/L (15-37) 09/28/19 15:15 ALT 17 U/L (13-61) 09/28/19 15:15 Alkaline Phosphatase 68 U/L (45-117) 09/28/19 15:15 Total Protein 7.6 g/dl (6.4-8.2) 09/28/19 15:15 Albumin 3.5 g/dl (3.4-5.0) 09/28/19 15:15 RPR Titer Nonreactive (NONREACTIVE) 09/28/19 15:15 Assessment: 10/01/19 12:50 withdrawal symptom Plan: continue detox librium regimen,bun 21.5,creatinine 1.8,encourage oral fluid,hydration,repeat cmp in am r/o renal insufficiency
[2019-10-01] MEDS: MELATONIN 5 MG TABLETS PO SCH (22:55)
[2019-10-01] MEDS: MIRTAZAPINE 15 MG TABLET (FP) PO SCH (22:55)
[2019-10-01] MEDS: THIAMINE HCL 100 MG TABLET (FP) PO SCH (22:55)
[2019-10-01] MEDS: ATORVASTATIN CA 20 MG TABLET (FP) PO SCH (22:55)
[2019-10-02] MEDS ORDERED: chlordiazePOXIDE HCL 10 MG CAPSULE PO SCH (05:00)
[2019-10-02] MEDS: LEVOTHYROXINE NA 25 MCG TABLET (FP) PO SCH (06:01)
[2019-10-02] MEDS: DOLUTEGRAVIR SODIUM 50 MG TABLET (NON-FORMULARY) PO SCH (06:02)
[2019-10-02] MEDS: EMTRICITABINE/TENOFOV ALAFENAM (DESCOVY) TABLET PO SCH (06:03)
[2019-10-02] MEDS: NICOTINE 14 MG/24 HOURS TOPICAL PATCH TD SCH (10:09)
[2019-10-02] MEDS: PRENATAL VITAMINS W/ FOLIC ACID TABLET (FP) PO SCH (10:09)
[2019-10-02] MEDS: ASPIRIN COATED 81 MG TABLET.EC PO SCH (10:10)
[2019-10-02] MEDS: LOSARTAN POTASSIUM 50 MG TABLET (FP) PO SCH (10:10)
[2019-10-02] MEDS: BENZTROPINE MESYLATE 1 MG TABLET PO SCH (10:10)
[2019-10-02] MEDS: PANTOPRAZOLE 20 MG TABLET PO SCH (10:10)
[2019-10-02] MEDS: NIFEdipine E.R 60 MG TABLET PO SCH (10:10)
[2019-10-02 11:31] VITALS: TEMP 98.2
[2019-10-02 11:47] LABS: ALBUMIN 3.2 g/dl (3.4-5.0); BILIRUBIN,TOTAL 0.5 mg/dL (0.2-1); BLOOD UREA NITROGEN 21.4 mg/dL (7-18); CREATININE 1.3 mg/dL (0.55-1.3); POTASSIUM 3.9 mmol/L (3.5-5.1); TOT PROT 7.1 g/dl (6.4-8.2)
--- NOTE | 2019-10-02 12:21 | PN ---
S CIWA - CIWA Score Nausea/Vomitin-No Nausea/No Vomiting Muscle Tremors: 2 Anxiety: 2 Agitation: 2 Paroxysmal Sweats: No Perspiration Orientation: 0-Oriented Tacttile Disturbances: 0-None Auditory Disturbances: 0-None Visual Disturbances: 0-None Headache: 0-None Present CIWA-Ar Total Score: 6 B[facility] Progress Note (SOAP) Subjective: feeling better restless Objective: 10/02/19 12:20 Vital Signs Temperature 98.2 F 10/02/19 09:15 Pulse Rate 93 H 10/02/19 09:15 Respiratory Rate 16 10/02/19 09:15 Blood Pressure 141/89 10/02/19 09:15 O2 Sat by Pulse Oximetry (%) Laboratory Tests 09/28/19 09/28/19 09/28/19 15:15 15:15 15:15 WBC 6.0 RBC 4.47 Hgb 14.6 Hct 43.5 MCV 97.3 H MCH 32.6 MCHC 33.5 RDW 14.7 Plt Count 153 MPV 10.3 Absolute Neuts (auto) Neutrophils % Lymphocytes % Monocytes % Eosinophils % Basophils % Nucleated RBC % Platelet Comment Large platelets Sodium 140 Potassium 3.6 Chloride 102 Carbon Dioxide 31 Anion Gap 7 L BUN 21.5 H Creatinine 1.8 H Est GFR (CKD-EPI)AfAm 49.40 Est GFR (CKD-EPI)NonAf 42.63 Random Glucose 92 Calcium 9.2 Total Bilirubin 0.3 AST 19 ALT 17 Alkaline Phosphatase 68 Total Protein 7.6 Albumin 3.5 RPR Titer Nonreactive 10/01/19 10/02/19 07:40 07:50 WBC 5.2 RBC 4.45 Hgb 14.5 Hct 43.0 MCV 96.7 H MCH 32.7 MCHC 33.9 RDW 15.1 Plt Count 159 MPV 9.8 Absolute Neuts (auto) 3.4 Neutrophils % 66.1 D Lymphocytes % 21.7 D Monocytes % 6.4 Eosinophils % 5.0 H Basophils % 0.8 Nucleated RBC % 0 Platelet Comment Sodium 141 Potassium 3.9 Chloride 107 Carbon Dioxide 28 Anion Gap 6 L BUN 21.4 H Creatinine 1.3 Est GFR (CKD-EPI)AfAm 73.22 Est GFR (CKD-EPI)NonAf 63.18 Random Glucose 100 Calcium 9.0 Total Bilirubin 0.5 AST 16 ALT 16 Alkaline Phosphatase 63 Total Protein 7.1 Albumin 3.2 L RPR Titer labs noted creatinine level improved aaox3 ambulating no acute distress Assessment: 10/02/19 12:20 mild withdrawals Plan: continue detox continue with oral hydration d/c in am
--- NOTE | 2019-10-02 13:56 | PN ---
[facility] Progress Note Note: pt states he is feeling better and wants to go home. pt is not showing any withdrawals. d/c today
--- NOTE | 2019-10-02 14:09 | DS ---
[facility] Detox Discharge Summary Admission Date: 09/28/19 Discharge Date: 10/02/19 - History Present History: Alcohol Dependence, Cocaine Dependence - Physical Exam Results Vital Signs: Vital Signs Temperature 98.2 F 10/02/19 09:15 Pulse Rate 93 H 10/02/19 09:15 Respiratory Rate 16 10/02/19 09:15 Blood Pressure 141/89 10/02/19 09:15 O2 Sat by Pulse Oximetry (%) Pertinent Admission Physical Exam Findings: Vital Signs Temperature 98.2 F 10/02/19 09:15 Pulse Rate 93 H 10/02/19 09:15 Respiratory Rate 16 10/02/19 09:15 Blood Pressure 141/89 10/02/19 09:15 O2 Sat by Pulse Oximetry (%) Laboratory Tests 09/28/19 09/28/19 09/28/19 15:15 15:15 15:15 WBC 6.0 RBC 4.47 Hgb 14.6 Hct 43.5 MCV 97.3 H MCH 32.6 MCHC 33.5 RDW 14.7 Plt Count 153 MPV 10.3 Absolute Neuts (auto) Neutrophils % Lymphocytes % Monocytes % Eosinophils % Basophils % Nucleated RBC % Platelet Comment Large platelets Sodium 140 Potassium 3.6 Chloride 102 Carbon Dioxide 31 Anion Gap 7 L BUN 21.5 H Creatinine 1.8 H Est GFR (CKD-EPI)AfAm 49.40 Est GFR (CKD-EPI)NonAf 42.63 Random Glucose 92 Calcium 9.2 Total Bilirubin 0.3 AST 19 ALT 17 Alkaline Phosphatase 68 Total Protein 7.6 Albumin 3.5 RPR Titer Nonreactive 10/01/19 10/02/19 07:40 07:50 WBC 5.2 RBC 4.45 Hgb 14.5 Hct 43.0 MCV 96.7 H MCH 32.7 MCHC 33.9 RDW 15.1 Plt Count 159 MPV 9.8 Absolute Neuts (auto) 3.4 Neutrophils % 66.1 D Lymphocytes % 21.7 D Monocytes % 6.4 Eosinophils % 5.0 H Basophils % 0.8 Nucleated RBC % 0 Platelet Comment Sodium 141 Potassium 3.9 Chloride 107 Carbon Dioxide 28 Anion Gap 6 L BUN 21.4 H Creatinine 1.3 Est GFR (CKD-EPI)AfAm 73.22 Est GFR (CKD-EPI)NonAf 63.18 Random Glucose 100 Calcium 9.0 Total Bilirubin 0.5 AST 16 ALT 16 Alkaline Phosphatase 63 Total Protein 7.1 Albumin 3.2 L RPR Titer aaox3 ambulating no acute distress lungs CTA - Treatment Hospital Course: Detox Protocol Followed, Detoxed Safely, Responded well, Discharged Condition Good, Rehab Referral Accepted - Medication Discharge Medications: Ambulatory Orders Levothyroxine [Synthroid -] 25 mcg PO DAILY #14 tablet 11/22/18 Metoprolol Succinate [Toprol XL -] 50 mg PO DAILY 14 Days #14 tab.sr.24h 11/22/18 Nifedipine [Adalat cc] 60 mg PO DAILY 14 Days #14 tablet.er 11/22/18 Aspirin Coated [Ecotrin -] 81 mg PO DAILY 06/09/19 Atorvastatin Ca [Lipitor] 20 mg PO HS 06/09/19 Benztropine Mesylate [Cogentin -] 1 mg PO BID 06/09/19 Chlorthalidone 25 mg PO DAILY 09/28/19 Omeprazole 20 mg PO DAILY 09/28/19 - Diagnosis (1) Alcohol dependence with uncomplicated withdrawal Current Visit: Yes Status: Chronic (2) Essential hypertension Current Visit: Yes Status: Acute (3) Nicotine dependence Current Visit: Yes Status: Chronic Qualifiers: Nicotine product type: cigarettes Substance use status: uncomplicated Qualified Code(s): F17.210 - Nicotine dependence, cigarettes, uncomplicated (4) Substance-induced sleep disorder Current Visit: Yes Status: Acute (5) Bipolar disorder Current Visit: Yes Status: Chronic Qualifiers: Current episode severity: unspecified (6) Cocaine dependence Current Visit: Yes Status: Chronic Qualifiers: Substance use status: uncomplicated Qualified Code(s): F14.20 - Cocaine dependence, uncomplicated (7) HIV (human immunodeficiency virus infection) Current Visit: Yes Status: Chronic Qualifiers: HIV symptom status: unspecified Qualified Code(s): B20 - Human immunodeficiency virus [HIV] disease (8) Hypercholesterolemia Current Visit: Yes Status: Chronic (9) Schizoaffective disorder Current Visit: Yes Status: Suspected (10) Elevated blood pressure reading in office with diagnosis of hypertension Current Visit: No Status: Acute (11) Alcohol dependence Current Visit: Yes Status: Chronic Qualifiers: Substance use status: uncomplicated Qualified Code(s): F10.20 - Alcohol dependence, uncomplicated (12) GERD (gastroesophageal reflux disease) Current Visit: Yes Status: Chronic Qualifiers: Esophagitis presence: esophagitis presence not specified Qualified Code(s): K21.9 - Gastro-esophageal reflux disease without esophagitis (13) History of seizure Current Visit: No Status: Chronic (14) Hypothyroidism Current Visit: No Status: Chronic (15) Substance induced mood disorder Current Visit: No Status: Suspected - AMA Did Patient Leave Against Medical Advice: No
[2019-10-02 14:50] VITALS: BP 143/99; PULSE 85
[2019-10-03] MEDS ORDERED: chlordiazePOXIDE HCL 10 MG CAPSULE PO ONE (05:00)
[2019-10-03] MEDS ORDERED: CHLORTHALIDONE 25 MG TABLET PO SCH (13:45)
== END 2019-10-02 14:36 | disposition home or self-care (01) | DRG 774 ==
LOC: YASAS 10:39 → Y6N 17:25
PROVIDERS: ADMIT Allergy & Immunology; ATTEND Allergy & Immunology
PROC: HZ2ZZZZ Detoxification Services for Substance Abuse Treatment (ICD-10-PCS; principal; 2019-09-28)
DX: F10.230 Alcohol dependence with withdrawal, uncomplicated (principal); F14.20 Cocaine dependence, uncomplicated; F17.210 Nicotine dependence, cigarettes, uncomplicated; F19.24 Other psychoactive substance dependence with psychoactive substance-induced mood disorder; F19.282 Other psychoactive substance dependence with psychoactive substance-induced sleep disorder; F25.9 Schizoaffective disorder, unspecified; F31.9 Bipolar disorder, unspecified; B20 Human immunodeficiency virus [HIV] disease; I10 Essential (primary) hypertension; E78.00 Pure hypercholesterolemia, unspecified; E03.9 Hypothyroidism, unspecified; K21.9 Gastro-esophageal reflux disease without esophagitis; Z86.69 Personal history of other diseases of the nervous system and sense organs; Z88.2 Allergy status to sulfonamides; Z88.0 Allergy status to penicillin; Z91.013 Allergy to seafood
CPT/HCPCS: 36415; 80053; 85025; 85027; 86593; 93005; 93010

== ENCOUNTER 2021-01-04 14:21 | Inpatient (IN) | payer OTHER ==
[2021-01-04 15:03] VITALS: BMI 22.9
[2021-01-04] MEDS ORDERED: MAGNESIUM CITRATE 300 ML BOTTLE PO PRN (16:49)
[2021-01-04] MEDS ORDERED: ACETAMINOPHEN 325 MG TABLET (FP) PO PRN ×2 (16:49)
[2021-01-04] MEDS ORDERED: MAG HYDROX/AL HYDROX/SIMETH 30 ML UNIT-DOSE CUP PO PRN (16:49)
[2021-01-04] MEDS ORDERED: hydrOXYzine PAMOATE 25 MG CAPSULE (FP) PO PRN (16:49)
[2021-01-04] MEDS ORDERED: IBUPROFEN 400 MG TABLET (FP) PO PRN (16:49)
[2021-01-04] MEDS ORDERED: MAGNESIUM HYDROX 2400MG/30ML ORAL SUSPENSION 30 ML CUP PO PRN (16:49)
[2021-01-04] MEDS ORDERED: NICOTINE POLACRILEX 2 MG GUM BUC PRN (16:49)
[2021-01-04] MEDS ORDERED: ONDANSETRON *ODT* 4 MG TABLET SL PRN (16:49)
[2021-01-04] MEDS ORDERED: BISMUTH SUBSALICYLATE 524 MG/30 ML PO PRN (16:49)
[2021-01-04] MEDS ORDERED: MENTHOL/PHENOL 1 EACH UD MM PRN (16:49)
[2021-01-04] MEDS ORDERED: LORazepam 1 MG TABLET PO PRN (16:49)
[2021-01-04] MEDS: CARVEDILOL 3.125 MG TABLET (FP) PO SCH (18:09)
[2021-01-04] MEDS: LORazepam 2 MG TABLET PO SCH ×2 (18:09→23:08)
[2021-01-04] MEDS: METHOCARBAMOL 500 MG TABLET PO PRN (18:10)
[2021-01-04] MEDS ORDERED: MIRTAZAPINE 15 MG TABLET (FP) ONE (21:13)
[2021-01-04] MEDS: MELATONIN 5 MG TABLETS PO SCH (23:08)
[2021-01-04] MEDS: THIAMINE HCL 100 MG TABLET (FP) PO SCH (23:08)
[2021-01-04] MEDS: MIRTAZAPINE 30 MG TABLET PO SCH (23:08)
[2021-01-04] MEDS: ATORVASTATIN CA 40 MG TABLET (FP) PO SCH (23:08)
[2021-01-05] MEDS: CARVEDILOL 3.125 MG TABLET (FP) PO SCH ×2 (05:53→17:24)
[2021-01-05] MEDS: LORazepam 2 MG TABLET PO SCH ×4 (05:55→22:37)
[2021-01-05] MEDS: LEVOTHYROXINE NA 25 MCG TABLET (FP) PO SCH (06:04)
[2021-01-05] MEDS ORDERED: PATIENT'S OWN MEDICATION (NON-FORMULARY) (Thiamine Mononitrate [Vitamin B-1] 100 MG Tablet PO SCH (10:00)
[2021-01-05 10:02] LABS: HEMATOCRIT 40.1 % (35.4-49); HEMOGLOBIN 13.5 GM/dL (11.7-16.9); MCHC 33.7 g/dl (32.0-35.9); MEAN CELL VOLUME 94.9 fl (80-96); MEAN PLT VOLUME 10.2 fl (7.5-11.1); PLATELET COUNT 207 K/MM3 (134-434); RBC 4.22 M/mm3 (4.00-5.60); RDW 15.9 % (11.9-15.9); WHITE BLOOD COUNT 6.2 K/mm3 (4.0-10.0)
[2021-01-05 10:18] LABS: ALBUMIN 3.8 g/dl (3.4-5.0); BLOOD UREA NITROGEN 15.1 mg/dL (7-18); TOT PROT 8.4 g/dl (6.4-8.2)
[2021-01-05 10:20] LABS: BILIRUBIN,TOTAL 0.7 mg/dL (0.2-1); CALCIUM 9.1 mg/dL (8.5-10.1)
[2021-01-05 10:21] LABS: CREATININE 1.3 mg/dL (0.55-1.3)
[2021-01-05] MEDS: PRENATAL VITAMINS W/ FOLIC ACID TABLET (FP) PO SCH (11:17)
[2021-01-05] MEDS: amLODIPine BESYLATE 10 MG TABLET (FP) PO SCH (11:17)
[2021-01-05] MEDS: ASPIRIN COATED 81 MG TABLET.EC PO SCH (11:18)
[2021-01-05] MEDS: NICOTINE 14 MG/24 HOURS TOPICAL PATCH TD SCH (11:18)
[2021-01-05] MEDS: PANTOPRAZOLE 40 MG TABLET PO SCH (11:18)
[2021-01-05] MEDS: MULTIVITAMINS (DAILY MVI) TABLET (FP) PO SCH (11:22)
[2021-01-05] MEDS: CHLORTHALIDONE 25 MG TABLET PO SCH (12:10)
[2021-01-05] MEDS: EMTRICITABINE/TENOFOV ALAFENAM (DESCOVY) TABLET PO SCH (12:10)
[2021-01-05] MEDS: ATOVAQUONE 750 MG/5 ML (UNIT-DOSE PACKAGING) PO SCH (12:10)
[2021-01-05] MEDS: DOLUTEGRAVIR SODIUM 50 MG TABLET (NON-FORMULARY) PO SCH (12:11)
[2021-01-05] MEDS ORDERED: MIRTAZAPINE 15 MG TABLET (FP) ONE (20:28)
[2021-01-05] MEDS: THIAMINE HCL 100 MG TABLET (FP) PO SCH (22:37)
[2021-01-05] MEDS: ATORVASTATIN CA 40 MG TABLET (FP) PO SCH (22:37)
[2021-01-05] MEDS: MELATONIN 5 MG TABLETS PO SCH (22:38)
[2021-01-05] MEDS: MIRTAZAPINE 30 MG TABLET PO SCH (22:39)
[2021-01-06] MEDS: CARVEDILOL 3.125 MG TABLET (FP) PO SCH ×2 (07:14→17:34)
[2021-01-06] MEDS: LORazepam 1 MG TABLET PO SCH ×4 (07:14→22:19)
[2021-01-06] MEDS: LEVOTHYROXINE NA 25 MCG TABLET (FP) PO SCH (07:14)
[2021-01-06] MEDS: CHLORTHALIDONE 25 MG TABLET PO SCH (10:25)
[2021-01-06] MEDS: EMTRICITABINE/TENOFOV ALAFENAM (DESCOVY) TABLET PO SCH (10:25)
[2021-01-06] MEDS: ASPIRIN COATED 81 MG TABLET.EC PO SCH (10:25)
[2021-01-06] MEDS: NICOTINE 14 MG/24 HOURS TOPICAL PATCH TD SCH (10:25)
[2021-01-06] MEDS: PRENATAL VITAMINS W/ FOLIC ACID TABLET (FP) PO SCH (10:25)
[2021-01-06] MEDS: DOLUTEGRAVIR SODIUM 50 MG TABLET (NON-FORMULARY) PO SCH (10:25)
[2021-01-06] MEDS: amLODIPine BESYLATE 10 MG TABLET (FP) PO SCH (10:25)
[2021-01-06] MEDS: PANTOPRAZOLE 40 MG TABLET PO SCH (10:25)
[2021-01-06] MEDS: ATOVAQUONE 750 MG/5 ML (UNIT-DOSE PACKAGING) PO SCH (10:26)
[2021-01-06] MEDS: MULTIVITAMINS (DAILY MVI) TABLET (FP) PO SCH (12:59)
[2021-01-06] MEDS ORDERED: MIRTAZAPINE 15 MG TABLET (FP) ONE (20:30)
[2021-01-06] MEDS: ATORVASTATIN CA 40 MG TABLET (FP) PO SCH (22:20)
[2021-01-06] MEDS: THIAMINE HCL 100 MG TABLET (FP) PO SCH (22:20)
[2021-01-06] MEDS: MIRTAZAPINE 30 MG TABLET PO SCH (22:20)
[2021-01-06] MEDS: MELATONIN 5 MG TABLETS PO SCH (22:21)
[2021-01-07] MEDS ORDERED: LORazepam 0.5 MG TABLET PO PRN
[2021-01-07] MEDS: LEVOTHYROXINE NA 25 MCG TABLET (FP) PO SCH (06:19)
[2021-01-07] MEDS: CARVEDILOL 3.125 MG TABLET (FP) PO SCH ×2 (06:20→17:50)
[2021-01-07] MEDS: LORazepam 0.5 MG TABLET PO SCH ×4 (06:20→22:12)
[2021-01-07] MEDS: PANTOPRAZOLE 40 MG TABLET PO SCH (10:35)
[2021-01-07] MEDS: amLODIPine BESYLATE 10 MG TABLET (FP) PO SCH (10:35)
[2021-01-07] MEDS: ASPIRIN COATED 81 MG TABLET.EC PO SCH (10:35)
[2021-01-07] MEDS: NICOTINE 14 MG/24 HOURS TOPICAL PATCH TD SCH (10:36)
[2021-01-07] MEDS: ATOVAQUONE 750 MG/5 ML (UNIT-DOSE PACKAGING) PO SCH (10:36)
[2021-01-07] MEDS: PRENATAL VITAMINS W/ FOLIC ACID TABLET (FP) PO SCH (10:36)
[2021-01-07] MEDS: EMTRICITABINE/TENOFOV ALAFENAM (DESCOVY) TABLET PO SCH (10:36)
[2021-01-07] MEDS: DOLUTEGRAVIR SODIUM 50 MG TABLET (NON-FORMULARY) PO SCH (10:36)
[2021-01-07] MEDS: CHLORTHALIDONE 25 MG TABLET PO SCH (10:37)
[2021-01-07] MEDS: MULTIVITAMINS (DAILY MVI) TABLET (FP) PO SCH (10:38)
[2021-01-07] MEDS: MIRTAZAPINE 30 MG TABLET PO SCH (22:11)
[2021-01-07] MEDS: ATORVASTATIN CA 40 MG TABLET (FP) PO SCH (22:11)
[2021-01-07] MEDS: MELATONIN 5 MG TABLETS PO SCH (22:11)
[2021-01-07] MEDS: THIAMINE HCL 100 MG TABLET (FP) PO SCH (22:12)
[2021-01-08] MEDS ORDERED: LORazepam 0.5 MG TABLET PO ONE (05:00)
[2021-01-08] MEDS: CARVEDILOL 3.125 MG TABLET (FP) PO SCH ×2 (05:48→17:27)
[2021-01-08] MEDS: LEVOTHYROXINE NA 25 MCG TABLET (FP) PO SCH (06:28)
[2021-01-08] MEDS: ATOVAQUONE 750 MG/5 ML (UNIT-DOSE PACKAGING) PO SCH (09:39)
[2021-01-08] MEDS: EMTRICITABINE/TENOFOV ALAFENAM (DESCOVY) TABLET PO SCH (09:39)
[2021-01-08] MEDS: CHLORTHALIDONE 25 MG TABLET PO SCH (09:40)
[2021-01-08] MEDS: amLODIPine BESYLATE 10 MG TABLET (FP) PO SCH (09:40)
[2021-01-08] MEDS: PANTOPRAZOLE 40 MG TABLET PO SCH (09:40)
[2021-01-08] MEDS: ASPIRIN COATED 81 MG TABLET.EC PO SCH (09:40)
[2021-01-08] MEDS: DOLUTEGRAVIR SODIUM 50 MG TABLET (NON-FORMULARY) PO SCH (09:40)
[2021-01-08] MEDS: NICOTINE 14 MG/24 HOURS TOPICAL PATCH TD SCH (09:41)
[2021-01-08] MEDS: MULTIVITAMINS (DAILY MVI) TABLET (FP) PO SCH (09:41)
[2021-01-08] MEDS: PRENATAL VITAMINS W/ FOLIC ACID TABLET (FP) PO SCH (09:41)
[2021-01-08] MEDS: METHOCARBAMOL 500 MG TABLET PO PRN (17:28)
[2021-01-08] MEDS ORDERED: MIRTAZAPINE 15 MG TABLET (FP) ONE (21:26)
[2021-01-08] MEDS: MIRTAZAPINE 30 MG TABLET PO SCH (22:10)
[2021-01-08] MEDS: THIAMINE HCL 100 MG TABLET (FP) PO SCH (22:10)
[2021-01-08] MEDS: ATORVASTATIN CA 40 MG TABLET (FP) PO SCH (22:10)
[2021-01-08] MEDS: MELATONIN 5 MG TABLETS PO SCH (22:11)
[2021-01-09] MEDS: CARVEDILOL 3.125 MG TABLET (FP) PO SCH (06:55)
[2021-01-09] MEDS: LEVOTHYROXINE NA 25 MCG TABLET (FP) PO SCH (06:55)
[2021-01-09 10:10] LABS: SARS-CoV-2 NAA Not Detected (Not Detected)
[2021-01-09] MEDS: PANTOPRAZOLE 40 MG TABLET PO SCH (10:11)
[2021-01-09] MEDS: amLODIPine BESYLATE 10 MG TABLET (FP) PO SCH (10:12)
[2021-01-09] MEDS: EMTRICITABINE/TENOFOV ALAFENAM (DESCOVY) TABLET PO SCH (10:12)
[2021-01-09] MEDS: PRENATAL VITAMINS W/ FOLIC ACID TABLET (FP) PO SCH (10:12)
[2021-01-09] MEDS: DOLUTEGRAVIR SODIUM 50 MG TABLET (NON-FORMULARY) PO SCH (10:12)
[2021-01-09] MEDS: MULTIVITAMINS (DAILY MVI) TABLET (FP) PO SCH (10:12)
[2021-01-09] MEDS: NICOTINE 14 MG/24 HOURS TOPICAL PATCH TD SCH (10:12)
[2021-01-09] MEDS: ATOVAQUONE 750 MG/5 ML (UNIT-DOSE PACKAGING) PO SCH (10:12)
[2021-01-09] MEDS: ASPIRIN COATED 81 MG TABLET.EC PO SCH (10:13)
[2021-01-09] MEDS: CHLORTHALIDONE 25 MG TABLET PO SCH (10:13)
[2021-01-09 12:52] VITALS: BP 151/113; PULSE 93; TEMP 96.9
== END 2021-01-09 13:32 | disposition other institution (70) | DRG 774 ==
LOC: YASAS 14:21 → Y3N 16:52
PROVIDERS: ADMIT Allergy & Immunology; ATTEND Allergy & Immunology
PROC: HZ2ZZZZ Detoxification Services for Substance Abuse Treatment (ICD-10-PCS; principal; 2021-01-04)
DX: F10.230 Alcohol dependence with withdrawal, uncomplicated (principal); F14.20 Cocaine dependence, uncomplicated; F17.210 Nicotine dependence, cigarettes, uncomplicated; F25.9 Schizoaffective disorder, unspecified; F31.9 Bipolar disorder, unspecified; F19.282 Other psychoactive substance dependence with psychoactive substance-induced sleep disorder; F19.24 Other psychoactive substance dependence with psychoactive substance-induced mood disorder; Z21 Asymptomatic human immunodeficiency virus [HIV] infection status; I10 Essential (primary) hypertension; K21.9 Gastro-esophageal reflux disease without esophagitis; E78.00 Pure hypercholesterolemia, unspecified; E03.9 Hypothyroidism, unspecified; G47.00 Insomnia, unspecified; Z86.69 Personal history of other diseases of the nervous system and sense organs; Z86.19 Personal history of other infectious and parasitic diseases; Z88.2 Allergy status to sulfonamides; Z88.8 Allergy status to other drugs, medicaments and biological substances; Z91.013 Allergy to seafood
CPT/HCPCS: 36415; 80053; 85027; 86593; 86780; 93005; 93010; C9803; U0003; U0005

== ENCOUNTER 2021-01-09 13:58 | Inpatient (IN) | payer OTHER ==
[2021-01-09] MEDS ORDERED: hydrOXYzine PAMOATE 25 MG CAPSULE (FP) PO PRN (17:08)
[2021-01-09] MEDS ORDERED: guaiFENesin 200 MG/10 ML 10 ML UNIT-DOSE CUPS PO PRN (17:08)
[2021-01-09] MEDS ORDERED: MAGNESIUM CITRATE 300 ML BOTTLE PO PRN (17:08)
[2021-01-09] MEDS ORDERED: NICOTINE POLACRILEX 2 MG GUM BUC PRN (17:08)
[2021-01-09] MEDS ORDERED: LOPERAMIDE HCL 2 MG CAPSULE PO PRN (17:08)
[2021-01-09] MEDS ORDERED: P-EPHED 60MG/TRIPROLIDI 2.5MG TABLET PO PRN (17:08)
[2021-01-09] MEDS ORDERED: MAG HYDROX/AL HYDROX/SIMETH 30 ML UNIT-DOSE CUP PO PRN (17:08)
[2021-01-09] MEDS ORDERED: MAGNESIUM HYDROX 2400MG/30ML ORAL SUSPENSION 30 ML CUP PO PRN (17:08)
[2021-01-09] MEDS ORDERED: IBUPROFEN 400 MG TABLET (FP) PO PRN (17:08)
[2021-01-09] MEDS ORDERED: MENTHOL/PHENOL 1 EACH UD MM PRN (17:08)
[2021-01-09] MEDS: ACETAMINOPHEN 325 MG TABLET (FP) PO PRN (19:40)
[2021-01-09] MEDS: CARVEDILOL 3.125 MG TABLET (FP) PO SCH (21:39)
[2021-01-09] MEDS: THIAMINE HCL 100 MG TABLET (FP) PO SCH (21:39)
[2021-01-09] MEDS: MELATONIN 5 MG TABLETS PO SCH (21:39)
[2021-01-09] MEDS: MIRTAZAPINE 30 MG TABLET PO SCH (21:39)
[2021-01-09] MEDS: ATORVASTATIN CA 40 MG TABLET (FP) PO SCH (21:39)
[2021-01-10] MEDS ORDERED: PT OWN MED DRAWER 7, Y5N ONE ×2 (03:50→19:38)
[2021-01-10] MEDS: LEVOTHYROXINE NA 25 MCG TABLET (FP) PO SCH (06:23)
[2021-01-10 07:12] VITALS: TEMP 97.3
[2021-01-10] MEDS: amLODIPine BESYLATE 10 MG TABLET (FP) PO SCH (10:24)
[2021-01-10] MEDS: ASPIRIN COATED 81 MG TABLET.EC PO SCH (10:24)
[2021-01-10] MEDS: EMTRICITABINE/TENOFOV ALAFENAM (DESCOVY) TABLET PO SCH (10:25)
[2021-01-10] MEDS: PRENATAL VITAMINS W/ FOLIC ACID TABLET (FP) PO SCH (10:25)
[2021-01-10] MEDS: ATOVAQUONE 750 MG/5 ML (UNIT-DOSE PACKAGING) PO SCH (10:25)
[2021-01-10] MEDS: CARVEDILOL 3.125 MG TABLET (FP) PO SCH ×2 (10:25→21:29)
[2021-01-10] MEDS: CHLORTHALIDONE 25 MG TABLET PO SCH (10:25)
[2021-01-10] MEDS: DOLUTEGRAVIR SODIUM 50 MG TABLET (NON-FORMULARY) PO SCH (10:25)
[2021-01-10] MEDS: NICOTINE 21 MG/24 HOURS TOPICAL PATCH TD SCH (10:26)
[2021-01-10] MEDS: ACETAMINOPHEN 325 MG TABLET (FP) PO PRN (13:44)
[2021-01-10] MEDS ORDERED: MASKS NR ONE (20:00)
[2021-01-10] MEDS: MELATONIN 5 MG TABLETS PO SCH (21:29)
[2021-01-10] MEDS: MIRTAZAPINE 30 MG TABLET PO SCH (21:29)
[2021-01-10] MEDS: THIAMINE HCL 100 MG TABLET (FP) PO SCH (21:29)
[2021-01-10] MEDS: ATORVASTATIN CA 40 MG TABLET (FP) PO SCH (21:29)
[2021-01-11] MEDS: LEVOTHYROXINE NA 25 MCG TABLET (FP) PO SCH (06:39)
[2021-01-11] MEDS: PRENATAL VITAMINS W/ FOLIC ACID TABLET (FP) PO SCH (10:03)
[2021-01-11] MEDS: amLODIPine BESYLATE 10 MG TABLET (FP) PO SCH (10:04)
[2021-01-11] MEDS: CHLORTHALIDONE 25 MG TABLET PO SCH (10:04)
[2021-01-11] MEDS: ASPIRIN COATED 81 MG TABLET.EC PO SCH (10:04)
[2021-01-11] MEDS: EMTRICITABINE/TENOFOV ALAFENAM (DESCOVY) TABLET PO SCH (10:04)
[2021-01-11] MEDS: ATOVAQUONE 750 MG/5 ML (UNIT-DOSE PACKAGING) PO SCH (10:05)
[2021-01-11] MEDS: DOLUTEGRAVIR SODIUM 50 MG TABLET (NON-FORMULARY) PO SCH (10:05)
[2021-01-11] MEDS: NICOTINE 21 MG/24 HOURS TOPICAL PATCH TD SCH (10:05)
[2021-01-11] MEDS: CARVEDILOL 3.125 MG TABLET (FP) PO SCH (10:05)
[2021-01-11 10:19] VITALS: BP 156/105; PULSE 95
== END 2021-01-11 12:40 | disposition left against medical advice (07) | DRG 770 ==
LOC: YASAS 13:58 → Y5N 13:59
PROVIDERS: ADMIT Allergy & Immunology; ATTEND Allergy & Immunology
PROC: HZ42ZZZ Group Counseling for Substance Abuse Treatment, Cognitive-Behavioral (ICD-10-PCS; principal; 2021-01-09)
DX: F10.20 Alcohol dependence, uncomplicated (principal); F17.210 Nicotine dependence, cigarettes, uncomplicated; F19.24 Other psychoactive substance dependence with psychoactive substance-induced mood disorder; F31.9 Bipolar disorder, unspecified; Z21 Asymptomatic human immunodeficiency virus [HIV] infection status; I10 Essential (primary) hypertension; K21.9 Gastro-esophageal reflux disease without esophagitis; E03.9 Hypothyroidism, unspecified; E78.00 Pure hypercholesterolemia, unspecified; G47.00 Insomnia, unspecified; Z86.69 Personal history of other diseases of the nervous system and sense organs; R56.9 Unspecified convulsions; Z88.2 Allergy status to sulfonamides; Z91.013 Allergy to seafood

== ENCOUNTER 2021-02-22 09:24 | Inpatient (IN) | payer OTHER ==
[2021-02-22 10:25] VITALS: BMI 24.0
[2021-02-22] MEDS ORDERED: MAGNESIUM HYDROX 2400MG/30ML ORAL SUSPENSION 30 ML CUP PO PRN (10:39)
[2021-02-22] MEDS ORDERED: MAGNESIUM CITRATE 300 ML BOTTLE PO PRN (10:39)
[2021-02-22] MEDS ORDERED: diazePAM 5 MG TABLET PO PRN (10:39)
[2021-02-22] MEDS ORDERED: ACETAMINOPHEN 325 MG TABLET (FP) PO PRN ×2 (10:39)
[2021-02-22] MEDS ORDERED: ONDANSETRON *ODT* 4 MG TABLET SL PRN (10:39)
[2021-02-22] MEDS ORDERED: MENTHOL/PHENOL 1 EACH UD MM PRN (10:39)
[2021-02-22] MEDS ORDERED: IBUPROFEN 400 MG TABLET (FP) PO PRN (10:39)
[2021-02-22] MEDS ORDERED: NICOTINE 10 MG CARTRIDGE (INHALER) IH PRN (10:39)
[2021-02-22] MEDS ORDERED: METHOCARBAMOL 500 MG TABLET PO PRN (10:39)
[2021-02-22] MEDS ORDERED: BISMUTH SUBSALICYLATE 262 MG/15 ML BTL PO PRN (10:39)
[2021-02-22] MEDS ORDERED: MAG HYDROX/AL HYDROX/SIMETH 30 ML UNIT-DOSE CUP PO PRN (10:39)
[2021-02-22] MEDS: PRENATAL VITAMINS W/ FOLIC ACID TABLET (FP) PO SCH (14:25)
[2021-02-22] MEDS: NICOTINE 14 MG/24 HOURS TOPICAL PATCH TD SCH (14:25)
[2021-02-22] MEDS: hydrOXYzine PAMOATE 25 MG CAPSULE (FP) PO SCH ×3 (14:27→22:15)
[2021-02-22] MEDS: diazePAM 5 MG TABLET PO SCH ×3 (14:27→22:14)
[2021-02-22] MEDS: CARVEDILOL 3.125 MG TABLET (FP) PO SCH ×2 (14:43→22:15)
[2021-02-22 14:47] LABS: CHLORIDE 94 mmol/L (98-107); SODIUM 136 mmol/L (136-145)
[2021-02-22 14:50] LABS: CALCIUM 9.6 mg/dL (8.5-10.1); HEMATOCRIT 43.2 % (35.4-49); HEMOGLOBIN 14.9 GM/dL (11.7-16.9); MCH 32.7 pg (25.7-33.7); MCHC 34.5 g/dl (32.0-35.9); MEAN CELL VOLUME 94.7 fl (80-96); PLATELET COUNT 201 10^3/uL (134-434); RBC 4.56 M/mm3 (4.00-5.60); RDW 14.1 % (11.9-15.9); WHITE BLOOD COUNT 5.4 K/mm3 (4.0-10.0)
[2021-02-22 14:51] LABS: ALBUMIN 3.6 g/dl (3.4-5.0); BLOOD UREA NITROGEN 15.1 mg/dL (7-18); CO2 34 mmol/L (21-32); GLUCOSE,RANDOM 127 mg/dL (74-106)
[2021-02-22 14:54] LABS: CREATININE 1.4 mg/dL (0.55-1.3); SGOT/AST 41 U/L (15-37); SGPT/ALT 33 U/L (13-61)
[2021-02-22 14:55] LABS: BILIRUBIN,TOTAL 0.4 mg/dL (0.2-1); TOT PROT 8.3 g/dl (6.4-8.2)
[2021-02-22 14:57] LABS: ALK PHOS 81 U/L (45-117); ANION GAP 8 MMOL/L (8-16)
[2021-02-22] MEDS ORDERED: POTASSIUM CHLORIDE TABS 20 MEQ TABLET.ER (FP) PO ONE (15:11)
[2021-02-22] MEDS ORDERED: CALCIUM 250MG/VIT-D 125 UNITS 1 COMBO TABLET PO SCH (17:30)
[2021-02-22] MEDS: MIRTAZAPINE 30 MG TABLET PO SCH (22:14)
[2021-02-22] MEDS: ATORVASTATIN CA 80 MG TABLET (FP) PO SCH (22:14)
[2021-02-22] MEDS: MELATONIN 5 MG TABLETS PO SCH (22:15)
[2021-02-22] MEDS: BENZTROPINE MESYLATE 1 MG TABLET PO SCH (22:15)
[2021-02-22] MEDS: THIAMINE HCL 100 MG TABLET (FP) PO SCH (22:46)
[2021-02-23] MEDS: diazePAM 5 MG TABLET PO SCH ×4 (06:19→22:21)
[2021-02-23] MEDS: hydrOXYzine PAMOATE 25 MG CAPSULE (FP) PO SCH ×5 (06:19→22:30)
[2021-02-23] MEDS: LEVOTHYROXINE NA 25 MCG TABLET (FP) PO SCH (06:19)
[2021-02-23] MEDS: amLODIPine BESYLATE 10 MG TABLET (FP) PO SCH (08:59)
[2021-02-23] MEDS: ASPIRIN COATED 81 MG TABLET.EC PO SCH (08:59)
[2021-02-23] MEDS: CARVEDILOL 3.125 MG TABLET (FP) PO SCH ×2 (10:22→22:20)
[2021-02-23] MEDS: DOLUTEGRAVIR SODIUM 50 MG TABLET (NON-FORMULARY) PO SCH (10:22)
[2021-02-23] MEDS: NICOTINE 14 MG/24 HOURS TOPICAL PATCH TD SCH (10:22)
[2021-02-23] MEDS: EMTRICITABINE/TENOFOV ALAFENAM (DESCOVY) TABLET PO SCH (10:22)
[2021-02-23] MEDS: CHLORTHALIDONE 25 MG TABLET PO SCH (10:22)
[2021-02-23] MEDS: BENZTROPINE MESYLATE 1 MG TABLET PO SCH ×2 (10:22→22:21)
[2021-02-23] MEDS: PRENATAL VITAMINS W/ FOLIC ACID TABLET (FP) PO SCH (10:23)
[2021-02-23] MEDS: PANTOPRAZOLE 40 MG TABLET PO SCH (10:23)
[2021-02-23] MEDS: THIAMINE HCL 100 MG TABLET (FP) PO SCH (22:20)
[2021-02-23] MEDS: ATORVASTATIN CA 80 MG TABLET (FP) PO SCH (22:20)
[2021-02-23] MEDS: MIRTAZAPINE 30 MG TABLET PO SCH (22:23)
[2021-02-23] MEDS: MELATONIN 5 MG TABLETS PO SCH (22:30)
[2021-02-24] MEDS: diazePAM 5 MG TABLET PO SCH ×2 (05:31→13:01)
[2021-02-24] MEDS: hydrOXYzine PAMOATE 25 MG CAPSULE (FP) PO SCH ×3 (05:31→14:04)
[2021-02-24] MEDS: LEVOTHYROXINE NA 25 MCG TABLET (FP) PO SCH (06:03)
[2021-02-24] MEDS: ASPIRIN COATED 81 MG TABLET.EC PO SCH (10:16)
[2021-02-24] MEDS: CHLORTHALIDONE 25 MG TABLET PO SCH (10:16)
[2021-02-24] MEDS: PANTOPRAZOLE 40 MG TABLET PO SCH (10:16)
[2021-02-24] MEDS: BENZTROPINE MESYLATE 1 MG TABLET PO SCH (10:16)
[2021-02-24] MEDS: CARVEDILOL 3.125 MG TABLET (FP) PO SCH (10:16)
[2021-02-24] MEDS: amLODIPine BESYLATE 10 MG TABLET (FP) PO SCH (10:16)
[2021-02-24] MEDS: EMTRICITABINE/TENOFOV ALAFENAM (DESCOVY) TABLET PO SCH (10:16)
[2021-02-24] MEDS: DOLUTEGRAVIR SODIUM 50 MG TABLET (NON-FORMULARY) PO SCH (10:16)
[2021-02-24] MEDS: PRENATAL VITAMINS W/ FOLIC ACID TABLET (FP) PO SCH (10:16)
[2021-02-24] MEDS: NICOTINE 14 MG/24 HOURS TOPICAL PATCH TD SCH (10:17)
[2021-02-24] MEDS ORDERED: POTASSIUM CHLORIDE ORAL LIQUID 20 MEQ/15 ML PO ONE ×2 (14:00→18:00)
[2021-02-24 15:31] VITALS: BP 139/92; PULSE 99; TEMP 98.2
[2021-02-25] MEDS ORDERED: diazePAM 5 MG TABLET PO SCH (06:00)
[2021-02-26] MEDS ORDERED: diazePAM 5 MG TABLET PO ONE (06:00)
== END 2021-02-24 15:30 | disposition left against medical advice (07) | DRG 770 ==
LOC: YASAS 09:24 → Y6N 13:36
PROVIDERS: ADMIT Allergy & Immunology; ATTEND Allergy & Immunology
PROC: HZ2ZZZZ Detoxification Services for Substance Abuse Treatment (ICD-10-PCS; principal; 2021-02-22)
DX: F10.230 Alcohol dependence with withdrawal, uncomplicated (principal); F14.20 Cocaine dependence, uncomplicated; F17.210 Nicotine dependence, cigarettes, uncomplicated; F34.1 Dysthymic disorder; F25.9 Schizoaffective disorder, unspecified; I10 Essential (primary) hypertension; Z21 Asymptomatic human immunodeficiency virus [HIV] infection status; E03.9 Hypothyroidism, unspecified; E78.5 Hyperlipidemia, unspecified; E87.6 Hypokalemia; K21.9 Gastro-esophageal reflux disease without esophagitis; Z91.013 Allergy to seafood; Z88.2 Allergy status to sulfonamides; Z88.1 Allergy status to other antibiotic agents; Z86.69 Personal history of other diseases of the nervous system and sense organs; Z87.438 Personal history of other diseases of male genital organs; Z56.0 Unemployment, unspecified
CPT/HCPCS: 36415; 80053; 84132; 85027; 86593; 86780; C9803; U0003; U0005

== ENCOUNTER 2021-06-28 17:46 | Inpatient (IN) | payer OTHER ==
[2021-06-28] MEDS ORDERED: hydrOXYzine PAMOATE 25 MG CAPSULE (FP) PO PRN (18:30)
[2021-06-28] MEDS ORDERED: MAGNESIUM HYDROX 2400MG/30ML ORAL SUSPENSION 30 ML CUP PO PRN (18:30)
[2021-06-28] MEDS ORDERED: P-EPHED 60MG/TRIPROLIDI 2.5MG TABLET PO PRN (18:30)
[2021-06-28] MEDS ORDERED: MAGNESIUM CITRATE 300 ML BOTTLE PO PRN (18:30)
[2021-06-28] MEDS ORDERED: guaiFENesin 200 MG/10 ML 10 ML UNIT-DOSE CUPS PO PRN (18:30)
[2021-06-28] MEDS ORDERED: LOPERAMIDE HCL 2 MG CAPSULE PO PRN (18:30)
[2021-06-28 18:31] VITALS: BMI 24.3
[2021-06-28] MEDS ORDERED: cloNIDine HCL 0.1 MG TABLET PO ONE (18:41)
[2021-06-28] MEDS ORDERED: CARVEDILOL 3.125 MG TABLET (FP) PO SCH (18:45)
[2021-06-28] MEDS ORDERED: amLODIPine BESYLATE 5 MG TABLET (FP) ONE (19:14)
[2021-06-28] MEDS: amLODIPine BESYLATE 10 MG TABLET (FP) PO SCH (19:26)
[2021-06-28] MEDS ORDERED: MELATONIN 5 MG TABLETS PO SCH (22:00)
[2021-06-28] MEDS ORDERED: CARVEDILOL 3.125 MG TABLET (FP) PO ONE (22:54)
[2021-06-28] MEDS: THIAMINE HCL 100 MG TABLET (FP) PO SCH (23:33)
[2021-06-28] MEDS: ATORVASTATIN CA 40 MG TABLET (FP) PO SCH (23:51)
[2021-06-29] MEDS: CARVEDILOL 3.125 MG TABLET (FP) PO SCH ×2 (08:04→21:05)
[2021-06-29] MEDS: LEVOTHYROXINE NA 25 MCG TABLET (FP) PO SCH (08:04)
[2021-06-29] MEDS: amLODIPine BESYLATE 10 MG TABLET (FP) PO SCH (10:19)
[2021-06-29] MEDS: PRENATAL VITAMINS W/ FOLIC ACID TABLET (FP) PO SCH (10:20)
[2021-06-29] MEDS: ASPIRIN COATED 81 MG TABLET.EC PO SCH (10:20)
[2021-06-29] MEDS: NICOTINE 14 MG/24 HOURS TOPICAL PATCH TD SCH (10:20)
[2021-06-29] MEDS: DOLUTEGRAVIR SODIUM 50 MG TABLET (NON-FORMULARY) PO SCH (10:53)
[2021-06-29] MEDS: EMTRICITABINE/TENOFOV ALAFENAM (DESCOVY) TABLET PO SCH (10:53)
[2021-06-29] MEDS: ATOVAQUONE 750 MG/5 ML (UNIT-DOSE PACKAGING) PO SCH (10:53)
[2021-06-29] MEDS ORDERED: FLU VACC QS2021-22(6MOS UP)/PF 60 MCG/0.5 ML SYRINGE IM ONE (13:00)
[2021-06-29] MEDS: THIAMINE HCL 100 MG TABLET (FP) PO SCH (21:04)
[2021-06-29] MEDS: ATORVASTATIN CA 40 MG TABLET (FP) PO SCH (21:05)
[2021-06-29] MEDS: OLANZapine 10 MG TABLET PO SCH (21:06)
[2021-06-29] MEDS: MIRTAZAPINE 15 MG TABLET (FP) PO SCH (21:07)
[2021-06-29] MEDS: BENZTROPINE MESYLATE 1 MG TABLET PO SCH (21:07)
[2021-06-30] MEDS: CARVEDILOL 3.125 MG TABLET (FP) PO SCH ×2 (07:39→22:10)
[2021-06-30] MEDS: LEVOTHYROXINE NA 25 MCG TABLET (FP) PO SCH (07:40)
[2021-06-30] MEDS: PRENATAL VITAMINS W/ FOLIC ACID TABLET (FP) PO SCH (09:30)
[2021-06-30] MEDS: amLODIPine BESYLATE 10 MG TABLET (FP) PO SCH (09:30)
[2021-06-30] MEDS: ASPIRIN COATED 81 MG TABLET.EC PO SCH (09:31)
[2021-06-30] MEDS: ATOVAQUONE 750 MG/5 ML (UNIT-DOSE PACKAGING) PO SCH (09:31)
[2021-06-30] MEDS: BENZTROPINE MESYLATE 1 MG TABLET PO SCH ×2 (09:31→21:01)
[2021-06-30] MEDS: DOLUTEGRAVIR SODIUM 50 MG TABLET (NON-FORMULARY) PO SCH (09:32)
[2021-06-30] MEDS: NICOTINE 14 MG/24 HOURS TOPICAL PATCH TD SCH (09:33)
[2021-06-30] MEDS: EMTRICITABINE/TENOFOV ALAFENAM (DESCOVY) TABLET PO SCH (09:33)
[2021-06-30] MEDS: NICOTINE 10 MG CARTRIDGE (INHALER) IH PRN (09:34)
[2021-06-30 12:30] LABS: EPI CELLS 12 /uL (0-25.1); HYALINE CASTS 1 /uL (0-3.1); PH,URINE 7.5 (5.0-8.0); URINE APPEARANCE TURBID; URINE BACTERIA 11 /uL (0-1359); URINE BILIRUBIN NEGATIVE (NEGATIVE); URINE COLOR DK YELLOW; URINE GLUCOSE (UA) NEGATIVE (NEGATIVE); URINE KETONE TRACE (NEGATIVE); URINE LEUK ESTERASE TRACE (NEGATIVE); URINE NITRITE NEGATIVE (NEGATIVE); URINE PROTEIN TRACE (NEGATIVE); URINE RBC 14 /uL (0-23.9); URINE WBC 26 /uL (0-25.8)
[2021-06-30] MEDS: MIRTAZAPINE 15 MG TABLET (FP) PO SCH (21:01)
[2021-06-30] MEDS: ATORVASTATIN CA 40 MG TABLET (FP) PO SCH (21:02)
[2021-06-30] MEDS: THIAMINE HCL 100 MG TABLET (FP) PO SCH (21:02)
[2021-06-30] MEDS: OLANZapine 10 MG TABLET PO SCH (21:02)
[2021-07-01] MEDS ORDERED: PT OWN MED DRAWER 7, Y5N ONE ×2 (06:37→09:33)
[2021-07-01] MEDS: LEVOTHYROXINE NA 25 MCG TABLET (FP) PO SCH (06:40)
[2021-07-01] MEDS: CARVEDILOL 3.125 MG TABLET (FP) PO SCH ×2 (07:41→22:58)
[2021-07-01] MEDS: PRENATAL VITAMINS W/ FOLIC ACID TABLET (FP) PO SCH (09:31)
[2021-07-01] MEDS: BENZTROPINE MESYLATE 1 MG TABLET PO SCH ×2 (09:31→21:18)
[2021-07-01] MEDS: ASPIRIN COATED 81 MG TABLET.EC PO SCH (09:31)
[2021-07-01] MEDS: amLODIPine BESYLATE 10 MG TABLET (FP) PO SCH (09:31)
[2021-07-01] MEDS: DOLUTEGRAVIR SODIUM 50 MG TABLET (NON-FORMULARY) PO SCH (09:33)
[2021-07-01] MEDS: ATOVAQUONE 750 MG/5 ML (UNIT-DOSE PACKAGING) PO SCH (09:33)
[2021-07-01] MEDS: EMTRICITABINE/TENOFOV ALAFENAM (DESCOVY) TABLET PO SCH (09:34)
[2021-07-01] MEDS: NICOTINE 14 MG/24 HOURS TOPICAL PATCH TD SCH (09:34)
[2021-07-01 16:08] LABS: SARS-CoV-2 NAA Not Detected (Not Detected)
[2021-07-01] MEDS: MAG HYDROX/AL HYDROX/SIMETH 30 ML UNIT-DOSE CUP PO PRN (17:56)
[2021-07-01] MEDS: OLANZapine 10 MG TABLET PO SCH (21:17)
[2021-07-01] MEDS: ATORVASTATIN CA 40 MG TABLET (FP) PO SCH (21:18)
[2021-07-01] MEDS: THIAMINE HCL 100 MG TABLET (FP) PO SCH (21:18)
[2021-07-01] MEDS: MIRTAZAPINE 15 MG TABLET (FP) PO SCH (21:18)
[2021-07-02] MEDS: CARVEDILOL 3.125 MG TABLET (FP) PO SCH ×2 (07:19→20:39)
[2021-07-02] MEDS: LEVOTHYROXINE NA 25 MCG TABLET (FP) PO SCH (07:19)
[2021-07-02] MEDS: ASPIRIN COATED 81 MG TABLET.EC PO SCH (10:56)
[2021-07-02] MEDS: PRENATAL VITAMINS W/ FOLIC ACID TABLET (FP) PO SCH (10:56)
[2021-07-02] MEDS: amLODIPine BESYLATE 10 MG TABLET (FP) PO SCH (10:56)
[2021-07-02] MEDS: NICOTINE 14 MG/24 HOURS TOPICAL PATCH TD SCH (10:56)
[2021-07-02] MEDS: BENZTROPINE MESYLATE 1 MG TABLET PO SCH ×2 (10:56→21:15)
[2021-07-02] MEDS: DOLUTEGRAVIR SODIUM 50 MG TABLET (NON-FORMULARY) PO SCH (10:56)
[2021-07-02] MEDS: EMTRICITABINE/TENOFOV ALAFENAM (DESCOVY) TABLET PO SCH (10:56)
[2021-07-02] MEDS: ATOVAQUONE 750 MG/5 ML (UNIT-DOSE PACKAGING) PO SCH (10:57)
[2021-07-02] MEDS: NICOTINE 10 MG CARTRIDGE (INHALER) IH PRN (20:42)
[2021-07-02] MEDS: THIAMINE HCL 100 MG TABLET (FP) PO SCH (21:15)
[2021-07-02] MEDS: OLANZapine 10 MG TABLET PO SCH (21:15)
[2021-07-02] MEDS: ATORVASTATIN CA 40 MG TABLET (FP) PO SCH (21:15)
[2021-07-02] MEDS: MIRTAZAPINE 15 MG TABLET (FP) PO SCH (21:15)
[2021-07-03] MEDS ORDERED: PT OWN MED DRAWER 7, Y5N ONE ×2 (03:01→06:47)
[2021-07-03] MEDS: LEVOTHYROXINE NA 25 MCG TABLET (FP) PO SCH (06:45)
[2021-07-03] MEDS: EMTRICITABINE/TENOFOV ALAFENAM (DESCOVY) TABLET PO SCH (06:46)
[2021-07-03] MEDS: DOLUTEGRAVIR SODIUM 50 MG TABLET (NON-FORMULARY) PO SCH (06:47)
[2021-07-03] MEDS: CARVEDILOL 3.125 MG TABLET (FP) PO SCH ×2 (07:13→19:49)
[2021-07-03] MEDS: BENZTROPINE MESYLATE 1 MG TABLET PO SCH ×2 (09:37→21:13)
[2021-07-03] MEDS: PRENATAL VITAMINS W/ FOLIC ACID TABLET (FP) PO SCH (09:37)
[2021-07-03] MEDS: ASPIRIN COATED 81 MG TABLET.EC PO SCH (09:37)
[2021-07-03] MEDS: NICOTINE 14 MG/24 HOURS TOPICAL PATCH TD SCH (09:37)
[2021-07-03] MEDS: amLODIPine BESYLATE 10 MG TABLET (FP) PO SCH (09:37)
[2021-07-03] MEDS: ATOVAQUONE 750 MG/5 ML (UNIT-DOSE PACKAGING) PO SCH (09:38)
[2021-07-03 10:40] LABS: BASO % 1.5 % (0-2.0); EOS % 11.2 % (0-4.5); HEMOGLOBIN 13.5 GM/dL (11.7-16.9); LYMPH % 32.9 % (8-40); MCH 31.6 pg (25.7-33.7); MEAN CELL VOLUME 95.6 fl (80-96); MEAN PLT VOLUME 9.9 fl (7.5-11.1); MONO % 9.7 % (3.8-10.2); NEUT % 44.7 % (42.8-82.8); PLATELET COUNT 169 10^3/uL (134-434); RBC 4.29 M/mm3 (4.00-5.60); RDW 15.2 % (11.9-15.9); WHITE BLOOD COUNT 3.7 K/mm3 (4.0-10.0)
[2021-07-03 11:15] LABS: CALCIUM 8.8 mg/dL (8.5-10.1)
[2021-07-03 11:16] LABS: BLOOD UREA NITROGEN 17.5 mg/dL (7-18)
[2021-07-03 11:17] LABS: CREATININE 1.2 mg/dL (0.55-1.3)
[2021-07-03 11:18] LABS: BILIRUBIN,TOTAL 0.2 mg/dL (0.2-1); TOT PROT 7.4 g/dl (6.4-8.2)
[2021-07-03] MEDS: MAG HYDROX/AL HYDROX/SIMETH 30 ML UNIT-DOSE CUP PO PRN (19:51)
[2021-07-03] MEDS: MIRTAZAPINE 15 MG TABLET (FP) PO SCH (21:12)
[2021-07-03] MEDS: ATORVASTATIN CA 40 MG TABLET (FP) PO SCH (21:12)
[2021-07-03] MEDS: THIAMINE HCL 100 MG TABLET (FP) PO SCH (21:13)
[2021-07-03] MEDS: OLANZapine 10 MG TABLET PO SCH (21:14)
[2021-07-03] MEDS: NICOTINE 10 MG CARTRIDGE (INHALER) IH PRN (22:55)
[2021-07-04] MEDS: CARVEDILOL 3.125 MG TABLET (FP) PO SCH ×2 (07:23→21:11)
[2021-07-04] MEDS: LEVOTHYROXINE NA 25 MCG TABLET (FP) PO SCH (07:23)
[2021-07-04] MEDS: DOLUTEGRAVIR SODIUM 50 MG TABLET (NON-FORMULARY) PO SCH (07:25)
[2021-07-04] MEDS: EMTRICITABINE/TENOFOV ALAFENAM (DESCOVY) TABLET PO SCH (07:25)
[2021-07-04] MEDS: ATOVAQUONE 750 MG/5 ML (UNIT-DOSE PACKAGING) PO SCH (07:29)
[2021-07-04] MEDS: BENZTROPINE MESYLATE 1 MG TABLET PO SCH ×2 (09:43→21:11)
[2021-07-04] MEDS: PRENATAL VITAMINS W/ FOLIC ACID TABLET (FP) PO SCH (09:43)
[2021-07-04] MEDS: ASPIRIN COATED 81 MG TABLET.EC PO SCH (09:43)
[2021-07-04] MEDS: amLODIPine BESYLATE 10 MG TABLET (FP) PO SCH (09:43)
[2021-07-04] MEDS: NICOTINE 14 MG/24 HOURS TOPICAL PATCH TD SCH (09:44)
[2021-07-04] MEDS: ATORVASTATIN CA 40 MG TABLET (FP) PO SCH (21:11)
[2021-07-04] MEDS: OLANZapine 10 MG TABLET PO SCH (21:11)
[2021-07-04] MEDS: MIRTAZAPINE 15 MG TABLET (FP) PO SCH (21:11)
[2021-07-04] MEDS: THIAMINE HCL 100 MG TABLET (FP) PO SCH (21:11)
[2021-07-05] MEDS: LEVOTHYROXINE NA 25 MCG TABLET (FP) PO SCH (06:58)
[2021-07-05] MEDS: DOLUTEGRAVIR SODIUM 50 MG TABLET (NON-FORMULARY) PO SCH (06:59)
[2021-07-05] MEDS: EMTRICITABINE/TENOFOV ALAFENAM (DESCOVY) TABLET PO SCH (06:59)
[2021-07-05] MEDS: CARVEDILOL 3.125 MG TABLET (FP) PO SCH ×2 (07:01→21:19)
[2021-07-05] MEDS: ATOVAQUONE 750 MG/5 ML (UNIT-DOSE PACKAGING) PO SCH (07:01)
[2021-07-05] MEDS: amLODIPine BESYLATE 10 MG TABLET (FP) PO SCH (10:01)
[2021-07-05] MEDS: PRENATAL VITAMINS W/ FOLIC ACID TABLET (FP) PO SCH (10:01)
[2021-07-05] MEDS: BENZTROPINE MESYLATE 1 MG TABLET PO SCH ×2 (10:01→21:18)
[2021-07-05] MEDS: ASPIRIN COATED 81 MG TABLET.EC PO SCH (10:01)
[2021-07-05] MEDS: NICOTINE 14 MG/24 HOURS TOPICAL PATCH TD SCH (10:02)
[2021-07-05] MEDS: NICOTINE 10 MG CARTRIDGE (INHALER) IH PRN (10:02)
[2021-07-05] MEDS: OLANZapine 10 MG TABLET PO SCH (21:18)
[2021-07-05] MEDS: MIRTAZAPINE 15 MG TABLET (FP) PO SCH (21:18)
[2021-07-05] MEDS: ATORVASTATIN CA 40 MG TABLET (FP) PO SCH (21:19)
[2021-07-05] MEDS: THIAMINE HCL 100 MG TABLET (FP) PO SCH (21:19)
[2021-07-06] MEDS: CARVEDILOL 3.125 MG TABLET (FP) PO SCH ×2 (08:10→19:54)
[2021-07-06] MEDS: ATOVAQUONE 750 MG/5 ML (UNIT-DOSE PACKAGING) PO SCH (08:10)
[2021-07-06] MEDS: EMTRICITABINE/TENOFOV ALAFENAM (DESCOVY) TABLET PO SCH (08:10)
[2021-07-06] MEDS: LEVOTHYROXINE NA 25 MCG TABLET (FP) PO SCH (08:10)
[2021-07-06] MEDS: DOLUTEGRAVIR SODIUM 50 MG TABLET (NON-FORMULARY) PO SCH (08:10)
[2021-07-06] MEDS ORDERED: PT OWN MED DRAWER 7, Y5N ONE ×3 (08:45→20:21)
[2021-07-06] MEDS: MAG HYDROX/AL HYDROX/SIMETH 30 ML UNIT-DOSE CUP PO PRN ×2 (09:14→21:03)
[2021-07-06] MEDS: NICOTINE 14 MG/24 HOURS TOPICAL PATCH TD SCH (10:04)
[2021-07-06] MEDS: amLODIPine BESYLATE 10 MG TABLET (FP) PO SCH (10:06)
[2021-07-06] MEDS: BENZTROPINE MESYLATE 1 MG TABLET PO SCH ×2 (10:06→21:01)
[2021-07-06] MEDS: ASPIRIN COATED 81 MG TABLET.EC PO SCH (10:06)
[2021-07-06] MEDS: PRENATAL VITAMINS W/ FOLIC ACID TABLET (FP) PO SCH (10:06)
[2021-07-06] MEDS: ACETAMINOPHEN 325 MG TABLET (FP) PO PRN (19:54)
[2021-07-06] MEDS: THIAMINE HCL 100 MG TABLET (FP) PO SCH (21:01)
[2021-07-06] MEDS: OLANZapine 10 MG TABLET PO SCH (21:01)
[2021-07-06] MEDS: ATORVASTATIN CA 40 MG TABLET (FP) PO SCH (21:02)
[2021-07-06] MEDS: MIRTAZAPINE 15 MG TABLET (FP) PO SCH (21:02)
[2021-07-06] MEDS: FAMOTIDINE 20 MG TABLET PO SCH (23:22)
[2021-07-07] MEDS: LEVOTHYROXINE NA 25 MCG TABLET (FP) PO SCH (08:11)
[2021-07-07] MEDS: CARVEDILOL 3.125 MG TABLET (FP) PO SCH ×2 (08:11→21:18)
[2021-07-07] MEDS: DOLUTEGRAVIR SODIUM 50 MG TABLET (NON-FORMULARY) PO SCH (08:17)
[2021-07-07] MEDS: EMTRICITABINE/TENOFOV ALAFENAM (DESCOVY) TABLET PO SCH (08:17)
[2021-07-07] MEDS: PRENATAL VITAMINS W/ FOLIC ACID TABLET (FP) PO SCH (09:42)
[2021-07-07] MEDS: amLODIPine BESYLATE 10 MG TABLET (FP) PO SCH (09:42)
[2021-07-07] MEDS: FAMOTIDINE 20 MG TABLET PO SCH (09:42)
[2021-07-07] MEDS: ASPIRIN COATED 81 MG TABLET.EC PO SCH (09:42)
[2021-07-07] MEDS: BENZTROPINE MESYLATE 1 MG TABLET PO SCH ×2 (09:42→21:19)
[2021-07-07] MEDS: ATOVAQUONE 750 MG/5 ML (UNIT-DOSE PACKAGING) PO SCH (09:42)
[2021-07-07] MEDS: NICOTINE 14 MG/24 HOURS TOPICAL PATCH TD SCH (09:42)
[2021-07-07] MEDS: IBUPROFEN 400 MG TABLET (FP) PO PRN (19:15)
[2021-07-07] MEDS: OLANZapine 10 MG TABLET PO SCH (21:19)
[2021-07-07] MEDS: MIRTAZAPINE 15 MG TABLET (FP) PO SCH (21:19)
[2021-07-07] MEDS: ATORVASTATIN CA 40 MG TABLET (FP) PO SCH (21:19)
[2021-07-07] MEDS: THIAMINE HCL 100 MG TABLET (FP) PO SCH (21:19)
[2021-07-07] MEDS: MAG HYDROX/AL HYDROX/SIMETH 30 ML UNIT-DOSE CUP PO PRN (21:21)
[2021-07-08] MEDS ORDERED: PT OWN MED DRAWER 7, Y5N ONE (03:07)
[2021-07-08] MEDS: EMTRICITABINE/TENOFOV ALAFENAM (DESCOVY) TABLET PO SCH (06:46)
[2021-07-08] MEDS: LEVOTHYROXINE NA 25 MCG TABLET (FP) PO SCH (06:46)
[2021-07-08] MEDS: DOLUTEGRAVIR SODIUM 50 MG TABLET (NON-FORMULARY) PO SCH (06:46)
[2021-07-08] MEDS: NICOTINE 14 MG/24 HOURS TOPICAL PATCH TD SCH (09:50)
[2021-07-08] MEDS: FAMOTIDINE 20 MG TABLET PO SCH (09:50)
[2021-07-08] MEDS: PRENATAL VITAMINS W/ FOLIC ACID TABLET (FP) PO SCH (09:50)
[2021-07-08] MEDS: amLODIPine BESYLATE 10 MG TABLET (FP) PO SCH (09:50)
[2021-07-08] MEDS: ATOVAQUONE 750 MG/5 ML (UNIT-DOSE PACKAGING) PO SCH (09:51)
[2021-07-08] MEDS: CARVEDILOL 3.125 MG TABLET (FP) PO SCH ×2 (09:52→21:13)
[2021-07-08] MEDS: BENZTROPINE MESYLATE 1 MG TABLET PO SCH ×2 (09:52→21:13)
[2021-07-08] MEDS: ASPIRIN COATED 81 MG TABLET.EC PO SCH (09:53)
[2021-07-08] MEDS: MAG HYDROX/AL HYDROX/SIMETH 30 ML UNIT-DOSE CUP PO PRN (18:05)
[2021-07-08] MEDS: ATORVASTATIN CA 40 MG TABLET (FP) PO SCH (21:12)
[2021-07-08] MEDS: THIAMINE HCL 100 MG TABLET (FP) PO SCH (21:13)
[2021-07-08] MEDS: MIRTAZAPINE 15 MG TABLET (FP) PO SCH (21:14)
[2021-07-08] MEDS: OLANZapine 10 MG TABLET PO SCH (21:14)
[2021-07-08] MEDS: NICOTINE 10 MG CARTRIDGE (INHALER) IH PRN (21:15)
[2021-07-09] MEDS: LEVOTHYROXINE NA 25 MCG TABLET (FP) PO SCH (06:11)
[2021-07-09] MEDS: DOLUTEGRAVIR SODIUM 50 MG TABLET (NON-FORMULARY) PO SCH (06:56)
[2021-07-09] MEDS: EMTRICITABINE/TENOFOV ALAFENAM (DESCOVY) TABLET PO SCH (06:56)
[2021-07-09] MEDS: CARVEDILOL 3.125 MG TABLET (FP) PO SCH ×2 (07:25→23:33)
[2021-07-09] MEDS: ATOVAQUONE 750 MG/5 ML (UNIT-DOSE PACKAGING) PO SCH (07:26)
[2021-07-09] MEDS: PRENATAL VITAMINS W/ FOLIC ACID TABLET (FP) PO SCH (09:39)
[2021-07-09] MEDS: FAMOTIDINE 20 MG TABLET PO SCH (09:39)
[2021-07-09] MEDS: amLODIPine BESYLATE 10 MG TABLET (FP) PO SCH (09:39)
[2021-07-09] MEDS: ASPIRIN COATED 81 MG TABLET.EC PO SCH (09:39)
[2021-07-09] MEDS: BENZTROPINE MESYLATE 1 MG TABLET PO SCH ×2 (09:40→21:17)
[2021-07-09] MEDS: NICOTINE 14 MG/24 HOURS TOPICAL PATCH TD SCH (09:41)
[2021-07-09] MEDS ORDERED: PT OWN MED DRAWER 7, Y5N ONE (16:01)
[2021-07-09] MEDS: ATORVASTATIN CA 40 MG TABLET (FP) PO SCH (21:13)
[2021-07-09] MEDS: OLANZapine 10 MG TABLET PO SCH (21:13)
[2021-07-09] MEDS: MIRTAZAPINE 15 MG TABLET (FP) PO SCH (21:13)
[2021-07-09] MEDS: THIAMINE HCL 100 MG TABLET (FP) PO SCH (21:14)
[2021-07-09] MEDS: IBUPROFEN 400 MG TABLET (FP) PO PRN (21:18)
[2021-07-10] MEDS ORDERED: PT OWN MED DRAWER 7, Y5N ONE ×4 (06:45→11:07)
[2021-07-10] MEDS: EMTRICITABINE/TENOFOV ALAFENAM (DESCOVY) TABLET PO SCH (06:46)
[2021-07-10] MEDS: LEVOTHYROXINE NA 25 MCG TABLET (FP) PO SCH (06:46)
[2021-07-10] MEDS: DOLUTEGRAVIR SODIUM 50 MG TABLET (NON-FORMULARY) PO SCH (06:46)
[2021-07-10] MEDS: CARVEDILOL 3.125 MG TABLET (FP) PO SCH ×2 (08:03→20:46)
[2021-07-10] MEDS: ATOVAQUONE 750 MG/5 ML (UNIT-DOSE PACKAGING) PO SCH (08:03)
[2021-07-10] MEDS: PRENATAL VITAMINS W/ FOLIC ACID TABLET (FP) PO SCH (09:32)
[2021-07-10] MEDS: FAMOTIDINE 20 MG TABLET PO SCH (09:32)
[2021-07-10] MEDS: NICOTINE 14 MG/24 HOURS TOPICAL PATCH TD SCH (09:32)
[2021-07-10] MEDS: BENZTROPINE MESYLATE 1 MG TABLET PO SCH ×2 (09:32→21:08)
[2021-07-10] MEDS: ASPIRIN COATED 81 MG TABLET.EC PO SCH (09:32)
[2021-07-10] MEDS: amLODIPine BESYLATE 10 MG TABLET (FP) PO SCH (09:32)
[2021-07-10] MEDS: ATORVASTATIN CA 40 MG TABLET (FP) PO SCH (21:07)
[2021-07-10] MEDS: MIRTAZAPINE 15 MG TABLET (FP) PO SCH (21:07)
[2021-07-10] MEDS: OLANZapine 10 MG TABLET PO SCH (21:08)
[2021-07-10] MEDS: THIAMINE HCL 100 MG TABLET (FP) PO SCH (21:08)
[2021-07-11] MEDS ORDERED: PT OWN MED DRAWER 7, Y5N ONE ×3 (03:19→20:29)
[2021-07-11] MEDS: DOLUTEGRAVIR SODIUM 50 MG TABLET (NON-FORMULARY) PO SCH (06:50)
[2021-07-11] MEDS: LEVOTHYROXINE NA 25 MCG TABLET (FP) PO SCH (06:50)
[2021-07-11] MEDS: EMTRICITABINE/TENOFOV ALAFENAM (DESCOVY) TABLET PO SCH (06:50)
[2021-07-11] MEDS: PRENATAL VITAMINS W/ FOLIC ACID TABLET (FP) PO SCH (10:00)
[2021-07-11] MEDS: ASPIRIN COATED 81 MG TABLET.EC PO SCH (10:01)
[2021-07-11] MEDS: ATOVAQUONE 750 MG/5 ML (UNIT-DOSE PACKAGING) PO SCH (10:01)
[2021-07-11] MEDS: CARVEDILOL 3.125 MG TABLET (FP) PO SCH ×2 (10:01→21:32)
[2021-07-11] MEDS: FAMOTIDINE 20 MG TABLET PO SCH (10:02)
[2021-07-11] MEDS: NICOTINE 14 MG/24 HOURS TOPICAL PATCH TD SCH (10:02)
[2021-07-11] MEDS: amLODIPine BESYLATE 10 MG TABLET (FP) PO SCH (10:02)
[2021-07-11] MEDS: BENZTROPINE MESYLATE 1 MG TABLET PO SCH ×2 (10:02→21:32)
[2021-07-11] MEDS: THIAMINE HCL 100 MG TABLET (FP) PO SCH (21:31)
[2021-07-11] MEDS: OLANZapine 10 MG TABLET PO SCH (21:32)
[2021-07-11] MEDS: MIRTAZAPINE 15 MG TABLET (FP) PO SCH (21:32)
[2021-07-11] MEDS: ATORVASTATIN CA 40 MG TABLET (FP) PO SCH (21:32)
[2021-07-12] MEDS: LEVOTHYROXINE NA 25 MCG TABLET (FP) PO SCH (06:57)
[2021-07-12] MEDS: CARVEDILOL 3.125 MG TABLET (FP) PO SCH ×2 (07:18→21:19)
[2021-07-12] MEDS: ATOVAQUONE 750 MG/5 ML (UNIT-DOSE PACKAGING) PO SCH (07:18)
[2021-07-12] MEDS: PRENATAL VITAMINS W/ FOLIC ACID TABLET (FP) PO SCH (10:10)
[2021-07-12] MEDS: EMTRICITABINE/TENOFOV ALAFENAM (DESCOVY) TABLET PO SCH (10:11)
[2021-07-12] MEDS: DOLUTEGRAVIR SODIUM 50 MG TABLET (NON-FORMULARY) PO SCH (10:11)
[2021-07-12] MEDS: BENZTROPINE MESYLATE 1 MG TABLET PO SCH ×2 (10:12→21:19)
[2021-07-12] MEDS: FAMOTIDINE 20 MG TABLET PO SCH (10:12)
[2021-07-12] MEDS: ASPIRIN COATED 81 MG TABLET.EC PO SCH (10:12)
[2021-07-12] MEDS: NICOTINE 14 MG/24 HOURS TOPICAL PATCH TD SCH (10:12)
[2021-07-12] MEDS: amLODIPine BESYLATE 10 MG TABLET (FP) PO SCH (10:12)
[2021-07-12] MEDS: ATORVASTATIN CA 40 MG TABLET (FP) PO SCH (21:19)
[2021-07-12] MEDS: MIRTAZAPINE 15 MG TABLET (FP) PO SCH (21:19)
[2021-07-12] MEDS: OLANZapine 10 MG TABLET PO SCH (21:20)
[2021-07-12] MEDS: THIAMINE HCL 100 MG TABLET (FP) PO SCH (21:20)
[2021-07-12] MEDS: IBUPROFEN 400 MG TABLET (FP) PO PRN (21:22)
[2021-07-13] MEDS: LEVOTHYROXINE NA 25 MCG TABLET (FP) PO SCH (06:39)
[2021-07-13] MEDS: DOLUTEGRAVIR SODIUM 50 MG TABLET (NON-FORMULARY) PO SCH (06:39)
[2021-07-13] MEDS: EMTRICITABINE/TENOFOV ALAFENAM (DESCOVY) TABLET PO SCH (06:40)
[2021-07-13] MEDS: CARVEDILOL 3.125 MG TABLET (FP) PO SCH ×2 (07:41→19:36)
[2021-07-13] MEDS: ATOVAQUONE 750 MG/5 ML (UNIT-DOSE PACKAGING) PO SCH (07:41)
[2021-07-13] MEDS: amLODIPine BESYLATE 10 MG TABLET (FP) PO SCH (10:14)
[2021-07-13] MEDS: PRENATAL VITAMINS W/ FOLIC ACID TABLET (FP) PO SCH (10:14)
[2021-07-13] MEDS: BENZTROPINE MESYLATE 1 MG TABLET PO SCH ×2 (10:14→21:20)
[2021-07-13] MEDS: FAMOTIDINE 20 MG TABLET PO SCH (10:14)
[2021-07-13] MEDS: ASPIRIN COATED 81 MG TABLET.EC PO SCH (10:14)
[2021-07-13] MEDS: NICOTINE 14 MG/24 HOURS TOPICAL PATCH TD SCH (10:15)
[2021-07-13] MEDS: ACETAMINOPHEN 325 MG TABLET (FP) PO PRN (19:36)
[2021-07-13] MEDS: ATORVASTATIN CA 40 MG TABLET (FP) PO SCH (21:20)
[2021-07-13] MEDS: MIRTAZAPINE 15 MG TABLET (FP) PO SCH (21:20)
[2021-07-13] MEDS: THIAMINE HCL 100 MG TABLET (FP) PO SCH (21:20)
[2021-07-13] MEDS: OLANZapine 10 MG TABLET PO SCH (21:20)
[2021-07-14] MEDS: DOLUTEGRAVIR SODIUM 50 MG TABLET (NON-FORMULARY) PO SCH (06:43)
[2021-07-14] MEDS: EMTRICITABINE/TENOFOV ALAFENAM (DESCOVY) TABLET PO SCH (06:43)
[2021-07-14] MEDS: LEVOTHYROXINE NA 25 MCG TABLET (FP) PO SCH (07:37)
[2021-07-14] MEDS: CARVEDILOL 3.125 MG TABLET (FP) PO SCH ×2 (07:38→21:21)
[2021-07-14] MEDS: ATOVAQUONE 750 MG/5 ML (UNIT-DOSE PACKAGING) PO SCH (07:38)
[2021-07-14] MEDS: NICOTINE 10 MG CARTRIDGE (INHALER) IH PRN (07:43)
[2021-07-14] MEDS: ASPIRIN COATED 81 MG TABLET.EC PO SCH (10:14)
[2021-07-14] MEDS: FAMOTIDINE 20 MG TABLET PO SCH (10:14)
[2021-07-14] MEDS: BENZTROPINE MESYLATE 1 MG TABLET PO SCH ×2 (10:14→21:21)
[2021-07-14] MEDS: PRENATAL VITAMINS W/ FOLIC ACID TABLET (FP) PO SCH (10:14)
[2021-07-14] MEDS: NICOTINE 14 MG/24 HOURS TOPICAL PATCH TD SCH (10:14)
[2021-07-14] MEDS: amLODIPine BESYLATE 10 MG TABLET (FP) PO SCH (10:14)
[2021-07-14] MEDS: THIAMINE HCL 100 MG TABLET (FP) PO SCH (21:21)
[2021-07-14] MEDS: OLANZapine 10 MG TABLET PO SCH (21:21)
[2021-07-14] MEDS: MIRTAZAPINE 15 MG TABLET (FP) PO SCH (21:21)
[2021-07-14] MEDS: ATORVASTATIN CA 40 MG TABLET (FP) PO SCH (21:21)
[2021-07-15] MEDS: DOLUTEGRAVIR SODIUM 50 MG TABLET (NON-FORMULARY) PO SCH (06:56)
[2021-07-15] MEDS: EMTRICITABINE/TENOFOV ALAFENAM (DESCOVY) TABLET PO SCH (06:56)
[2021-07-15] MEDS: LEVOTHYROXINE NA 25 MCG TABLET (FP) PO SCH (06:56)
[2021-07-15] MEDS: CARVEDILOL 3.125 MG TABLET (FP) PO SCH ×2 (07:46→21:27)
[2021-07-15] MEDS: ATOVAQUONE 750 MG/5 ML (UNIT-DOSE PACKAGING) PO SCH (07:46)
[2021-07-15] MEDS: FAMOTIDINE 20 MG TABLET PO SCH (10:28)
[2021-07-15] MEDS: BENZTROPINE MESYLATE 1 MG TABLET PO SCH ×2 (10:28→21:28)
[2021-07-15] MEDS: PRENATAL VITAMINS W/ FOLIC ACID TABLET (FP) PO SCH (10:28)
[2021-07-15] MEDS: ASPIRIN COATED 81 MG TABLET.EC PO SCH (10:28)
[2021-07-15] MEDS: amLODIPine BESYLATE 10 MG TABLET (FP) PO SCH (10:28)
[2021-07-15] MEDS: NICOTINE 14 MG/24 HOURS TOPICAL PATCH TD SCH (10:28)
[2021-07-15] MEDS: NICOTINE 10 MG CARTRIDGE (INHALER) IH PRN (10:28)
[2021-07-15] MEDS: IBUPROFEN 400 MG TABLET (FP) PO PRN (17:34)
[2021-07-15] MEDS: MIRTAZAPINE 15 MG TABLET (FP) PO SCH (21:27)
[2021-07-15] MEDS: OLANZapine 10 MG TABLET PO SCH (21:27)
[2021-07-15] MEDS: THIAMINE HCL 100 MG TABLET (FP) PO SCH (21:28)
[2021-07-15] MEDS: ATORVASTATIN CA 40 MG TABLET (FP) PO SCH (21:28)
[2021-07-16] MEDS ORDERED: PT OWN MED DRAWER 7, Y5N ONE (06:39)
[2021-07-16] MEDS: LEVOTHYROXINE NA 25 MCG TABLET (FP) PO SCH (06:47)
[2021-07-16] MEDS: DOLUTEGRAVIR SODIUM 50 MG TABLET (NON-FORMULARY) PO SCH (06:48)
[2021-07-16] MEDS: EMTRICITABINE/TENOFOV ALAFENAM (DESCOVY) TABLET PO SCH (06:48)
[2021-07-16] MEDS: CARVEDILOL 3.125 MG TABLET (FP) PO SCH ×2 (07:48→20:59)
[2021-07-16] MEDS: ATOVAQUONE 750 MG/5 ML (UNIT-DOSE PACKAGING) PO SCH (07:48)
[2021-07-16] MEDS: MAG HYDROX/AL HYDROX/SIMETH 30 ML UNIT-DOSE CUP PO PRN ×2 (08:50→21:01)
[2021-07-16] MEDS ORDERED: ONDANSETRON *ODT* 4 MG TABLET SL PRN (09:23)
[2021-07-16] MEDS: FAMOTIDINE 20 MG TABLET PO SCH ×2 (10:28→21:00)
[2021-07-16] MEDS: amLODIPine BESYLATE 10 MG TABLET (FP) PO SCH (10:28)
[2021-07-16] MEDS: NICOTINE 14 MG/24 HOURS TOPICAL PATCH TD SCH (10:28)
[2021-07-16] MEDS: ASPIRIN COATED 81 MG TABLET.EC PO SCH (10:28)
[2021-07-16] MEDS: BENZTROPINE MESYLATE 1 MG TABLET PO SCH ×2 (10:28→21:00)
[2021-07-16] MEDS: PRENATAL VITAMINS W/ FOLIC ACID TABLET (FP) PO SCH (10:28)
[2021-07-16] MEDS: MIRTAZAPINE 15 MG TABLET (FP) PO SCH (20:59)
[2021-07-16] MEDS: OLANZapine 10 MG TABLET PO SCH (20:59)
[2021-07-16] MEDS: ATORVASTATIN CA 40 MG TABLET (FP) PO SCH (21:00)
[2021-07-16] MEDS: THIAMINE HCL 100 MG TABLET (FP) PO SCH (21:00)
[2021-07-17] MEDS ORDERED: PT OWN MED DRAWER 7, Y5N ONE (03:26)
[2021-07-17] MEDS: LEVOTHYROXINE NA 25 MCG TABLET (FP) PO SCH (06:31)
[2021-07-17] MEDS: DOLUTEGRAVIR SODIUM 50 MG TABLET (NON-FORMULARY) PO SCH (06:33)
[2021-07-17] MEDS: EMTRICITABINE/TENOFOV ALAFENAM (DESCOVY) TABLET PO SCH (06:33)
[2021-07-17] MEDS: ATOVAQUONE 750 MG/5 ML (UNIT-DOSE PACKAGING) PO SCH (08:05)
[2021-07-17] MEDS: CARVEDILOL 3.125 MG TABLET (FP) PO SCH ×2 (08:05→19:40)
[2021-07-17] MEDS: PRENATAL VITAMINS W/ FOLIC ACID TABLET (FP) PO SCH (10:23)
[2021-07-17] MEDS: ASPIRIN COATED 81 MG TABLET.EC PO SCH (10:24)
[2021-07-17] MEDS: FAMOTIDINE 20 MG TABLET PO SCH ×2 (10:24→21:40)
[2021-07-17] MEDS: BENZTROPINE MESYLATE 1 MG TABLET PO SCH ×2 (10:24→21:40)
[2021-07-17] MEDS: amLODIPine BESYLATE 10 MG TABLET (FP) PO SCH (10:24)
[2021-07-17] MEDS: NICOTINE 14 MG/24 HOURS TOPICAL PATCH TD SCH (10:24)
[2021-07-17] MEDS: IBUPROFEN 400 MG TABLET (FP) PO PRN (18:19)
[2021-07-17] MEDS ORDERED: METOPROLOL TARTRATE 25 MG TABLET (FP) PO ONE (20:43)
[2021-07-17] MEDS: THIAMINE HCL 100 MG TABLET (FP) PO SCH (21:40)
[2021-07-17] MEDS: MIRTAZAPINE 15 MG TABLET (FP) PO SCH (21:40)
[2021-07-17] MEDS: OLANZapine 10 MG TABLET PO SCH (21:40)
[2021-07-17] MEDS: ATORVASTATIN CA 40 MG TABLET (FP) PO SCH (21:40)
[2021-07-18] MEDS ORDERED: PT OWN MED DRAWER 7, Y5N ONE ×2 (03:03→09:54)
[2021-07-18] MEDS: EMTRICITABINE/TENOFOV ALAFENAM (DESCOVY) TABLET PO SCH (06:47)
[2021-07-18] MEDS: LEVOTHYROXINE NA 25 MCG TABLET (FP) PO SCH (06:47)
[2021-07-18] MEDS: DOLUTEGRAVIR SODIUM 50 MG TABLET (NON-FORMULARY) PO SCH (06:47)
[2021-07-18 07:20] VITALS: TEMP 97
[2021-07-18] MEDS: ATOVAQUONE 750 MG/5 ML (UNIT-DOSE PACKAGING) PO SCH (08:06)
[2021-07-18] MEDS: CARVEDILOL 3.125 MG TABLET (FP) PO SCH (08:06)
[2021-07-18] MEDS: FAMOTIDINE 20 MG TABLET PO SCH (10:00)
[2021-07-18] MEDS: amLODIPine BESYLATE 10 MG TABLET (FP) PO SCH (10:00)
[2021-07-18] MEDS: ASPIRIN COATED 81 MG TABLET.EC PO SCH (10:00)
[2021-07-18] MEDS: BENZTROPINE MESYLATE 1 MG TABLET PO SCH (10:00)
[2021-07-18] MEDS: NICOTINE 14 MG/24 HOURS TOPICAL PATCH TD SCH (10:01)
[2021-07-18] MEDS: PRENATAL VITAMINS W/ FOLIC ACID TABLET (FP) PO SCH (10:01)
[2021-07-18 11:46] VITALS: BP 153/110; PULSE 90
== END 2021-07-18 10:05 | disposition home or self-care (01) | DRG 772 ==
LOC: YASAS 17:46 → Y5N 22:05
PROVIDERS: ADMIT Allergy & Immunology; ATTEND Allergy & Immunology
PROC: HZ42ZZZ Group Counseling for Substance Abuse Treatment, Cognitive-Behavioral (ICD-10-PCS; principal; 2021-06-28)
DX: F14.20 Cocaine dependence, uncomplicated (principal); F10.10 Alcohol abuse, uncomplicated; F12.10 Cannabis abuse, uncomplicated; F17.210 Nicotine dependence, cigarettes, uncomplicated; F31.9 Bipolar disorder, unspecified; F19.24 Other psychoactive substance dependence with psychoactive substance-induced mood disorder; I10 Essential (primary) hypertension; E78.5 Hyperlipidemia, unspecified; K21.9 Gastro-esophageal reflux disease without esophagitis; Z21 Asymptomatic human immunodeficiency virus [HIV] infection status; E03.9 Hypothyroidism, unspecified; R00.0 Tachycardia, unspecified; Z88.8 Allergy status to other drugs, medicaments and biological substances; Z88.1 Allergy status to other antibiotic agents; Z88.2 Allergy status to sulfonamides; Z91.013 Allergy to seafood; Z86.69 Personal history of other diseases of the nervous system and sense organs; Z91.51 Personal history of suicidal behavior; Z56.0 Unemployment, unspecified
CPT/HCPCS: 36415; 80053; 81003; 85025; 87811; 90686; C9803; G0008; J0735; U0003; U0005

== ENCOUNTER 2022-02-13 14:44 | Inpatient (IN) | payer OTHER ==
[2022-02-13 16:03] VITALS: BMI 27.1
[2022-02-13] MEDS ORDERED: amLODIPine BESYLATE 10 MG TABLET (FP) PO SCH (17:30)
[2022-02-13] MEDS ORDERED: MAGNESIUM CITRATE 300 ML BOTTLE PO PRN (17:31)
[2022-02-13] MEDS ORDERED: NICOTINE POLACRILEX 2 MG GUM BC PRN (17:31)
[2022-02-13] MEDS ORDERED: IBUPROFEN 400 MG TABLET (FP) PO PRN (17:31)
[2022-02-13] MEDS ORDERED: NICOTINE 10 MG CARTRIDGE (INHALER) IH PRN (17:31)
[2022-02-13] MEDS ORDERED: P-EPHED 60MG/TRIPROLIDI 2.5MG TABLET PO PRN (17:31)
[2022-02-13] MEDS ORDERED: ACETAMINOPHEN 325 MG TABLET (FP) PO PRN (17:31)
[2022-02-13] MEDS ORDERED: guaiFENesin 200 MG/10 ML 10 ML UNIT-DOSE CUPS PO PRN (17:31)
[2022-02-13] MEDS ORDERED: MAGNESIUM HYDROX 2400MG/30ML ORAL SUSPENSION 30 ML CUP PO PRN (17:31)
[2022-02-13] MEDS ORDERED: LOPERAMIDE HCL 2 MG CAPSULE PO PRN (17:31)
[2022-02-13] MEDS ORDERED: MAG HYDROX/AL HYDROX/SIMETH 30 ML UNIT-DOSE CUP PO PRN (17:31)
[2022-02-13] MEDS ORDERED: ATORVASTATIN CA 40 MG TABLET (FP) PO SCH (22:00)
[2022-02-13] MEDS: hydrOXYzine PAMOATE 25 MG CAPSULE (FP) PO PRN (23:24)
[2022-02-13] MEDS: THIAMINE HCL 100 MG TABLET (FP) PO SCH (23:24)
[2022-02-13] MEDS: MELATONIN 5 MG TABLETS PO SCH (23:26)
[2022-02-13] MEDS: EMTRICITABINE/TENOFOV ALAFENAM (DESCOVY) TABLET PO SCH (23:27)
[2022-02-13] MEDS: NIFEdipine E.R 60 MG TABLET PO SCH (23:27)
[2022-02-13] MEDS: ASPIRIN COATED 81 MG TABLET.EC PO SCH (23:27)
[2022-02-13] MEDS: ATOVAQUONE 750 MG/5 ML (UNIT-DOSE PACKAGING) PO SCH (23:27)
[2022-02-13] MEDS: DOLUTEGRAVIR SODIUM 50 MG TABLET (NON-FORMULARY) PO SCH (23:28)
[2022-02-14] MEDS: LEVOTHYROXINE NA 25 MCG TABLET (FP) PO SCH (06:47)
[2022-02-14] MEDS: PANTOPRAZOLE 40 MG TABLET PO SCH (10:22)
[2022-02-14] MEDS: ASPIRIN COATED 81 MG TABLET.EC PO SCH (10:23)
[2022-02-14] MEDS: NIFEdipine E.R 60 MG TABLET PO SCH (10:24)
[2022-02-14] MEDS: PRENATAL VITAMINS W/ FOLIC ACID TABLET (FP) PO SCH (10:26)
[2022-02-14] MEDS: ATOVAQUONE 750 MG/5 ML (UNIT-DOSE PACKAGING) PO SCH (10:29)
[2022-02-14] MEDS: EMTRICITABINE/TENOFOV ALAFENAM (DESCOVY) TABLET PO SCH (12:13)
[2022-02-14] MEDS: DOLUTEGRAVIR SODIUM 50 MG TABLET (NON-FORMULARY) PO SCH (12:13)
[2022-02-14] MEDS ORDERED: TUBERCULIN PPD 5 TU/0.1ML VIAL ID ONE (12:14)
[2022-02-14 12:28] LABS: HEMATOCRIT 40.7 % (35.4-49); HEMOGLOBIN 13.6 GM/dL (11.7-16.9); MCH 30.1 pg (25.7-33.7); MCHC 33.5 g/dl (32.0-35.9); MEAN CELL VOLUME 89.8 fl (80-96); MEAN PLT VOLUME 10.1 fl (7.5-11.1); PLATELET COUNT 180 10^3/uL (134-434); RBC 4.53 M/mm3 (4.00-5.60); RDW 14.9 % (11.9-15.9); WHITE BLOOD COUNT 4.7 K/mm3 (4.0-10.0)
[2022-02-14 12:41] LABS: BLOOD UREA NITROGEN 29.5 mg/dL (7-18)
[2022-02-14 12:42] LABS: ALBUMIN 3.3 g/dl (3.4-5.0)
[2022-02-14 12:45] LABS: CREATININE 1.2 mg/dL (0.55-1.3)
[2022-02-14 12:47] LABS: BILIRUBIN,TOTAL 0.3 mg/dL (0.2-1); TOT PROT 7.4 g/dl (6.4-8.2)
[2022-02-14 13:08] LABS: CALCIUM 8.5 mg/dL (8.5-10.1)
[2022-02-14 15:30] LABS: PH,URINE 5.5 (5.0-8.0); URINE APPEARANCE CLEAR; URINE BILIRUBIN NEGATIVE (NEGATIVE); URINE COLOR YELLOW; URINE GLUCOSE (UA) NEGATIVE (NEGATIVE); URINE KETONE NEGATIVE (NEGATIVE); URINE LEUK ESTERASE NEGATIVE (NEGATIVE); URINE NITRITE NEGATIVE (NEGATIVE); URINE PROTEIN TRACE (NEGATIVE); URINE UROBILINOGEN 0.2 mg/dL (0.2-1.0)
[2022-02-14] MEDS: ATORVASTATIN CA 80 MG TABLET (FP) PO SCH (21:06)
[2022-02-14] MEDS: THIAMINE HCL 100 MG TABLET (FP) PO SCH (21:06)
[2022-02-14] MEDS: MELATONIN 5 MG TABLETS PO SCH (21:09)
[2022-02-14] MEDS: MIRTAZAPINE 15 MG TABLET (FP) PO SCH (21:09)
[2022-02-14] MEDS: OLANZapine 7.5 MG TABLET PO SCH (21:10)
[2022-02-15] MEDS: LEVOTHYROXINE NA 25 MCG TABLET (FP) PO SCH (06:30)
[2022-02-15 06:46] VITALS: RESP 18
[2022-02-15] MEDS: PANTOPRAZOLE 40 MG TABLET PO SCH (10:00)
[2022-02-15] MEDS: PRENATAL VITAMINS W/ FOLIC ACID TABLET (FP) PO SCH (10:00)
[2022-02-15] MEDS: ASPIRIN COATED 81 MG TABLET.EC PO SCH (10:00)
[2022-02-15] MEDS: ATOVAQUONE 750 MG/5 ML (UNIT-DOSE PACKAGING) PO SCH (10:00)
[2022-02-15] MEDS: DOLUTEGRAVIR SODIUM 50 MG TABLET (NON-FORMULARY) PO SCH (10:01)
[2022-02-15] MEDS: EMTRICITABINE/TENOFOV ALAFENAM (DESCOVY) TABLET PO SCH (10:01)
[2022-02-15] MEDS: NIFEdipine E.R 60 MG TABLET PO SCH (10:01)
[2022-02-15] MEDS: ATORVASTATIN CA 80 MG TABLET (FP) PO SCH (21:14)
[2022-02-15] MEDS: MELATONIN 5 MG TABLETS PO SCH (21:14)
[2022-02-15] MEDS: MIRTAZAPINE 15 MG TABLET (FP) PO SCH (21:14)
[2022-02-15] MEDS: THIAMINE HCL 100 MG TABLET (FP) PO SCH (21:14)
[2022-02-15] MEDS: OLANZapine 7.5 MG TABLET PO SCH (21:30)
[2022-02-16] MEDS: OLANZAPINE 10 MG, OLANZAPINE 5 MG PO SCH ×2 (00:55→21:10)
[2022-02-16] MEDS: LEVOTHYROXINE NA 25 MCG TABLET (FP) PO SCH (06:37)
[2022-02-16] MEDS: ASPIRIN COATED 81 MG TABLET.EC PO SCH (09:46)
[2022-02-16] MEDS: PRENATAL VITAMINS W/ FOLIC ACID TABLET (FP) PO SCH (09:47)
[2022-02-16] MEDS: ATOVAQUONE 750 MG/5 ML (UNIT-DOSE PACKAGING) PO SCH (09:47)
[2022-02-16] MEDS: EMTRICITABINE/TENOFOV ALAFENAM (DESCOVY) TABLET PO SCH (09:47)
[2022-02-16] MEDS: PANTOPRAZOLE 40 MG TABLET PO SCH (09:48)
[2022-02-16] MEDS: NIFEdipine E.R 60 MG TABLET PO SCH (09:48)
[2022-02-16] MEDS: DOLUTEGRAVIR SODIUM 50 MG TABLET (NON-FORMULARY) PO SCH (09:48)
[2022-02-16] MEDS: hydrOXYzine PAMOATE 25 MG CAPSULE (FP) PO PRN (19:40)
[2022-02-16] MEDS ORDERED: OLANZapine 5 MG TABLET ONE (20:31)
[2022-02-16] MEDS ORDERED: OLANZapine 10 MG TABLET ONE (20:31)
[2022-02-16] MEDS: MELATONIN 5 MG TABLETS PO SCH (21:09)
[2022-02-16] MEDS: MIRTAZAPINE 15 MG TABLET (FP) PO SCH (21:09)
[2022-02-16] MEDS: THIAMINE HCL 100 MG TABLET (FP) PO SCH (21:10)
[2022-02-16] MEDS: ATORVASTATIN CA 80 MG TABLET (FP) PO SCH (21:10)
[2022-02-17] MEDS: LEVOTHYROXINE NA 25 MCG TABLET (FP) PO SCH (06:41)
[2022-02-17] MEDS: ATOVAQUONE 750 MG/5 ML (UNIT-DOSE PACKAGING) PO SCH (09:51)
[2022-02-17] MEDS: EMTRICITABINE/TENOFOV ALAFENAM (DESCOVY) TABLET PO SCH (09:52)
[2022-02-17] MEDS: ASPIRIN COATED 81 MG TABLET.EC PO SCH (09:53)
[2022-02-17] MEDS: PANTOPRAZOLE 40 MG TABLET PO SCH (09:53)
[2022-02-17] MEDS: DOLUTEGRAVIR SODIUM 50 MG TABLET (NON-FORMULARY) PO SCH (09:54)
[2022-02-17] MEDS: NIFEdipine E.R 60 MG TABLET PO SCH (09:54)
[2022-02-17] MEDS: PRENATAL VITAMINS W/ FOLIC ACID TABLET (FP) PO SCH (09:55)
[2022-02-17] MEDS ORDERED: OLANZapine 10 MG TABLET ONE (19:31)
[2022-02-17] MEDS ORDERED: OLANZapine 5 MG TABLET ONE (19:31)
[2022-02-17] MEDS: ATORVASTATIN CA 80 MG TABLET (FP) PO SCH (21:41)
[2022-02-17] MEDS: OLANZAPINE 10 MG, OLANZAPINE 5 MG PO SCH (21:41)
[2022-02-17] MEDS: MELATONIN 5 MG TABLETS PO SCH (21:42)
[2022-02-17] MEDS: MIRTAZAPINE 15 MG TABLET (FP) PO SCH (21:42)
[2022-02-17] MEDS: THIAMINE HCL 100 MG TABLET (FP) PO SCH (21:42)
[2022-02-18] MEDS: LEVOTHYROXINE NA 25 MCG TABLET (FP) PO SCH (06:23)
[2022-02-18 06:40] VITALS: TEMP 98.5
[2022-02-18] MEDS: PRENATAL VITAMINS W/ FOLIC ACID TABLET (FP) PO SCH (09:27)
[2022-02-18] MEDS: EMTRICITABINE/TENOFOV ALAFENAM (DESCOVY) TABLET PO SCH (09:27)
[2022-02-18] MEDS: ATOVAQUONE 750 MG/5 ML (UNIT-DOSE PACKAGING) PO SCH (09:27)
[2022-02-18] MEDS: NIFEdipine E.R 60 MG TABLET PO SCH (09:27)
[2022-02-18] MEDS: ASPIRIN COATED 81 MG TABLET.EC PO SCH (09:27)
[2022-02-18] MEDS: PANTOPRAZOLE 40 MG TABLET PO SCH (09:28)
[2022-02-18] MEDS: DOLUTEGRAVIR SODIUM 50 MG TABLET (NON-FORMULARY) PO SCH (09:28)
[2022-02-18 10:02] VITALS: BP 135/91; PULSE 91
== END 2022-02-18 09:04 | disposition home or self-care (01) | DRG 772 ==
LOC: YASAS 14:44 → Y3E 22:34
PROVIDERS: ADMIT Allergy & Immunology; ATTEND Surgery
PROC: HZ42ZZZ Group Counseling for Substance Abuse Treatment, Cognitive-Behavioral (ICD-10-PCS; principal; 2022-02-13)
DX: F14.20 Cocaine dependence, uncomplicated (principal); F10.10 Alcohol abuse, uncomplicated; F17.210 Nicotine dependence, cigarettes, uncomplicated; Z21 Asymptomatic human immunodeficiency virus [HIV] infection status; E78.5 Hyperlipidemia, unspecified; I10 Essential (primary) hypertension; K21.9 Gastro-esophageal reflux disease without esophagitis; E03.9 Hypothyroidism, unspecified; Z86.19 Personal history of other infectious and parasitic diseases
CPT/HCPCS: 36415; 80053; 81003; 85027; 86593; 86780; C9803-CS; U0003; U0005

== ENCOUNTER 2022-06-01 10:19 | Inpatient (IN) | payer OTHER ==
[2022-06-01 11:07] VITALS: BMI 26.6
[2022-06-01] MEDS ORDERED: chlordiazePOXIDE HCL 25 MG CAPSULE PO PRN (13:48)
[2022-06-01] MEDS ORDERED: NALOXONE HCL (KLOXXADO) 8 MG SPRAY NS PRN (13:49)
[2022-06-01] MEDS ORDERED: IBUPROFEN 600 MG TABLET (FP) PO PRN (13:49)
[2022-06-01] MEDS ORDERED: IBUPROFEN 400 MG TABLET (FP) PO PRN (13:49)
[2022-06-01] MEDS ORDERED: BISMUTH SUBSALICYLATE 524 MG/30 ML PO PRN (13:49)
[2022-06-01] MEDS ORDERED: MAGNESIUM HYDROX 2400MG/30ML ORAL SUSPENSION 30 ML CUP PO PRN (13:49)
[2022-06-01] MEDS ORDERED: ONDANSETRON *ODT* 4 MG TABLET SL PRN (13:49)
[2022-06-01] MEDS ORDERED: NICOTINE POLACRILEX 2 MG GUM BUC PRN (13:49)
[2022-06-01] MEDS ORDERED: MAGNESIUM CITRATE 300 ML BOTTLE PO PRN (13:49)
[2022-06-01] MEDS ORDERED: hydrOXYzine PAMOATE 25 MG CAPSULE (FP) PO PRN (13:49)
[2022-06-01] MEDS ORDERED: MAG HYDROX/AL HYDROX/SIMETH 30 ML UNIT-DOSE CUP PO PRN (13:49)
[2022-06-01] MEDS ORDERED: ACETAMINOPHEN 325 MG TABLET (FP) PO PRN ×2 (13:49)
[2022-06-01] MEDS ORDERED: NICOTINE 10 MG CARTRIDGE (INHALER) IH PRN (13:49)
[2022-06-01] MEDS ORDERED: BENZOCAINE/MENTHOL (CHLORASEPTIC ) LOZENGE MM PRN (13:49)
[2022-06-01] MEDS ORDERED: DICYCLOMINE HCL 10 MG CAPSULE PO PRN (13:49)
[2022-06-01] MEDS ORDERED: amLODIPine BESYLATE 5 MG TABLET (FP) ONE (14:01)
[2022-06-01] MEDS: amLODIPine BESYLATE 10 MG TABLET (FP) PO SCH (14:06)
[2022-06-01] MEDS ORDERED: cloNIDine HCL 0.1 MG TABLET PO ONE (15:51)
[2022-06-01] MEDS: chlordiazePOXIDE HCL 25 MG CAPSULE PO SCH ×2 (17:57→22:03)
[2022-06-01] MEDS: CARVEDILOL 3.125 MG TABLET (FP) PO SCH (22:02)
[2022-06-01] MEDS: cloNIDine HCL 0.1 MG TABLET PO SCH (22:02)
[2022-06-01] MEDS: ATORVASTATIN CA 40 MG TABLET (FP) PO SCH (22:02)
[2022-06-01] MEDS: MELATONIN 5 MG TABLETS PO SCH (22:02)
[2022-06-01] MEDS: METHOCARBAMOL 500 MG TABLET PO PRN (22:02)
[2022-06-01] MEDS: THIAMINE HCL 100 MG TABLET (FP) PO SCH (22:03)
[2022-06-02] MEDS: LEVOTHYROXINE NA 25 MCG TABLET (FP) PO SCH (05:42)
[2022-06-02] MEDS: chlordiazePOXIDE HCL 25 MG CAPSULE PO SCH ×4 (05:43→22:33)
[2022-06-02] MEDS ORDERED: LEVOTHYROXINE NA 25 MCG TABLET (FP) PO SCH (10:00)
[2022-06-02] MEDS: amLODIPine BESYLATE 10 MG TABLET (FP) PO SCH (10:10)
[2022-06-02] MEDS: ASPIRIN COATED 81 MG TABLET.EC PO SCH (10:10)
[2022-06-02] MEDS: PRENATAL VITAMINS W/ FOLIC ACID TABLET (FP) PO SCH (10:10)
[2022-06-02] MEDS: cloNIDine HCL 0.1 MG TABLET PO SCH ×2 (10:10→22:33)
[2022-06-02] MEDS: CARVEDILOL 3.125 MG TABLET (FP) PO SCH ×2 (10:10→22:32)
[2022-06-02] MEDS: NICOTINE 21 MG/24 HOURS TOPICAL PATCH TD SCH (10:11)
[2022-06-02 13:09] LABS: HEMATOCRIT 43.1 % (35.4-49); HEMOGLOBIN 14.1 GM/dL (11.7-16.9); MCH 29.3 pg (25.7-33.7); MCHC 32.6 g/dl (32.0-35.9); MEAN CELL VOLUME 89.8 fl (80-96); MEAN PLT VOLUME 10.8 fl (7.5-11.1); PLATELET COUNT 149 10^3/uL (134-434); RDW 15.4 % (11.9-15.9); WHITE BLOOD COUNT 2.9 K/mm3 (4.0-10.0)
[2022-06-02 14:02] LABS: BLOOD UREA NITROGEN 17.4 mg/dL (7-18); CALCIUM 8.4 mg/dL (8.5-10.1)
[2022-06-02 14:04] LABS: CREATININE 1.2 mg/dL (0.55-1.3)
[2022-06-02 14:05] LABS: BILIRUBIN,TOTAL 0.4 mg/dL (0.2-1); TOT PROT 6.9 g/dl (6.4-8.2)
[2022-06-02] MEDS ORDERED: MIRTAZAPINE 30 MG TABLET PO SCH (22:00)
[2022-06-02] MEDS: MELATONIN 5 MG TABLETS PO SCH (22:30)
[2022-06-02] MEDS: THIAMINE HCL 100 MG TABLET (FP) PO SCH (22:30)
[2022-06-02] MEDS: OLANZapine 5 MG TABLET PO SCH (22:30)
[2022-06-02] MEDS: ATORVASTATIN CA 40 MG TABLET (FP) PO SCH (22:31)
[2022-06-02] MEDS: MIRTAZAPINE 15 MG TABLET (FP) PO SCH (22:31)
[2022-06-03] MEDS: chlordiazePOXIDE HCL 25 MG CAPSULE PO SCH ×4 (06:12→22:19)
[2022-06-03] MEDS: LEVOTHYROXINE NA 25 MCG TABLET (FP) PO SCH (06:12)
[2022-06-03] MEDS: NICOTINE 21 MG/24 HOURS TOPICAL PATCH TD SCH (10:52)
[2022-06-03] MEDS: PRENATAL VITAMINS W/ FOLIC ACID TABLET (FP) PO SCH (10:52)
[2022-06-03] MEDS: cloNIDine HCL 0.1 MG TABLET PO SCH ×2 (10:52→22:18)
[2022-06-03] MEDS: amLODIPine BESYLATE 10 MG TABLET (FP) PO SCH (10:52)
[2022-06-03] MEDS: ASPIRIN COATED 81 MG TABLET.EC PO SCH (10:52)
[2022-06-03] MEDS: CARVEDILOL 3.125 MG TABLET (FP) PO SCH ×2 (10:56→22:18)
[2022-06-03] MEDS: LOPERAMIDE HCL 2 MG CAPSULE PO PRN (16:02)
[2022-06-03] MEDS: MELATONIN 5 MG TABLETS PO SCH (22:17)
[2022-06-03] MEDS: OLANZapine 5 MG TABLET PO SCH (22:17)
[2022-06-03] MEDS: MIRTAZAPINE 15 MG TABLET (FP) PO SCH (22:18)
[2022-06-03] MEDS: ATORVASTATIN CA 40 MG TABLET (FP) PO SCH (22:18)
[2022-06-03] MEDS: THIAMINE HCL 100 MG TABLET (FP) PO SCH (22:18)
[2022-06-04] MEDS ORDERED: chlordiazePOXIDE HCL 10 MG CAPSULE PO PRN
[2022-06-04] MEDS: chlordiazePOXIDE HCL 10 MG CAPSULE PO SCH ×4 (05:38→22:52)
[2022-06-04] MEDS: LEVOTHYROXINE NA 25 MCG TABLET (FP) PO SCH (05:38)
[2022-06-04] MEDS: PRENATAL VITAMINS W/ FOLIC ACID TABLET (FP) PO SCH (11:02)
[2022-06-04] MEDS: CARVEDILOL 3.125 MG TABLET (FP) PO SCH ×2 (11:03→22:53)
[2022-06-04] MEDS: NICOTINE 21 MG/24 HOURS TOPICAL PATCH TD SCH (11:03)
[2022-06-04] MEDS: cloNIDine HCL 0.1 MG TABLET PO SCH ×2 (11:03→22:57)
[2022-06-04] MEDS: ASPIRIN COATED 81 MG TABLET.EC PO SCH (11:03)
[2022-06-04] MEDS: amLODIPine BESYLATE 10 MG TABLET (FP) PO SCH (11:03)
[2022-06-04] MEDS: LOPERAMIDE HCL 2 MG CAPSULE PO PRN (21:15)
[2022-06-04] MEDS: THIAMINE HCL 100 MG TABLET (FP) PO SCH (22:52)
[2022-06-04] MEDS: MELATONIN 5 MG TABLETS PO SCH (22:52)
[2022-06-04] MEDS: ATORVASTATIN CA 40 MG TABLET (FP) PO SCH (22:52)
[2022-06-04] MEDS: MIRTAZAPINE 15 MG TABLET (FP) PO SCH (22:52)
[2022-06-04] MEDS: OLANZapine 5 MG TABLET PO SCH (22:53)
[2022-06-05] MEDS: chlordiazePOXIDE HCL 10 MG CAPSULE PO SCH ×2 (07:10→17:52)
[2022-06-05] MEDS: LEVOTHYROXINE NA 25 MCG TABLET (FP) PO SCH (07:10)
[2022-06-05] MEDS: PRENATAL VITAMINS W/ FOLIC ACID TABLET (FP) PO SCH (10:51)
[2022-06-05] MEDS: amLODIPine BESYLATE 10 MG TABLET (FP) PO SCH (10:51)
[2022-06-05] MEDS: CARVEDILOL 3.125 MG TABLET (FP) PO SCH ×2 (10:51→22:03)
[2022-06-05] MEDS: cloNIDine HCL 0.1 MG TABLET PO SCH ×2 (10:51→22:03)
[2022-06-05] MEDS: NICOTINE 21 MG/24 HOURS TOPICAL PATCH TD SCH (10:51)
[2022-06-05] MEDS: ASPIRIN COATED 81 MG TABLET.EC PO SCH (10:51)
[2022-06-05] MEDS: METHOCARBAMOL 500 MG TABLET PO PRN (17:53)
[2022-06-05] MEDS: MELATONIN 5 MG TABLETS PO SCH (22:03)
[2022-06-05] MEDS: OLANZapine 5 MG TABLET PO SCH (22:03)
[2022-06-05] MEDS: ATORVASTATIN CA 40 MG TABLET (FP) PO SCH (22:03)
[2022-06-05] MEDS: MIRTAZAPINE 15 MG TABLET (FP) PO SCH (22:03)
[2022-06-05] MEDS: THIAMINE HCL 100 MG TABLET (FP) PO SCH (22:03)
[2022-06-06] MEDS ORDERED: chlordiazePOXIDE HCL 10 MG CAPSULE PO ONE (05:00)
[2022-06-06] MEDS: LEVOTHYROXINE NA 25 MCG TABLET (FP) PO SCH (05:39)
[2022-06-06 09:07] VITALS: RESP 16
[2022-06-06] MEDS: CARVEDILOL 3.125 MG TABLET (FP) PO SCH (10:31)
[2022-06-06] MEDS: ASPIRIN COATED 81 MG TABLET.EC PO SCH (10:31)
[2022-06-06] MEDS: amLODIPine BESYLATE 10 MG TABLET (FP) PO SCH (10:31)
[2022-06-06] MEDS: PRENATAL VITAMINS W/ FOLIC ACID TABLET (FP) PO SCH (10:32)
[2022-06-06] MEDS: cloNIDine HCL 0.1 MG TABLET PO SCH (10:32)
[2022-06-06] MEDS: NICOTINE 21 MG/24 HOURS TOPICAL PATCH TD SCH (10:33)
[2022-06-06 12:45] VITALS: BP 99/85; PULSE 95; TEMP 98.2
== END 2022-06-06 02:10 | disposition other institution (70) | DRG 774 ==
LOC: YASAS 10:19 → Y3N 14:25
PROVIDERS: ADMIT Allergy & Immunology; ATTEND Surgery
PROC: HZ2ZZZZ Detoxification Services for Substance Abuse Treatment (ICD-10-PCS; principal; 2022-06-01)
DX: F10.230 Alcohol dependence with withdrawal, uncomplicated (principal); F14.20 Cocaine dependence, uncomplicated; F12.20 Cannabis dependence, uncomplicated; F17.210 Nicotine dependence, cigarettes, uncomplicated; F31.9 Bipolar disorder, unspecified; Z21 Asymptomatic human immunodeficiency virus [HIV] infection status; E03.9 Hypothyroidism, unspecified; E78.5 Hyperlipidemia, unspecified; I10 Essential (primary) hypertension; K21.9 Gastro-esophageal reflux disease without esophagitis; Z86.19 Personal history of other infectious and parasitic diseases; Z88.2 Allergy status to sulfonamides; Z88.8 Allergy status to other drugs, medicaments and biological substances; Z91.013 Allergy to seafood
CPT/HCPCS: 36415; 80053; 85027; 86593; 86780; 87811; C9803-CS; U0003; U0005

== ENCOUNTER 2022-06-06 14:16 | Inpatient (IN) | payer OTHER ==
[2022-06-06] MEDS ORDERED: MAGNESIUM HYDROX 2400MG/30ML ORAL SUSPENSION 30 ML CUP PO PRN (14:49)
[2022-06-06] MEDS ORDERED: IBUPROFEN 400 MG TABLET (FP) PO PRN (14:49)
[2022-06-06] MEDS ORDERED: BENZOCAINE/MENTHOL (CHLORASEPTIC ) LOZENGE MM PRN (14:49)
[2022-06-06] MEDS ORDERED: hydrOXYzine PAMOATE 25 MG CAPSULE (FP) PO PRN (14:49)
[2022-06-06] MEDS ORDERED: P-EPHED 60MG/TRIPROLIDI 2.5MG TABLET PO PRN (14:49)
[2022-06-06] MEDS ORDERED: guaiFENesin 200 MG/10 ML 10 ML UNIT-DOSE CUPS PO PRN (14:49)
[2022-06-06] MEDS ORDERED: MAGNESIUM CITRATE 300 ML BOTTLE PO PRN (14:49)
[2022-06-06] MEDS ORDERED: NICOTINE 10 MG CARTRIDGE (INHALER) IH PRN (14:54)
[2022-06-06] MEDS: MELATONIN 5 MG TABLETS PO SCH (21:28)
[2022-06-06] MEDS: ATORVASTATIN CA 40 MG TABLET (FP) PO SCH (21:28)
[2022-06-06] MEDS: OLANZapine 7.5 MG TABLET PO SCH (21:28)
[2022-06-06] MEDS: MIRTAZAPINE 15 MG TABLET (FP) PO SCH (21:28)
[2022-06-06] MEDS: THIAMINE HCL 100 MG TABLET (FP) PO SCH (21:28)
[2022-06-06] MEDS: CARVEDILOL 3.125 MG TABLET (FP) PO SCH (21:28)
[2022-06-07] MEDS: LEVOTHYROXINE NA 25 MCG TABLET (FP) PO SCH (06:40)
[2022-06-07] MEDS: LOPERAMIDE HCL 2 MG CAPSULE PO PRN (06:40)
[2022-06-07] MEDS: PRENATAL VITAMINS W/ FOLIC ACID TABLET (FP) PO SCH (09:49)
[2022-06-07] MEDS: CARVEDILOL 3.125 MG TABLET (FP) PO SCH ×2 (09:49→21:24)
[2022-06-07] MEDS: metoPROLOL SUCCINATE 25 MG TAB.SR.24H (FP) PO SCH (09:49)
[2022-06-07] MEDS: ASPIRIN COATED 81 MG TABLET.EC PO SCH (09:49)
[2022-06-07] MEDS: NICOTINE 21 MG/24 HOURS TOPICAL PATCH TD SCH (09:49)
[2022-06-07] MEDS: MAG HYDROX/AL HYDROX/SIMETH 30 ML UNIT-DOSE CUP PO PRN (13:29)
[2022-06-07] MEDS: MIRTAZAPINE 15 MG TABLET (FP) PO SCH (21:24)
[2022-06-07] MEDS: OLANZapine 7.5 MG TABLET PO SCH (21:24)
[2022-06-07] MEDS: THIAMINE HCL 100 MG TABLET (FP) PO SCH (21:24)
[2022-06-07] MEDS: ATORVASTATIN CA 40 MG TABLET (FP) PO SCH (21:24)
[2022-06-07] MEDS: MELATONIN 5 MG TABLETS PO SCH (21:25)
[2022-06-08] MEDS: LEVOTHYROXINE NA 25 MCG TABLET (FP) PO SCH (06:51)
[2022-06-08] MEDS: PRENATAL VITAMINS W/ FOLIC ACID TABLET (FP) PO SCH (09:52)
[2022-06-08] MEDS: ASPIRIN COATED 81 MG TABLET.EC PO SCH (09:52)
[2022-06-08] MEDS: NICOTINE 21 MG/24 HOURS TOPICAL PATCH TD SCH (09:52)
[2022-06-08] MEDS: metoPROLOL SUCCINATE 25 MG TAB.SR.24H (FP) PO SCH (09:52)
[2022-06-08] MEDS: CARVEDILOL 3.125 MG TABLET (FP) PO SCH ×2 (09:53→21:17)
[2022-06-08] MEDS: ACETAMINOPHEN 325 MG TABLET (FP) PO PRN (13:18)
[2022-06-08] MEDS: MAG HYDROX/AL HYDROX/SIMETH 30 ML UNIT-DOSE CUP PO PRN (17:52)
[2022-06-08] MEDS: MELATONIN 5 MG TABLETS PO SCH (21:16)
[2022-06-08] MEDS: ATORVASTATIN CA 40 MG TABLET (FP) PO SCH (21:16)
[2022-06-08] MEDS: THIAMINE HCL 100 MG TABLET (FP) PO SCH (21:16)
[2022-06-08] MEDS: OLANZapine 7.5 MG TABLET PO SCH (21:17)
[2022-06-08] MEDS: MIRTAZAPINE 15 MG TABLET (FP) PO SCH (21:17)
[2022-06-09] MEDS: LEVOTHYROXINE NA 25 MCG TABLET (FP) PO SCH (06:44)
[2022-06-09] MEDS: PRENATAL VITAMINS W/ FOLIC ACID TABLET (FP) PO SCH (10:00)
[2022-06-09] MEDS: ASPIRIN COATED 81 MG TABLET.EC PO SCH (10:00)
[2022-06-09] MEDS: NICOTINE 21 MG/24 HOURS TOPICAL PATCH TD SCH (10:01)
[2022-06-09] MEDS: CARVEDILOL 3.125 MG TABLET (FP) PO SCH ×2 (10:01→21:27)
[2022-06-09] MEDS: metoPROLOL SUCCINATE 25 MG TAB.SR.24H (FP) PO SCH (11:31)
[2022-06-09] MEDS: MAG HYDROX/AL HYDROX/SIMETH 30 ML UNIT-DOSE CUP PO PRN (19:02)
[2022-06-09] MEDS: ATORVASTATIN CA 40 MG TABLET (FP) PO SCH (21:26)
[2022-06-09] MEDS: MIRTAZAPINE 15 MG TABLET (FP) PO SCH (21:26)
[2022-06-09] MEDS: THIAMINE HCL 100 MG TABLET (FP) PO SCH (21:26)
[2022-06-09] MEDS: OLANZapine 7.5 MG TABLET PO SCH (21:26)
[2022-06-09] MEDS: MELATONIN 5 MG TABLETS PO SCH (21:27)
[2022-06-10] MEDS: LEVOTHYROXINE NA 25 MCG TABLET (FP) PO SCH (07:04)
[2022-06-10] MEDS: ACETAMINOPHEN 325 MG TABLET (FP) PO PRN (07:05)
[2022-06-10] MEDS: ASPIRIN COATED 81 MG TABLET.EC PO SCH (09:48)
[2022-06-10] MEDS: metoPROLOL SUCCINATE 25 MG TAB.SR.24H (FP) PO SCH (09:48)
[2022-06-10] MEDS: NICOTINE 21 MG/24 HOURS TOPICAL PATCH TD SCH (09:48)
[2022-06-10] MEDS: PRENATAL VITAMINS W/ FOLIC ACID TABLET (FP) PO SCH (09:48)
[2022-06-10] MEDS: CARVEDILOL 3.125 MG TABLET (FP) PO SCH ×2 (09:49→21:31)
[2022-06-10] MEDS: MELATONIN 5 MG TABLETS PO SCH (21:30)
[2022-06-10] MEDS: ATORVASTATIN CA 40 MG TABLET (FP) PO SCH (21:31)
[2022-06-10] MEDS: THIAMINE HCL 100 MG TABLET (FP) PO SCH (21:31)
[2022-06-10] MEDS: MIRTAZAPINE 15 MG TABLET (FP) PO SCH (21:31)
[2022-06-10] MEDS: OLANZapine 7.5 MG TABLET PO SCH (21:31)
[2022-06-11] MEDS: LEVOTHYROXINE NA 25 MCG TABLET (FP) PO SCH (06:36)
[2022-06-11] MEDS: PRENATAL VITAMINS W/ FOLIC ACID TABLET (FP) PO SCH (09:52)
[2022-06-11] MEDS: NICOTINE 21 MG/24 HOURS TOPICAL PATCH TD SCH (09:52)
[2022-06-11] MEDS: CARVEDILOL 3.125 MG TABLET (FP) PO SCH ×2 (09:52→21:22)
[2022-06-11] MEDS: metoPROLOL SUCCINATE 25 MG TAB.SR.24H (FP) PO SCH (09:53)
[2022-06-11] MEDS: ASPIRIN COATED 81 MG TABLET.EC PO SCH (09:53)
[2022-06-11] MEDS: MIRTAZAPINE 15 MG TABLET (FP) PO SCH (21:22)
[2022-06-11] MEDS: MELATONIN 5 MG TABLETS PO SCH (21:22)
[2022-06-11] MEDS: ATORVASTATIN CA 40 MG TABLET (FP) PO SCH (21:22)
[2022-06-11] MEDS: OLANZapine 7.5 MG TABLET PO SCH (21:22)
[2022-06-11] MEDS: THIAMINE HCL 100 MG TABLET (FP) PO SCH (21:22)
[2022-06-12] MEDS: LEVOTHYROXINE NA 25 MCG TABLET (FP) PO SCH (06:41)
[2022-06-12] MEDS: metoPROLOL SUCCINATE 25 MG TAB.SR.24H (FP) PO SCH (09:39)
[2022-06-12] MEDS: ASPIRIN COATED 81 MG TABLET.EC PO SCH (09:39)
[2022-06-12] MEDS: NICOTINE 21 MG/24 HOURS TOPICAL PATCH TD SCH (09:39)
[2022-06-12] MEDS: PRENATAL VITAMINS W/ FOLIC ACID TABLET (FP) PO SCH (09:39)
[2022-06-12] MEDS: CARVEDILOL 3.125 MG TABLET (FP) PO SCH ×2 (09:40→21:10)
[2022-06-12] MEDS: LOPERAMIDE HCL 2 MG CAPSULE PO PRN (09:41)
[2022-06-12] MEDS: MAG HYDROX/AL HYDROX/SIMETH 30 ML UNIT-DOSE CUP PO PRN (14:52)
[2022-06-12] MEDS ORDERED: ONDANSETRON *ODT* 4 MG TABLET SL PRN (18:18)
[2022-06-12] MEDS: OLANZapine 7.5 MG TABLET PO SCH (21:09)
[2022-06-12] MEDS: ATORVASTATIN CA 40 MG TABLET (FP) PO SCH (21:09)
[2022-06-12] MEDS: MELATONIN 5 MG TABLETS PO SCH (21:10)
[2022-06-12] MEDS: THIAMINE HCL 100 MG TABLET (FP) PO SCH (21:10)
[2022-06-12] MEDS: MIRTAZAPINE 15 MG TABLET (FP) PO SCH (21:10)
[2022-06-13] MEDS: LEVOTHYROXINE NA 25 MCG TABLET (FP) PO SCH (06:34)
[2022-06-13 06:59] VITALS: BP 98/67; PULSE 84; RESP 16; TEMP 97.3
[2022-06-13] MEDS: ASPIRIN COATED 81 MG TABLET.EC PO SCH (09:34)
[2022-06-13] MEDS: NICOTINE 21 MG/24 HOURS TOPICAL PATCH TD SCH (09:34)
[2022-06-13] MEDS: PRENATAL VITAMINS W/ FOLIC ACID TABLET (FP) PO SCH (09:34)
[2022-06-13] MEDS: metoPROLOL SUCCINATE 25 MG TAB.SR.24H (FP) PO SCH (09:35)
[2022-06-13] MEDS: CARVEDILOL 3.125 MG TABLET (FP) PO SCH (09:37)
[2022-06-13 10:12] LABS: HEMATOCRIT 46.6 % (35.4-49); HEMOGLOBIN 15.1 GM/dL (11.7-16.9); MCHC 32.5 g/dl (32.0-35.9); MEAN CELL VOLUME 89.3 fl (80-96); MEAN PLT VOLUME 11.6 fl (7.5-11.1); PLATELET COUNT 211 10^3/uL (134-434); RBC 5.22 M/mm3 (4.00-5.60); RDW 15.1 % (11.9-15.9); WHITE BLOOD COUNT 3.8 K/mm3 (4.0-10.0)
== END 2022-06-13 10:05 | disposition home or self-care (01) | DRG 772 ==
LOC: YASAS 14:16 → Y5N 14:17
PROVIDERS: ADMIT Allergy & Immunology; ATTEND Psychiatry & Neurology Pain Medicine
PROC: HZ42ZZZ Group Counseling for Substance Abuse Treatment, Cognitive-Behavioral (ICD-10-PCS; principal; 2022-06-06)
DX: F10.20 Alcohol dependence, uncomplicated (principal); F14.20 Cocaine dependence, uncomplicated; F17.210 Nicotine dependence, cigarettes, uncomplicated; F31.9 Bipolar disorder, unspecified; Z21 Asymptomatic human immunodeficiency virus [HIV] infection status; E03.9 Hypothyroidism, unspecified; I10 Essential (primary) hypertension; K21.9 Gastro-esophageal reflux disease without esophagitis; Z86.69 Personal history of other diseases of the nervous system and sense organs; Z88.2 Allergy status to sulfonamides; Z88.8 Allergy status to other drugs, medicaments and biological substances; Z91.013 Allergy to seafood
CPT/HCPCS: 36415; 85027; 87811; C9803-CS; Q0162; U0003; U0005

== ENCOUNTER 2022-07-31 10:10 | Inpatient (IN) | payer OTHER ==
[2022-07-31 10:52] VITALS: BMI 25.4
[2022-07-31] MEDS ORDERED: LOPERAMIDE HCL 2 MG CAPSULE PO PRN (12:31)
[2022-07-31] MEDS ORDERED: DICYCLOMINE HCL 10 MG CAPSULE PO PRN (12:31)
[2022-07-31] MEDS ORDERED: IBUPROFEN 600 MG TABLET (FP) PO PRN (12:31)
[2022-07-31] MEDS ORDERED: MAG HYDROX/AL HYDROX/SIMETH 30 ML UNIT-DOSE CUP PO PRN (12:31)
[2022-07-31] MEDS ORDERED: chlordiazePOXIDE HCL 25 MG CAPSULE PO PRN (12:31)
[2022-07-31] MEDS ORDERED: METHOCARBAMOL 500 MG TABLET PO PRN (12:31)
[2022-07-31] MEDS ORDERED: ONDANSETRON *ODT* 4 MG TABLET SL PRN (12:31)
[2022-07-31] MEDS ORDERED: NALOXONE HCL (KLOXXADO) 8 MG SPRAY NS PRN (12:31)
[2022-07-31] MEDS ORDERED: MAGNESIUM HYDROX 2400MG/30ML ORAL SUSPENSION 30 ML CUP PO PRN (12:31)
[2022-07-31] MEDS ORDERED: IBUPROFEN 400 MG TABLET (FP) PO PRN (12:31)
[2022-07-31] MEDS ORDERED: NICOTINE 10 MG CARTRIDGE (INHALER) IH PRN (12:31)
[2022-07-31] MEDS ORDERED: BISMUTH SUBSALICYLATE 262 MG/15 ML BTL PO PRN (12:31)
[2022-07-31] MEDS ORDERED: BENZOCAINE/MENTHOL (CHLORASEPTIC ) LOZENGE MM PRN (12:31)
[2022-07-31] MEDS ORDERED: POLYETHYLENE GLYCOL (HEALTHYLAX) 3350 17 GM PACKET PO PRN (12:31)
[2022-07-31] MEDS ORDERED: ACETAMINOPHEN 325 MG TABLET (FP) PO PRN ×2 (12:31)
[2022-07-31] MEDS ORDERED: CARVEDILOL 3.125 MG TABLET (FP) PO SCH (14:45)
[2022-07-31 17:33] LABS: HEMATOCRIT 43.1 % (35.4-49); HEMOGLOBIN 14.5 GM/dL (11.7-16.9); MCH 30.2 pg (25.7-33.7); MCHC 33.7 g/dl (32.0-35.9); MEAN CELL VOLUME 89.8 fl (80-96); MEAN PLT VOLUME 10.2 fl (7.5-11.1); PLATELET COUNT 190 10^3/uL (134-434); RDW 16.5 % (11.9-15.9); WHITE BLOOD COUNT 4.5 K/mm3 (4.0-10.0)
[2022-07-31 17:37] LABS: BLOOD UREA NITROGEN 25.8 mg/dL (7-18)
[2022-07-31 17:39] LABS: ALBUMIN 3.5 g/dl (3.4-5.0)
[2022-07-31 17:42] LABS: BILIRUBIN,TOTAL 0.6 mg/dL (0.2-1)
[2022-07-31 17:43] LABS: CREATININE 1.4 mg/dL (0.55-1.3)
[2022-07-31 17:45] LABS: TOT PROT 7.7 g/dl (6.4-8.2)
[2022-07-31] MEDS: chlordiazePOXIDE HCL 25 MG CAPSULE PO SCH ×2 (18:23→23:08)
[2022-07-31] MEDS ORDERED: THIAMINE HCL 100 MG TABLET (FP) PO SCH (22:00)
[2022-07-31] MEDS ORDERED: PATIENT'S OWN MEDICATION (NON-FORMULARY) (Olanzapine [Olanzapine] 15 MG Tablet) PO SCH (22:00)
[2022-07-31] MEDS: ATORVASTATIN CA 40 MG TABLET (FP) PO SCH (23:07)
[2022-07-31] MEDS: CARVEDILOL 3.125 MG TABLET (FP) PO SCH (23:08)
[2022-07-31] MEDS: MELATONIN 5 MG TABLETS PO SCH (23:09)
[2022-08-01] MEDS: chlordiazePOXIDE HCL 25 MG CAPSULE PO SCH ×4 (06:09→22:21)
[2022-08-01] MEDS: ATOVAQUONE 750 MG/5 ML (UNIT-DOSE PACKAGING) PO SCH (06:09)
[2022-08-01] MEDS: LEVOTHYROXINE NA 25 MCG TABLET (FP) PO SCH (06:12)
[2022-08-01] MEDS: DOLUTEGRAVIR SODIUM 50 MG TABLET (NON-FORMULARY) PO SCH (07:47)
[2022-08-01] MEDS: EMTRICITABINE/TENOFOV ALAFENAM (DESCOVY) TABLET PO SCH (07:47)
[2022-08-01] MEDS ORDERED: NIFEdipine E.R 60 MG TABLET PO SCH (10:00)
[2022-08-01] MEDS ORDERED: MULTIVITAMINS (DAILY MVI) TABLET (FP) PO SCH (10:00)
[2022-08-01] MEDS: PRENATAL VITAMINS W/ FOLIC ACID TABLET (FP) PO SCH (10:22)
[2022-08-01] MEDS: CHLORTHALIDONE 25 MG TABLET PO SCH (10:23)
[2022-08-01] MEDS: ASPIRIN COATED 81 MG TABLET.EC PO SCH (10:23)
[2022-08-01] MEDS: PANTOPRAZOLE 40 MG TABLET PO SCH (10:24)
[2022-08-01] MEDS: THIAMINE HCL 100 MG TABLET (FP) PO SCH (10:25)
[2022-08-01] MEDS: CARVEDILOL 3.125 MG TABLET (FP) PO SCH ×2 (10:26→21:35)
[2022-08-01] MEDS: amLODIPine BESYLATE 10 MG TABLET (FP) PO SCH (10:26)
[2022-08-01] MEDS: ATORVASTATIN CA 40 MG TABLET (FP) PO SCH (21:35)
[2022-08-01] MEDS: MELATONIN 5 MG TABLETS PO SCH (21:36)
[2022-08-01] MEDS: MIRTAZAPINE 15 MG TABLET (FP) PO SCH (22:21)
[2022-08-01] MEDS: OLANZapine 7.5 MG TABLET PO SCH (23:00)
[2022-08-02] MEDS: LEVOTHYROXINE NA 25 MCG TABLET (FP) PO SCH (06:44)
[2022-08-02] MEDS: chlordiazePOXIDE HCL 25 MG CAPSULE PO SCH ×4 (06:45→22:36)
[2022-08-02] MEDS: ATOVAQUONE 750 MG/5 ML (UNIT-DOSE PACKAGING) PO SCH (06:45)
[2022-08-02] MEDS: EMTRICITABINE/TENOFOV ALAFENAM (DESCOVY) TABLET PO SCH (07:35)
[2022-08-02] MEDS: DOLUTEGRAVIR SODIUM 50 MG TABLET (NON-FORMULARY) PO SCH (07:35)
[2022-08-02] MEDS: PRENATAL VITAMINS W/ FOLIC ACID TABLET (FP) PO SCH (10:20)
[2022-08-02] MEDS: PANTOPRAZOLE 40 MG TABLET PO SCH (10:20)
[2022-08-02] MEDS: CARVEDILOL 3.125 MG TABLET (FP) PO SCH ×2 (10:20→22:35)
[2022-08-02] MEDS: ASPIRIN COATED 81 MG TABLET.EC PO SCH (10:20)
[2022-08-02] MEDS: CHLORTHALIDONE 25 MG TABLET PO SCH (10:20)
[2022-08-02] MEDS: amLODIPine BESYLATE 10 MG TABLET (FP) PO SCH (10:20)
[2022-08-02] MEDS: THIAMINE HCL 100 MG TABLET (FP) PO SCH (10:22)
[2022-08-02 11:39] LABS: CREATININE 1.2 mg/dL (0.55-1.3)
[2022-08-02 11:44] LABS: BLOOD UREA NITROGEN 21.6 mg/dL (7-18)
[2022-08-02] MEDS: ATORVASTATIN CA 40 MG TABLET (FP) PO SCH (22:00)
[2022-08-02] MEDS: MELATONIN 5 MG TABLETS PO SCH (22:33)
[2022-08-02] MEDS: MIRTAZAPINE 15 MG TABLET (FP) PO SCH (22:34)
[2022-08-03] MEDS ORDERED: chlordiazePOXIDE HCL 10 MG CAPSULE PO PRN
[2022-08-03] MEDS: OLANZapine 7.5 MG TABLET PO SCH ×2 (00:03→21:51)
[2022-08-03] MEDS: chlordiazePOXIDE HCL 10 MG CAPSULE PO SCH ×4 (06:34→22:20)
[2022-08-03] MEDS: LEVOTHYROXINE NA 25 MCG TABLET (FP) PO SCH (06:35)
[2022-08-03] MEDS: ATOVAQUONE 750 MG/5 ML (UNIT-DOSE PACKAGING) PO SCH (06:36)
[2022-08-03] MEDS: DOLUTEGRAVIR SODIUM 50 MG TABLET (NON-FORMULARY) PO SCH (07:26)
[2022-08-03] MEDS: EMTRICITABINE/TENOFOV ALAFENAM (DESCOVY) TABLET PO SCH (07:26)
[2022-08-03] MEDS: CHLORTHALIDONE 25 MG TABLET PO SCH (10:20)
[2022-08-03] MEDS: PRENATAL VITAMINS W/ FOLIC ACID TABLET (FP) PO SCH (10:20)
[2022-08-03] MEDS: ASPIRIN COATED 81 MG TABLET.EC PO SCH (10:20)
[2022-08-03] MEDS: amLODIPine BESYLATE 10 MG TABLET (FP) PO SCH (10:20)
[2022-08-03] MEDS: CARVEDILOL 3.125 MG TABLET (FP) PO SCH ×2 (10:20→21:52)
[2022-08-03] MEDS: THIAMINE HCL 100 MG TABLET (FP) PO SCH (10:22)
[2022-08-03] MEDS: PANTOPRAZOLE 40 MG TABLET PO SCH (10:22)
[2022-08-03] MEDS: hydrOXYzine PAMOATE 25 MG CAPSULE (FP) PO PRN (20:24)
[2022-08-03] MEDS: ATORVASTATIN CA 40 MG TABLET (FP) PO SCH (21:52)
[2022-08-03] MEDS: MIRTAZAPINE 15 MG TABLET (FP) PO SCH (21:52)
[2022-08-03] MEDS: MELATONIN 5 MG TABLETS PO SCH (22:20)
[2022-08-04] MEDS: chlordiazePOXIDE HCL 10 MG CAPSULE PO SCH ×2 (06:21→18:25)
[2022-08-04] MEDS: LEVOTHYROXINE NA 25 MCG TABLET (FP) PO SCH (06:21)
[2022-08-04] MEDS: ATOVAQUONE 750 MG/5 ML (UNIT-DOSE PACKAGING) PO SCH (06:27)
[2022-08-04] MEDS: EMTRICITABINE/TENOFOV ALAFENAM (DESCOVY) TABLET PO SCH (07:04)
[2022-08-04] MEDS: DOLUTEGRAVIR SODIUM 50 MG TABLET (NON-FORMULARY) PO SCH (07:06)
[2022-08-04] MEDS: PRENATAL VITAMINS W/ FOLIC ACID TABLET (FP) PO SCH (10:43)
[2022-08-04] MEDS: PANTOPRAZOLE 40 MG TABLET PO SCH (10:43)
[2022-08-04] MEDS: ASPIRIN COATED 81 MG TABLET.EC PO SCH (10:43)
[2022-08-04] MEDS: amLODIPine BESYLATE 10 MG TABLET (FP) PO SCH (10:43)
[2022-08-04] MEDS: CARVEDILOL 3.125 MG TABLET (FP) PO SCH ×2 (10:43→22:08)
[2022-08-04] MEDS: CHLORTHALIDONE 25 MG TABLET PO SCH (10:43)
[2022-08-04] MEDS: THIAMINE HCL 100 MG TABLET (FP) PO SCH (10:44)
[2022-08-04] MEDS: OLANZapine 7.5 MG TABLET PO SCH (22:07)
[2022-08-04] MEDS: MIRTAZAPINE 15 MG TABLET (FP) PO SCH (22:07)
[2022-08-04] MEDS: ATORVASTATIN CA 40 MG TABLET (FP) PO SCH (22:07)
[2022-08-04] MEDS: MELATONIN 5 MG TABLETS PO SCH (22:08)
[2022-08-04] MEDS: hydrOXYzine PAMOATE 25 MG CAPSULE (FP) PO PRN (22:09)
[2022-08-05] MEDS ORDERED: chlordiazePOXIDE HCL 10 MG CAPSULE PO ONE (05:00)
[2022-08-05] MEDS: LEVOTHYROXINE NA 25 MCG TABLET (FP) PO SCH (06:09)
[2022-08-05] MEDS: ATOVAQUONE 750 MG/5 ML (UNIT-DOSE PACKAGING) PO SCH (06:10)
[2022-08-05] MEDS: EMTRICITABINE/TENOFOV ALAFENAM (DESCOVY) TABLET PO SCH (07:02)
[2022-08-05] MEDS: DOLUTEGRAVIR SODIUM 50 MG TABLET (NON-FORMULARY) PO SCH (07:02)
[2022-08-05 09:03] VITALS: BP 119/81; PULSE 90; RESP 16; TEMP 98
[2022-08-05] MEDS: ASPIRIN COATED 81 MG TABLET.EC PO SCH (10:52)
[2022-08-05] MEDS: THIAMINE HCL 100 MG TABLET (FP) PO SCH (10:52)
[2022-08-05] MEDS: PANTOPRAZOLE 40 MG TABLET PO SCH (10:52)
[2022-08-05] MEDS: amLODIPine BESYLATE 10 MG TABLET (FP) PO SCH (10:53)
[2022-08-05] MEDS: CHLORTHALIDONE 25 MG TABLET PO SCH (10:53)
[2022-08-05] MEDS: CARVEDILOL 3.125 MG TABLET (FP) PO SCH (10:53)
[2022-08-05] MEDS: PRENATAL VITAMINS W/ FOLIC ACID TABLET (FP) PO SCH (10:53)
== END 2022-08-05 12:23 | disposition other institution (70) | DRG 774 ==
LOC: YASAS 10:10 → Y3N 12:24
PROVIDERS: ADMIT Allergy & Immunology; ATTEND Surgery
PROC: HZ2ZZZZ Detoxification Services for Substance Abuse Treatment (ICD-10-PCS; principal; 2022-07-31)
DX: F10.230 Alcohol dependence with withdrawal, uncomplicated (principal); F14.20 Cocaine dependence, uncomplicated; F12.20 Cannabis dependence, uncomplicated; F17.210 Nicotine dependence, cigarettes, uncomplicated; F25.9 Schizoaffective disorder, unspecified; F19.24 Other psychoactive substance dependence with psychoactive substance-induced mood disorder; Z21 Asymptomatic human immunodeficiency virus [HIV] infection status; E03.9 Hypothyroidism, unspecified; E78.00 Pure hypercholesterolemia, unspecified; I10 Essential (primary) hypertension; G47.00 Insomnia, unspecified; K21.9 Gastro-esophageal reflux disease without esophagitis; Z86.19 Personal history of other infectious and parasitic diseases; Z88.2 Allergy status to sulfonamides; Z88.8 Allergy status to other drugs, medicaments and biological substances; Z91.013 Allergy to seafood
CPT/HCPCS: 36415; 80053; 82140; 82565; 82947; 83036; 84520; 85027; 86593; 86780; C9803-CS; U0003; U0005

== ENCOUNTER 2022-09-23 11:47 | Inpatient (IN) | payer OTHER ==
[2022-09-23 13:24] VITALS: BMI 25.0
[2022-09-23] MEDS ORDERED: IBUPROFEN 400 MG TABLET (FP) PO PRN (14:12)
[2022-09-23] MEDS ORDERED: ONDANSETRON *ODT* 4 MG TABLET SL PRN (14:12)
[2022-09-23] MEDS ORDERED: POLYETHYLENE GLYCOL (HEALTHYLAX) 3350 17 GM PACKET PO PRN (14:12)
[2022-09-23] MEDS ORDERED: BISMUTH SUBSALICYLATE 262 MG/15 ML BTL PO PRN (14:12)
[2022-09-23] MEDS ORDERED: LOPERAMIDE HCL 2 MG CAPSULE PO PRN (14:12)
[2022-09-23] MEDS ORDERED: MAGNESIUM HYDROX 2400MG/30ML ORAL SUSPENSION 30 ML CUP PO PRN (14:12)
[2022-09-23] MEDS ORDERED: chlordiazePOXIDE HCL 25 MG CAPSULE PO PRN (14:12)
[2022-09-23] MEDS ORDERED: MAG HYDROX/AL HYDROX/SIMETH 30 ML UNIT-DOSE CUP PO PRN (14:12)
[2022-09-23] MEDS ORDERED: NALOXONE HCL (KLOXXADO) 8 MG SPRAY NS PRN (14:12)
[2022-09-23] MEDS ORDERED: BENZOCAINE/MENTHOL (CHLORASEPTIC ) LOZENGE MM PRN (14:12)
[2022-09-23] MEDS ORDERED: NICOTINE 10 MG CARTRIDGE (INHALER) IH PRN (14:12)
[2022-09-23] MEDS ORDERED: DICYCLOMINE HCL 10 MG CAPSULE PO PRN (14:12)
[2022-09-23] MEDS ORDERED: ACETAMINOPHEN 325 MG TABLET (FP) PO PRN ×2 (14:12)
[2022-09-23] MEDS ORDERED: PRENATAL VITAMINS W/ FOLIC ACID TABLET (FP) PO ONE (15:07)
[2022-09-23] MEDS ORDERED: chlordiazePOXIDE HCL 25 MG CAPSULE ONE (15:07)
[2022-09-23] MEDS ORDERED: NICOTINE 14 MG/24 HOURS TOPICAL PATCH TD ONE (15:07)
[2022-09-23] MEDS: PRENATAL VITAMINS W/ FOLIC ACID TABLET (FP) PO SCH (15:16)
[2022-09-23] MEDS: NICOTINE 14 MG/24 HOURS TOPICAL PATCH TD SCH (15:16)
[2022-09-23] MEDS: METHOCARBAMOL 500 MG TABLET PO PRN (17:47)
[2022-09-23] MEDS: hydrOXYzine PAMOATE 25 MG CAPSULE (FP) PO PRN (17:48)
[2022-09-23] MEDS: chlordiazePOXIDE HCL 25 MG CAPSULE PO SCH (22:36)
[2022-09-23] MEDS: MELATONIN 5 MG TABLETS PO SCH (22:36)
[2022-09-23] MEDS: THIAMINE HCL 100 MG TABLET (FP) PO SCH (22:36)
[2022-09-24] MEDS: chlordiazePOXIDE HCL 25 MG CAPSULE PO SCH ×4 (05:40→22:24)
[2022-09-24] MEDS: NICOTINE 14 MG/24 HOURS TOPICAL PATCH TD SCH (10:16)
[2022-09-24] MEDS: PRENATAL VITAMINS W/ FOLIC ACID TABLET (FP) PO SCH (10:16)
[2022-09-24] MEDS ORDERED: CARVEDILOL 3.125 MG TABLET (FP) PO SCH (13:00)
[2022-09-24] MEDS: DOLUTEGRAVIR SODIUM 50 MG TABLET (NON-FORMULARY) PO SCH (14:58)
[2022-09-24] MEDS: EMTRICITABINE/TENOFOV ALAFENAM (DESCOVY) TABLET PO SCH (14:59)
[2022-09-24] MEDS: ASPIRIN COATED 81 MG TABLET.EC PO SCH (15:00)
[2022-09-24 15:14] LABS: ALBUMIN 3.1 g/dl (3.4-5.0)
[2022-09-24 15:15] LABS: BLOOD UREA NITROGEN 16.6 mg/dL (7-18)
[2022-09-24 15:17] LABS: CREATININE 1.1 mg/dL (0.55-1.3); HEMATOCRIT 41.2 % (35.4-49); HEMOGLOBIN 13.7 GM/dL (11.7-16.9); MCH 30.6 pg (25.7-33.7); MCHC 33.2 g/dl (32.0-35.9); MEAN CELL VOLUME 92.2 fl (80-96); MEAN PLT VOLUME 9.9 fl (7.5-11.1); PLATELET COUNT 179 10^3/uL (134-434); RBC 4.46 M/mm3 (4.00-5.60); RDW 15.7 % (11.9-15.9); WHITE BLOOD COUNT 3.5 K/mm3 (4.0-10.0)
[2022-09-24 15:19] LABS: BILIRUBIN,TOTAL 0.4 mg/dL (0.2-1); TOT PROT 6.6 g/dl (6.4-8.2)
[2022-09-24] MEDS ORDERED: OLANZapine 7.5 MG TABLET PO SCH (22:00)
[2022-09-24] MEDS: ATORVASTATIN CA 80 MG TABLET (FP) PO SCH (22:23)
[2022-09-24] MEDS: MIRTAZAPINE 15 MG TABLET (FP) PO SCH (22:23)
[2022-09-24] MEDS: THIAMINE HCL 100 MG TABLET (FP) PO SCH (22:23)
[2022-09-24] MEDS: MELATONIN 5 MG TABLETS PO SCH (22:23)
[2022-09-24] MEDS: CARVEDILOL 3.125 MG TABLET (FP) PO SCH (22:24)
[2022-09-25] MEDS: chlordiazePOXIDE HCL 25 MG CAPSULE PO SCH ×4 (06:00→22:31)
[2022-09-25] MEDS: LEVOTHYROXINE NA 25 MCG TABLET (FP) PO SCH (06:03)
[2022-09-25] MEDS ORDERED: cloNIDine HCL 0.1 MG TABLET PO ONE (07:45)
[2022-09-25] MEDS ORDERED: NIFEdipine E.R 60 MG TABLET PO SCH (10:00)
[2022-09-25] MEDS: ASPIRIN COATED 81 MG TABLET.EC PO SCH (10:15)
[2022-09-25] MEDS: amLODIPine BESYLATE 10 MG TABLET (FP) PO SCH (10:15)
[2022-09-25] MEDS: PRENATAL VITAMINS W/ FOLIC ACID TABLET (FP) PO SCH (10:15)
[2022-09-25] MEDS: PANTOPRAZOLE 40 MG TABLET PO SCH (10:15)
[2022-09-25] MEDS: hydrOXYzine PAMOATE 25 MG CAPSULE (FP) PO PRN (10:15)
[2022-09-25] MEDS: EMTRICITABINE/TENOFOV ALAFENAM (DESCOVY) TABLET PO SCH (10:16)
[2022-09-25] MEDS: ATOVAQUONE 750 MG/5 ML (UNIT-DOSE PACKAGING) PO SCH (10:16)
[2022-09-25] MEDS: CARVEDILOL 3.125 MG TABLET (FP) PO SCH ×2 (10:16→22:29)
[2022-09-25] MEDS: CHLORTHALIDONE 25 MG TABLET PO SCH (10:16)
[2022-09-25] MEDS: DOLUTEGRAVIR SODIUM 50 MG TABLET (NON-FORMULARY) PO SCH (10:17)
[2022-09-25] MEDS: NICOTINE 14 MG/24 HOURS TOPICAL PATCH TD SCH (10:17)
[2022-09-25] MEDS: IBUPROFEN 600 MG TABLET (FP) PO PRN (17:25)
[2022-09-25] MEDS: ATORVASTATIN CA 80 MG TABLET (FP) PO SCH (22:29)
[2022-09-25] MEDS: THIAMINE HCL 100 MG TABLET (FP) PO SCH (22:29)
[2022-09-25] MEDS: OLANZapine 10 MG TABLET PO SCH (22:29)
[2022-09-25] MEDS: MELATONIN 5 MG TABLETS PO SCH (22:29)
[2022-09-25] MEDS: MIRTAZAPINE 15 MG TABLET (FP) PO SCH (22:32)
[2022-09-26] MEDS ORDERED: chlordiazePOXIDE HCL 10 MG CAPSULE PO PRN
[2022-09-26] MEDS: chlordiazePOXIDE HCL 10 MG CAPSULE PO SCH ×4 (05:32→22:25)
[2022-09-26] MEDS: LEVOTHYROXINE NA 25 MCG TABLET (FP) PO SCH (06:19)
[2022-09-26] MEDS: ATOVAQUONE 750 MG/5 ML (UNIT-DOSE PACKAGING) PO SCH (07:30)
[2022-09-26] MEDS: amLODIPine BESYLATE 10 MG TABLET (FP) PO SCH (10:19)
[2022-09-26] MEDS: PRENATAL VITAMINS W/ FOLIC ACID TABLET (FP) PO SCH (10:19)
[2022-09-26] MEDS: ASPIRIN COATED 81 MG TABLET.EC PO SCH (10:19)
[2022-09-26] MEDS: PANTOPRAZOLE 40 MG TABLET PO SCH (10:19)
[2022-09-26] MEDS: CARVEDILOL 3.125 MG TABLET (FP) PO SCH ×2 (10:20→22:24)
[2022-09-26] MEDS: EMTRICITABINE/TENOFOV ALAFENAM (DESCOVY) TABLET PO SCH (10:20)
[2022-09-26] MEDS: CHLORTHALIDONE 25 MG TABLET PO SCH (10:20)
[2022-09-26] MEDS: NICOTINE 14 MG/24 HOURS TOPICAL PATCH TD SCH (10:20)
[2022-09-26] MEDS: DOLUTEGRAVIR SODIUM 50 MG TABLET (NON-FORMULARY) PO SCH (10:21)
[2022-09-26] MEDS: METHOCARBAMOL 500 MG TABLET PO PRN (17:32)
[2022-09-26] MEDS: hydrOXYzine PAMOATE 25 MG CAPSULE (FP) PO PRN (17:32)
[2022-09-26] MEDS: MIRTAZAPINE 15 MG TABLET (FP) PO SCH (22:23)
[2022-09-26] MEDS: THIAMINE HCL 100 MG TABLET (FP) PO SCH (22:23)
[2022-09-26] MEDS: MELATONIN 5 MG TABLETS PO SCH (22:23)
[2022-09-26] MEDS: ATORVASTATIN CA 80 MG TABLET (FP) PO SCH (22:23)
[2022-09-26] MEDS: OLANZapine 10 MG TABLET PO SCH (22:24)
[2022-09-27] MEDS: chlordiazePOXIDE HCL 10 MG CAPSULE PO SCH ×2 (06:01→17:29)
[2022-09-27] MEDS: LEVOTHYROXINE NA 25 MCG TABLET (FP) PO SCH (06:02)
[2022-09-27] MEDS: ATOVAQUONE 750 MG/5 ML (UNIT-DOSE PACKAGING) PO SCH (08:46)
[2022-09-27] MEDS: PRENATAL VITAMINS W/ FOLIC ACID TABLET (FP) PO SCH (10:41)
[2022-09-27] MEDS: CARVEDILOL 3.125 MG TABLET (FP) PO SCH ×2 (10:42→22:39)
[2022-09-27] MEDS: amLODIPine BESYLATE 10 MG TABLET (FP) PO SCH (10:42)
[2022-09-27] MEDS: CHLORTHALIDONE 25 MG TABLET PO SCH (10:42)
[2022-09-27] MEDS: ASPIRIN COATED 81 MG TABLET.EC PO SCH (10:42)
[2022-09-27] MEDS: PANTOPRAZOLE 40 MG TABLET PO SCH (10:42)
[2022-09-27] MEDS: IBUPROFEN 600 MG TABLET (FP) PO PRN (10:45)
[2022-09-27] MEDS: NICOTINE 14 MG/24 HOURS TOPICAL PATCH TD SCH (10:46)
[2022-09-27] MEDS: EMTRICITABINE/TENOFOV ALAFENAM (DESCOVY) TABLET PO SCH (10:46)
[2022-09-27] MEDS: DOLUTEGRAVIR SODIUM 50 MG TABLET (NON-FORMULARY) PO SCH (10:46)
[2022-09-27] MEDS: MIRTAZAPINE 15 MG TABLET (FP) PO SCH (22:38)
[2022-09-27] MEDS: ATORVASTATIN CA 80 MG TABLET (FP) PO SCH (22:39)
[2022-09-27] MEDS: MELATONIN 5 MG TABLETS PO SCH (22:39)
[2022-09-27] MEDS: OLANZapine 10 MG TABLET PO SCH (22:39)
[2022-09-27] MEDS: THIAMINE HCL 100 MG TABLET (FP) PO SCH (22:40)
[2022-09-28] MEDS ORDERED: chlordiazePOXIDE HCL 10 MG CAPSULE PO ONE (05:00)
[2022-09-28] MEDS: LEVOTHYROXINE NA 25 MCG TABLET (FP) PO SCH (06:51)
[2022-09-28] MEDS: ATOVAQUONE 750 MG/5 ML (UNIT-DOSE PACKAGING) PO SCH (07:08)
[2022-09-28 09:10] VITALS: BP 124/68; PULSE 69; RESP 18; TEMP 96.7
[2022-09-28] MEDS: CARVEDILOL 3.125 MG TABLET (FP) PO SCH (09:36)
[2022-09-28] MEDS: PRENATAL VITAMINS W/ FOLIC ACID TABLET (FP) PO SCH (09:36)
[2022-09-28] MEDS: CHLORTHALIDONE 25 MG TABLET PO SCH (09:37)
[2022-09-28] MEDS: amLODIPine BESYLATE 10 MG TABLET (FP) PO SCH (09:37)
[2022-09-28] MEDS: PANTOPRAZOLE 40 MG TABLET PO SCH (09:37)
[2022-09-28] MEDS: ASPIRIN COATED 81 MG TABLET.EC PO SCH (09:37)
[2022-09-28] MEDS: EMTRICITABINE/TENOFOV ALAFENAM (DESCOVY) TABLET PO SCH (09:38)
[2022-09-28] MEDS: NICOTINE 14 MG/24 HOURS TOPICAL PATCH TD SCH (09:39)
[2022-09-28] MEDS: DOLUTEGRAVIR SODIUM 50 MG TABLET (NON-FORMULARY) PO SCH (09:39)
== END 2022-09-28 10:05 | disposition home or self-care (01) | DRG 774 ==
LOC: YASAS 11:47 → Y3N 15:15
PROVIDERS: ADMIT Allergy & Immunology; ATTEND Surgery
PROC: HZ2ZZZZ Detoxification Services for Substance Abuse Treatment (ICD-10-PCS; principal; 2022-09-23)
DX: F10.230 Alcohol dependence with withdrawal, uncomplicated (principal); F14.20 Cocaine dependence, uncomplicated; F12.20 Cannabis dependence, uncomplicated; F17.210 Nicotine dependence, cigarettes, uncomplicated; F31.9 Bipolar disorder, unspecified; F20.9 Schizophrenia, unspecified; Z21 Asymptomatic human immunodeficiency virus [HIV] infection status; E03.9 Hypothyroidism, unspecified; I10 Essential (primary) hypertension; K21.9 Gastro-esophageal reflux disease without esophagitis; Z86.69 Personal history of other diseases of the nervous system and sense organs; Z91.410 Personal history of adult physical and sexual abuse; Z88.8 Allergy status to other drugs, medicaments and biological substances; Z88.2 Allergy status to sulfonamides
CPT/HCPCS: 36415; 80053; 85027; 86593; 86780; 87811; C9803-CS; U0003; U0005

== ENCOUNTER 2022-10-28 14:26 | Inpatient (IN) | payer OTHER ==
[2022-10-28 15:04] VITALS: BMI 26.1
[2022-10-28] MEDS ORDERED: MAG HYDROX/AL HYDROX/SIMETH 30 ML UNIT-DOSE CUP PO PRN (15:25)
[2022-10-28] MEDS ORDERED: ACETAMINOPHEN 325 MG TABLET (FP) PO PRN (15:25)
[2022-10-28] MEDS ORDERED: NICOTINE 10 MG CARTRIDGE (INHALER) IH PRN (15:25)
[2022-10-28] MEDS ORDERED: BENZOCAINE/MENTHOL (CHLORASEPTIC ) LOZENGE MM PRN (15:25)
[2022-10-28] MEDS ORDERED: guaiFENesin 600 MG TABLET.ER (FP) PO PRN (15:25)
[2022-10-28] MEDS ORDERED: chlordiazePOXIDE HCL 25 MG CAPSULE PO PRN (15:25)
[2022-10-28] MEDS ORDERED: MAGNESIUM HYDROX 2400MG/30ML ORAL SUSPENSION 30 ML CUP PO PRN (15:25)
[2022-10-28] MEDS ORDERED: BISMUTH SUBSALICYLATE 262 MG/15 ML BTL PO PRN (15:25)
[2022-10-28] MEDS ORDERED: NALOXONE HCL (KLOXXADO) 8 MG SPRAY NS PRN (15:25)
[2022-10-28] MEDS ORDERED: METHOCARBAMOL 500 MG TABLET PO PRN (15:25)
[2022-10-28] MEDS ORDERED: POLYETHYLENE GLYCOL (HEALTHYLAX) 3350 17 GM PACKET PO PRN (15:25)
[2022-10-28] MEDS ORDERED: IBUPROFEN 400 MG TABLET (FP) PO PRN (15:25)
[2022-10-28] MEDS ORDERED: IBUPROFEN 600 MG TABLET (FP) PO PRN (15:25)
[2022-10-28] MEDS ORDERED: ONDANSETRON *ODT* 4 MG TABLET SL PRN (15:25)
[2022-10-28] MEDS ORDERED: DICYCLOMINE HCL 10 MG CAPSULE PO PRN (15:25)
[2022-10-28] MEDS ORDERED: NALOXONE HCL 0.4 MG/ML VIAL IM PRN (15:25)
[2022-10-28] MEDS ORDERED: hydrOXYzine PAMOATE 25 MG CAPSULE (FP) PO PRN (15:25)
[2022-10-28] MEDS ORDERED: BENZONATATE 200 MG CAPSULE PO PRN (15:25)
[2022-10-28] MEDS ORDERED: LOPERAMIDE HCL 2 MG CAPSULE PO PRN (15:25)
[2022-10-28] MEDS ORDERED: CARVEDILOL 3.125 MG TABLET (FP) PO SCH (15:45)
[2022-10-28] MEDS ORDERED: chlordiazePOXIDE HCL 25 MG CAPSULE ONE (16:53)
[2022-10-28] MEDS ORDERED: PRENATAL VITAMINS W/ FOLIC ACID TABLET (FP) PO ONE (16:54)
[2022-10-28] MEDS: chlordiazePOXIDE HCL 25 MG CAPSULE PO SCH ×2 (16:55→23:06)
[2022-10-28] MEDS: PRENATAL VITAMINS W/ FOLIC ACID TABLET (FP) PO SCH (16:57)
[2022-10-28] MEDS: NICOTINE 14 MG/24 HOURS TOPICAL PATCH TD SCH (17:21)
[2022-10-28] MEDS ORDERED: MELATONIN 5 MG TABLETS PO SCH (22:00)
[2022-10-28] MEDS: ATORVASTATIN CA 80 MG TABLET (FP) PO SCH (23:06)
[2022-10-28] MEDS: THIAMINE HCL 100 MG TABLET (FP) PO SCH (23:06)
[2022-10-29] MEDS: chlordiazePOXIDE HCL 25 MG CAPSULE PO SCH ×4 (06:00→22:45)
[2022-10-29] MEDS: LEVOTHYROXINE NA 25 MCG TABLET (FP) PO SCH (06:05)
[2022-10-29] MEDS: EMTRICITABINE/TENOFOV ALAFENAM (DESCOVY) TABLET PO SCH (08:04)
[2022-10-29] MEDS: DOLUTEGRAVIR SODIUM 50 MG TABLET (NON-FORMULARY) PO SCH (08:04)
[2022-10-29] MEDS: PRENATAL VITAMINS W/ FOLIC ACID TABLET (FP) PO SCH (10:35)
[2022-10-29] MEDS: amLODIPine BESYLATE 10 MG TABLET (FP) PO SCH (10:35)
[2022-10-29] MEDS: CARVEDILOL 3.125 MG TABLET (FP) PO SCH ×2 (10:35→22:43)
[2022-10-29] MEDS: ATOVAQUONE 750 MG/5 ML (UNIT-DOSE PACKAGING) PO SCH (10:35)
[2022-10-29] MEDS: CHLORTHALIDONE 25 MG TABLET PO SCH (10:36)
[2022-10-29] MEDS: NICOTINE 14 MG/24 HOURS TOPICAL PATCH TD SCH (10:36)
[2022-10-29] MEDS: PANTOPRAZOLE 40 MG TABLET PO SCH (10:36)
[2022-10-29] MEDS: ASPIRIN COATED 81 MG TABLET.EC PO SCH (10:36)
[2022-10-29 13:05] LABS: CALCIUM 9.3 mg/dL (8.5-10.1)
[2022-10-29 13:06] LABS: ALBUMIN 3.1 g/dl (3.4-5.0); BLOOD UREA NITROGEN 24.8 mg/dL (7-18)
[2022-10-29 13:07] LABS: HEMATOCRIT 40.3 % (35.4-49); HEMOGLOBIN 13.8 GM/dL (11.7-16.9); MCH 30.8 pg (25.7-33.7); MCHC 34.3 g/dl (32.0-35.9); MEAN CELL VOLUME 89.8 fl (80-96); MEAN PLT VOLUME 9.8 fl (7.5-11.1); PLATELET COUNT 154 10^3/uL (134-434); RBC 4.49 M/mm3 (4.00-5.60); RDW 14.4 % (11.9-15.9); WHITE BLOOD COUNT 4.1 K/mm3 (4.0-10.0)
[2022-10-29 13:09] LABS: CREATININE 1.1 mg/dL (0.55-1.3)
[2022-10-29 13:10] LABS: BILIRUBIN,TOTAL 0.4 mg/dL (0.2-1); TOT PROT 7.2 g/dl (6.4-8.2)
[2022-10-29] MEDS: OLANZapine 10 MG TABLET PO SCH (22:42)
[2022-10-29] MEDS: MIRTAZAPINE 15 MG TABLET (FP) PO SCH (22:42)
[2022-10-29] MEDS: THIAMINE HCL 100 MG TABLET (FP) PO SCH (22:43)
[2022-10-29] MEDS: ATORVASTATIN CA 80 MG TABLET (FP) PO SCH (22:43)
[2022-10-30] MEDS: chlordiazePOXIDE HCL 25 MG CAPSULE PO SCH ×4 (05:47→22:35)
[2022-10-30] MEDS: LEVOTHYROXINE NA 25 MCG TABLET (FP) PO SCH (06:13)
[2022-10-30] MEDS: EMTRICITABINE/TENOFOV ALAFENAM (DESCOVY) TABLET PO SCH (07:11)
[2022-10-30] MEDS: DOLUTEGRAVIR SODIUM 50 MG TABLET (NON-FORMULARY) PO SCH (07:12)
[2022-10-30] MEDS: CARVEDILOL 3.125 MG TABLET (FP) PO SCH ×2 (10:43→22:25)
[2022-10-30] MEDS: PANTOPRAZOLE 40 MG TABLET PO SCH (10:43)
[2022-10-30] MEDS: amLODIPine BESYLATE 10 MG TABLET (FP) PO SCH (10:43)
[2022-10-30] MEDS: CHLORTHALIDONE 25 MG TABLET PO SCH (10:43)
[2022-10-30] MEDS: ASPIRIN COATED 81 MG TABLET.EC PO SCH (10:43)
[2022-10-30] MEDS: PRENATAL VITAMINS W/ FOLIC ACID TABLET (FP) PO SCH (10:44)
[2022-10-30] MEDS: ATOVAQUONE 750 MG/5 ML (UNIT-DOSE PACKAGING) PO SCH (10:44)
[2022-10-30] MEDS: NICOTINE 14 MG/24 HOURS TOPICAL PATCH TD SCH (10:45)
[2022-10-30] MEDS: MIRTAZAPINE 15 MG TABLET (FP) PO SCH (22:25)
[2022-10-30] MEDS: THIAMINE HCL 100 MG TABLET (FP) PO SCH (22:25)
[2022-10-30] MEDS: OLANZapine 10 MG TABLET PO SCH (22:25)
[2022-10-30] MEDS: ATORVASTATIN CA 80 MG TABLET (FP) PO SCH (22:25)
[2022-10-31] MEDS ORDERED: chlordiazePOXIDE HCL 10 MG CAPSULE PO PRN
[2022-10-31] MEDS: chlordiazePOXIDE HCL 10 MG CAPSULE PO SCH ×4 (05:48→22:46)
[2022-10-31] MEDS: LEVOTHYROXINE NA 25 MCG TABLET (FP) PO SCH (07:13)
[2022-10-31] MEDS: EMTRICITABINE/TENOFOV ALAFENAM (DESCOVY) TABLET PO SCH (09:08)
[2022-10-31] MEDS: DOLUTEGRAVIR SODIUM 50 MG TABLET (NON-FORMULARY) PO SCH (09:08)
[2022-10-31] MEDS: PANTOPRAZOLE 40 MG TABLET PO SCH (10:52)
[2022-10-31] MEDS: amLODIPine BESYLATE 10 MG TABLET (FP) PO SCH (10:52)
[2022-10-31] MEDS: PRENATAL VITAMINS W/ FOLIC ACID TABLET (FP) PO SCH (10:52)
[2022-10-31] MEDS: ASPIRIN COATED 81 MG TABLET.EC PO SCH (10:53)
[2022-10-31] MEDS: CARVEDILOL 3.125 MG TABLET (FP) PO SCH ×2 (10:53→22:46)
[2022-10-31] MEDS: ATOVAQUONE 750 MG/5 ML (UNIT-DOSE PACKAGING) PO SCH (10:53)
[2022-10-31] MEDS: CHLORTHALIDONE 25 MG TABLET PO SCH (10:53)
[2022-10-31] MEDS: NICOTINE 14 MG/24 HOURS TOPICAL PATCH TD SCH (10:54)
[2022-10-31] MEDS: THIAMINE HCL 100 MG TABLET (FP) PO SCH (22:45)
[2022-10-31] MEDS: OLANZapine 10 MG TABLET PO SCH (22:45)
[2022-10-31] MEDS: ATORVASTATIN CA 80 MG TABLET (FP) PO SCH (22:46)
[2022-10-31] MEDS: MIRTAZAPINE 15 MG TABLET (FP) PO SCH (22:46)
[2022-11-01] MEDS: chlordiazePOXIDE HCL 10 MG CAPSULE PO SCH ×2 (06:00→17:27)
[2022-11-01] MEDS: LEVOTHYROXINE NA 25 MCG TABLET (FP) PO SCH (06:00)
[2022-11-01] MEDS: EMTRICITABINE/TENOFOV ALAFENAM (DESCOVY) TABLET PO SCH (08:14)
[2022-11-01] MEDS: DOLUTEGRAVIR SODIUM 50 MG TABLET (NON-FORMULARY) PO SCH (08:15)
[2022-11-01] MEDS: ASPIRIN COATED 81 MG TABLET.EC PO SCH (09:57)
[2022-11-01] MEDS: CHLORTHALIDONE 25 MG TABLET PO SCH (09:57)
[2022-11-01] MEDS: PRENATAL VITAMINS W/ FOLIC ACID TABLET (FP) PO SCH (09:57)
[2022-11-01] MEDS: NICOTINE 14 MG/24 HOURS TOPICAL PATCH TD SCH (09:57)
[2022-11-01] MEDS: amLODIPine BESYLATE 10 MG TABLET (FP) PO SCH (09:57)
[2022-11-01] MEDS: PANTOPRAZOLE 40 MG TABLET PO SCH (09:57)
[2022-11-01] MEDS: CARVEDILOL 3.125 MG TABLET (FP) PO SCH ×2 (09:57→23:00)
[2022-11-01] MEDS: ATOVAQUONE 750 MG/5 ML (UNIT-DOSE PACKAGING) PO SCH (09:59)
[2022-11-01] MEDS: OLANZapine 10 MG TABLET PO SCH (23:00)
[2022-11-01] MEDS: MIRTAZAPINE 15 MG TABLET (FP) PO SCH (23:00)
[2022-11-01] MEDS: THIAMINE HCL 100 MG TABLET (FP) PO SCH (23:00)
[2022-11-01] MEDS: ATORVASTATIN CA 80 MG TABLET (FP) PO SCH (23:00)
[2022-11-02] MEDS ORDERED: chlordiazePOXIDE HCL 10 MG CAPSULE PO ONE (05:00)
[2022-11-02] MEDS: LEVOTHYROXINE NA 25 MCG TABLET (FP) PO SCH (06:11)
[2022-11-02 06:28] VITALS: RESP 18
[2022-11-02] MEDS: DOLUTEGRAVIR SODIUM 50 MG TABLET (NON-FORMULARY) PO SCH (07:11)
[2022-11-02] MEDS: EMTRICITABINE/TENOFOV ALAFENAM (DESCOVY) TABLET PO SCH (07:11)
[2022-11-02 09:23] VITALS: BP 150/86; PULSE 96; TEMP 98.1
[2022-11-02] MEDS: CHLORTHALIDONE 25 MG TABLET PO SCH (09:54)
[2022-11-02] MEDS: PRENATAL VITAMINS W/ FOLIC ACID TABLET (FP) PO SCH (09:54)
[2022-11-02] MEDS: PANTOPRAZOLE 40 MG TABLET PO SCH (09:54)
[2022-11-02] MEDS: amLODIPine BESYLATE 10 MG TABLET (FP) PO SCH (09:54)
[2022-11-02] MEDS: ASPIRIN COATED 81 MG TABLET.EC PO SCH (09:54)
[2022-11-02] MEDS: CARVEDILOL 3.125 MG TABLET (FP) PO SCH (09:55)
[2022-11-02] MEDS: ATOVAQUONE 750 MG/5 ML (UNIT-DOSE PACKAGING) PO SCH (09:55)
[2022-11-02] MEDS: NICOTINE 14 MG/24 HOURS TOPICAL PATCH TD SCH (09:56)
== END 2022-11-02 12:34 | disposition home or self-care (01) | DRG 775 ==
LOC: YASAS 14:26 → Y6N 15:45
PROVIDERS: ADMIT Allergy & Immunology; ATTEND Surgery
PROC: HZ2ZZZZ Detoxification Services for Substance Abuse Treatment (ICD-10-PCS; principal; 2022-10-28)
DX: F10.20 Alcohol dependence, uncomplicated (principal); F17.210 Nicotine dependence, cigarettes, uncomplicated; F25.1 Schizoaffective disorder, depressive type; Z21 Asymptomatic human immunodeficiency virus [HIV] infection status; I10 Essential (primary) hypertension; E03.9 Hypothyroidism, unspecified; E78.00 Pure hypercholesterolemia, unspecified; K21.9 Gastro-esophageal reflux disease without esophagitis; Z86.19 Personal history of other infectious and parasitic diseases; Z88.2 Allergy status to sulfonamides; Z88.8 Allergy status to other drugs, medicaments and biological substances; Z91.013 Allergy to seafood
CPT/HCPCS: 36415; 80053; 85027; 86593; 86780; C9803-CS; U0003; U0005

== ENCOUNTER 2022-11-24 10:33 | Inpatient (IN) | payer OTHER ==
[2022-11-24 10:54] VITALS: BMI 25.8
[2022-11-24] MEDS ORDERED: NICOTINE 10 MG CARTRIDGE (INHALER) IH PRN (11:25)
[2022-11-24] MEDS ORDERED: guaiFENesin 600 MG TABLET.ER (FP) PO PRN (11:25)
[2022-11-24] MEDS ORDERED: NALOXONE HCL (KLOXXADO) 8 MG SPRAY NS PRN (11:25)
[2022-11-24] MEDS ORDERED: MAGNESIUM HYDROX 2400MG/30ML ORAL SUSPENSION 30 ML CUP PO PRN (11:25)
[2022-11-24] MEDS ORDERED: BENZOCAINE/MENTHOL (CHLORASEPTIC ) LOZENGE MM PRN (11:25)
[2022-11-24] MEDS ORDERED: IBUPROFEN 600 MG TABLET (FP) PO PRN (11:25)
[2022-11-24] MEDS ORDERED: NALOXONE HCL 0.4 MG/ML VIAL IM PRN (11:25)
[2022-11-24] MEDS ORDERED: BENZONATATE 200 MG CAPSULE PO PRN (11:25)
[2022-11-24] MEDS ORDERED: IBUPROFEN 400 MG TABLET (FP) PO PRN (11:25)
[2022-11-24] MEDS ORDERED: COLLOIDAL OATMEAL 1 BAR EACH TP PRN (11:25)
[2022-11-24] MEDS ORDERED: MAG HYDROX/AL HYDROX/SIMETH 30 ML UNIT-DOSE CUP PO PRN (11:25)
[2022-11-24] MEDS ORDERED: LOPERAMIDE HCL 2 MG CAPSULE PO PRN (11:25)
[2022-11-24] MEDS ORDERED: POLYETHYLENE GLYCOL (HEALTHYLAX) 3350 17 GM PACKET PO PRN (11:25)
[2022-11-24] MEDS ORDERED: AMMONIUM LACTATE 12% LOTION 225 GM BOTTLE TP PRN (11:25)
[2022-11-24] MEDS ORDERED: NICOTINE 14 MG/24 HOURS TOPICAL PATCH TD ONE (12:08)
[2022-11-24] MEDS ORDERED: PRENATAL VITAMINS W/ FOLIC ACID TABLET (FP) PO ONE (12:08)
[2022-11-24] MEDS: PRENATAL VITAMINS W/ FOLIC ACID TABLET (FP) PO SCH (12:13)
[2022-11-24] MEDS: NICOTINE 14 MG/24 HOURS TOPICAL PATCH TD SCH (12:13)
[2022-11-24] MEDS ORDERED: cloNIDine HCL 0.1 MG TABLET ONE (13:00)
[2022-11-24] MEDS ORDERED: cloNIDine HCL 0.1 MG TABLET PO ONE (13:15)
[2022-11-24 15:48] LABS: HEMOGLOBIN 15.5 GM/dL (11.7-16.9); MCH 30.8 pg (25.7-33.7); MCHC 33.7 g/dl (32.0-35.9); MEAN CELL VOLUME 91.5 fl (80-96); MEAN PLT VOLUME 10.3 fl (7.5-11.1); PLATELET COUNT 195 10^3/uL (134-434); RBC 5.03 M/mm3 (4.00-5.60); RDW 15.1 % (11.9-15.9); WHITE BLOOD COUNT 6.4 K/mm3 (4.0-10.0)
[2022-11-24 15:52] LABS: POTASSIUM 3.4 mmol/L (3.5-5.1)
[2022-11-24 15:57] LABS: ALBUMIN 3.6 g/dl (3.4-5.0); BLOOD UREA NITROGEN 17.1 mg/dL (7-18); CALCIUM 9.5 mg/dL (8.5-10.1)
[2022-11-24 16:01] LABS: CREATININE 1.6 mg/dL (0.55-1.3)
[2022-11-24 16:02] LABS: BILIRUBIN,TOTAL 0.6 mg/dL (0.2-1); TOT PROT 8.3 g/dl (6.4-8.2)
[2022-11-24 16:54] LABS: SYPHILIS W/ RPR CONF REACTIVE (NONREACTIVE)
[2022-11-24 21:09] LABS: EPI CELLS 10 /uL (0-25.1); HYALINE CASTS 1 /uL (0-3.1); URINE APPEARANCE CLEAR; URINE BACTERIA 62 /uL (0-1359); URINE BILIRUBIN NEGATIVE (NEGATIVE); URINE COLOR YELLOW; URINE GLUCOSE (UA) NEGATIVE (NEGATIVE); URINE KETONE TRACE (NEGATIVE); URINE LEUK ESTERASE NEGATIVE (NEGATIVE); URINE NITRITE NEGATIVE (NEGATIVE); URINE PROTEIN 1+ (NEGATIVE); URINE RBC 29 /uL (0-23.9); URINE WBC 7 /uL (0-25.8)
[2022-11-24] MEDS ORDERED: MELATONIN 5 MG TABLETS PO SCH (22:00)
[2022-11-24] MEDS: MIRTAZAPINE 15 MG TABLET (FP) PO SCH (22:13)
[2022-11-24] MEDS: MELATONIN 5 MG TABLETS PO PRN (22:14)
[2022-11-24] MEDS: OLANZapine 10 MG TABLET PO SCH (22:14)
[2022-11-24] MEDS: THIAMINE HCL 100 MG TABLET (FP) PO SCH (22:14)
[2022-11-24] MEDS: POTASSIUM CHLORIDE ORAL LIQUID 20 MEQ/15 ML PO SCH (22:14)
[2022-11-25] MEDS: hydrOXYzine PAMOATE 25 MG CAPSULE (FP) PO PRN (06:24)
[2022-11-25] MEDS: EMTRICITABINE/TENOFOV ALAFENAM (DESCOVY) TABLET PO SCH (07:01)
[2022-11-25] MEDS: DOLUTEGRAVIR SODIUM 50 MG TABLET (NON-FORMULARY) PO SCH (07:01)
[2022-11-25] MEDS: POTASSIUM CHLORIDE ORAL LIQUID 20 MEQ/15 ML PO SCH ×2 (09:32→21:31)
[2022-11-25] MEDS: CHOLECALCIFEROL (VIT D3) 1,000 UNIT (25 MCG) TABLET PO SCH (09:33)
[2022-11-25] MEDS: TORSEMIDE 10 MG TABLET PO SCH (09:33)
[2022-11-25] MEDS: NICOTINE 14 MG/24 HOURS TOPICAL PATCH TD SCH (09:33)
[2022-11-25] MEDS: ATORVASTATIN CA 40 MG TABLET (FP) PO SCH (09:33)
[2022-11-25] MEDS: PRENATAL VITAMINS W/ FOLIC ACID TABLET (FP) PO SCH (09:33)
[2022-11-25] MEDS ORDERED: cloNIDine HCL 0.1 MG TABLET PO PRN (09:35)
[2022-11-25] MEDS ORDERED: PANTOPRAZOLE 20 MG TABLET PO SCH (10:00)
[2022-11-25] MEDS ORDERED: PATIENT'S OWN MEDICATION (NON-FORMULARY) (Omeprazole/Sodium Bicarbonate [Omeprazole-Bicarb PO SCH (10:00)
[2022-11-25] MEDS ORDERED: LEVOTHYROXINE NA 25 MCG TABLET (FP) PO SCH (10:00)
[2022-11-25] MEDS: ATOVAQUONE 750 MG/5 ML (UNIT-DOSE PACKAGING) PO SCH (10:41)
[2022-11-25] MEDS: NIFEdipine E.R 60 MG TABLET PO SCH (10:42)
[2022-11-25] MEDS: PANTOPRAZOLE 40 MG TABLET PO SCH (10:42)
[2022-11-25] MEDS: THIAMINE HCL 100 MG TABLET (FP) PO SCH (21:31)
[2022-11-25] MEDS: OLANZapine 10 MG TABLET PO SCH (21:31)
[2022-11-25] MEDS: MELATONIN 5 MG TABLETS PO PRN (21:31)
[2022-11-25] MEDS: MIRTAZAPINE 15 MG TABLET (FP) PO SCH (21:31)
[2022-11-26] MEDS: LEVOTHYROXINE NA 25 MCG TABLET (FP) PO SCH (07:04)
[2022-11-26] MEDS: DOLUTEGRAVIR SODIUM 50 MG TABLET (NON-FORMULARY) PO SCH (07:05)
[2022-11-26] MEDS: EMTRICITABINE/TENOFOV ALAFENAM (DESCOVY) TABLET PO SCH (07:05)
[2022-11-26] MEDS: ATORVASTATIN CA 40 MG TABLET (FP) PO SCH (10:09)
[2022-11-26] MEDS: PANTOPRAZOLE 40 MG TABLET PO SCH (10:09)
[2022-11-26] MEDS: TORSEMIDE 10 MG TABLET PO SCH (10:09)
[2022-11-26] MEDS: PRENATAL VITAMINS W/ FOLIC ACID TABLET (FP) PO SCH (10:09)
[2022-11-26] MEDS: CHOLECALCIFEROL (VIT D3) 1,000 UNIT (25 MCG) TABLET PO SCH (10:09)
[2022-11-26] MEDS: NIFEdipine E.R 60 MG TABLET PO SCH (10:09)
[2022-11-26] MEDS: POTASSIUM CHLORIDE ORAL LIQUID 20 MEQ/15 ML PO SCH (10:09)
[2022-11-26] MEDS: ATOVAQUONE 750 MG/5 ML (UNIT-DOSE PACKAGING) PO SCH (10:09)
[2022-11-26] MEDS: NICOTINE 14 MG/24 HOURS TOPICAL PATCH TD SCH (10:09)
[2022-11-26 14:48] LABS: POTASSIUM 4.7 mmol/L (3.5-5.1)
[2022-11-26 14:54] LABS: ALBUMIN 3.1 g/dl (3.4-5.0); BLOOD UREA NITROGEN 17.3 mg/dL (7-18); MAGNESIUM 1.7 mg/dL (1.8-2.4)
[2022-11-26 14:57] LABS: CREATININE 1.2 mg/dL (0.55-1.3); PHOSPHOROUS 2.9 mg/dL (2.5-4.9); TOT PROT 7.1 g/dl (6.4-8.2)
[2022-11-26 14:58] LABS: BILIRUBIN,TOTAL 0.2 mg/dL (0.2-1)
[2022-11-26] MEDS: ACETAMINOPHEN 325 MG TABLET (FP) PO PRN (16:52)
[2022-11-26] MEDS: hydrOXYzine PAMOATE 25 MG CAPSULE (FP) PO PRN (16:53)
[2022-11-26] MEDS: THIAMINE HCL 100 MG TABLET (FP) PO SCH (21:26)
[2022-11-26] MEDS: MELATONIN 5 MG TABLETS PO PRN (21:26)
[2022-11-26] MEDS: MIRTAZAPINE 15 MG TABLET (FP) PO SCH (21:27)
[2022-11-26] MEDS: OLANZapine 10 MG TABLET PO SCH (21:27)
[2022-11-27] MEDS: LEVOTHYROXINE NA 25 MCG TABLET (FP) PO SCH (07:37)
[2022-11-27] MEDS: EMTRICITABINE/TENOFOV ALAFENAM (DESCOVY) TABLET PO SCH (07:38)
[2022-11-27] MEDS: DOLUTEGRAVIR SODIUM 50 MG TABLET (NON-FORMULARY) PO SCH (07:38)
[2022-11-27] MEDS: PANTOPRAZOLE 40 MG TABLET PO SCH (10:19)
[2022-11-27] MEDS: CHOLECALCIFEROL (VIT D3) 1,000 UNIT (25 MCG) TABLET PO SCH (10:19)
[2022-11-27] MEDS: TORSEMIDE 10 MG TABLET PO SCH (10:19)
[2022-11-27] MEDS: NIFEdipine E.R 60 MG TABLET PO SCH (10:19)
[2022-11-27] MEDS: NICOTINE 14 MG/24 HOURS TOPICAL PATCH TD SCH (10:20)
[2022-11-27] MEDS: ATORVASTATIN CA 40 MG TABLET (FP) PO SCH (10:20)
[2022-11-27] MEDS: PRENATAL VITAMINS W/ FOLIC ACID TABLET (FP) PO SCH (10:20)
[2022-11-27] MEDS: MAGNESIUM OXIDE 400 MG TABLET (FP) PO SCH ×2 (10:20→21:18)
[2022-11-27] MEDS: ACETAMINOPHEN 325 MG TABLET (FP) PO PRN (10:21)
[2022-11-27] MEDS: ATOVAQUONE 750 MG/5 ML (UNIT-DOSE PACKAGING) PO SCH (12:06)
[2022-11-27] MEDS: OLANZapine 10 MG TABLET PO SCH (21:17)
[2022-11-27] MEDS: MIRTAZAPINE 15 MG TABLET (FP) PO SCH (21:17)
[2022-11-27] MEDS: MELATONIN 5 MG TABLETS PO PRN (21:18)
[2022-11-27] MEDS: THIAMINE HCL 100 MG TABLET (FP) PO SCH (21:18)
[2022-11-28] MEDS: LEVOTHYROXINE NA 25 MCG TABLET (FP) PO SCH (06:35)
[2022-11-28] MEDS: EMTRICITABINE/TENOFOV ALAFENAM (DESCOVY) TABLET PO SCH (07:12)
[2022-11-28] MEDS: DOLUTEGRAVIR SODIUM 50 MG TABLET (NON-FORMULARY) PO SCH (07:12)
[2022-11-28] MEDS: PRENATAL VITAMINS W/ FOLIC ACID TABLET (FP) PO SCH (09:49)
[2022-11-28] MEDS: MAGNESIUM OXIDE 400 MG TABLET (FP) PO SCH ×2 (09:49→21:18)
[2022-11-28] MEDS: TORSEMIDE 10 MG TABLET PO SCH (09:49)
[2022-11-28] MEDS: NIFEdipine E.R 60 MG TABLET PO SCH (09:50)
[2022-11-28] MEDS: CHOLECALCIFEROL (VIT D3) 1,000 UNIT (25 MCG) TABLET PO SCH (09:50)
[2022-11-28] MEDS: ATORVASTATIN CA 40 MG TABLET (FP) PO SCH (09:50)
[2022-11-28] MEDS: PANTOPRAZOLE 40 MG TABLET PO SCH (09:50)
[2022-11-28] MEDS: ATOVAQUONE 750 MG/5 ML (UNIT-DOSE PACKAGING) PO SCH (09:51)
[2022-11-28] MEDS: NICOTINE 14 MG/24 HOURS TOPICAL PATCH TD SCH (09:51)
[2022-11-28] MEDS: OLANZapine 10 MG TABLET PO SCH (21:18)
[2022-11-28] MEDS: MIRTAZAPINE 15 MG TABLET (FP) PO SCH (21:18)
[2022-11-28] MEDS: MELATONIN 5 MG TABLETS PO PRN (21:19)
[2022-11-28] MEDS: THIAMINE HCL 100 MG TABLET (FP) PO SCH (21:19)
[2022-11-29] MEDS: LEVOTHYROXINE NA 25 MCG TABLET (FP) PO SCH (06:01)
[2022-11-29] MEDS: EMTRICITABINE/TENOFOV ALAFENAM (DESCOVY) TABLET PO SCH (07:01)
[2022-11-29] MEDS: DOLUTEGRAVIR SODIUM 50 MG TABLET (NON-FORMULARY) PO SCH (07:02)
[2022-11-29] MEDS: PRENATAL VITAMINS W/ FOLIC ACID TABLET (FP) PO SCH (10:00)
[2022-11-29] MEDS: TORSEMIDE 10 MG TABLET PO SCH (10:00)
[2022-11-29] MEDS: CHOLECALCIFEROL (VIT D3) 1,000 UNIT (25 MCG) TABLET PO SCH (10:00)
[2022-11-29] MEDS: ATOVAQUONE 750 MG/5 ML (UNIT-DOSE PACKAGING) PO SCH (10:00)
[2022-11-29] MEDS: NICOTINE 14 MG/24 HOURS TOPICAL PATCH TD SCH (10:01)
[2022-11-29] MEDS: NIFEdipine E.R 60 MG TABLET PO SCH (10:01)
[2022-11-29] MEDS: MAGNESIUM OXIDE 400 MG TABLET (FP) PO SCH ×2 (10:01→21:39)
[2022-11-29] MEDS: PANTOPRAZOLE 40 MG TABLET PO SCH (10:01)
[2022-11-29] MEDS: ATORVASTATIN CA 40 MG TABLET (FP) PO SCH (10:01)
[2022-11-29] MEDS: MELATONIN 5 MG TABLETS PO PRN (21:38)
[2022-11-29] MEDS: THIAMINE HCL 100 MG TABLET (FP) PO SCH (21:38)
[2022-11-29] MEDS: OLANZapine 10 MG TABLET PO SCH (21:39)
[2022-11-29] MEDS: MIRTAZAPINE 15 MG TABLET (FP) PO SCH (21:40)
[2022-11-30] MEDS: LEVOTHYROXINE NA 25 MCG TABLET (FP) PO SCH (06:52)
[2022-11-30] MEDS: EMTRICITABINE/TENOFOV ALAFENAM (DESCOVY) TABLET PO SCH (07:08)
[2022-11-30] MEDS: DOLUTEGRAVIR SODIUM 50 MG TABLET (NON-FORMULARY) PO SCH (07:08)
[2022-11-30] MEDS: ATOVAQUONE 750 MG/5 ML (UNIT-DOSE PACKAGING) PO SCH (09:45)
[2022-11-30] MEDS: CHOLECALCIFEROL (VIT D3) 1,000 UNIT (25 MCG) TABLET PO SCH (09:45)
[2022-11-30] MEDS: MAGNESIUM OXIDE 400 MG TABLET (FP) PO SCH ×2 (09:45→21:36)
[2022-11-30] MEDS: PRENATAL VITAMINS W/ FOLIC ACID TABLET (FP) PO SCH (09:45)
[2022-11-30] MEDS: TORSEMIDE 10 MG TABLET PO SCH (09:45)
[2022-11-30] MEDS: ATORVASTATIN CA 40 MG TABLET (FP) PO SCH (09:45)
[2022-11-30] MEDS: PANTOPRAZOLE 40 MG TABLET PO SCH (09:45)
[2022-11-30] MEDS: NICOTINE 14 MG/24 HOURS TOPICAL PATCH TD SCH (09:46)
[2022-11-30] MEDS: NIFEdipine E.R 60 MG TABLET PO SCH (09:48)
[2022-11-30] MEDS: ACETAMINOPHEN 325 MG TABLET (FP) PO PRN (21:35)
[2022-11-30] MEDS: MELATONIN 5 MG TABLETS PO PRN (21:35)
[2022-11-30] MEDS: MIRTAZAPINE 15 MG TABLET (FP) PO SCH (21:36)
[2022-11-30] MEDS: OLANZapine 10 MG TABLET PO SCH (21:36)
[2022-11-30] MEDS: THIAMINE HCL 100 MG TABLET (FP) PO SCH (21:37)
[2022-12-01] MEDS: LEVOTHYROXINE NA 25 MCG TABLET (FP) PO SCH (06:04)
[2022-12-01] MEDS: DOLUTEGRAVIR SODIUM 50 MG TABLET (NON-FORMULARY) PO SCH (07:04)
[2022-12-01] MEDS: EMTRICITABINE/TENOFOV ALAFENAM (DESCOVY) TABLET PO SCH (07:04)
[2022-12-01] MEDS: PRENATAL VITAMINS W/ FOLIC ACID TABLET (FP) PO SCH (10:03)
[2022-12-01] MEDS: CHOLECALCIFEROL (VIT D3) 1,000 UNIT (25 MCG) TABLET PO SCH (10:03)
[2022-12-01] MEDS: TORSEMIDE 10 MG TABLET PO SCH (10:03)
[2022-12-01] MEDS: MAGNESIUM OXIDE 400 MG TABLET (FP) PO SCH ×2 (10:03→21:01)
[2022-12-01] MEDS: PANTOPRAZOLE 40 MG TABLET PO SCH (10:03)
[2022-12-01] MEDS: ATORVASTATIN CA 40 MG TABLET (FP) PO SCH (10:04)
[2022-12-01] MEDS: ATOVAQUONE 750 MG/5 ML (UNIT-DOSE PACKAGING) PO SCH (10:04)
[2022-12-01] MEDS: NIFEdipine E.R 60 MG TABLET PO SCH (10:04)
[2022-12-01] MEDS: NICOTINE 14 MG/24 HOURS TOPICAL PATCH TD SCH (10:04)
[2022-12-01] MEDS: OLANZapine 10 MG TABLET PO SCH (21:01)
[2022-12-01] MEDS: MELATONIN 5 MG TABLETS PO PRN (21:01)
[2022-12-01] MEDS: MIRTAZAPINE 15 MG TABLET (FP) PO SCH (21:01)
[2022-12-01] MEDS: THIAMINE HCL 100 MG TABLET (FP) PO SCH (21:01)
[2022-12-02] MEDS: LEVOTHYROXINE NA 25 MCG TABLET (FP) PO SCH (06:24)
[2022-12-02] MEDS: EMTRICITABINE/TENOFOV ALAFENAM (DESCOVY) TABLET PO SCH (07:04)
[2022-12-02] MEDS: DOLUTEGRAVIR SODIUM 50 MG TABLET (NON-FORMULARY) PO SCH (07:04)
[2022-12-02] MEDS: PRENATAL VITAMINS W/ FOLIC ACID TABLET (FP) PO SCH (09:52)
[2022-12-02] MEDS: ATOVAQUONE 750 MG/5 ML (UNIT-DOSE PACKAGING) PO SCH (09:52)
[2022-12-02] MEDS: NIFEdipine E.R 60 MG TABLET PO SCH (09:53)
[2022-12-02] MEDS: TORSEMIDE 10 MG TABLET PO SCH (09:53)
[2022-12-02] MEDS: ACETAMINOPHEN 325 MG TABLET (FP) PO PRN ×3 (09:54→22:36)
[2022-12-02] MEDS: PANTOPRAZOLE 40 MG TABLET PO SCH (09:54)
[2022-12-02] MEDS: ATORVASTATIN CA 40 MG TABLET (FP) PO SCH (09:54)
[2022-12-02] MEDS: MAGNESIUM OXIDE 400 MG TABLET (FP) PO SCH ×2 (09:54→21:12)
[2022-12-02] MEDS: CHOLECALCIFEROL (VIT D3) 1,000 UNIT (25 MCG) TABLET PO SCH (09:54)
[2022-12-02] MEDS: NICOTINE 14 MG/24 HOURS TOPICAL PATCH TD SCH (09:56)
[2022-12-02] MEDS: OLANZapine 10 MG TABLET PO SCH (21:12)
[2022-12-02] MEDS: THIAMINE HCL 100 MG TABLET (FP) PO SCH (21:12)
[2022-12-02] MEDS: MELATONIN 5 MG TABLETS PO PRN (21:12)
[2022-12-02] MEDS: MIRTAZAPINE 15 MG TABLET (FP) PO SCH (21:13)
[2022-12-03] MEDS: LEVOTHYROXINE NA 25 MCG TABLET (FP) PO SCH (06:48)
[2022-12-03] MEDS: DOLUTEGRAVIR SODIUM 50 MG TABLET (NON-FORMULARY) PO SCH (07:15)
[2022-12-03] MEDS: EMTRICITABINE/TENOFOV ALAFENAM (DESCOVY) TABLET PO SCH (07:15)
[2022-12-03] MEDS: PRENATAL VITAMINS W/ FOLIC ACID TABLET (FP) PO SCH (10:11)
[2022-12-03] MEDS: ATOVAQUONE 750 MG/5 ML (UNIT-DOSE PACKAGING) PO SCH (10:11)
[2022-12-03] MEDS: TORSEMIDE 10 MG TABLET PO SCH (10:12)
[2022-12-03] MEDS: MAGNESIUM OXIDE 400 MG TABLET (FP) PO SCH (10:12)
[2022-12-03] MEDS: NICOTINE 14 MG/24 HOURS TOPICAL PATCH TD SCH (10:12)
[2022-12-03] MEDS: PANTOPRAZOLE 40 MG TABLET PO SCH (10:12)
[2022-12-03] MEDS: ATORVASTATIN CA 40 MG TABLET (FP) PO SCH (10:12)
[2022-12-03] MEDS: NIFEdipine E.R 60 MG TABLET PO SCH (10:12)
[2022-12-03] MEDS: CHOLECALCIFEROL (VIT D3) 1,000 UNIT (25 MCG) TABLET PO SCH (10:12)
[2022-12-03] MEDS ORDERED: BENZTROPINE MESYLATE 1 MG TABLET PO STA (15:53)
[2022-12-03 20:39] VITALS: BP 150/100; PULSE 89; RESP 20; TEMP 97.7
[2022-12-03] MEDS ORDERED: BENZTROPINE MESYLATE 1 MG TABLET PO SCH (22:00)
== END 2022-12-03 19:57 | disposition home or self-care (01) | DRG 772 ==
LOC: YASAS 10:33 → Y3W 12:18
PROVIDERS: ADMIT Allergy & Immunology; ATTEND Psychiatry & Neurology Pain Medicine
PROC: HZ42ZZZ Group Counseling for Substance Abuse Treatment, Cognitive-Behavioral (ICD-10-PCS; principal; 2022-11-24)
DX: F10.20 Alcohol dependence, uncomplicated (principal); F14.20 Cocaine dependence, uncomplicated; F12.20 Cannabis dependence, uncomplicated; F17.210 Nicotine dependence, cigarettes, uncomplicated; F25.1 Schizoaffective disorder, depressive type; F31.9 Bipolar disorder, unspecified; F19.282 Other psychoactive substance dependence with psychoactive substance-induced sleep disorder; Z21 Asymptomatic human immunodeficiency virus [HIV] infection status; N17.9 Acute kidney failure, unspecified; E78.5 Hyperlipidemia, unspecified; E03.9 Hypothyroidism, unspecified; I10 Essential (primary) hypertension; G25.9 Extrapyramidal and movement disorder, unspecified; E87.6 Hypokalemia; K21.9 Gastro-esophageal reflux disease without esophagitis; Z88.2 Allergy status to sulfonamides; Z88.8 Allergy status to other drugs, medicaments and biological substances; Z91.013 Allergy to seafood
CPT/HCPCS: 36415; 80053; 81003; 82962; 83735; 84100; 84443; 85027; 86593; 86780; 86803; 93005; 93010; C9803-CS; U0003; U0005

== ENCOUNTER 2023-01-03 11:26 | Inpatient (IN) | payer OTHER ==
[2023-01-03 11:58] VITALS: BMI 27.2
[2023-01-03] MEDS ORDERED: NALOXONE HCL 0.4 MG/ML VIAL IM PRN (12:50)
[2023-01-03] MEDS ORDERED: ONDANSETRON *ODT* 4 MG TABLET SL PRN (12:50)
[2023-01-03] MEDS ORDERED: BENZONATATE 200 MG CAPSULE PO PRN (12:50)
[2023-01-03] MEDS ORDERED: MAG HYDROX/AL HYDROX/SIMETH 30 ML UNIT-DOSE CUP PO PRN (12:50)
[2023-01-03] MEDS ORDERED: BENZOCAINE/MENTHOL (CHLORASEPTIC ) LOZENGE MM PRN (12:50)
[2023-01-03] MEDS ORDERED: MAGNESIUM HYDROX 2400MG/30ML ORAL SUSPENSION 30 ML CUP PO PRN (12:50)
[2023-01-03] MEDS ORDERED: BISMUTH SUBSALICYLATE 524 MG/30 ML PO PRN (12:50)
[2023-01-03] MEDS ORDERED: NICOTINE 10 MG CARTRIDGE (INHALER) IH PRN (12:50)
[2023-01-03] MEDS ORDERED: guaiFENesin 600 MG TABLET.ER (FP) PO PRN (12:50)
[2023-01-03] MEDS ORDERED: POLYETHYLENE GLYCOL (HEALTHYLAX) 3350 17 GM PACKET PO PRN (12:50)
[2023-01-03] MEDS ORDERED: IBUPROFEN 600 MG TABLET (FP) PO PRN (12:50)
[2023-01-03] MEDS ORDERED: DICYCLOMINE HCL 10 MG CAPSULE PO PRN (12:50)
[2023-01-03] MEDS ORDERED: NALOXONE HCL (KLOXXADO) 8 MG SPRAY NS PRN (12:50)
[2023-01-03] MEDS ORDERED: IBUPROFEN 400 MG TABLET (FP) PO PRN (12:50)
[2023-01-03] MEDS ORDERED: chlordiazePOXIDE HCL 25 MG CAPSULE PO PRN (12:50)
[2023-01-03] MEDS ORDERED: LOPERAMIDE HCL 2 MG CAPSULE PO PRN (12:50)
[2023-01-03] MEDS: NICOTINE 21 MG/24 HOURS TOPICAL PATCH TD SCH (14:40)
[2023-01-03] MEDS ORDERED: METOPROLOL TARTRATE 25 MG TABLET (FP) ONE (14:42)
[2023-01-03] MEDS ORDERED: NICOTINE 21 MG/24 HOURS TOPICAL PATCH ONE (14:42)
[2023-01-03] MEDS: NIFEdipine E.R 60 MG TABLET PO SCH (15:56)
[2023-01-03] MEDS: chlordiazePOXIDE HCL 25 MG CAPSULE PO SCH ×2 (17:24→22:11)
[2023-01-03] MEDS ORDERED: MELATONIN 5 MG TABLETS PO SCH (22:00)
[2023-01-03] MEDS ORDERED: ACETAMINOPHEN 500 MG TABLET (FP) PO SCH (22:00)
[2023-01-03] MEDS ORDERED: ACETAMINOPHEN 325 MG TABLET (FP) PO SCH (22:10)
[2023-01-03] MEDS: THIAMINE HCL 100 MG TABLET (FP) PO SCH (22:10)
[2023-01-03] MEDS: ATORVASTATIN CA 40 MG TABLET (FP) PO SCH (22:10)
[2023-01-04] MEDS: chlordiazePOXIDE HCL 25 MG CAPSULE PO SCH ×4 (05:56→22:00)
[2023-01-04] MEDS: PANTOPRAZOLE 40 MG TABLET PO SCH (10:42)
[2023-01-04] MEDS: PRENATAL VITAMINS W/ FOLIC ACID TABLET (FP) PO SCH (10:42)
[2023-01-04] MEDS: CHOLECALCIFEROL (VIT D3) 1,000 UNIT (25 MCG) TABLET PO SCH (10:42)
[2023-01-04] MEDS: NIFEdipine E.R 60 MG TABLET PO SCH (10:42)
[2023-01-04] MEDS: NICOTINE 21 MG/24 HOURS TOPICAL PATCH TD SCH (10:43)
[2023-01-04 11:37] LABS: HEMATOCRIT 45.9 % (35.4-49); HEMOGLOBIN 15.1 GM/dL (11.7-16.9); MCH 30.5 pg (25.7-33.7); MCHC 32.8 g/dl (32.0-35.9); MEAN PLT VOLUME 10.5 fl (7.5-11.1); PLATELET COUNT 223 10^3/uL (134-434); RBC 4.94 M/mm3 (4.00-5.60); WHITE BLOOD COUNT 4.1 K/mm3 (4.0-10.0)
[2023-01-04] MEDS: ACETAMINOPHEN 500 MG TABLET (FP) PO SCH ×2 (11:59→21:27)
[2023-01-04] MEDS: ATOVAQUONE 750 MG/5 ML (UNIT-DOSE PACKAGING) PO SCH (12:00)
[2023-01-04] MEDS: TORSEMIDE 10 MG TABLET PO SCH (12:00)
[2023-01-04] MEDS: DOLUTEGRAVIR SODIUM 50 MG TABLET (NON-FORMULARY) PO SCH (12:01)
[2023-01-04] MEDS: EMTRICITABINE/TENOFOV ALAFENAM (DESCOVY) TABLET PO SCH (12:01)
[2023-01-04 12:18] LABS: ALBUMIN 3.3 g/dl (3.4-5.0); BILIRUBIN,TOTAL 0.4 mg/dL (0.2-1); CALCIUM 9.2 mg/dL (8.5-10.1); CREATININE 1.1 mg/dL (0.55-1.3); POTASSIUM 3.7 mmol/L (3.5-5.1); TOT PROT 7.4 g/dl (6.4-8.2)
[2023-01-04] MEDS: ACETAMINOPHEN 325 MG TABLET (FP) PO PRN (17:46)
[2023-01-04] MEDS: THIAMINE HCL 100 MG TABLET (FP) PO SCH (21:28)
[2023-01-04] MEDS: MELATONIN 5 MG TABLETS PO PRN (21:28)
[2023-01-04] MEDS: OLANZapine 10 MG TABLET PO SCH (21:29)
[2023-01-04] MEDS: MIRTAZAPINE 15 MG TABLET (FP) PO SCH (21:29)
[2023-01-04] MEDS: METHOCARBAMOL 500 MG TABLET PO PRN (21:30)
[2023-01-04] MEDS: ATORVASTATIN CA 40 MG TABLET (FP) PO SCH (21:30)
[2023-01-05] MEDS: chlordiazePOXIDE HCL 25 MG CAPSULE PO SCH ×4 (05:54→22:11)
[2023-01-05] MEDS: PRENATAL VITAMINS W/ FOLIC ACID TABLET (FP) PO SCH (10:14)
[2023-01-05] MEDS: DOLUTEGRAVIR SODIUM 50 MG TABLET (NON-FORMULARY) PO SCH (10:15)
[2023-01-05] MEDS: ACETAMINOPHEN 325 MG TABLET (FP) PO SCH ×2 (10:15→22:09)
[2023-01-05] MEDS: PANTOPRAZOLE 40 MG TABLET PO SCH (10:15)
[2023-01-05] MEDS: NIFEdipine E.R 60 MG TABLET PO SCH (10:15)
[2023-01-05] MEDS: CHOLECALCIFEROL (VIT D3) 1,000 UNIT (25 MCG) TABLET PO SCH (10:15)
[2023-01-05] MEDS: ATOVAQUONE 750 MG/5 ML (UNIT-DOSE PACKAGING) PO SCH (10:17)
[2023-01-05] MEDS: EMTRICITABINE/TENOFOV ALAFENAM (DESCOVY) TABLET PO SCH (10:17)
[2023-01-05] MEDS: TORSEMIDE 10 MG TABLET PO SCH (10:37)
[2023-01-05] MEDS: NICOTINE 21 MG/24 HOURS TOPICAL PATCH TD SCH (10:39)
[2023-01-05] MEDS: METHOCARBAMOL 500 MG TABLET PO PRN (16:05)
[2023-01-05] MEDS: MELATONIN 5 MG TABLETS PO PRN (22:08)
[2023-01-05] MEDS: MIRTAZAPINE 15 MG TABLET (FP) PO SCH (22:08)
[2023-01-05] MEDS: OLANZapine 10 MG TABLET PO SCH (22:10)
[2023-01-05] MEDS: ATORVASTATIN CA 40 MG TABLET (FP) PO SCH (22:10)
[2023-01-05] MEDS: THIAMINE HCL 100 MG TABLET (FP) PO SCH (22:10)
[2023-01-06] MEDS ORDERED: chlordiazePOXIDE HCL 10 MG CAPSULE PO PRN
[2023-01-06] MEDS: chlordiazePOXIDE HCL 10 MG CAPSULE PO SCH ×4 (05:53→22:06)
[2023-01-06] MEDS: NIFEdipine E.R 60 MG TABLET PO SCH (10:29)
[2023-01-06] MEDS: PANTOPRAZOLE 40 MG TABLET PO SCH (10:29)
[2023-01-06] MEDS: METHOCARBAMOL 500 MG TABLET PO PRN (10:29)
[2023-01-06] MEDS: CHOLECALCIFEROL (VIT D3) 1,000 UNIT (25 MCG) TABLET PO SCH (10:29)
[2023-01-06] MEDS: PRENATAL VITAMINS W/ FOLIC ACID TABLET (FP) PO SCH (10:29)
[2023-01-06] MEDS: TORSEMIDE 10 MG TABLET PO SCH (10:29)
[2023-01-06] MEDS: DOLUTEGRAVIR SODIUM 50 MG TABLET (NON-FORMULARY) PO SCH (10:29)
[2023-01-06] MEDS: EMTRICITABINE/TENOFOV ALAFENAM (DESCOVY) TABLET PO SCH (10:30)
[2023-01-06] MEDS: ATOVAQUONE 750 MG/5 ML (UNIT-DOSE PACKAGING) PO SCH (10:30)
[2023-01-06] MEDS: ACETAMINOPHEN 325 MG TABLET (FP) PO SCH ×2 (10:30→22:04)
[2023-01-06] MEDS: NICOTINE 21 MG/24 HOURS TOPICAL PATCH TD SCH (10:34)
[2023-01-06] MEDS: ACETAMINOPHEN 325 MG TABLET (FP) PO PRN (17:24)
[2023-01-06] MEDS: ATORVASTATIN CA 40 MG TABLET (FP) PO SCH (22:04)
[2023-01-06] MEDS: MIRTAZAPINE 15 MG TABLET (FP) PO SCH (22:06)
[2023-01-06] MEDS: OLANZapine 10 MG TABLET PO SCH (22:06)
[2023-01-06] MEDS: THIAMINE HCL 100 MG TABLET (FP) PO SCH (23:03)
[2023-01-07] MEDS ORDERED: chlordiazePOXIDE HCL 10 MG CAPSULE PO SCH (05:00)
[2023-01-07 06:14] VITALS: TEMP 97.8
[2023-01-07] MEDS: CHOLECALCIFEROL (VIT D3) 1,000 UNIT (25 MCG) TABLET PO SCH (09:06)
[2023-01-07] MEDS: TORSEMIDE 10 MG TABLET PO SCH (09:06)
[2023-01-07] MEDS: DOLUTEGRAVIR SODIUM 50 MG TABLET (NON-FORMULARY) PO SCH (09:06)
[2023-01-07] MEDS: PANTOPRAZOLE 40 MG TABLET PO SCH (09:06)
[2023-01-07] MEDS: ACETAMINOPHEN 325 MG TABLET (FP) PO SCH (09:06)
[2023-01-07] MEDS: PRENATAL VITAMINS W/ FOLIC ACID TABLET (FP) PO SCH (09:07)
[2023-01-07] MEDS: NICOTINE 21 MG/24 HOURS TOPICAL PATCH TD SCH (09:07)
[2023-01-07] MEDS: EMTRICITABINE/TENOFOV ALAFENAM (DESCOVY) TABLET PO SCH (09:07)
[2023-01-07] MEDS: NIFEdipine E.R 60 MG TABLET PO SCH (09:07)
[2023-01-07] MEDS: ATOVAQUONE 750 MG/5 ML (UNIT-DOSE PACKAGING) PO SCH (09:07)
[2023-01-07 09:31] VITALS: PULSE 88; RESP 20
[2023-01-07 09:32] VITALS: BP 143/106
[2023-01-08] MEDS ORDERED: chlordiazePOXIDE HCL 10 MG CAPSULE PO ONE (05:00)
== END 2023-01-07 09:17 | disposition home or self-care (01) | DRG 774 ==
LOC: YASAS 11:26 → Y3N 13:19
PROVIDERS: ADMIT Allergy & Immunology; ATTEND Surgery
PROC: HZ2ZZZZ Detoxification Services for Substance Abuse Treatment (ICD-10-PCS; principal; 2023-01-03)
DX: F10.230 Alcohol dependence with withdrawal, uncomplicated (principal); F14.20 Cocaine dependence, uncomplicated; F12.20 Cannabis dependence, uncomplicated; F17.210 Nicotine dependence, cigarettes, uncomplicated; F19.282 Other psychoactive substance dependence with psychoactive substance-induced sleep disorder; F31.9 Bipolar disorder, unspecified; B20 Human immunodeficiency virus [HIV] disease; E78.5 Hyperlipidemia, unspecified; E03.9 Hypothyroidism, unspecified; I10 Essential (primary) hypertension; K21.9 Gastro-esophageal reflux disease without esophagitis; M17.0 Bilateral primary osteoarthritis of knee; Z86.19 Personal history of other infectious and parasitic diseases; Z88.2 Allergy status to sulfonamides; Z88.8 Allergy status to other drugs, medicaments and biological substances; Z91.013 Allergy to seafood
CPT/HCPCS: 36415; 80053; 85027; 86593; 86780; 87635; 87811

== ENCOUNTER 2023-01-20 20:29 | Observation (INO) | payer OTHER ==
[2023-01-20 20:39] VITALS: BMI 27.4
[2023-01-20] MEDS ORDERED: FAMOTIDINE 20 MG/50 ML IVPB 20 MG/50 ML MG IVPB ONE ×2 (21:12→21:46)
[2023-01-20] MEDS ORDERED: PANTOPRAZOLE SODIUM 40 MG VIAL IVPUSH ONE (21:12)
[2023-01-20] MEDS ORDERED: ACETAMINOPHEN 1000 MG/100 ML BAG IVPB ONE (21:12)
[2023-01-20] MEDS ORDERED: MAG HYDROX/AL HYDROX/SIMETH 30 ML UNIT-DOSE CUP PO ONE (21:16)
[2023-01-20] MEDS ORDERED: ONDANSETRON 4 MG/2 ML VIAL IVPUSH ONE (21:16)
[2023-01-20] MEDS ORDERED: ACETAMINOPHEN INJECTION 100 ML IVPB ONE (21:46)
[2023-01-20] MEDS ORDERED: PANTOPRAZOLE SODIUM 40 MG VIAL ONE (21:46)
[2023-01-20] MEDS ORDERED: ONDANSETRON 4 MG/2 ML VIAL ONE (21:46)
[2023-01-20 21:52] LABS: BASO % 0.6 % (0-2.0); EOS % 1.9 % (0-4.5); HEMATOCRIT 49.2 % (35.4-49); HEMOGLOBIN 16.2 GM/dL (11.7-16.9); LYMPH % 9.7 % (8-40); MCH 30.3 pg (25.7-33.7); MCHC 32.9 g/dl (32.0-35.9); MEAN CELL VOLUME 92.1 fl (80-96); MEAN PLT VOLUME 9.7 fl (7.5-11.1); MONO % 6.4 % (3.8-10.2); NEUT % 81.4 % (42.8-82.8); PLATELET COUNT 218 10^3/uL (134-434); RBC 5.34 M/mm3 (4.00-5.60); RDW 15.1 % (11.9-15.9); WHITE BLOOD COUNT 10.6 K/mm3 (4.0-10.0)
[2023-01-20 22:00] LABS: INR 1.08 (0.83-1.09); PROTHROMBIN TIME (PATIENT) 12.5 SEC (9.7-13.0)
[2023-01-20] MEDS ORDERED: SODIUM CHLORIDE 0.9% 500 ML INFUS.BAG IV ONE (22:00)
[2023-01-20 22:03] LABS: ACTIVATED PTT 26.6 SECONDS (25.2-36.5)
[2023-01-20 22:15] LABS: POTASSIUM 4.3 mmol/L (3.5-5.1)
[2023-01-20 22:17] LABS: CALCIUM 9.6 mg/dL (8.5-10.1)
[2023-01-20 22:18] LABS: BLOOD UREA NITROGEN 22.1 mg/dL (7-18)
[2023-01-20 22:20] LABS: CREATININE 1.4 mg/dL (0.55-1.3)
[2023-01-20 22:22] LABS: BILIRUBIN,TOTAL 0.6 mg/dL (0.2-1); TOT PROT 8.9 g/dl (6.4-8.2)
[2023-01-20] MEDS ORDERED: MAG HYDROX/AL HYDROX/SIMETH 30 ML UNIT-DOSE CUP ONE (22:35)
[2023-01-20] MEDS ORDERED: DEXTROSE 50%-WATER - 25 GM/50 ML VIAL IVPUSH ONE (22:38)
[2023-01-21] MEDS ORDERED: NIFEdipine E.R. 30 MG TABLET PO ONE (00:17)
[2023-01-21] MEDS: SODIUM CHLORIDE 1,000 ML IV SCH (00:18)
[2023-01-21 00:45] LABS: EPI CELLS 1 /uL (0-25.1); HYALINE CASTS 0 /uL (0-3.1); PH,URINE 5.5 (5.0-8.0); URINE APPEARANCE CLEAR; URINE BACTERIA 12 /uL (0-1359); URINE BILIRUBIN NEGATIVE (NEGATIVE); URINE COLOR YELLOW; URINE GLUCOSE (UA) NEGATIVE (NEGATIVE); URINE KETONE 1+ (NEGATIVE); URINE LEUK ESTERASE NEGATIVE (NEGATIVE); URINE NITRITE NEGATIVE (NEGATIVE); URINE PROTEIN 3+ (NEGATIVE); URINE RBC 18 /uL (0-23.9); URINE WBC 2 /uL (0-25.8)
[2023-01-21] MEDS ORDERED: ONDANSETRON 4 MG/2 ML VIAL IVPUSH ONE (01:48)
[2023-01-21] MEDS ORDERED: ONDANSETRON 4 MG/2 ML VIAL ONE (01:50)
[2023-01-21] MEDS ORDERED: MELATONIN 5 MG TABLETS PO PRN (02:56)
[2023-01-21] MEDS ORDERED: MELATONIN 5 MG TABLETS ONE (03:08)
[2023-01-21 05:57] LABS: HEMATOCRIT 44.4 % (35.4-49); HEMOGLOBIN 15.1 GM/dL (11.7-16.9); MCH 31.2 pg (25.7-33.7); MCHC 33.9 g/dl (32.0-35.9); MEAN CELL VOLUME 92.1 fl (80-96); MEAN PLT VOLUME 9.8 fl (7.5-11.1); PLATELET COUNT 195 10^3/uL (134-434); RBC 4.83 M/mm3 (4.00-5.60); RDW 15.7 % (11.9-15.9); WHITE BLOOD COUNT 8.2 K/mm3 (4.0-10.0)
[2023-01-21] MEDS ORDERED: HEPARIN NA (PORCINE) 5,000 UNITS/ML 1ML VIAL SQ SCH (06:00)
[2023-01-21 06:12] LABS: POTASSIUM 3.9 mmol/L (3.5-5.1)
[2023-01-21 06:15] LABS: CALCIUM 8.8 mg/dL (8.5-10.1)
[2023-01-21 06:16] LABS: ALBUMIN 3.5 g/dl (3.4-5.0); BLOOD UREA NITROGEN 17.3 mg/dL (7-18)
[2023-01-21 06:17] LABS: CREATININE 1.2 mg/dL (0.55-1.3)
[2023-01-21 06:23] LABS: BILIRUBIN,TOTAL 0.7 mg/dL (0.2-1); TOT PROT 7.8 g/dl (6.4-8.2)
[2023-01-21 08:25] LABS: MAGNESIUM 2.2 mg/dL (1.8-2.4)
[2023-01-21 08:28] LABS: PHOSPHOROUS 2.9 mg/dL (2.5-4.9)
[2023-01-21 08:53] LABS: RETICULOCYTES 0.89 % (0.5-1.5)
[2023-01-21] MEDS ORDERED: THIAMINE HCL 200 MG/2 ML VIAL ONE (09:14)
[2023-01-21] MEDS ORDERED: NIFEdipine E.R 60 MG TABLET PO ONE (09:15)
[2023-01-21] MEDS ORDERED: NICOTINE 14 MG/24 HOURS TOPICAL PATCH TD ONE (09:15)
[2023-01-21] MEDS ORDERED: PANTOPRAZOLE SODIUM 40 MG VIAL ONE (09:15)
[2023-01-21] MEDS ORDERED: FOLIC ACID 1 MG TABLET (FP) ONE (09:20)
[2023-01-21] MEDS: FOLIC ACID 1 MG TABLET (FP) PO SCH (09:38)
[2023-01-21] MEDS: NICOTINE 14 MG/24 HOURS TOPICAL PATCH TD SCH (09:39)
[2023-01-21] MEDS: THIAMINE HCL 200 MG/2 ML VIAL IVPB SCH (09:39)
[2023-01-21] MEDS: NIFEdipine E.R 60 MG TABLET PO SCH (09:39)
[2023-01-21] MEDS ORDERED: THIAMINE HCL 100 MG PO SCH (10:00)
[2023-01-21] MEDS ORDERED: PANTOPRAZOLE SODIUM 40 MG VIAL IVPUSH SCH (10:00)
[2023-01-21] MEDS ORDERED: LORazepam 1 MG TABLET PO PRN (10:12)
[2023-01-21] MEDS ORDERED: LORazepam 1 MG TABLET ONE (10:33)
[2023-01-21] MEDS: LORazepam 1 MG TABLET PO SCH ×3 (12:13→23:08)
[2023-01-21] MEDS: DOLUTEGRAVIR SODIUM 50 MG TABLET (NON-FORMULARY) PO SCH (12:36)
[2023-01-21] MEDS: EMTRICITABINE/TENOFOV ALAFENAM (DESCOVY) TABLET PO SCH (12:36)
[2023-01-21 16:26] LABS: METHADONE, UR NEGATIVE (NEGATIVE); OPIATES, URI NEGATIVE (NEGATIVE); PHENCYCLIDINE,URINE NEGATIVE (NEGATIVE); URINE AMPHETAMINES NEGATIVE (NEGATIVE); URINE BARBITURATES NEGATIVE (NEGATIVE)
[2023-01-21 16:29] LABS: COCAINE, UR POSITIVE (NEGATIVE); URINE BENZODIAZEPINES POSITIVE (NEGATIVE)
[2023-01-21] MEDS: PANTOPRAZOLE SODIUM 40 MG VIAL IVPUSH SCH (21:51)
[2023-01-21] MEDS ORDERED: MIRTAZAPINE 15 MG TABLET (FP) PO SCH (22:00)
[2023-01-21] MEDS ORDERED: OLANZapine 10 MG TABLET PO SCH (22:00)
[2023-01-21] MEDS ORDERED: ATORVASTATIN CA 40 MG TABLET (FP) PO SCH (22:00)
[2023-01-22] MEDS: SODIUM CHLORIDE 1,000 ML IV SCH (02:46)
[2023-01-22] MEDS: LORazepam 1 MG TABLET PO SCH ×2 (04:02→12:09)
[2023-01-22 07:26] LABS: BASO % 0.6 % (0-2.0); EOS % 5.4 % (0-4.5); HEMATOCRIT 42.9 % (35.4-49); HEMOGLOBIN 14.7 GM/dL (11.7-16.9); LYMPH % 14.4 % (8-40); MCHC 34.2 g/dl (32.0-35.9); MEAN CELL VOLUME 90.5 fl (80-96); MEAN PLT VOLUME 9.2 fl (7.5-11.1); MONO % 7.8 % (3.8-10.2); NEUT % 71.8 % (42.8-82.8); PLATELET COUNT 159 10^3/uL (134-434); RBC 4.73 M/mm3 (4.00-5.60); RDW 15.4 % (11.9-15.9); WHITE BLOOD COUNT 5.8 K/mm3 (4.0-10.0)
[2023-01-22 07:29] LABS: INR 1.07 (0.83-1.09); PROTHROMBIN TIME (PATIENT) 12.4 SEC (9.7-13.0)
[2023-01-22 07:49] LABS: POTASSIUM 3.4 mmol/L (3.5-5.1)
[2023-01-22 07:52] LABS: CALCIUM 8.8 mg/dL (8.5-10.1)
[2023-01-22 07:53] LABS: BLOOD UREA NITROGEN 11.9 mg/dL (7-18)
[2023-01-22 07:56] LABS: CREATININE 1.1 mg/dL (0.55-1.3)
[2023-01-22 07:58] LABS: BILIRUBIN,TOTAL 0.6 mg/dL (0.2-1); TOT PROT 6.9 g/dl (6.4-8.2)
[2023-01-22] MEDS: EMTRICITABINE/TENOFOV ALAFENAM (DESCOVY) TABLET PO SCH (09:58)
[2023-01-22] MEDS: DOLUTEGRAVIR SODIUM 50 MG TABLET (NON-FORMULARY) PO SCH (09:58)
[2023-01-22] MEDS: PANTOPRAZOLE SODIUM 40 MG VIAL IVPUSH SCH (09:59)
[2023-01-22] MEDS: FOLIC ACID 1 MG TABLET (FP) PO SCH (09:59)
[2023-01-22] MEDS: THIAMINE HCL 200 MG/2 ML VIAL IVPB SCH (09:59)
[2023-01-22] MEDS: NICOTINE 14 MG/24 HOURS TOPICAL PATCH TD SCH (09:59)
[2023-01-22] MEDS: NIFEdipine E.R 60 MG TABLET PO SCH (09:59)
[2023-01-22] MEDS ORDERED: POTASSIUM CHLORIDE ORAL LIQUID 20 MEQ/15 ML PO ONE (13:08)
[2023-01-22] MEDS ORDERED: MELATONIN 5 MG TABLETS PO PRN (14:07)
[2023-01-22] MEDS ORDERED: LORazepam 1 MG TABLET PO PRN (14:07)
[2023-01-22] MEDS ORDERED: LORazepam 2 MG TABLET PO SCH (16:00)
[2023-01-22] MEDS ORDERED: LORazepam 1 MG TABLET PO SCH (21:31)
[2023-01-22] MEDS: PANTOPRAZOLE 40 MG TABLET PO SCH (21:38)
[2023-01-22] MEDS ORDERED: OLANZapine 10 MG TABLET PO SCH (22:00)
[2023-01-22] MEDS ORDERED: ATORVASTATIN CA 40 MG TABLET (FP) PO SCH (22:00)
[2023-01-22] MEDS ORDERED: MIRTAZAPINE 15 MG TABLET (FP) PO SCH (22:00)
[2023-01-22] MEDS ORDERED: BENZOCAINE 28 GM HEMORRHOIDAL OINTMENT RC PRN (23:42)
[2023-01-23] MEDS: PHENYLEPHRINE HCL/COCOA BUTTER 1 EACH SUPP.RECT RC SCH ×2 (00:28→12:33)
[2023-01-23] MEDS ORDERED: LORazepam 1 MG TABLET PO SCH (05:00)
[2023-01-23] MEDS: LORazepam 1 MG TABLET PO SCH ×2 (05:36→12:30)
[2023-01-23] MEDS ORDERED: FOLIC ACID 1 MG TABLET (FP) PO SCH (10:00)
[2023-01-23] MEDS ORDERED: THIAMINE HCL 200 MG/2 ML VIAL IVPB SCH (10:00)
[2023-01-23] MEDS ORDERED: NIFEdipine E.R 60 MG TABLET PO SCH (10:00)
[2023-01-23] MEDS ORDERED: EMTRICITABINE/TENOFOV ALAFENAM (DESCOVY) TABLET PO SCH (10:00)
[2023-01-23] MEDS ORDERED: NICOTINE 14 MG/24 HOURS TOPICAL PATCH TD SCH (10:00)
[2023-01-23] MEDS ORDERED: DOLUTEGRAVIR SODIUM 50 MG TABLET (NON-FORMULARY) PO SCH (10:00)
[2023-01-23] MEDS ORDERED: FENTANYL CITRATE/PF 50 MCG/ML VIAL ONE (10:03)
[2023-01-23] MEDS ORDERED: POTASSIUM CHLORIDE TABS 20 MEQ TABLET.ER (FP) PO ONE (10:50)
[2023-01-23] MEDS: PANTOPRAZOLE 40 MG TABLET PO SCH (12:31)
[2023-01-23 14:08] VITALS: BP 127/81; PULSE 98; RESP 18; TEMP 99.3
[2023-01-24] MEDS ORDERED: LORazepam 0.5 MG TABLET PO PRN ×2
[2023-01-24] MEDS ORDERED: LORazepam 0.5 MG TABLET PO SCH ×2 (05:00)
[2023-01-25] MEDS ORDERED: LORazepam 0.5 MG TABLET PO ONE ×2 (05:00)
== END 2023-01-23 16:47 | disposition other institution (70) ==
LOC: JER 20:29 → UNDOADMOB 23:37 → INTOOBSV 23:37 → JERBED 23:37 → J4S 01-21 14:52
PROVIDERS: ADMIT Internal Medicine; ATTEND Psychiatry & Neurology Pain Medicine
PROC: 3E033NZ Introduction of Analgesics, Hypnotics, Sedatives into Peripheral Vein, Percutaneous Approach (ICD-10-PCS; principal; 2023-01-21)
PROC: 3E033GC Introduction of Other Therapeutic Substance into Peripheral Vein, Percutaneous Approach (ICD-10-PCS; 2023-01-21)
PROC: 3E0337Z Introduction of Electrolytic and Water Balance Substance into Peripheral Vein, Percutaneous Approach (ICD-10-PCS; 2023-01-21)
PROC: 0DJ08ZZ Inspection of Upper Intestinal Tract, Via Natural or Artificial Opening Endoscopic (ICD-10-PCS; 2023-01-21)
DX: F10.239 Alcohol dependence with withdrawal, unspecified (principal); F19.10 Other psychoactive substance abuse, uncomplicated; N17.9 Acute kidney failure, unspecified; B20 Human immunodeficiency virus [HIV] disease; F31.9 Bipolar disorder, unspecified; I10 Essential (primary) hypertension; E78.5 Hyperlipidemia, unspecified; F17.200 Nicotine dependence, unspecified, uncomplicated; K21.9 Gastro-esophageal reflux disease without esophagitis; Z29.8 Encounter for other specified prophylactic measures; Z91.013 Allergy to seafood; Z88.2 Allergy status to sulfonamides; Z88.8 Allergy status to other drugs, medicaments and biological substances
CPT/HCPCS: 36415; 71045-TC-FY; 80053; 80307; 81003; 82550; 82553; 82607; 82728; 82746; 82962; 83540; 83550; 83690; 83735; 84100; 85025; 85027; 85045; 85610; 85730; 86704; 86708; 86709; 86803; 87340; 87517; 88305-TC; 93005; 93010; 96365; 96372; 96375; 99285-25; G0378

== ENCOUNTER 2023-01-23 17:32 | Inpatient (IN) | payer OTHER ==
[2023-01-23 18:38] VITALS: BMI 27.4
[2023-01-23] MEDS ORDERED: MAG HYDROX/AL HYDROX/SIMETH 30 ML UNIT-DOSE CUP PO PRN (19:22)
[2023-01-23] MEDS ORDERED: ONDANSETRON *ODT* 4 MG TABLET SL PRN (19:22)
[2023-01-23] MEDS ORDERED: DICYCLOMINE HCL 10 MG CAPSULE PO PRN (19:22)
[2023-01-23] MEDS ORDERED: NICOTINE 10 MG CARTRIDGE (INHALER) IH PRN (19:22)
[2023-01-23] MEDS ORDERED: POLYETHYLENE GLYCOL (HEALTHYLAX) 3350 17 GM PACKET PO PRN (19:22)
[2023-01-23] MEDS ORDERED: NICOTINE POLACRILEX 2 MG GUM BUC PRN (19:22)
[2023-01-23] MEDS ORDERED: BENZONATATE 200 MG CAPSULE PO PRN (19:22)
[2023-01-23] MEDS ORDERED: LOPERAMIDE HCL 2 MG CAPSULE PO PRN (19:22)
[2023-01-23] MEDS ORDERED: P-EPHED 60MG/TRIPROLIDI 2.5MG TABLET PO PRN (19:22)
[2023-01-23] MEDS ORDERED: guaiFENesin 600 MG TABLET.ER (FP) PO PRN (19:22)
[2023-01-23] MEDS ORDERED: BISMUTH SUBSALICYLATE 524 MG/30 ML PO PRN (19:22)
[2023-01-23] MEDS ORDERED: MAGNESIUM HYDROX 2400MG/30ML ORAL SUSPENSION 30 ML CUP PO PRN (19:22)
[2023-01-23] MEDS ORDERED: BENZOCAINE/MENTHOL (CHLORASEPTIC ) LOZENGE MM PRN (19:22)
[2023-01-23] MEDS ORDERED: chlordiazePOXIDE HCL 25 MG CAPSULE PO PRN (19:25)
[2023-01-23] MEDS: ACETAMINOPHEN 325 MG TABLET (FP) PO PRN (20:55)
[2023-01-23] MEDS ORDERED: OLANZapine 10 MG TABLET PO ONE (22:00)
[2023-01-23] MEDS ORDERED: MIRTAZAPINE 15 MG TABLET (FP) PO ONE (22:00)
[2023-01-23] MEDS ORDERED: MELATONIN 5 MG TABLETS PO SCH (22:00)
[2023-01-23] MEDS: ATORVASTATIN CA 40 MG TABLET (FP) PO SCH (22:50)
[2023-01-23] MEDS: THIAMINE HCL 100 MG TABLET (FP) PO SCH (22:56)
[2023-01-23] MEDS ORDERED: chlordiazePOXIDE HCL 25 MG CAPSULE PO SCH (23:00)
[2023-01-23] MEDS: chlordiazePOXIDE HCL 10 MG CAPSULE PO SCH (23:49)
[2023-01-24] MEDS: chlordiazePOXIDE HCL 10 MG CAPSULE PO SCH ×4 (05:43→22:39)
[2023-01-24] MEDS: PANTOPRAZOLE 40 MG TABLET PO SCH (09:45)
[2023-01-24] MEDS: PRENATAL VITAMINS W/ FOLIC ACID TABLET (FP) PO SCH (10:45)
[2023-01-24] MEDS: DOLUTEGRAVIR SODIUM 50 MG TABLET (NON-FORMULARY) PO SCH (12:19)
[2023-01-24] MEDS: NIFEdipine E.R 60 MG TABLET PO SCH (12:20)
[2023-01-24] MEDS: FOLIC ACID 1 MG TABLET (FP) PO SCH (12:21)
[2023-01-24] MEDS: EMTRICITABINE/TENOFOV ALAFENAM (DESCOVY) TABLET PO SCH (12:22)
[2023-01-24] MEDS: BENZTROPINE MESYLATE 1 MG TABLET PO SCH ×2 (12:24→22:30)
[2023-01-24] MEDS: ACETAMINOPHEN 325 MG TABLET (FP) PO PRN ×2 (12:40→17:27)
[2023-01-24] MEDS ORDERED: OLANZapine 10 MG TABLET PO SCH (22:00)
[2023-01-24] MEDS ORDERED: MIRTAZAPINE 15 MG TABLET (FP) PO SCH (22:00)
[2023-01-24] MEDS: ATORVASTATIN CA 40 MG TABLET (FP) PO SCH (22:30)
[2023-01-24] MEDS: THIAMINE HCL 100 MG TABLET (FP) PO SCH (22:31)
[2023-01-25] MEDS: ACETAMINOPHEN 325 MG TABLET (FP) PO PRN ×2 (01:39→11:17)
[2023-01-25] MEDS ORDERED: chlordiazePOXIDE HCL 10 MG CAPSULE PO SCH (05:00)
[2023-01-25 09:02] VITALS: RESP 18
[2023-01-25] MEDS: BENZTROPINE MESYLATE 1 MG TABLET PO SCH (10:24)
[2023-01-25] MEDS: EMTRICITABINE/TENOFOV ALAFENAM (DESCOVY) TABLET PO SCH (10:24)
[2023-01-25] MEDS: PRENATAL VITAMINS W/ FOLIC ACID TABLET (FP) PO SCH (10:24)
[2023-01-25] MEDS: NIFEdipine E.R 60 MG TABLET PO SCH (10:24)
[2023-01-25] MEDS: DOLUTEGRAVIR SODIUM 50 MG TABLET (NON-FORMULARY) PO SCH (10:24)
[2023-01-25] MEDS: PANTOPRAZOLE 40 MG TABLET PO SCH (10:25)
[2023-01-25] MEDS: FOLIC ACID 1 MG TABLET (FP) PO SCH (10:25)
[2023-01-25 12:53] VITALS: BP 150/108; PULSE 74; TEMP 97.4
[2023-01-25] MEDS: NICOTINE 21 MG/24 HOURS TOPICAL PATCH TD SCH ×2 (13:21→13:29)
[2023-01-25] MEDS ORDERED: METOPROLOL TARTRATE 50 MG TABLET (FP) PO ONE (13:50)
[2023-01-25] MEDS ORDERED: BENZOCAINE 28 GM HEMORRHOIDAL OINTMENT RC SCH (22:00)
[2023-01-26] MEDS ORDERED: chlordiazePOXIDE HCL 10 MG CAPSULE PO ONE (05:00)
== END 2023-01-25 14:56 | disposition home or self-care (01) | DRG 774 ==
LOC: YASAS 17:32 → Y6N 20:33
PROVIDERS: ADMIT Allergy & Immunology; ATTEND Surgery
PROC: HZ2ZZZZ Detoxification Services for Substance Abuse Treatment (ICD-10-PCS; principal; 2023-01-23)
DX: F10.230 Alcohol dependence with withdrawal, uncomplicated (principal); F14.20 Cocaine dependence, uncomplicated; F12.20 Cannabis dependence, uncomplicated; F17.213 Nicotine dependence, cigarettes, with withdrawal; F25.1 Schizoaffective disorder, depressive type; F19.282 Other psychoactive substance dependence with psychoactive substance-induced sleep disorder; Z21 Asymptomatic human immunodeficiency virus [HIV] infection status; I10 Essential (primary) hypertension; K21.9 Gastro-esophageal reflux disease without esophagitis; K64.8 Other hemorrhoids; Z87.19 Personal history of other diseases of the digestive system; Z88.2 Allergy status to sulfonamides; Z88.8 Allergy status to other drugs, medicaments and biological substances; Z91.013 Allergy to seafood
CPT/HCPCS: 87635; 87811

== ENCOUNTER 2023-02-21 10:44 | Inpatient (IN) | payer OTHER ==
[2023-02-21 11:17] VITALS: BMI 26.1
[2023-02-21] MEDS ORDERED: guaiFENesin 600 MG TABLET.ER (FP) PO PRN (12:43)
[2023-02-21] MEDS ORDERED: NALOXONE HCL (KLOXXADO) 8 MG SPRAY NS PRN (12:43)
[2023-02-21] MEDS ORDERED: BENZOCAINE/MENTHOL (CHLORASEPTIC ) LOZENGE MM PRN (12:43)
[2023-02-21] MEDS ORDERED: DICYCLOMINE HCL 10 MG CAPSULE PO PRN (12:43)
[2023-02-21] MEDS ORDERED: ONDANSETRON *ODT* 4 MG TABLET SL PRN (12:43)
[2023-02-21] MEDS ORDERED: LOPERAMIDE HCL 2 MG CAPSULE PO PRN (12:43)
[2023-02-21] MEDS ORDERED: IBUPROFEN 600 MG TABLET (FP) PO PRN (12:43)
[2023-02-21] MEDS ORDERED: BENZONATATE 200 MG CAPSULE PO PRN (12:43)
[2023-02-21] MEDS ORDERED: MAGNESIUM HYDROX 2400MG/30ML ORAL SUSPENSION 30 ML CUP PO PRN (12:43)
[2023-02-21] MEDS ORDERED: NALOXONE HCL 0.4 MG/ML VIAL IM PRN (12:43)
[2023-02-21] MEDS ORDERED: IBUPROFEN 400 MG TABLET (FP) PO PRN (12:43)
[2023-02-21] MEDS ORDERED: POLYETHYLENE GLYCOL (HEALTHYLAX) 3350 17 GM PACKET PO PRN (12:43)
[2023-02-21] MEDS ORDERED: BISMUTH SUBSALICYLATE 524 MG/30 ML PO PRN (12:43)
[2023-02-21] MEDS ORDERED: MAG HYDROX/AL HYDROX/SIMETH 30 ML UNIT-DOSE CUP PO PRN (12:43)
[2023-02-21] MEDS ORDERED: chlordiazePOXIDE HCL 25 MG CAPSULE PO PRN (12:52)
[2023-02-21] MEDS: chlordiazePOXIDE HCL 25 MG CAPSULE PO SCH ×2 (16:45→22:42)
[2023-02-21] MEDS ORDERED: MELATONIN 5 MG TABLETS PO SCH (22:00)
[2023-02-21] MEDS: BENZTROPINE MESYLATE 1 MG TABLET PO SCH (22:42)
[2023-02-21] MEDS: OLANZapine 10 MG TABLET PO SCH (22:42)
[2023-02-21] MEDS: THIAMINE HCL 100 MG TABLET (FP) PO SCH (22:42)
[2023-02-21] MEDS: MIRTAZAPINE 15 MG TABLET (FP) PO SCH (22:45)
[2023-02-22] MEDS: chlordiazePOXIDE HCL 25 MG CAPSULE PO SCH ×4 (05:31→22:21)
[2023-02-22] MEDS: BENZTROPINE MESYLATE 1 MG TABLET PO SCH ×2 (10:35→22:20)
[2023-02-22] MEDS: PRENATAL VITAMINS W/ FOLIC ACID TABLET (FP) PO SCH (10:35)
[2023-02-22] MEDS: ATORVASTATIN CA 40 MG TABLET (FP) PO SCH (10:35)
[2023-02-22] MEDS: METHOCARBAMOL 500 MG TABLET PO PRN (10:35)
[2023-02-22] MEDS: hydrOXYzine PAMOATE 25 MG CAPSULE (FP) PO PRN (10:35)
[2023-02-22] MEDS: NICOTINE 14 MG/24 HOURS TOPICAL PATCH TD SCH (10:38)
[2023-02-22] MEDS: FAMOTIDINE 20 MG/2.5 ML ORAL LIQUID PEG SCH (10:39)
[2023-02-22] MEDS: NIFEdipine E.R 60 MG TABLET PO SCH (11:00)
[2023-02-22] MEDS: DOLUTEGRAVIR SODIUM 50 MG TABLET (NON-FORMULARY) PO SCH (11:53)
[2023-02-22] MEDS: EMTRICITABINE/TENOFOV ALAFENAM (DESCOVY) TABLET PO SCH (11:53)
[2023-02-22] MEDS ORDERED: METOPROLOL TARTRATE 50 MG TABLET (FP) PO ONE (14:15)
[2023-02-22] MEDS: OLANZapine 10 MG TABLET PO SCH (22:20)
[2023-02-22] MEDS: THIAMINE HCL 100 MG TABLET (FP) PO SCH (22:20)
[2023-02-22] MEDS: MIRTAZAPINE 15 MG TABLET (FP) PO SCH (22:23)
[2023-02-22] MEDS: ACETAMINOPHEN 325 MG TABLET (FP) PO PRN (22:23)
[2023-02-23] MEDS: chlordiazePOXIDE HCL 25 MG CAPSULE PO SCH ×4 (05:28→22:25)
[2023-02-23] MEDS: hydrOXYzine PAMOATE 25 MG CAPSULE (FP) PO PRN (10:25)
[2023-02-23] MEDS: ATORVASTATIN CA 40 MG TABLET (FP) PO SCH (10:25)
[2023-02-23] MEDS: BENZTROPINE MESYLATE 1 MG TABLET PO SCH ×2 (10:25→22:25)
[2023-02-23] MEDS: PRENATAL VITAMINS W/ FOLIC ACID TABLET (FP) PO SCH (10:25)
[2023-02-23] MEDS: EMTRICITABINE/TENOFOV ALAFENAM (DESCOVY) TABLET PO SCH (10:26)
[2023-02-23] MEDS: NICOTINE 14 MG/24 HOURS TOPICAL PATCH TD SCH (10:26)
[2023-02-23] MEDS: DOLUTEGRAVIR SODIUM 50 MG TABLET (NON-FORMULARY) PO SCH (10:26)
[2023-02-23] MEDS: NIFEdipine E.R 60 MG TABLET PO SCH (10:29)
[2023-02-23] MEDS: FAMOTIDINE 20 MG/2.5 ML ORAL LIQUID PEG SCH (10:31)
[2023-02-23] MEDS: FAMOTIDINE 20 MG TABLET PO SCH (11:31)
[2023-02-23] MEDS: THIAMINE HCL 100 MG TABLET (FP) PO SCH (22:24)
[2023-02-23] MEDS: OLANZapine 10 MG TABLET PO SCH (22:24)
[2023-02-23] MEDS: MIRTAZAPINE 15 MG TABLET (FP) PO SCH (22:24)
[2023-02-23] MEDS: METHOCARBAMOL 500 MG TABLET PO PRN (22:30)
[2023-02-24] MEDS ORDERED: chlordiazePOXIDE HCL 10 MG CAPSULE PO PRN
[2023-02-24] MEDS: chlordiazePOXIDE HCL 10 MG CAPSULE PO SCH ×4 (05:47→22:35)
[2023-02-24] MEDS: METHOCARBAMOL 500 MG TABLET PO PRN (10:28)
[2023-02-24] MEDS: hydrOXYzine PAMOATE 25 MG CAPSULE (FP) PO PRN (10:28)
[2023-02-24] MEDS: BENZTROPINE MESYLATE 1 MG TABLET PO SCH ×2 (10:28→22:35)
[2023-02-24] MEDS: FAMOTIDINE 20 MG TABLET PO SCH (10:28)
[2023-02-24] MEDS: ATORVASTATIN CA 40 MG TABLET (FP) PO SCH (10:28)
[2023-02-24] MEDS: PRENATAL VITAMINS W/ FOLIC ACID TABLET (FP) PO SCH (10:29)
[2023-02-24] MEDS: EMTRICITABINE/TENOFOV ALAFENAM (DESCOVY) TABLET PO SCH (10:29)
[2023-02-24] MEDS: NICOTINE 14 MG/24 HOURS TOPICAL PATCH TD SCH (10:30)
[2023-02-24] MEDS: DOLUTEGRAVIR SODIUM 50 MG TABLET (NON-FORMULARY) PO SCH (10:30)
[2023-02-24] MEDS: NIFEdipine E.R 60 MG TABLET PO SCH (10:31)
[2023-02-24] MEDS: metoPROLOL SUCCINATE 25 MG TAB.SR.24H (FP) PO SCH (10:32)
[2023-02-24] MEDS: ACETAMINOPHEN 325 MG TABLET (FP) PO PRN (17:27)
[2023-02-24] MEDS: MIRTAZAPINE 15 MG TABLET (FP) PO SCH (22:35)
[2023-02-24] MEDS: OLANZapine 10 MG TABLET PO SCH (22:35)
[2023-02-24] MEDS: THIAMINE HCL 100 MG TABLET (FP) PO SCH (22:35)
[2023-02-25] MEDS: chlordiazePOXIDE HCL 10 MG CAPSULE PO SCH ×2 (06:06→17:43)
[2023-02-25] MEDS: PRENATAL VITAMINS W/ FOLIC ACID TABLET (FP) PO SCH (09:25)
[2023-02-25] MEDS: BENZTROPINE MESYLATE 1 MG TABLET PO SCH ×2 (09:25→22:29)
[2023-02-25] MEDS: ATORVASTATIN CA 40 MG TABLET (FP) PO SCH (09:25)
[2023-02-25] MEDS: hydrOXYzine PAMOATE 25 MG CAPSULE (FP) PO PRN ×2 (09:25→21:16)
[2023-02-25] MEDS: METHOCARBAMOL 500 MG TABLET PO PRN ×2 (09:25→17:45)
[2023-02-25] MEDS: FAMOTIDINE 20 MG TABLET PO SCH (09:25)
[2023-02-25] MEDS: EMTRICITABINE/TENOFOV ALAFENAM (DESCOVY) TABLET PO SCH (09:26)
[2023-02-25] MEDS: NIFEdipine E.R 60 MG TABLET PO SCH (09:26)
[2023-02-25] MEDS: NICOTINE 14 MG/24 HOURS TOPICAL PATCH TD SCH (09:27)
[2023-02-25] MEDS: metoPROLOL SUCCINATE 25 MG TAB.SR.24H (FP) PO SCH (09:27)
[2023-02-25] MEDS: DOLUTEGRAVIR SODIUM 50 MG TABLET (NON-FORMULARY) PO SCH (09:27)
[2023-02-25] MEDS: HYDROCHLOROTHIAZIDE 12.5 MG CAPSULE (FP) PO SCH (12:50)
[2023-02-25] MEDS ORDERED: PATIENT'S OWN MEDICATION (NON-FORMULARY) (Omeprazole [Omeprazole] 20 MG Tablet.Dr) PO SCH (21:00)
[2023-02-25] MEDS: PANTOPRAZOLE 40 MG TABLET PO SCH (21:16)
[2023-02-25] MEDS ORDERED: LISINOPRIL 5 MG TABLET PO ONE (21:48)
[2023-02-25] MEDS ORDERED: FOLIC ACID 1 MG TABLET (FP) PO SCH (22:00)
[2023-02-25] MEDS: MIRTAZAPINE 15 MG TABLET (FP) PO SCH (22:29)
[2023-02-25] MEDS: OLANZapine 10 MG TABLET PO SCH (22:29)
[2023-02-25] MEDS: THIAMINE HCL 100 MG TABLET (FP) PO SCH (22:29)
[2023-02-25] MEDS: HYDROCORTISONE 2.5% TOPICAL CREAM 30 GM TUBE TP SCH (23:47)
[2023-02-26] MEDS ORDERED: chlordiazePOXIDE HCL 10 MG CAPSULE PO ONE (05:00)
[2023-02-26 09:25] VITALS: PULSE 84; TEMP 97.3
[2023-02-26] MEDS: FAMOTIDINE 20 MG TABLET PO SCH (10:38)
[2023-02-26] MEDS: HYDROCHLOROTHIAZIDE 12.5 MG CAPSULE (FP) PO SCH (10:38)
[2023-02-26] MEDS: ATORVASTATIN CA 40 MG TABLET (FP) PO SCH (10:38)
[2023-02-26] MEDS: EMTRICITABINE/TENOFOV ALAFENAM (DESCOVY) TABLET PO SCH (10:38)
[2023-02-26] MEDS: PANTOPRAZOLE 40 MG TABLET PO SCH (10:39)
[2023-02-26] MEDS: PRENATAL VITAMINS W/ FOLIC ACID TABLET (FP) PO SCH (10:39)
[2023-02-26] MEDS: BENZTROPINE MESYLATE 1 MG TABLET PO SCH (10:39)
[2023-02-26] MEDS: HYDROCORTISONE 2.5% TOPICAL CREAM 30 GM TUBE TP SCH (10:40)
[2023-02-26] MEDS: NICOTINE 14 MG/24 HOURS TOPICAL PATCH TD SCH (10:41)
[2023-02-26] MEDS: metoPROLOL SUCCINATE 25 MG TAB.SR.24H (FP) PO SCH (10:41)
[2023-02-26] MEDS: NIFEdipine E.R 60 MG TABLET PO SCH (10:41)
[2023-02-26] MEDS: DOLUTEGRAVIR SODIUM 50 MG TABLET (NON-FORMULARY) PO SCH (10:44)
[2023-02-26 13:16] VITALS: BP 120/80; RESP 16
== END 2023-02-26 15:01 | disposition other institution (70) | DRG 774 ==
LOC: YASAS 10:44 → Y6N 13:22
PROVIDERS: ADMIT Allergy & Immunology; ATTEND Surgery
PROC: HZ2ZZZZ Detoxification Services for Substance Abuse Treatment (ICD-10-PCS; principal; 2023-02-21)
DX: F10.230 Alcohol dependence with withdrawal, uncomplicated (principal); F14.20 Cocaine dependence, uncomplicated; F12.20 Cannabis dependence, uncomplicated; F17.213 Nicotine dependence, cigarettes, with withdrawal; F25.1 Schizoaffective disorder, depressive type; F39 Unspecified mood [affective] disorder; F19.982 Other psychoactive substance use, unspecified with psychoactive substance-induced sleep disorder; I10 Essential (primary) hypertension; B20 Human immunodeficiency virus [HIV] disease; E78.5 Hyperlipidemia, unspecified; K21.00 Gastro-esophageal reflux disease with esophagitis, without bleeding; K29.20 Alcoholic gastritis without bleeding; K29.80 Duodenitis without bleeding; K21.9 Gastro-esophageal reflux disease without esophagitis; Z86.19 Personal history of other infectious and parasitic diseases; Z86.69 Personal history of other diseases of the nervous system and sense organs; Z88.2 Allergy status to sulfonamides; Z91.013 Allergy to seafood; Z88.1 Allergy status to other antibiotic agents; Z56.0 Unemployment, unspecified
CPT/HCPCS: 87635

== ENCOUNTER 2023-02-26 14:56 | Inpatient (IN) | payer OTHER ==
[2023-02-26] MEDS ORDERED: METHOCARBAMOL 500 MG TABLET PO PRN (16:01)
[2023-02-26] MEDS ORDERED: BENZONATATE 200 MG CAPSULE PO PRN (16:01)
[2023-02-26] MEDS ORDERED: MAG HYDROX/AL HYDROX/SIMETH 30 ML UNIT-DOSE CUP PO PRN (16:01)
[2023-02-26] MEDS ORDERED: NALOXONE HCL (KLOXXADO) 8 MG SPRAY NS PRN (16:01)
[2023-02-26] MEDS ORDERED: NICOTINE 10 MG CARTRIDGE (INHALER) IH PRN (16:01)
[2023-02-26] MEDS ORDERED: IBUPROFEN 400 MG TABLET (FP) PO PRN (16:01)
[2023-02-26] MEDS ORDERED: hydrOXYzine PAMOATE 25 MG CAPSULE (FP) PO PRN (16:01)
[2023-02-26] MEDS ORDERED: IBUPROFEN 600 MG TABLET (FP) PO PRN (16:01)
[2023-02-26] MEDS ORDERED: guaiFENesin 600 MG TABLET.ER (FP) PO PRN (16:01)
[2023-02-26] MEDS ORDERED: NICOTINE 14 MG/24 HOURS TOPICAL PATCH TD PRN (16:01)
[2023-02-26] MEDS ORDERED: BENZOCAINE/MENTHOL (CHLORASEPTIC ) LOZENGE MM PRN (16:01)
[2023-02-26] MEDS ORDERED: AMMONIUM LACTATE 12% LOTION 225 GM BOTTLE TP PRN (16:01)
[2023-02-26] MEDS ORDERED: NALOXONE HCL 0.4 MG/ML VIAL IVPUSH PRN (16:01)
[2023-02-26] MEDS ORDERED: LOPERAMIDE HCL 2 MG CAPSULE PO PRN (16:01)
[2023-02-26] MEDS ORDERED: POLYETHYLENE GLYCOL (HEALTHYLAX) 3350 17 GM PACKET PO PRN (16:01)
[2023-02-26] MEDS ORDERED: ACETAMINOPHEN 325 MG TABLET (FP) PO PRN (16:01)
[2023-02-26] MEDS ORDERED: COLLOIDAL OATMEAL 1 BAR EACH TP PRN (16:01)
[2023-02-26] MEDS ORDERED: NICOTINE POLACRILEX 4 MG GUM BUC PRN (16:01)
[2023-02-26] MEDS ORDERED: MAGNESIUM HYDROX 2400MG/30ML ORAL SUSPENSION 30 ML CUP PO PRN (16:01)
[2023-02-26] MEDS: THIAMINE HCL 100 MG TABLET (FP) PO SCH (21:12)
[2023-02-26] MEDS: MELATONIN 5 MG TABLETS PO SCH (21:12)
[2023-02-26] MEDS: MIRTAZAPINE 15 MG TABLET (FP) PO SCH (21:13)
[2023-02-26] MEDS: BENZTROPINE MESYLATE 1 MG TABLET PO SCH (21:13)
[2023-02-26] MEDS: OLANZapine 10 MG TABLET PO SCH (21:13)
[2023-02-26] MEDS: HYDROCORTISONE 2.5% TOPICAL CREAM 30 GM TUBE TP SCH (22:05)
[2023-02-27] MEDS ORDERED: ATORVASTATIN CA 40 MG TABLET (FP) PO SCH ×3 (10:00→22:00)
[2023-02-27] MEDS ORDERED: THIAMINE HCL 100 MG TABLET (FP) PO SCH (10:00)
[2023-02-27] MEDS: HYDROCORTISONE 2.5% TOPICAL CREAM 30 GM TUBE TP SCH ×2 (10:15→21:05)
[2023-02-27] MEDS: metoPROLOL SUCCINATE 25 MG TAB.SR.24H (FP) PO SCH (10:16)
[2023-02-27] MEDS: PRENATAL VITAMINS W/ FOLIC ACID TABLET (FP) PO SCH (10:18)
[2023-02-27] MEDS: BENZTROPINE MESYLATE 1 MG TABLET PO SCH ×2 (10:18→21:04)
[2023-02-27] MEDS: PANTOPRAZOLE 40 MG TABLET PO SCH (10:18)
[2023-02-27] MEDS: HYDROCHLOROTHIAZIDE 12.5 MG CAPSULE (FP) PO SCH (10:18)
[2023-02-27] MEDS: FAMOTIDINE 20 MG TABLET PO SCH (10:18)
[2023-02-27] MEDS: NIFEdipine E.R 60 MG TABLET PO SCH (10:18)
[2023-02-27] MEDS: EMTRICITABINE/TENOFOV ALAFENAM (DESCOVY) TABLET PO SCH ×2 (10:20→12:54)
[2023-02-27 11:08] LABS: BASO % 0.8 % (0-2.0); EOS % 4.7 % (0-4.5); HEMATOCRIT 44.7 % (35.4-49); HEMOGLOBIN 14.9 GM/dL (11.7-16.9); LYMPH % 19.6 % (8-40); MCH 30.3 pg (25.7-33.7); MCHC 33.3 g/dl (32.0-35.9); MEAN CELL VOLUME 90.9 fl (80-96); MEAN PLT VOLUME 9.6 fl (7.5-11.1); MONO % 6.3 % (3.8-10.2); NEUT % 68.6 % (42.8-82.8); PLATELET COUNT 186 10^3/uL (134-434); RBC 4.92 M/mm3 (4.00-5.60); WHITE BLOOD COUNT 4.8 K/mm3 (4.0-10.0)
[2023-02-27 11:18] LABS: CHLORIDE 104 mmol/L (98-107); POTASSIUM 3.8 mmol/L (3.5-5.1); SODIUM 142 mmol/L (136-145)
[2023-02-27 11:22] LABS: ALBUMIN 3.1 g/dl (3.4-5.0); BLOOD UREA NITROGEN 19.9 mg/dL (7-18); CALCIUM 9.3 mg/dL (8.5-10.1); GLUCOSE,RANDOM 182 mg/dL (74-106)
[2023-02-27 11:23] LABS: ANION GAP 8 MMOL/L (8-16); CO2 30 mmol/L (21-32)
[2023-02-27 11:25] LABS: CREATININE 1.4 mg/dL (0.55-1.3); SGOT/AST 16 U/L (15-37); SGPT/ALT 30 U/L (13-61)
[2023-02-27 11:26] LABS: ALK PHOS 94 U/L (45-117); TOT PROT 7.1 g/dl (6.4-8.2)
[2023-02-27 11:27] LABS: BILIRUBIN,TOTAL < 0.1 mg/dL (0.2-1)
[2023-02-27] MEDS: DOLUTEGRAVIR SODIUM 50 MG TABLET (NON-FORMULARY) PO SCH (12:54)
[2023-02-27] MEDS: MELATONIN 5 MG TABLETS PO SCH (21:04)
[2023-02-27] MEDS: OLANZapine 10 MG TABLET PO SCH (21:04)
[2023-02-27] MEDS: MIRTAZAPINE 15 MG TABLET (FP) PO SCH (21:04)
[2023-02-27] MEDS: THIAMINE HCL 100 MG TABLET (FP) PO SCH (21:04)
[2023-02-28] MEDS: HYDROCHLOROTHIAZIDE 12.5 MG CAPSULE (FP) PO SCH ×2 (07:52→10:28)
[2023-02-28] MEDS: HYDROCORTISONE 2.5% TOPICAL CREAM 30 GM TUBE TP SCH ×2 (09:53→21:16)
[2023-02-28] MEDS: EMTRICITABINE/TENOFOV ALAFENAM (DESCOVY) TABLET PO SCH (09:54)
[2023-02-28] MEDS: FAMOTIDINE 20 MG TABLET PO SCH (09:54)
[2023-02-28] MEDS: BENZTROPINE MESYLATE 1 MG TABLET PO SCH ×2 (09:54→21:15)
[2023-02-28] MEDS: DOLUTEGRAVIR SODIUM 50 MG TABLET (NON-FORMULARY) PO SCH (09:55)
[2023-02-28] MEDS: NIFEdipine E.R 60 MG TABLET PO SCH (09:55)
[2023-02-28] MEDS: metoPROLOL SUCCINATE 25 MG TAB.SR.24H (FP) PO SCH (09:55)
[2023-02-28] MEDS: PRENATAL VITAMINS W/ FOLIC ACID TABLET (FP) PO SCH (09:55)
[2023-02-28] MEDS: PANTOPRAZOLE 40 MG TABLET PO SCH (09:55)
[2023-02-28] MEDS: cloNIDine HCL 0.1 MG TABLET PO SCH ×2 (13:07→21:15)
[2023-02-28] MEDS: OLANZapine 10 MG TABLET PO SCH (21:15)
[2023-02-28] MEDS: MIRTAZAPINE 15 MG TABLET (FP) PO SCH (21:15)
[2023-02-28] MEDS: THIAMINE HCL 100 MG TABLET (FP) PO SCH (21:15)
[2023-02-28] MEDS: MELATONIN 5 MG TABLETS PO SCH (21:15)
[2023-02-28] MEDS: ATORVASTATIN CA 40 MG TABLET (FP) PO SCH (21:16)
[2023-03-01] MEDS: HYDROCORTISONE 2.5% TOPICAL CREAM 30 GM TUBE TP SCH ×2 (09:57→21:28)
[2023-03-01] MEDS: BENZTROPINE MESYLATE 1 MG TABLET PO SCH ×2 (09:58→21:27)
[2023-03-01] MEDS: cloNIDine HCL 0.1 MG TABLET PO SCH ×2 (09:58→21:27)
[2023-03-01] MEDS: PANTOPRAZOLE 40 MG TABLET PO SCH (09:59)
[2023-03-01] MEDS: HYDROCHLOROTHIAZIDE 12.5 MG CAPSULE (FP) PO SCH (09:59)
[2023-03-01] MEDS: FAMOTIDINE 20 MG TABLET PO SCH (09:59)
[2023-03-01] MEDS: EMTRICITABINE/TENOFOV ALAFENAM (DESCOVY) TABLET PO SCH (09:59)
[2023-03-01] MEDS: NIFEdipine E.R 60 MG TABLET PO SCH (10:00)
[2023-03-01] MEDS: DOLUTEGRAVIR SODIUM 50 MG TABLET (NON-FORMULARY) PO SCH (10:00)
[2023-03-01] MEDS: PRENATAL VITAMINS W/ FOLIC ACID TABLET (FP) PO SCH (10:00)
[2023-03-01] MEDS: metoPROLOL SUCCINATE 25 MG TAB.SR.24H (FP) PO SCH (10:00)
[2023-03-01] MEDS: ATORVASTATIN CA 40 MG TABLET (FP) PO SCH (21:27)
[2023-03-01] MEDS: OLANZapine 10 MG TABLET PO SCH (21:27)
[2023-03-01] MEDS: THIAMINE HCL 100 MG TABLET (FP) PO SCH (21:27)
[2023-03-01] MEDS: MIRTAZAPINE 15 MG TABLET (FP) PO SCH (21:27)
[2023-03-01] MEDS: MELATONIN 5 MG TABLETS PO SCH (21:28)
[2023-03-02] MEDS: ACETAMINOPHEN 325 MG TABLET (FP) PO PRN (09:57)
[2023-03-02] MEDS: HYDROCORTISONE 2.5% TOPICAL CREAM 30 GM TUBE TP SCH ×2 (09:58→21:26)
[2023-03-02] MEDS: metoPROLOL SUCCINATE 25 MG TAB.SR.24H (FP) PO SCH (09:58)
[2023-03-02] MEDS: DOLUTEGRAVIR SODIUM 50 MG TABLET (NON-FORMULARY) PO SCH (09:59)
[2023-03-02] MEDS: PANTOPRAZOLE 40 MG TABLET PO SCH (09:59)
[2023-03-02] MEDS: NIFEdipine E.R 60 MG TABLET PO SCH (09:59)
[2023-03-02] MEDS: cloNIDine HCL 0.1 MG TABLET PO SCH ×2 (09:59→21:25)
[2023-03-02] MEDS: BENZTROPINE MESYLATE 1 MG TABLET PO SCH ×2 (09:59→21:25)
[2023-03-02] MEDS: FAMOTIDINE 20 MG TABLET PO SCH (09:59)
[2023-03-02] MEDS: HYDROCHLOROTHIAZIDE 12.5 MG CAPSULE (FP) PO SCH (09:59)
[2023-03-02] MEDS: PRENATAL VITAMINS W/ FOLIC ACID TABLET (FP) PO SCH (09:59)
[2023-03-02] MEDS: EMTRICITABINE/TENOFOV ALAFENAM (DESCOVY) TABLET PO SCH (10:00)
[2023-03-02] MEDS: MIRTAZAPINE 15 MG TABLET (FP) PO SCH (21:25)
[2023-03-02] MEDS: THIAMINE HCL 100 MG TABLET (FP) PO SCH (21:25)
[2023-03-02] MEDS: MELATONIN 5 MG TABLETS PO SCH (21:25)
[2023-03-02] MEDS: LACTULOSE 20 GM/30 ML UDC (FOR ORAL USE ONLY) PO SCH (21:26)
[2023-03-02] MEDS: OLANZapine 10 MG TABLET PO SCH (21:26)
[2023-03-02] MEDS: ATORVASTATIN CA 40 MG TABLET (FP) PO SCH (21:26)
[2023-03-03] MEDS: LACTULOSE 20 GM/30 ML UDC (FOR ORAL USE ONLY) PO SCH ×3 (06:54→21:34)
[2023-03-03] MEDS: HYDROCORTISONE 2.5% TOPICAL CREAM 30 GM TUBE TP SCH ×2 (09:20→22:34)
[2023-03-03] MEDS: BENZTROPINE MESYLATE 1 MG TABLET PO SCH ×2 (09:20→21:36)
[2023-03-03] MEDS: cloNIDine HCL 0.1 MG TABLET PO SCH ×2 (09:20→21:36)
[2023-03-03] MEDS: EMTRICITABINE/TENOFOV ALAFENAM (DESCOVY) TABLET PO SCH (09:20)
[2023-03-03] MEDS: HYDROCHLOROTHIAZIDE 12.5 MG CAPSULE (FP) PO SCH (09:21)
[2023-03-03] MEDS: DOLUTEGRAVIR SODIUM 50 MG TABLET (NON-FORMULARY) PO SCH (09:21)
[2023-03-03] MEDS: PANTOPRAZOLE 40 MG TABLET PO SCH (09:21)
[2023-03-03] MEDS: NIFEdipine E.R 60 MG TABLET PO SCH (09:21)
[2023-03-03] MEDS: FAMOTIDINE 20 MG TABLET PO SCH (09:21)
[2023-03-03] MEDS: PRENATAL VITAMINS W/ FOLIC ACID TABLET (FP) PO SCH (09:22)
[2023-03-03] MEDS: metoPROLOL SUCCINATE 25 MG TAB.SR.24H (FP) PO SCH (10:29)
[2023-03-03] MEDS: MIRTAZAPINE 15 MG TABLET (FP) PO SCH (21:35)
[2023-03-03] MEDS: OLANZapine 10 MG TABLET PO SCH (21:35)
[2023-03-03] MEDS: THIAMINE HCL 100 MG TABLET (FP) PO SCH (21:36)
[2023-03-03] MEDS: MELATONIN 5 MG TABLETS PO SCH (21:36)
[2023-03-03] MEDS: ATORVASTATIN CA 40 MG TABLET (FP) PO SCH (21:36)
[2023-03-04] MEDS: LACTULOSE 20 GM/30 ML UDC (FOR ORAL USE ONLY) PO SCH ×3 (06:23→21:50)
[2023-03-04] MEDS: HYDROCHLOROTHIAZIDE 12.5 MG CAPSULE (FP) PO SCH (10:01)
[2023-03-04] MEDS: NIFEdipine E.R 60 MG TABLET PO SCH (10:01)
[2023-03-04] MEDS: FAMOTIDINE 20 MG TABLET PO SCH (10:01)
[2023-03-04] MEDS: cloNIDine HCL 0.1 MG TABLET PO SCH ×2 (10:01→21:50)
[2023-03-04] MEDS: PANTOPRAZOLE 40 MG TABLET PO SCH (10:02)
[2023-03-04] MEDS: BENZTROPINE MESYLATE 1 MG TABLET PO SCH ×2 (10:02→21:50)
[2023-03-04] MEDS: EMTRICITABINE/TENOFOV ALAFENAM (DESCOVY) TABLET PO SCH (10:02)
[2023-03-04] MEDS: metoPROLOL SUCCINATE 25 MG TAB.SR.24H (FP) PO SCH (10:02)
[2023-03-04] MEDS: DOLUTEGRAVIR SODIUM 50 MG TABLET (NON-FORMULARY) PO SCH (10:03)
[2023-03-04] MEDS: HYDROCORTISONE 2.5% TOPICAL CREAM 30 GM TUBE TP SCH ×2 (10:03→21:49)
[2023-03-04] MEDS: PRENATAL VITAMINS W/ FOLIC ACID TABLET (FP) PO SCH (10:03)
[2023-03-04] MEDS ORDERED: FAMOTIDINE 20 MG TABLET PO ONE (18:24)
[2023-03-04] MEDS: OLANZapine 10 MG TABLET PO SCH (21:50)
[2023-03-04] MEDS: ATORVASTATIN CA 40 MG TABLET (FP) PO SCH (21:50)
[2023-03-04] MEDS: THIAMINE HCL 100 MG TABLET (FP) PO SCH (21:50)
[2023-03-04] MEDS: MELATONIN 5 MG TABLETS PO SCH (21:50)
[2023-03-04] MEDS: MIRTAZAPINE 15 MG TABLET (FP) PO SCH (21:50)
[2023-03-05] MEDS: LACTULOSE 20 GM/30 ML UDC (FOR ORAL USE ONLY) PO SCH ×3 (06:25→21:47)
[2023-03-05] MEDS: HYDROCORTISONE 2.5% TOPICAL CREAM 30 GM TUBE TP SCH ×2 (09:38→21:47)
[2023-03-05] MEDS: PRENATAL VITAMINS W/ FOLIC ACID TABLET (FP) PO SCH (09:38)
[2023-03-05] MEDS: metoPROLOL SUCCINATE 25 MG TAB.SR.24H (FP) PO SCH (09:38)
[2023-03-05] MEDS: FAMOTIDINE 20 MG TABLET PO SCH (09:39)
[2023-03-05] MEDS: DOLUTEGRAVIR SODIUM 50 MG TABLET (NON-FORMULARY) PO SCH (09:39)
[2023-03-05] MEDS: BENZTROPINE MESYLATE 1 MG TABLET PO SCH ×2 (09:39→21:48)
[2023-03-05] MEDS: EMTRICITABINE/TENOFOV ALAFENAM (DESCOVY) TABLET PO SCH (09:39)
[2023-03-05] MEDS: HYDROCHLOROTHIAZIDE 12.5 MG CAPSULE (FP) PO SCH (09:39)
[2023-03-05] MEDS: cloNIDine HCL 0.1 MG TABLET PO SCH ×2 (09:39→21:48)
[2023-03-05] MEDS: NIFEdipine E.R 60 MG TABLET PO SCH (09:41)
[2023-03-05] MEDS: PANTOPRAZOLE 40 MG TABLET PO SCH (09:41)
[2023-03-05 11:30] LABS: CHLORIDE 107 mmol/L (98-107); POTASSIUM 4.3 mmol/L (3.5-5.1); SODIUM 140 mmol/L (136-145)
[2023-03-05 11:32] LABS: CALCIUM 8.8 mg/dL (8.5-10.1)
[2023-03-05 11:33] LABS: ALBUMIN 3.1 g/dl (3.4-5.0); ANION GAP 8 MMOL/L (8-16); BLOOD UREA NITROGEN 18.7 mg/dL (7-18); CO2 25 mmol/L (21-32); GLUCOSE,RANDOM 98 mg/dL (74-106)
[2023-03-05 11:36] LABS: CREATININE 1.3 mg/dL (0.55-1.3); SGOT/AST 31 U/L (15-37); SGPT/ALT 44 U/L (13-61)
[2023-03-05 11:37] LABS: BILIRUBIN,TOTAL < 0.1 mg/dL (0.2-1)
[2023-03-05 11:38] LABS: TOT PROT 7.2 g/dl (6.4-8.2)
[2023-03-05 11:39] LABS: ALK PHOS 94 U/L (45-117)
[2023-03-05] MEDS: OLANZapine 10 MG TABLET PO SCH (21:47)
[2023-03-05] MEDS: MELATONIN 5 MG TABLETS PO SCH (21:48)
[2023-03-05] MEDS: MIRTAZAPINE 15 MG TABLET (FP) PO SCH (21:48)
[2023-03-05] MEDS: ATORVASTATIN CA 40 MG TABLET (FP) PO SCH (21:48)
[2023-03-05] MEDS: THIAMINE HCL 100 MG TABLET (FP) PO SCH (21:48)
[2023-03-06] MEDS: LACTULOSE 20 GM/30 ML UDC (FOR ORAL USE ONLY) PO SCH ×3 (06:47→21:42)
[2023-03-06] MEDS: HYDROCORTISONE 2.5% TOPICAL CREAM 30 GM TUBE TP SCH ×2 (09:28→21:42)
[2023-03-06] MEDS: PRENATAL VITAMINS W/ FOLIC ACID TABLET (FP) PO SCH (10:10)
[2023-03-06] MEDS: DOLUTEGRAVIR SODIUM 50 MG TABLET (NON-FORMULARY) PO SCH (10:11)
[2023-03-06] MEDS: EMTRICITABINE/TENOFOV ALAFENAM (DESCOVY) TABLET PO SCH (10:11)
[2023-03-06] MEDS: metoPROLOL SUCCINATE 25 MG TAB.SR.24H (FP) PO SCH (10:11)
[2023-03-06] MEDS: PANTOPRAZOLE 40 MG TABLET PO SCH (10:11)
[2023-03-06] MEDS: HYDROCHLOROTHIAZIDE 12.5 MG CAPSULE (FP) PO SCH (10:11)
[2023-03-06] MEDS: NIFEdipine E.R 60 MG TABLET PO SCH (10:12)
[2023-03-06] MEDS: BENZTROPINE MESYLATE 1 MG TABLET PO SCH ×2 (10:12→21:44)
[2023-03-06] MEDS: cloNIDine HCL 0.1 MG TABLET PO SCH (10:12)
[2023-03-06] MEDS: FAMOTIDINE 20 MG TABLET PO SCH (10:12)
[2023-03-06] MEDS ORDERED: cloNIDine HCL 0.1 MG TABLET PO PRN (12:28)
[2023-03-06] MEDS: ACETAMINOPHEN 325 MG TABLET (FP) PO PRN (19:56)
[2023-03-06 20:55] VITALS: RESP 18
[2023-03-06] MEDS: THIAMINE HCL 100 MG TABLET (FP) PO SCH (21:43)
[2023-03-06] MEDS: OLANZapine 10 MG TABLET PO SCH (21:44)
[2023-03-06] MEDS: ATORVASTATIN CA 40 MG TABLET (FP) PO SCH (21:44)
[2023-03-06] MEDS: MELATONIN 5 MG TABLETS PO SCH (21:44)
[2023-03-06] MEDS: MIRTAZAPINE 15 MG TABLET (FP) PO SCH (21:45)
[2023-03-07] MEDS: LACTULOSE 20 GM/30 ML UDC (FOR ORAL USE ONLY) PO SCH ×3 (06:44→21:39)
[2023-03-07] MEDS: NIFEdipine E.R 60 MG TABLET PO SCH (09:58)
[2023-03-07] MEDS: BENZTROPINE MESYLATE 1 MG TABLET PO SCH ×2 (09:58→21:54)
[2023-03-07] MEDS: HYDROCHLOROTHIAZIDE 12.5 MG CAPSULE (FP) PO SCH (09:58)
[2023-03-07] MEDS: EMTRICITABINE/TENOFOV ALAFENAM (DESCOVY) TABLET PO SCH (09:59)
[2023-03-07] MEDS: FAMOTIDINE 20 MG TABLET PO SCH (09:59)
[2023-03-07] MEDS: metoPROLOL SUCCINATE 25 MG TAB.SR.24H (FP) PO SCH (09:59)
[2023-03-07] MEDS: PANTOPRAZOLE 40 MG TABLET PO SCH (09:59)
[2023-03-07] MEDS: HYDROCORTISONE 2.5% TOPICAL CREAM 30 GM TUBE TP SCH ×2 (10:00→21:55)
[2023-03-07] MEDS: PRENATAL VITAMINS W/ FOLIC ACID TABLET (FP) PO SCH (10:00)
[2023-03-07] MEDS: DOLUTEGRAVIR SODIUM 50 MG TABLET (NON-FORMULARY) PO SCH (10:00)
[2023-03-07] MEDS: OLANZapine 10 MG TABLET PO SCH (21:40)
[2023-03-07] MEDS: MIRTAZAPINE 15 MG TABLET (FP) PO SCH (21:40)
[2023-03-07] MEDS: MELATONIN 5 MG TABLETS PO SCH (21:40)
[2023-03-07] MEDS: ACETAMINOPHEN 325 MG TABLET (FP) PO PRN (21:41)
[2023-03-07] MEDS: THIAMINE HCL 100 MG TABLET (FP) PO SCH (21:41)
[2023-03-07] MEDS: ATORVASTATIN CA 40 MG TABLET (FP) PO SCH (21:41)
[2023-03-08] MEDS: LACTULOSE 20 GM/30 ML UDC (FOR ORAL USE ONLY) PO SCH ×3 (06:22→21:49)
[2023-03-08] MEDS: HYDROCHLOROTHIAZIDE 12.5 MG CAPSULE (FP) PO SCH (09:32)
[2023-03-08] MEDS: FAMOTIDINE 20 MG TABLET PO SCH (09:32)
[2023-03-08] MEDS: HYDROCORTISONE 2.5% TOPICAL CREAM 30 GM TUBE TP SCH ×2 (09:32→21:49)
[2023-03-08] MEDS: BENZTROPINE MESYLATE 1 MG TABLET PO SCH ×2 (09:32→21:49)
[2023-03-08] MEDS: metoPROLOL SUCCINATE 25 MG TAB.SR.24H (FP) PO SCH (09:32)
[2023-03-08] MEDS: NIFEdipine E.R 60 MG TABLET PO SCH (09:32)
[2023-03-08] MEDS: PANTOPRAZOLE 40 MG TABLET PO SCH (09:32)
[2023-03-08] MEDS: DOLUTEGRAVIR SODIUM 50 MG TABLET (NON-FORMULARY) PO SCH (09:33)
[2023-03-08] MEDS: EMTRICITABINE/TENOFOV ALAFENAM (DESCOVY) TABLET PO SCH (09:33)
[2023-03-08] MEDS: PRENATAL VITAMINS W/ FOLIC ACID TABLET (FP) PO SCH (09:34)
[2023-03-08] MEDS: MIRTAZAPINE 15 MG TABLET (FP) PO SCH (21:49)
[2023-03-08] MEDS: OLANZapine 10 MG TABLET PO SCH (21:49)
[2023-03-08] MEDS: THIAMINE HCL 100 MG TABLET (FP) PO SCH (21:49)
[2023-03-08] MEDS: ATORVASTATIN CA 40 MG TABLET (FP) PO SCH (21:49)
[2023-03-08] MEDS: MELATONIN 5 MG TABLETS PO SCH (21:50)
[2023-03-08] MEDS: ACETAMINOPHEN 325 MG TABLET (FP) PO PRN (21:52)
[2023-03-09] MEDS: LACTULOSE 20 GM/30 ML UDC (FOR ORAL USE ONLY) PO SCH (07:41)
[2023-03-09] MEDS: HYDROCORTISONE 2.5% TOPICAL CREAM 30 GM TUBE TP SCH (09:20)
[2023-03-09] MEDS: FAMOTIDINE 20 MG TABLET PO SCH (09:21)
[2023-03-09] MEDS: HYDROCHLOROTHIAZIDE 12.5 MG CAPSULE (FP) PO SCH (09:21)
[2023-03-09] MEDS: NIFEdipine E.R 60 MG TABLET PO SCH (09:21)
[2023-03-09] MEDS: PRENATAL VITAMINS W/ FOLIC ACID TABLET (FP) PO SCH (09:21)
[2023-03-09] MEDS: BENZTROPINE MESYLATE 1 MG TABLET PO SCH (09:21)
[2023-03-09] MEDS: PANTOPRAZOLE 40 MG TABLET PO SCH (09:21)
[2023-03-09] MEDS: EMTRICITABINE/TENOFOV ALAFENAM (DESCOVY) TABLET PO SCH (09:21)
[2023-03-09] MEDS: DOLUTEGRAVIR SODIUM 50 MG TABLET (NON-FORMULARY) PO SCH (09:21)
[2023-03-09] MEDS: metoPROLOL SUCCINATE 25 MG TAB.SR.24H (FP) PO SCH (09:22)
[2023-03-09 09:26] VITALS: BP 143/93; PULSE 63; TEMP 96.8
== END 2023-03-09 12:50 | disposition home or self-care (01) | DRG 772 ==
LOC: YASAS 14:56 → Y3E 14:57
PROVIDERS: ADMIT Allergy & Immunology; ATTEND Psychiatry & Neurology Pain Medicine
PROC: HZ42ZZZ Group Counseling for Substance Abuse Treatment, Cognitive-Behavioral (ICD-10-PCS; principal; 2023-02-26)
DX: F10.20 Alcohol dependence, uncomplicated (principal); F14.20 Cocaine dependence, uncomplicated; F12.20 Cannabis dependence, uncomplicated; F17.210 Nicotine dependence, cigarettes, uncomplicated; B20 Human immunodeficiency virus [HIV] disease; E72.20 Disorder of urea cycle metabolism, unspecified; E78.5 Hyperlipidemia, unspecified; E03.9 Hypothyroidism, unspecified; I10 Essential (primary) hypertension; A63.0 Anogenital (venereal) warts; M17.0 Bilateral primary osteoarthritis of knee; Z20.822 Contact with and (suspected) exposure to COVID-19; Z87.11 Personal history of peptic ulcer disease; Z86.69 Personal history of other diseases of the nervous system and sense organs; Z86.19 Personal history of other infectious and parasitic diseases; Z88.2 Allergy status to sulfonamides; Z88.8 Allergy status to other drugs, medicaments and biological substances
CPT/HCPCS: 36415; 80053; 82140; 82962; 84443; 85025; 86803; 87635

== ENCOUNTER 2023-05-22 17:14 | Inpatient (IN) | payer OTHER ==
[2023-05-22 18:42] VITALS: BMI 27.4
[2023-05-22] MEDS ORDERED: cloNIDine HCL 0.1 MG TABLET PO ONE (22:03)
[2023-05-22] MEDS ORDERED: cloNIDine HCL 0.1 MG TABLET ONE (22:06)
[2023-05-22] MEDS ORDERED: hydrOXYzine PAMOATE 25 MG CAPSULE (FP) PO PRN (22:11)
[2023-05-22] MEDS ORDERED: MAG HYDROX/AL HYDROX/SIMETH 30 ML UNIT-DOSE CUP PO PRN (22:11)
[2023-05-22] MEDS ORDERED: IBUPROFEN 400 MG TABLET (FP) PO PRN (22:11)
[2023-05-22] MEDS ORDERED: BENZOCAINE/MENTHOL (CHLORASEPTIC ) LOZENGE MM PRN (22:11)
[2023-05-22] MEDS ORDERED: NICOTINE POLACRILEX 2 MG GUM BUC PRN (22:11)
[2023-05-22] MEDS ORDERED: ONDANSETRON *ODT* 4 MG TABLET SL PRN (22:11)
[2023-05-22] MEDS ORDERED: NALOXONE HCL 0.4 MG/ML VIAL IM PRN (22:11)
[2023-05-22] MEDS ORDERED: POLYETHYLENE GLYCOL (HEALTHYLAX) 3350 17 GM PACKET PO PRN (22:11)
[2023-05-22] MEDS ORDERED: guaiFENesin 600 MG TABLET.ER (FP) PO PRN (22:11)
[2023-05-22] MEDS ORDERED: BISMUTH SUBSALICYLATE 524 MG/30 ML PO PRN (22:11)
[2023-05-22] MEDS ORDERED: MAGNESIUM HYDROX 2400MG/30ML ORAL SUSPENSION 30 ML CUP PO PRN (22:11)
[2023-05-22] MEDS ORDERED: NALOXONE HCL (KLOXXADO) 8 MG SPRAY NS PRN (22:11)
[2023-05-22] MEDS ORDERED: LOPERAMIDE HCL 2 MG CAPSULE PO PRN (22:11)
[2023-05-22] MEDS ORDERED: DICYCLOMINE HCL 10 MG CAPSULE PO PRN (22:11)
[2023-05-22] MEDS ORDERED: ACETAMINOPHEN 325 MG TABLET (FP) PO PRN (22:11)
[2023-05-22] MEDS ORDERED: BENZONATATE 200 MG CAPSULE PO PRN (22:11)
[2023-05-23] MEDS: PRENATAL VITAMINS W/ FOLIC ACID TABLET (FP) PO SCH (09:12)
[2023-05-23] MEDS: HYDROCHLOROTHIAZIDE 12.5 MG CAPSULE (FP) PO SCH (09:13)
[2023-05-23] MEDS: metoPROLOL SUCCINATE 25 MG TAB.SR.24H (FP) PO SCH (09:13)
[2023-05-23] MEDS: PANTOPRAZOLE 40 MG TABLET PO SCH (09:13)
[2023-05-23] MEDS: NIFEdipine E.R 60 MG TABLET PO SCH (09:13)
[2023-05-23] MEDS: NICOTINE 21 MG/24 HOURS TOPICAL PATCH TD SCH (09:16)
[2023-05-23] MEDS: IBUPROFEN 600 MG TABLET (FP) PO PRN ×2 (09:22→18:50)
[2023-05-23] MEDS: METHOCARBAMOL 500 MG TABLET PO PRN (09:22)
[2023-05-23] MEDS: EMTRICITABINE/TENOFOV ALAFENAM (DESCOVY) TABLET PO SCH (10:44)
[2023-05-23] MEDS: DOLUTEGRAVIR SODIUM 50 MG TABLET (NON-FORMULARY) PO SCH (10:44)
[2023-05-23] MEDS: BENZTROPINE MESYLATE 1 MG TABLET PO SCH ×2 (10:44→22:09)
[2023-05-23 11:37] LABS: CHLORIDE 108 mmol/L (98-107); POTASSIUM 3.7 mmol/L (3.5-5.1); SODIUM 140 mmol/L (136-145)
[2023-05-23 11:45] LABS: ALBUMIN 3.3 g/dl (3.4-5.0)
[2023-05-23 11:46] LABS: BLOOD UREA NITROGEN 29.7 mg/dL (7-18)
[2023-05-23 11:47] LABS: HEMATOCRIT 41.5 % (35.4-49); HEMOGLOBIN 13.9 GM/dL (11.7-16.9); MCH 30.3 pg (25.7-33.7); MCHC 33.5 g/dl (32.0-35.9); MEAN CELL VOLUME 90.4 fl (80-96); MEAN PLT VOLUME 9.7 fl (7.5-11.1); PLATELET COUNT 160 10^3/uL (134-434); WHITE BLOOD COUNT 4.4 K/mm3 (4.0-10.0)
[2023-05-23 11:49] LABS: CALCIUM 9.2 mg/dL (8.5-10.1); SGOT/AST 19 U/L (15-37); SGPT/ALT 21 U/L (13-61)
[2023-05-23 11:50] LABS: ANION GAP 5 mmol/L (4-13); BILIRUBIN,TOTAL 0.5 mg/dL (0.2-1); CO2 27 mmol/L (21-32); GLUCOSE,RANDOM 94 mg/dL (74-106); TOT PROT 7.3 g/dl (6.4-8.2)
[2023-05-23 11:52] LABS: ALK PHOS 75 U/L (45-117)
[2023-05-23 11:53] LABS: CREATININE 1.1 mg/dL (0.55-1.3)
[2023-05-23] MEDS ORDERED: OLANZapine 10 MG TABLET PO SCH (22:00)
[2023-05-23] MEDS ORDERED: THIAMINE HCL 100 MG TABLET (FP) PO SCH (22:00)
[2023-05-23] MEDS ORDERED: MIRTAZAPINE 15 MG TABLET (FP) PO SCH (22:00)
[2023-05-23] MEDS ORDERED: ATORVASTATIN CA 40 MG TABLET (FP) PO SCH (22:00)
[2023-05-23] MEDS ORDERED: MELATONIN 5 MG TABLETS PO SCH (22:00)
[2023-05-24 09:19] VITALS: BP 130/92; PULSE 72; RESP 16; TEMP 97.5
[2023-05-24] MEDS: metoPROLOL SUCCINATE 25 MG TAB.SR.24H (FP) PO SCH (09:54)
[2023-05-24] MEDS: NIFEdipine E.R 60 MG TABLET PO SCH (09:54)
[2023-05-24] MEDS: EMTRICITABINE/TENOFOV ALAFENAM (DESCOVY) TABLET PO SCH (09:54)
[2023-05-24] MEDS: METHOCARBAMOL 500 MG TABLET PO PRN (09:54)
[2023-05-24] MEDS: DOLUTEGRAVIR SODIUM 50 MG TABLET (NON-FORMULARY) PO SCH (09:54)
[2023-05-24] MEDS: PRENATAL VITAMINS W/ FOLIC ACID TABLET (FP) PO SCH (09:54)
[2023-05-24] MEDS: BENZTROPINE MESYLATE 1 MG TABLET PO SCH (09:55)
[2023-05-24] MEDS: PANTOPRAZOLE 40 MG TABLET PO SCH (09:55)
[2023-05-24] MEDS: HYDROCHLOROTHIAZIDE 12.5 MG CAPSULE (FP) PO SCH (09:55)
[2023-05-24] MEDS: IBUPROFEN 600 MG TABLET (FP) PO PRN (09:55)
[2023-05-24] MEDS: NICOTINE 21 MG/24 HOURS TOPICAL PATCH TD SCH (09:57)
[2023-05-24] MEDS ORDERED: FAMOTIDINE 20 MG TABLET PO SCH (10:00)
== END 2023-05-24 12:05 | disposition home or self-care (01) | DRG 774 ==
LOC: YASAS 17:14 → Y6N 05-23 01:09
PROVIDERS: ADMIT Allergy & Immunology; ATTEND Surgery
PROC: HZ2ZZZZ Detoxification Services for Substance Abuse Treatment (ICD-10-PCS; principal; 2023-05-23)
DX: F10.20 Alcohol dependence, uncomplicated (principal); F14.20 Cocaine dependence, uncomplicated; F12.20 Cannabis dependence, uncomplicated; F17.210 Nicotine dependence, cigarettes, uncomplicated; F19.282 Other psychoactive substance dependence with psychoactive substance-induced sleep disorder; F25.1 Schizoaffective disorder, depressive type; B20 Human immunodeficiency virus [HIV] disease; I10 Essential (primary) hypertension; K21.9 Gastro-esophageal reflux disease without esophagitis; E78.00 Pure hypercholesterolemia, unspecified; Z86.19 Personal history of other infectious and parasitic diseases; Z88.2 Allergy status to sulfonamides; Z88.8 Allergy status to other drugs, medicaments and biological substances; Z79.899 Other long term (current) drug therapy
CPT/HCPCS: 36415; 80053; 80307; 85027; 86593; 86780; 87635; 87811

== ENCOUNTER 2023-07-07 09:47 | Inpatient (IN) | payer OTHER ==
[2023-07-07 10:06] VITALS: BMI 26.1
[2023-07-07] MEDS ORDERED: guaiFENesin 600 MG TABLET.ER (FP) PO PRN (11:22)
[2023-07-07] MEDS ORDERED: POLYETHYLENE GLYCOL (HEALTHYLAX) 3350 17 GM PACKET PO PRN (11:22)
[2023-07-07] MEDS ORDERED: LOPERAMIDE HCL 2 MG CAPSULE PO PRN (11:22)
[2023-07-07] MEDS ORDERED: IBUPROFEN 400 MG TABLET (FP) PO PRN (11:22)
[2023-07-07] MEDS ORDERED: BENZOCAINE/MENTHOL (CHLORASEPTIC ) LOZENGE MM PRN (11:22)
[2023-07-07] MEDS ORDERED: IBUPROFEN 600 MG TABLET (FP) PO PRN (11:22)
[2023-07-07] MEDS ORDERED: MAGNESIUM HYDROX 2400MG/30ML ORAL SUSPENSION 30 ML CUP PO PRN (11:22)
[2023-07-07] MEDS ORDERED: MAG HYDROX/AL HYDROX/SIMETH 30 ML UNIT-DOSE CUP PO PRN (11:22)
[2023-07-07] MEDS ORDERED: DICYCLOMINE HCL 10 MG CAPSULE PO PRN (11:22)
[2023-07-07] MEDS ORDERED: NALOXONE HCL (KLOXXADO) 8 MG SPRAY NS PRN (11:22)
[2023-07-07] MEDS ORDERED: ONDANSETRON *ODT* 4 MG TABLET SL PRN (11:22)
[2023-07-07] MEDS ORDERED: ACETAMINOPHEN 325 MG TABLET (FP) PO PRN (11:22)
[2023-07-07] MEDS ORDERED: BISMUTH SUBSALICYLATE 262 MG/15 ML BTL PO PRN (11:22)
[2023-07-07] MEDS ORDERED: NALOXONE HCL 0.4 MG/ML VIAL IM PRN (11:22)
[2023-07-07] MEDS ORDERED: chlordiazePOXIDE HCL 25 MG CAPSULE PO PRN (11:22)
[2023-07-07] MEDS ORDERED: BENZONATATE 200 MG CAPSULE PO PRN (11:22)
[2023-07-07] MEDS ORDERED: PRENATAL VITAMINS W/ FOLIC ACID TABLET (FP) PO ONE (13:23)
[2023-07-07] MEDS ORDERED: NICOTINE 14 MG/24 HOURS TOPICAL PATCH TD ONE (13:23)
[2023-07-07] MEDS: PRENATAL VITAMINS W/ FOLIC ACID TABLET (FP) PO SCH (13:26)
[2023-07-07] MEDS: NICOTINE 14 MG/24 HOURS TOPICAL PATCH TD SCH (13:26)
[2023-07-07] MEDS ORDERED: chlordiazePOXIDE HCL 25 MG CAPSULE ONE (13:32)
[2023-07-07] MEDS: hydrOXYzine PAMOATE 25 MG CAPSULE (FP) PO PRN ×2 (14:19→22:37)
[2023-07-07] MEDS: METHOCARBAMOL 500 MG TABLET PO PRN ×2 (14:22→22:37)
[2023-07-07] MEDS: chlordiazePOXIDE HCL 25 MG CAPSULE PO SCH ×2 (17:26→22:37)
[2023-07-07] MEDS ORDERED: MELATONIN 5 MG TABLETS PO SCH (22:00)
[2023-07-07] MEDS ORDERED: THIAMINE HCL 100 MG TABLET (FP) PO SCH (22:00)
[2023-07-07] MEDS: HYDROCORTISONE 2.5% TOPICAL CREAM 30 GM TUBE TP SCH (23:56)
[2023-07-08] MEDS: chlordiazePOXIDE HCL 25 MG CAPSULE PO SCH ×3 (05:53→17:34)
[2023-07-08] MEDS ORDERED: metoPROLOL SUCCINATE 25 MG TAB.SR.24H (FP) PO SCH (10:00)
[2023-07-08] MEDS ORDERED: DOLUTEGRAVIR SODIUM 50 MG TABLET (NON-FORMULARY) PO SCH (10:00)
[2023-07-08] MEDS ORDERED: EMTRICITABINE/TENOFOV ALAFENAM (DESCOVY) TABLET PO SCH (10:00)
[2023-07-08] MEDS ORDERED: HYDROCHLOROTHIAZIDE 12.5 MG CAPSULE (FP) PO SCH (10:00)
[2023-07-08] MEDS ORDERED: ATORVASTATIN CA 40 MG TABLET (FP) PO SCH (10:00)
[2023-07-08] MEDS ORDERED: NIFEdipine E.R 60 MG TABLET PO SCH (10:00)
[2023-07-08] MEDS ORDERED: FAMOTIDINE 20 MG TABLET PO SCH (10:00)
[2023-07-08] MEDS: HYDROCORTISONE 2.5% TOPICAL CREAM 30 GM TUBE TP SCH (10:18)
[2023-07-08] MEDS: PRENATAL VITAMINS W/ FOLIC ACID TABLET (FP) PO SCH (10:18)
[2023-07-08] MEDS: NICOTINE 14 MG/24 HOURS TOPICAL PATCH TD SCH (10:21)
[2023-07-08 11:43] LABS: POTASSIUM 3.9 mmol/L (3.5-5.1)
[2023-07-08 11:50] LABS: CALCIUM 9.3 mg/dL (8.5-10.1)
[2023-07-08 11:51] LABS: ALBUMIN 3.7 g/dl (3.4-5.0); BLOOD UREA NITROGEN 21.1 mg/dL (7-18)
[2023-07-08 11:54] LABS: CREATININE 1.2 mg/dL (0.55-1.3)
[2023-07-08 11:55] LABS: BILIRUBIN,TOTAL 0.8 mg/dL (0.2-1)
[2023-07-08 11:58] LABS: TOT PROT 7.8 g/dl (6.4-8.2)
[2023-07-08 11:59] LABS: HEMATOCRIT 43.5 % (35.4-49); HEMOGLOBIN 14.5 GM/dL (11.7-16.9); MCH 31.1 pg (25.7-33.7); MCHC 33.3 g/dl (32.0-35.9); MEAN CELL VOLUME 93.4 fl (80-96); MEAN PLT VOLUME 10.4 fl (7.5-11.1); PLATELET COUNT 191 10^3/uL (134-434); RBC 4.65 M/mm3 (4.00-5.60); RDW 15.3 % (11.9-15.9); WHITE BLOOD COUNT 5.2 K/mm3 (4.0-10.0)
[2023-07-08 12:59] VITALS: PULSE 90
[2023-07-08 19:21] VITALS: BP 133/94; RESP 18; TEMP 97.7
[2023-07-08] MEDS ORDERED: BENZTROPINE MESYLATE 1 MG TABLET PO SCH (22:00)
[2023-07-08] MEDS ORDERED: OLANZapine 10 MG TABLET PO SCH (22:00)
[2023-07-08] MEDS ORDERED: MIRTAZAPINE 30 MG TABLET PO SCH (22:00)
[2023-07-09] MEDS ORDERED: chlordiazePOXIDE HCL 25 MG CAPSULE PO SCH (05:00)
[2023-07-10] MEDS ORDERED: chlordiazePOXIDE HCL 10 MG CAPSULE PO PRN
[2023-07-10] MEDS ORDERED: chlordiazePOXIDE HCL 10 MG CAPSULE PO SCH (05:00)
[2023-07-11] MEDS ORDERED: chlordiazePOXIDE HCL 10 MG CAPSULE PO SCH (05:00)
[2023-07-12] MEDS ORDERED: chlordiazePOXIDE HCL 10 MG CAPSULE PO ONE (05:00)
== END 2023-07-08 17:51 | disposition left against medical advice (07) | DRG 770 ==
LOC: YASAS 09:47 → Y3N 13:09
PROVIDERS: ADMIT Allergy & Immunology; ATTEND Surgery
PROC: HZ2ZZZZ Detoxification Services for Substance Abuse Treatment (ICD-10-PCS; principal; 2023-07-07)
DX: F10.230 Alcohol dependence with withdrawal, uncomplicated (principal); F14.20 Cocaine dependence, uncomplicated; F12.20 Cannabis dependence, uncomplicated; F17.210 Nicotine dependence, cigarettes, uncomplicated; F25.1 Schizoaffective disorder, depressive type; Z21 Asymptomatic human immunodeficiency virus [HIV] infection status; E78.00 Pure hypercholesterolemia, unspecified; I10 Essential (primary) hypertension; G47.00 Insomnia, unspecified; Z87.19 Personal history of other diseases of the digestive system; Z86.19 Personal history of other infectious and parasitic diseases; Z88.2 Allergy status to sulfonamides
CPT/HCPCS: 36415; 80053; 80307; 85027; 86593; 86780; 87635; 87811

== ENCOUNTER 2023-09-12 10:29 | Inpatient (IN) | payer OTHER ==
[2023-09-12 10:53] VITALS: BMI 25.2
[2023-09-12] MEDS ORDERED: BENZONATATE 200 MG CAPSULE PO PRN (11:54)
[2023-09-12] MEDS ORDERED: chlordiazePOXIDE HCL 25 MG CAPSULE PO PRN (11:54)
[2023-09-12] MEDS ORDERED: POLYETHYLENE GLYCOL (HEALTHYLAX) 3350 17 GM PACKET PO PRN (11:54)
[2023-09-12] MEDS ORDERED: guaiFENesin 600 MG TABLET.ER (FP) PO PRN (11:54)
[2023-09-12] MEDS ORDERED: BENZOCAINE/MENTHOL (CHLORASEPTIC ) LOZENGE MM PRN (11:54)
[2023-09-12] MEDS ORDERED: DICYCLOMINE HCL 10 MG CAPSULE PO PRN (11:54)
[2023-09-12] MEDS ORDERED: NALOXONE HCL (KLOXXADO) 8 MG SPRAY NS PRN (11:54)
[2023-09-12] MEDS ORDERED: NALOXONE HCL 0.4 MG/ML VIAL IM PRN (11:54)
[2023-09-12] MEDS ORDERED: ONDANSETRON *ODT* 4 MG TABLET SL PRN (11:54)
[2023-09-12] MEDS ORDERED: NICOTINE POLACRILEX 4 MG LOZENGE BC PRN (11:54)
[2023-09-12] MEDS ORDERED: MAGNESIUM HYDROX 2400MG/30ML ORAL SUSPENSION 30 ML CUP PO PRN (11:54)
[2023-09-12] MEDS ORDERED: BISMUTH SUBSALICYLATE 524 MG/30 ML PO PRN (11:54)
[2023-09-12] MEDS ORDERED: NICOTINE 21 MG/24 HOURS TOPICAL PATCH TD PRN (11:54)
[2023-09-12] MEDS: DOLUTEGRAVIR SODIUM 50 MG TABLET (NON-FORMULARY) PO SCH (13:36)
[2023-09-12] MEDS: NIFEdipine E.R 60 MG TABLET PO SCH (13:36)
[2023-09-12] MEDS: PANTOPRAZOLE 40 MG TABLET PO SCH (13:36)
[2023-09-12] MEDS: LEVOTHYROXINE NA 25 MCG TABLET (FP) PO SCH (13:36)
[2023-09-12] MEDS: ATOVAQUONE 750 MG/5 ML (UNIT-DOSE PACKAGING) PO SCH (13:47)
[2023-09-12] MEDS: EMTRICITABINE/TENOFOV ALAFENAM (DESCOVY) TABLET PO SCH (13:47)
[2023-09-12] MEDS: ACETAMINOPHEN 325 MG TABLET (FP) PO PRN (17:26)
[2023-09-12] MEDS: chlordiazePOXIDE HCL 25 MG CAPSULE PO SCH (17:31)
[2023-09-12] MEDS: THIAMINE HCL 100 MG TABLET (FP) PO SCH (23:01)
[2023-09-12] MEDS: ATORVASTATIN CA 40 MG TABLET (FP) PO SCH (23:01)
[2023-09-12] MEDS: MELATONIN 5 MG TABLETS PO SCH (23:01)
[2023-09-13] MEDS: PRENATAL VITAMINS W/ FOLIC ACID TABLET (FP) PO SCH (10:14)
[2023-09-13 13:24] LABS: CHLORIDE 105 mmol/L (98-107); SODIUM 139 mmol/L (136-145)
[2023-09-13 13:26] LABS: CALCIUM 9.3 mg/dL (8.5-10.1)
[2023-09-13 13:27] LABS: ALBUMIN 3.3 g/dl (3.4-5.0); ANION GAP 6 mmol/L (4-13); BLOOD UREA NITROGEN 19.3 mg/dL (7-18); CO2 27 mmol/L (21-32); GLUCOSE,RANDOM 121 mg/dL (74-106)
[2023-09-13] MEDS ORDERED: BENZTROPINE MESYLATE 1 MG TABLET PO PRN (13:27)
[2023-09-13 13:30] LABS: CREATININE 1.3 mg/dL (0.55-1.3); SGOT/AST 16 U/L (15-37); SGPT/ALT 18 U/L (13-61)
[2023-09-13 13:31] LABS: TOT PROT 7.5 g/dl (6.4-8.2)
[2023-09-13 13:32] LABS: BILIRUBIN,TOTAL 0.5 mg/dL (0.2-1)
[2023-09-13 13:33] LABS: ALK PHOS 87 U/L (45-117)
[2023-09-13 13:36] LABS: HEMATOCRIT 41.4 % (35.4-49); HEMOGLOBIN 14.4 GM/dL (11.7-16.9); MCH 32.3 pg (25.7-33.7); MCHC 34.9 g/dl (32.0-35.9); MEAN CELL VOLUME 92.5 fl (80-96); MEAN PLT VOLUME 10.1 fl (7.5-11.1); PLATELET COUNT 192 10^3/uL (134-434); RBC 4.47 M/mm3 (4.00-5.60); WHITE BLOOD COUNT 4.8 K/mm3 (4.0-10.0)
[2023-09-13] MEDS: TORSEMIDE 10 MG TABLET PO SCH (13:49)
[2023-09-13] MEDS: MIRTAZAPINE 15 MG TABLET (FP) PO SCH (22:37)
[2023-09-13] MEDS: OLANZapine 10 MG TABLET PO SCH (22:37)
[2023-09-14] MEDS: chlordiazePOXIDE HCL 25 MG CAPSULE PO SCH (05:56)
[2023-09-14] MEDS: LACTULOSE 20 GM/30 ML UDC (FOR ORAL USE ONLY) PO SCH (13:49)
[2023-09-14] MEDS: MAG HYDROX/AL HYDROX/SIMETH 30 ML UNIT-DOSE CUP PO PRN (15:05)
[2023-09-14] MEDS: LOPERAMIDE HCL 2 MG CAPSULE PO PRN (17:27)
[2023-09-14] MEDS: METHOCARBAMOL 500 MG TABLET PO PRN (22:44)
[2023-09-15] MEDS ORDERED: chlordiazePOXIDE HCL 10 MG CAPSULE PO PRN
[2023-09-15] MEDS: chlordiazePOXIDE HCL 10 MG CAPSULE PO SCH (05:38)
[2023-09-15] MEDS: LEVOTHYROXINE NA 25 MCG TABLET (FP) PO SCH (06:44)
[2023-09-15 09:39] VITALS: RESP 18
[2023-09-15 21:21] VITALS: BP 110/77; PULSE 79; TEMP 97.5
[2023-09-16] MEDS ORDERED: chlordiazePOXIDE HCL 10 MG CAPSULE PO SCH (05:00)
[2023-09-17] MEDS ORDERED: chlordiazePOXIDE HCL 10 MG CAPSULE PO ONE (05:00)
== END 2023-09-15 21:58 | disposition home or self-care (01) | DRG 774 ==
LOC: YASAS 10:29 → Y6N 12:46
PROVIDERS: ADMIT Allergy & Immunology; ATTEND Allergy & Immunology
PROC: HZ2ZZZZ Detoxification Services for Substance Abuse Treatment (ICD-10-PCS; principal; 2023-09-12)
DX: F10.230 Alcohol dependence with withdrawal, uncomplicated (principal); F14.20 Cocaine dependence, uncomplicated; F12.20 Cannabis dependence, uncomplicated; F17.210 Nicotine dependence, cigarettes, uncomplicated; F19.282 Other psychoactive substance dependence with psychoactive substance-induced sleep disorder; F31.9 Bipolar disorder, unspecified; F25.1 Schizoaffective disorder, depressive type; B20 Human immunodeficiency virus [HIV] disease; E72.20 Disorder of urea cycle metabolism, unspecified; E03.9 Hypothyroidism, unspecified; Z86.19 Personal history of other infectious and parasitic diseases; Z88.2 Allergy status to sulfonamides; Z88.8 Allergy status to other drugs, medicaments and biological substances
CPT/HCPCS: 36415; 80053; 80305; 80307; 82140; 85027; 86593; 86780; 87635; 93005; 93010

== ENCOUNTER 2023-10-22 09:45 | Inpatient (IN) | payer OTHER ==
[2023-10-22 10:10] VITALS: BMI 23.8
[2023-10-22] MEDS ORDERED: MAGNESIUM HYDROX 2400MG/30ML ORAL SUSPENSION 30 ML CUP PO PRN (11:06)
[2023-10-22] MEDS ORDERED: guaiFENesin 600 MG TABLET.ER (FP) PO PRN (11:06)
[2023-10-22] MEDS ORDERED: IBUPROFEN 400 MG TABLET (FP) PO PRN (11:06)
[2023-10-22] MEDS ORDERED: BENZONATATE 200 MG CAPSULE PO PRN (11:06)
[2023-10-22] MEDS ORDERED: NALOXONE HCL 0.4 MG/ML VIAL IM PRN (11:06)
[2023-10-22] MEDS ORDERED: POLYETHYLENE GLYCOL (HEALTHYLAX) 3350 17 GM PACKET PO PRN (11:06)
[2023-10-22] MEDS ORDERED: LOPERAMIDE HCL 2 MG CAPSULE PO PRN (11:06)
[2023-10-22] MEDS ORDERED: hydrOXYzine PAMOATE 25 MG CAPSULE (FP) PO PRN (11:06)
[2023-10-22] MEDS ORDERED: BENZOCAINE/MENTHOL (CHLORASEPTIC ) LOZENGE MM PRN (11:06)
[2023-10-22] MEDS ORDERED: NALOXONE HCL (KLOXXADO) 8 MG SPRAY NS PRN (11:06)
[2023-10-22] MEDS: MELATONIN 5 MG TABLETS PO SCH (21:27)
[2023-10-22] MEDS: THIAMINE HCL 100 MG TABLET (FP) PO SCH (21:27)
[2023-10-23] MEDS: PRENATAL VITAMINS W/ FOLIC ACID TABLET (FP) PO SCH (09:55)
[2023-10-23] MEDS: NICOTINE 21 MG/24 HOURS TOPICAL PATCH TD SCH (09:55)
[2023-10-23 11:32] LABS: HEMATOCRIT 46.4 % (35.4-49); HEMOGLOBIN 15.4 GM/dL (11.7-16.9); MCH 30.8 pg (25.7-33.7); MCHC 33.1 g/dl (32.0-35.9); MEAN CELL VOLUME 93.1 fl (80-96); MEAN PLT VOLUME 10.5 fl (7.5-11.1); PLATELET COUNT 209 10^3/uL (134-434); RBC 4.99 M/mm3 (4.00-5.60); RDW 14.7 % (11.9-15.9)
[2023-10-23 11:33] LABS: POTASSIUM 3.8 mmol/L (3.5-5.1)
[2023-10-23 11:38] LABS: EPI CELLS >36 /uL (0-25.1); HYALINE CASTS 63 /uL (0-3.1); PH,URINE 5.5 (5.0-8.0); URINE APPEARANCE CLOUDY; URINE BACTERIA 44 /uL (0-1359); URINE BILIRUBIN 1+ (NEGATIVE); URINE COLOR DK YELLOW; URINE GLUCOSE (UA) NEGATIVE (NEGATIVE); URINE KETONE TRACE (NEGATIVE); URINE LEUK ESTERASE 2+ (NEGATIVE); URINE NITRITE NEGATIVE (NEGATIVE); URINE PROTEIN 2+ (NEGATIVE); URINE RBC 25 /uL (0-23.9); URINE WBC 378 /uL (0-25.8)
[2023-10-23 11:45] LABS: CALCIUM 9.6 mg/dL (8.5-10.1)
[2023-10-23 11:46] LABS: ALBUMIN 3.8 g/dl (3.4-5.0); BLOOD UREA NITROGEN 17.8 mg/dL (7-18)
[2023-10-23] MEDS: IBUPROFEN 600 MG TABLET (FP) PO PRN (11:47)
[2023-10-23 11:49] LABS: CREATININE 2.1 mg/dL (0.55-1.3)
[2023-10-23 11:50] LABS: TOT PROT 8.7 g/dl (6.4-8.2)
[2023-10-23 11:51] LABS: BILIRUBIN,TOTAL 0.6 mg/dL (0.2-1)
[2023-10-23 12:29] LABS: SYPHILIS W/ RPR CONF REACTIVE (NONREACTIVE)
[2023-10-23] MEDS: MAG HYDROX/AL HYDROX/SIMETH 30 ML UNIT-DOSE CUP PO PRN (16:46)
[2023-10-23] MEDS: ACETAMINOPHEN 325 MG TABLET (FP) PO PRN (18:11)
[2023-10-23] MEDS: OLANZapine 10 MG TABLET PO SCH (21:27)
[2023-10-23] MEDS: BENZTROPINE MESYLATE 1 MG TABLET PO SCH (21:27)
[2023-10-23] MEDS: MIRTAZAPINE 15 MG TABLET (FP) PO SCH (21:28)
[2023-10-24] MEDS: ATORVASTATIN CA 20 MG TABLET (FP) PO SCH (10:21)
[2023-10-24] MEDS: NIFEdipine E.R 60 MG TABLET PO SCH (14:16)
[2023-10-24] MEDS: PANTOPRAZOLE 40 MG TABLET PO SCH (14:16)
[2023-10-24] MEDS: metoPROLOL SUCCINATE 25 MG TAB.SR.24H (FP) PO SCH (14:16)
[2023-10-24] MEDS: LEVOTHYROXINE NA 25 MCG TABLET (FP) PO SCH (14:16)
[2023-10-24] MEDS: ATOVAQUONE 750 MG/5 ML (UNIT-DOSE PACKAGING) PO SCH (14:23)
[2023-10-24] MEDS: DOLUTEGRAVIR SODIUM 50 MG TABLET (NON-FORMULARY) PO SCH (14:23)
[2023-10-24] MEDS: TORSEMIDE 10 MG TABLET PO SCH (14:23)
[2023-10-24] MEDS: EMTRICITABINE/TENOFOV ALAFENAM (DESCOVY) TABLET PO SCH (14:23)
[2023-10-26] MEDS: NICOTINE POLACRILEX 2 MG LOZENGE BC PRN (16:35)
[2023-10-27 06:44] VITALS: TEMP 97.3
[2023-10-27 16:20] VITALS: BP 123/61; PULSE 78; RESP 16
== END 2023-10-27 16:30 | disposition home or self-care (01) | DRG 772 ==
LOC: YASAS 09:45 → Y3W 12:07
PROVIDERS: ADMIT Allergy & Immunology; ATTEND Psychiatry & Neurology Pain Medicine
PROC: HZ42ZZZ Group Counseling for Substance Abuse Treatment, Cognitive-Behavioral (ICD-10-PCS; principal; 2023-10-22)
DX: F10.20 Alcohol dependence, uncomplicated (principal); F14.20 Cocaine dependence, uncomplicated; F12.20 Cannabis dependence, uncomplicated; F17.210 Nicotine dependence, cigarettes, uncomplicated; F31.9 Bipolar disorder, unspecified; B20 Human immunodeficiency virus [HIV] disease; I10 Essential (primary) hypertension; E78.5 Hyperlipidemia, unspecified; K21.9 Gastro-esophageal reflux disease without esophagitis; E03.9 Hypothyroidism, unspecified; M17.0 Bilateral primary osteoarthritis of knee; Z79.899 Other long term (current) drug therapy; Z86.19 Personal history of other infectious and parasitic diseases; Z88.2 Allergy status to sulfonamides; Z88.8 Allergy status to other drugs, medicaments and biological substances
CPT/HCPCS: 36415; 80053; 80305; 80307; 81003; 82962; 85027; 86593; 86780; 86803; 87811

== ENCOUNTER 2024-03-23 14:53 | Emergency (ER) | payer OTHER ==
[2024-03-23 15:08] VITALS: BP 112/89; PULSE 104; RESP 16; TEMP 98.7; BMI 19.7
== END 2024-03-23 16:38 | disposition home or self-care (01) ==
LOC: JER 14:53
DX: Z45.2 Encounter for adjustment and management of vascular access device (principal)
CPT/HCPCS: 99282-25

== ENCOUNTER 2024-03-23 17:01 | Inpatient (IN) | payer OTHER ==
[2024-03-23 12:14] VITALS: BMI 19.7
[2024-03-23] MEDS ORDERED: guaiFENesin 600 MG TABLET.ER (FP) PO PRN (17:24)
[2024-03-23] MEDS ORDERED: BENZOCAINE/MENTHOL (CHLORASEPTIC ) LOZENGE MM PRN (17:24)
[2024-03-23] MEDS ORDERED: BENZONATATE 200 MG CAPSULE PO PRN (17:24)
[2024-03-23] MEDS ORDERED: NICOTINE POLACRILEX 2 MG LOZENGE BC PRN (17:24)
[2024-03-23] MEDS ORDERED: POLYETHYLENE GLYCOL (HEALTHYLAX) 3350 17 GM PACKET PO PRN (17:24)
[2024-03-23] MEDS ORDERED: NICOTINE POLACRILEX 2 MG GUM BUC PRN (17:24)
[2024-03-23] MEDS: MELATONIN 5 MG TABLETS PO SCH (21:57)
[2024-03-23] MEDS: ATORVASTATIN CA 40 MG TABLET (FP) PO SCH (22:51)
[2024-03-23] MEDS: THIAMINE 100 MG TABLET PO SCH (22:51)
[2024-03-23] MEDS: LOPERAMIDE HCL 2 MG CAPSULE PO PRN (23:41)
[2024-03-24] MEDS: LEVOTHYROXINE NA 25 MCG TABLET (FP) PO SCH (06:14)
[2024-03-24] MEDS: ATOVAQUONE 750 MG/5 ML (UNIT-DOSE PACKAGING) PO SCH (07:09)
[2024-03-24] MEDS: EMTRICITABINE/TENOFOV ALAFENAM (DESCOVY) TABLET PO SCH (07:10)
[2024-03-24] MEDS: DOLUTEGRAVIR SODIUM 50 MG TABLET (NON-FORMULARY) PO SCH (07:10)
[2024-03-24 09:24] LABS: HEMATOCRIT 30.4 % (35.4-49); HEMOGLOBIN 10.3 GM/dL (11.7-16.9); MCH 31.5 pg (25.7-33.7); MCHC 33.7 g/dl (32.0-35.9); MEAN CELL VOLUME 93.5 fl (80-96); MEAN PLT VOLUME 8.5 fl (7.5-11.1); PLATELET COUNT 209 10^3/uL (134-434); RBC 3.25 M/mm3 (4.00-5.60); RDW 17.1 % (11.9-15.9); WHITE BLOOD COUNT 2.4 K/mm3 (4.0-10.0)
[2024-03-24 09:27] LABS: CHLORIDE 105 mmol/L (98-107); POTASSIUM 3.3 mmol/L (3.5-5.1); SODIUM 141 mmol/L (136-145)
[2024-03-24 09:29] LABS: ALBUMIN 2.8 g/dl (3.4-5.0); ANION GAP 7 mmol/L (4-13); BLOOD UREA NITROGEN 20.2 mg/dL (7-18); CALCIUM 9.2 mg/dL (8.5-10.1); CO2 28 mmol/L (21-32); GLUCOSE,RANDOM 113 mg/dL (74-106)
[2024-03-24 09:32] LABS: CREATININE 1.1 mg/dL (0.55-1.3); SGOT/AST 30 U/L (15-37); SGPT/ALT 24 U/L (13-61)
[2024-03-24 09:34] LABS: BILIRUBIN,TOTAL 0.4 mg/dL (0.2-1); TOT PROT 7.1 g/dl (6.4-8.2)
[2024-03-24 09:35] LABS: ALK PHOS 81 U/L (45-117)
[2024-03-24] MEDS: PRENATAL VITAMINS W/ FOLIC ACID TABLET (FP) PO SCH (10:11)
[2024-03-24] MEDS: FOLIC ACID 1 MG TABLET (FP) PO SCH (10:11)
[2024-03-24] MEDS: PANTOPRAZOLE 40 MG TABLET PO SCH (10:11)
[2024-03-24] MEDS: IBUPROFEN 600 MG TABLET (FP) PO PRN (10:11)
[2024-03-24] MEDS: BENZTROPINE MESYLATE 1 MG TABLET PO SCH (10:39)
[2024-03-24] MEDS: ACETAMINOPHEN 325 MG TABLET (FP) PO PRN (21:15)
[2024-03-24] MEDS: MIRTAZAPINE 30 MG TABLET PO SCH (21:16)
[2024-03-24] MEDS: OLANZapine 10 MG TABLET PO SCH (21:16)
[2024-03-25 12:45] LABS: URINE APPEARANCE CLEAR; URINE BILIRUBIN NEGATIVE (NEGATIVE); URINE COLOR YELLOW; URINE GLUCOSE (UA) NEGATIVE (NEGATIVE); URINE KETONE NEGATIVE (NEGATIVE); URINE LEUK ESTERASE NEGATIVE (NEGATIVE); URINE NITRITE NEGATIVE (NEGATIVE); URINE PROTEIN TRACE (NEGATIVE)
[2024-03-27] MEDS: IBUPROFEN 400 MG TABLET (FP) PO PRN (09:58)
[2024-03-27] MEDS: MAG HYDROX/AL HYDROX/SIMETH 30 ML UNIT-DOSE CUP PO PRN (19:25)
[2024-03-28] MEDS: MAGNESIUM HYDROX 2400MG/30ML ORAL SUSPENSION 30 ML CUP PO PRN (16:52)
[2024-03-28] MEDS: NIFEdipine E.R 60 MG TABLET PO SCH (16:59)
[2024-04-07 06:54] VITALS: TEMP 98
[2024-04-07 09:18] VITALS: BP 115/78; PULSE 90; RESP 18
== END 2024-04-07 09:57 | disposition home or self-care (01) | DRG 772 ==
LOC: YASAS 17:01 → Y3NR 17:53 → Y3W 03-24 18:06
PROVIDERS: ADMIT Psychiatry & Neurology Pain Medicine; ATTEND Psychiatry & Neurology Pain Medicine
PROC: HZ42ZZZ Group Counseling for Substance Abuse Treatment, Cognitive-Behavioral (ICD-10-PCS; principal; 2024-03-23)
DX: F14.20 Cocaine dependence, uncomplicated (principal); F10.20 Alcohol dependence, uncomplicated; F12.20 Cannabis dependence, uncomplicated; F17.210 Nicotine dependence, cigarettes, uncomplicated; F31.9 Bipolar disorder, unspecified; B20 Human immunodeficiency virus [HIV] disease; E78.5 Hyperlipidemia, unspecified; I10 Essential (primary) hypertension; K21.9 Gastro-esophageal reflux disease without esophagitis; E03.9 Hypothyroidism, unspecified; M17.0 Bilateral primary osteoarthritis of knee; F19.282 Other psychoactive substance dependence with psychoactive substance-induced sleep disorder; E78.00 Pure hypercholesterolemia, unspecified; Z85.048 Personal history of other malignant neoplasm of rectum, rectosigmoid junction, and anus; Z88.2 Allergy status to sulfonamides; Z88.8 Allergy status to other drugs, medicaments and biological substances
CPT/HCPCS: 36415; 80053; 80305; 80307; 81003; 85027; 86780; 87811

== ENCOUNTER 2024-05-16 12:18 | Inpatient (IN) | payer OTHER ==
[2024-05-16 12:46] VITALS: BMI 22.8
[2024-05-16] MEDS ORDERED: BENZONATATE 200 MG CAPSULE PO PRN (14:19)
[2024-05-16] MEDS ORDERED: BENZOCAINE/MENTHOL (CHLORASEPTIC ) LOZENGE MM PRN (14:19)
[2024-05-16] MEDS ORDERED: ONDANSETRON *ODT* 4 MG TABLET SL PRN (14:19)
[2024-05-16] MEDS ORDERED: DICYCLOMINE HCL 10 MG CAPSULE PO PRN (14:19)
[2024-05-16] MEDS ORDERED: NICOTINE POLACRILEX 4 MG LOZENGE BC PRN (14:19)
[2024-05-16] MEDS ORDERED: NALOXONE (NARCAN) HCL 4 MG/0.1 ML SPRAY NS PRN (14:19)
[2024-05-16] MEDS ORDERED: chlordiazePOXIDE HCL 25 MG CAPSULE PO PRN (14:19)
[2024-05-16] MEDS ORDERED: NALOXONE (NYS OPIOID OVERDOSE PROGRAM) 4 MG/0.1 ML SPRAY NS PRN (14:19)
[2024-05-16] MEDS ORDERED: IBUPROFEN 600 MG TABLET (FP) PO PRN (14:19)
[2024-05-16] MEDS ORDERED: BISMUTH SUBSALICYLATE 524 MG/30 ML PO PRN (14:19)
[2024-05-16] MEDS ORDERED: POLYETHYLENE GLYCOL (HEALTHYLAX) 3350 17 GM PACKET PO PRN (14:19)
[2024-05-16] MEDS ORDERED: IBUPROFEN 400 MG TABLET (FP) PO PRN (14:19)
[2024-05-16] MEDS ORDERED: NICOTINE POLACRILEX 4 MG GUM BUC PRN (14:19)
[2024-05-16] MEDS ORDERED: LOPERAMIDE HCL 2 MG CAPSULE PO PRN (14:19)
[2024-05-16] MEDS ORDERED: ACETAMINOPHEN 325 MG TABLET (FP) PO PRN (14:19)
[2024-05-16] MEDS ORDERED: MAGNESIUM HYDROX 2400MG/30ML ORAL SUSPENSION 30 ML CUP PO PRN (14:19)
[2024-05-16] MEDS: NICOTINE 14 MG/24 HOURS TOPICAL PATCH TD SCH (17:12)
[2024-05-16] MEDS: METHOCARBAMOL 500 MG TABLET PO PRN (20:28)
[2024-05-16] MEDS: hydrOXYzine PAMOATE 25 MG CAPSULE (FP) PO PRN (20:28)
[2024-05-16] MEDS: MELATONIN 5 MG TABLETS PO SCH (22:07)
[2024-05-16] MEDS: guaiFENesin 600 MG TABLET.ER (FP) PO PRN (22:07)
[2024-05-16] MEDS: THIAMINE 100 MG TABLET PO SCH (22:07)
[2024-05-16] MEDS: chlordiazePOXIDE HCL 25 MG CAPSULE PO SCH (22:09)
[2024-05-17] MEDS: LEVOTHYROXINE NA 25 MCG TABLET (FP) PO SCH (07:09)
[2024-05-17] MEDS: PRENATAL VITAMINS W/ FOLIC ACID TABLET (FP) PO SCH (10:26)
[2024-05-17] MEDS: PANTOPRAZOLE 40 MG TABLET PO SCH (10:26)
[2024-05-17] MEDS: DOLUTEGRAVIR SODIUM 50 MG TABLET (NON-FORMULARY) PO SCH (10:26)
[2024-05-17] MEDS: NIFEdipine E.R 60 MG TABLET PO SCH (10:26)
[2024-05-17] MEDS: TORSEMIDE 10 MG TABLET PO SCH (10:26)
[2024-05-17] MEDS: BENZTROPINE MESYLATE 1 MG TABLET PO SCH (10:27)
[2024-05-17 10:30] LABS: POTASSIUM 3.5 mmol/L (3.5-5.1)
[2024-05-17 10:33] LABS: CALCIUM 9.6 mg/dL (8.5-10.1)
[2024-05-17 10:34] LABS: ALBUMIN 3.9 g/dl (3.4-5.0); BLOOD UREA NITROGEN 26.4 mg/dL (7-18)
[2024-05-17 10:37] LABS: BILIRUBIN,TOTAL 0.4 mg/dL (0.2-1); CREATININE 1.6 mg/dL (0.55-1.3); HEMATOCRIT 40.9 % (35.4-49); HEMOGLOBIN 13.8 GM/dL (11.7-16.9); MCH 32.6 pg (25.7-33.7); MCHC 33.7 g/dl (32.0-35.9); MEAN CELL VOLUME 96.8 fl (80-96); MEAN PLT VOLUME 9.7 fl (7.5-11.1); PLATELET COUNT 234 10^3/uL (134-434); RBC 4.23 M/mm3 (4.00-5.60); RDW 14.8 % (11.9-15.9); TOT PROT 8.3 g/dl (6.4-8.2); WHITE BLOOD COUNT 3.7 K/mm3 (4.0-10.0)
[2024-05-17] MEDS: EMTRICITABINE/TENOFOV ALAFENAM (DESCOVY) TABLET PO SCH (12:00)
[2024-05-17] MEDS: ATOVAQUONE 750 MG/5 ML (UNIT-DOSE PACKAGING) PO SCH (12:00)
[2024-05-17] MEDS: OLANZapine 10 MG TABLET PO SCH (22:22)
[2024-05-17] MEDS: MIRTAZAPINE 15 MG TABLET (FP) PO SCH (22:22)
[2024-05-17] MEDS: ATORVASTATIN CA 40 MG TABLET (FP) PO SCH (22:22)
[2024-05-18] MEDS: chlordiazePOXIDE HCL 25 MG CAPSULE PO SCH (06:18)
[2024-05-19] MEDS ORDERED: chlordiazePOXIDE HCL 10 MG CAPSULE PO PRN
[2024-05-19] MEDS: chlordiazePOXIDE HCL 10 MG CAPSULE PO SCH (05:50)
[2024-05-20] MEDS: chlordiazePOXIDE HCL 10 MG CAPSULE PO SCH (05:45)
[2024-05-20] MEDS: MAG HYDROX/AL HYDROX/SIMETH 30 ML UNIT-DOSE CUP PO PRN (23:28)
[2024-05-21 00:19] VITALS: RESP 16
[2024-05-21] MEDS: chlordiazePOXIDE HCL 10 MG CAPSULE PO ONE (06:00)
[2024-05-21 09:30] VITALS: BP 118/75; PULSE 75; TEMP 98.2
== END 2024-05-21 10:17 | disposition home or self-care (01) | DRG 774 ==
LOC: YASAS 12:18 → Y3N 17:24
PROVIDERS: ADMIT Allergy & Immunology; ATTEND Surgery
PROC: HZ2ZZZZ Detoxification Services for Substance Abuse Treatment (ICD-10-PCS; principal; 2024-05-16)
DX: F10.230 Alcohol dependence with withdrawal, uncomplicated (principal); F14.20 Cocaine dependence, uncomplicated; F12.20 Cannabis dependence, uncomplicated; F17.210 Nicotine dependence, cigarettes, uncomplicated; F31.9 Bipolar disorder, unspecified; B20 Human immunodeficiency virus [HIV] disease; E78.5 Hyperlipidemia, unspecified; I10 Essential (primary) hypertension; K21.9 Gastro-esophageal reflux disease without esophagitis; E03.9 Hypothyroidism, unspecified; M17.0 Bilateral primary osteoarthritis of knee; A63.0 Anogenital (venereal) warts; Z87.11 Personal history of peptic ulcer disease; Z86.69 Personal history of other diseases of the nervous system and sense organs; Z88.2 Allergy status to sulfonamides; Z88.8 Allergy status to other drugs, medicaments and biological substances
CPT/HCPCS: 36415; 80053; 80305; 80307; 85027; 86593; 86780; 93005; 93010

== ENCOUNTER 2024-07-22 08:49 | Inpatient (IN) | payer OTHER ==
[2024-07-22 09:24] VITALS: BMI 23.2
[2024-07-22] MEDS ORDERED: BENZONATATE 200 MG CAPSULE PO PRN (10:33)
[2024-07-22] MEDS ORDERED: LOPERAMIDE HCL 2 MG CAPSULE PO PRN (10:33)
[2024-07-22] MEDS ORDERED: NALOXONE (NARCAN) HCL 4 MG/0.1 ML SPRAY NS PRN (10:33)
[2024-07-22] MEDS ORDERED: ACETAMINOPHEN 325 MG TABLET (FP) PO PRN (10:33)
[2024-07-22] MEDS ORDERED: IBUPROFEN 400 MG TABLET (FP) PO PRN (10:33)
[2024-07-22] MEDS ORDERED: DICYCLOMINE HCL 10 MG CAPSULE PO PRN (10:33)
[2024-07-22] MEDS ORDERED: BENZOCAINE/MENTHOL (CHLORASEPTIC ) LOZENGE MM PRN (10:33)
[2024-07-22] MEDS ORDERED: guaiFENesin 600 MG TABLET.ER (FP) PO PRN (10:33)
[2024-07-22] MEDS ORDERED: hydrOXYzine PAMOATE 25 MG CAPSULE (FP) PO PRN (10:33)
[2024-07-22] MEDS ORDERED: ONDANSETRON *ODT* 4 MG TABLET SL PRN (10:33)
[2024-07-22] MEDS ORDERED: POLYETHYLENE GLYCOL (HEALTHYLAX) 3350 17 GM PACKET PO PRN (10:33)
[2024-07-22] MEDS ORDERED: MAGNESIUM HYDROX 2400MG/30ML ORAL SUSPENSION 30 ML CUP PO PRN (10:33)
[2024-07-22] MEDS ORDERED: NICOTINE POLACRILEX 2 MG GUM BUC PRN (10:33)
[2024-07-22] MEDS ORDERED: BISMUTH SUBSALICYLATE 524 MG/30 ML PO PRN (10:33)
[2024-07-22] MEDS ORDERED: MAG HYDROX/AL HYDROX/SIMETH 30 ML UNIT-DOSE CUP PO PRN (10:33)
[2024-07-22] MEDS: IBUPROFEN 600 MG TABLET (FP) PO PRN (12:00)
[2024-07-22] MEDS ORDERED: MELATONIN 5 MG TABLETS PO SCH (22:00)
[2024-07-22] MEDS: THIAMINE 100 MG TABLET PO SCH (22:52)
[2024-07-22] MEDS: MIRTAZAPINE 15 MG TABLET (FP) PO SCH (22:52)
[2024-07-22] MEDS: OLANZapine 10 MG TABLET PO SCH (22:53)
[2024-07-22] MEDS: METHOCARBAMOL 500 MG TABLET PO PRN (22:54)
[2024-07-23 09:12] LABS: POTASSIUM 3.4 mmol/L (3.5-5.1)
[2024-07-23 09:17] LABS: ALBUMIN 3.1 g/dl (3.4-5.0); BLOOD UREA NITROGEN 29.8 mg/dL (7-18)
[2024-07-23 09:20] LABS: CREATININE 1.3 mg/dL (0.55-1.3)
[2024-07-23 09:22] LABS: BILIRUBIN,TOTAL 0.3 mg/dL (0.2-1); TOT PROT 6.8 g/dl (6.4-8.2)
[2024-07-23 09:45] LABS: HEMOGLOBIN 11.9 GM/dL (11.7-16.9); MCH 32.3 pg (25.7-33.7); MCHC 34.2 g/dl (32.0-35.9); MEAN CELL VOLUME 94.4 fl (80-96); MEAN PLT VOLUME 9.3 fl (7.5-11.1); PLATELET COUNT 158 10^3/uL (134-434); RDW 13.3 % (11.9-15.9)
[2024-07-23] MEDS: PRENATAL VITAMINS W/ FOLIC ACID TABLET (FP) PO SCH (10:38)
[2024-07-23] MEDS: NICOTINE 14 MG/24 HOURS TOPICAL PATCH TD SCH (10:39)
[2024-07-23] MEDS: POTASSIUM CHLORIDE ORAL LIQUID 20 MEQ/15 ML PO ONE (13:01)
[2024-07-24 06:31] VITALS: RESP 16
[2024-07-24 08:46] LABS: POTASSIUM 3.4 mmol/L (3.5-5.1)
[2024-07-24 08:48] LABS: BLOOD UREA NITROGEN 22.2 mg/dL (7-18); CALCIUM 8.8 mg/dL (8.5-10.1)
[2024-07-24 08:51] LABS: CREATININE 1.2 mg/dL (0.55-1.3)
[2024-07-24 12:32] VITALS: BP 137/85; PULSE 96; TEMP 97.7
[2024-07-24] MEDS: NALOXONE (NYS OPIOID OVERDOSE PROGRAM) 4 MG/0.1 ML SPRAY NS SCH (12:36)
== END 2024-07-24 12:44 | disposition home or self-care (01) | DRG 774 ==
LOC: YASAS 08:49 → Y6N 10:44
PROVIDERS: ADMIT Allergy & Immunology; ATTEND Surgery
PROC: HZ2ZZZZ Detoxification Services for Substance Abuse Treatment (ICD-10-PCS; principal; 2024-07-22)
DX: F10.20 Alcohol dependence, uncomplicated (principal); F14.20 Cocaine dependence, uncomplicated; F17.210 Nicotine dependence, cigarettes, uncomplicated; F19.282 Other psychoactive substance dependence with psychoactive substance-induced sleep disorder; F25.1 Schizoaffective disorder, depressive type; B20 Human immunodeficiency virus [HIV] disease; E03.9 Hypothyroidism, unspecified; E78.00 Pure hypercholesterolemia, unspecified; I10 Essential (primary) hypertension; M17.0 Bilateral primary osteoarthritis of knee; Z20.2 Contact with and (suspected) exposure to infections with a predominantly sexual mode of transmission; Z86.19 Personal history of other infectious and parasitic diseases; Z85.048 Personal history of other malignant neoplasm of rectum, rectosigmoid junction, and anus; Z88.2 Allergy status to sulfonamides; Z88.8 Allergy status to other drugs, medicaments and biological substances; Z79.899 Other long term (current) drug therapy
CPT/HCPCS: 36415; 80048; 80053; 80305; 80307; 85027; 86593; 86780; 93005; 93010

== ENCOUNTER 2024-11-02 10:31 | Inpatient (IN) | payer OTHER ==
[2024-11-02 11:12] VITALS: BMI 23.8
[2024-11-02] MEDS ORDERED: guaiFENesin 600 MG TABLET.ER (FP) PO PRN (11:17)
[2024-11-02] MEDS ORDERED: MAG HYDROX/AL HYDROX/SIMETH 30 ML UNIT-DOSE CUP PO PRN (11:17)
[2024-11-02] MEDS ORDERED: BISMUTH SUBSALICYLATE 262 MG/15 ML BTL PO PRN (11:17)
[2024-11-02] MEDS ORDERED: IBUPROFEN 400 MG TABLET (FP) PO PRN (11:17)
[2024-11-02] MEDS ORDERED: NICOTINE POLACRILEX 2 MG GUM BUC PRN (11:17)
[2024-11-02] MEDS ORDERED: POLYETHYLENE GLYCOL (HEALTHYLAX) 3350 17 GM PACKET PO PRN (11:17)
[2024-11-02] MEDS ORDERED: BENZOCAINE/MENTHOL (CHLORASEPTIC ) LOZENGE MM PRN (11:17)
[2024-11-02] MEDS ORDERED: DICYCLOMINE HCL 10 MG CAPSULE PO PRN (11:17)
[2024-11-02] MEDS ORDERED: MAGNESIUM HYDROX 2400MG/30ML ORAL SUSPENSION 30 ML CUP PO PRN (11:17)
[2024-11-02] MEDS ORDERED: ONDANSETRON *ODT* 4 MG TABLET SL PRN (11:17)
[2024-11-02] MEDS ORDERED: LOPERAMIDE HCL 2 MG CAPSULE PO PRN (11:17)
[2024-11-02] MEDS ORDERED: chlordiazePOXIDE HCL 25 MG CAPSULE PO PRN (11:17)
[2024-11-02] MEDS ORDERED: NALOXONE (NARCAN) HCL 4 MG/0.1 ML SPRAY NS PRN (11:17)
[2024-11-02] MEDS ORDERED: BENZONATATE 200 MG CAPSULE PO PRN (11:17)
[2024-11-02] MEDS ORDERED: ALBUTEROL SO4 HFA INHALER IH PRN (11:19)
[2024-11-02] MEDS ORDERED: NICOTINE 14 MG/24 HOURS TOPICAL PATCH TD ONE (13:15)
[2024-11-02] MEDS: NICOTINE 14 MG/24 HOURS TOPICAL PATCH TD SCH (13:16)
[2024-11-02] MEDS: IBUPROFEN 600 MG TABLET (FP) PO PRN (14:28)
[2024-11-02] MEDS: chlordiazePOXIDE HCL 25 MG CAPSULE PO SCH (17:44)
[2024-11-02] MEDS: ACETAMINOPHEN 325 MG TABLET (FP) PO PRN (20:14)
[2024-11-02] MEDS: MELATONIN 5 MG TABLETS PO SCH (22:50)
[2024-11-02] MEDS: OLANZapine 10 MG TABLET PO ONE (22:51)
[2024-11-02] MEDS: THIAMINE 100 MG TABLET PO SCH (22:51)
[2024-11-02] MEDS: ATORVASTATIN CA 40 MG TABLET (FP) PO SCH (22:52)
[2024-11-02] MEDS: MIRTAZAPINE 15 MG TABLET (FP) PO SCH (22:53)
[2024-11-03] MEDS: LEVOTHYROXINE NA 25 MCG TABLET (FP) PO SCH (06:03)
[2024-11-03] MEDS: ATOVAQUONE 750 MG/5 ML (UNIT-DOSE PACKAGING) PO SCH (07:24)
[2024-11-03] MEDS: PANTOPRAZOLE 40 MG TABLET PO SCH (10:12)
[2024-11-03] MEDS: DOLUTEGRAVIR SODIUM 50 MG TABLET (NON-FORMULARY) PO SCH (10:12)
[2024-11-03] MEDS: PRENATAL VITAMINS W/ FOLIC ACID TABLET (FP) PO SCH (10:16)
[2024-11-03 11:16] LABS: HEMOGLOBIN 12.8 g/dL (13.7-17.5); MEAN CELL VOLUME 98.5 fl (79.0-92.2); MEAN PLT VOLUME 12.2 fl (9.4-12.4); PLATELET COUNT 244 x10^3/uL (163-337); RDW 14.1 % (12.2-16.1)
[2024-11-03] MEDS: EMTRICITABINE/TENOFOV ALAFENAM (DESCOVY) TABLET PO SCH (11:19)
[2024-11-03 11:27] LABS: POTASSIUM 3.9 mmol/L (3.5-5.1)
[2024-11-03 11:29] LABS: CALCIUM 9.8 mg/dL (8.5-10.1)
[2024-11-03 11:30] LABS: ALBUMIN 3.8 g/dl (3.4-5.0); BLOOD UREA NITROGEN 22.6 mg/dL (7-18)
[2024-11-03 11:33] LABS: CREATININE 1.6 mg/dL (0.55-1.3)
[2024-11-03 11:34] LABS: BILIRUBIN,TOTAL 0.4 mg/dL (0.2-1)
[2024-11-03 11:35] LABS: TOT PROT 8.6 g/dl (6.4-8.2)
[2024-11-03] MEDS ORDERED: BENZTROPINE MESYLATE 1 MG TABLET PO SCH (22:00)
[2024-11-03] MEDS: OLANZapine 10 MG TABLET PO SCH (22:37)
[2024-11-03] MEDS: BENZTROPINE MESYLATE 1 MG TABLET PO SCH (22:37)
[2024-11-04] MEDS: chlordiazePOXIDE HCL 25 MG CAPSULE PO SCH (05:48)
[2024-11-05] MEDS ORDERED: chlordiazePOXIDE HCL 10 MG CAPSULE PO PRN
[2024-11-05] MEDS: chlordiazePOXIDE HCL 10 MG CAPSULE PO SCH (06:00)
[2024-11-05] MEDS: hydrOXYzine PAMOATE 25 MG CAPSULE (FP) PO PRN (20:09)
[2024-11-05] MEDS: METHOCARBAMOL 500 MG TABLET PO PRN (20:09)
[2024-11-06] MEDS: chlordiazePOXIDE HCL 10 MG CAPSULE PO SCH (06:00)
[2024-11-06] MEDS: ASPIRIN COATED 81 MG TABLET.EC PO ONE (21:25)
[2024-11-06] MEDS: ACAMPROSATE CALCIUM 333 MG TABLET.DR PO SCH (21:26)
[2024-11-06] MEDS: amLODIPine BESYLATE 5 MG TABLET (FP) PO ONE (21:26)
[2024-11-06 21:33] VITALS: RESP 16
[2024-11-07] MEDS: chlordiazePOXIDE HCL 10 MG CAPSULE PO ONE (05:44)
[2024-11-07 09:33] VITALS: BP 121/76; PULSE 81; TEMP 97.5
== END 2024-11-07 10:25 | disposition home or self-care (01) | DRG 775 ==
LOC: YASAS 10:31 → Y6N 12:03
PROVIDERS: ADMIT Allergy & Immunology; ATTEND Allergy & Immunology
PROC: HZ2ZZZZ Detoxification Services for Substance Abuse Treatment (ICD-10-PCS; principal; 2024-11-02)
DX: F10.230 Alcohol dependence with withdrawal, uncomplicated (principal); F12.20 Cannabis dependence, uncomplicated; F17.210 Nicotine dependence, cigarettes, uncomplicated; F25.1 Schizoaffective disorder, depressive type; Z21 Asymptomatic human immunodeficiency virus [HIV] infection status; E03.9 Hypothyroidism, unspecified; E78.5 Hyperlipidemia, unspecified; I10 Essential (primary) hypertension; K21.9 Gastro-esophageal reflux disease without esophagitis; R03.0 Elevated blood-pressure reading, without diagnosis of hypertension; Z86.19 Personal history of other infectious and parasitic diseases
CPT/HCPCS: 36415; 80053; 80305; 80307; 85027; 86593; 86780; 93005; 93010